=== PATIENT | female | born 1940 | race Caucasian/White ===

== ENCOUNTER → 2017-07-02 17:58 | Outpatient (CLI) | payer MEDICARE, SELFPAY ==
--- NOTE | 2017-07-02 13:00 | LES_PTH ---
PATIENT: CORY CUELLO LOC: [facility] U#:[id number] AGE/SX: 84/F ROOM: RE07/02/[address]: Dr. Patrick Hawkins MD : 1940 BED: DIS: SPEC #: [id number] RECD: 07/02/17 17:24 STATUS: DAVIDE WAGNER #: [id number] ROSIO: 07/02/17 13:[address]: Patrick Hawkins DEPT: SURGICAL PATHOLOGY RECD BY: Larisa Sanchez ENTERED: 07/03/17 10:50 SP TYPE: Lesion OTHR DR: Dr. Sunil Adamson MD Tissues: Skin of head, NOS Procedures: Surgery Specimen Level IV HEADER OPERATION: Excision skin lesion, right latter day PRE-OP DIAGNOSIS: Right latter day lesion TISSUE SUBMITTED: Right latter day lesion, suture woods inferior aspect MICROSCOPIC DIAGNOSIS Right latter day lesion, excisional biopsy: Basal cell carcinoma, completely excised in the planes of sections examined. SJ:macie 07/04/17 MICROSCOPIC DESCRIPTION Slides are reviewed. GROSS DESCRIPTION Received in fixative is one container labeled with the patient's name and designated right latter day. Requisition mentions a suture woods inferior aspect. The specimen consists of a piece of posey-white skin ellipse measuring 3 x 1.2 cm and up to 0.3 cm in thickness. The inferior tip with suture is assigned as the 6 o?clock positon. The superior tip 12 o?clock position is inked yellow and inferior tip 6 o?clock position - green, 3 o?clock margin ? black and 9 o?clock margin ? blue. The specimen is serially sectioned and submitted entirely in three cassettes: Cassette 1 contains the inferior and superior tip, 2 & 3 ? rest of the specimen. / JOSEPH:macie 07/03/17 TC:0 CPT: 50504
== END ==
PROVIDERS: Family Provider Family Medicine; PCP Family Medicine; Visit Provider Surgery
DX: L98.8 Other specified disorders of the skin and subcutaneous tissue (principal)
CPT/HCPCS: 88305

== ENCOUNTER → 2017-07-03 09:36 | Outpatient (CLI) | payer MEDICARE, SELFPAY ==
[2017-07-03 12:32] LABS: Hemoglobin A1c 7.8 % (4.2-6.3)
[2017-07-03 12:36] LABS: ALB/GLOB Ratio 1.1 RATIO (0.9-2.4); AST(SGOT) 15 U/L (15-37); Alanine Aminotransfer ALT/SGPT 24 U/L (13-56); Albumin, Serum 3.3 g/dL (3.2-5.0); Alkaline Phosphatase 151 U/L (45-117); Anion Gap 7 (5-15); BUN 16 mg/dL (7-18); BUN/Creat Ratio 19.6 RATIO (10-20); Calcium,Total 8.9 mg/dL (8.5-10.1); Chloride 107 mmol/L (98-107); Cholesterol 101 mg/dL (200); Creatinine, Serum 0.82 mg/dL (0.55-1.02); EST Glomerular Filtration Rate 73 mL/min (>60); Est Glom Filt Rate - Afr Amer 88 mL/min (>60); Globulin 3.1 g/dL (2.2-4.2); Glucose 174 mg/dL (74-106); High Density Lipoprotein 54 mg/dL; Potassium 4.1 mmol/L (3.5-5.1); Protein, Total 6.4 g/dL (6.4-8.2); Sodium Level 141 mmol/L (136-145); Thyroid Stim Hormone (TSH) 2.18 uIU/mL (0.358-3.74); Triglycerides 114 mg/dL; Very Low Density Lipoprotein 23 mg/dL (5-40)
[2017-07-04 09:43] LABS: Vitamin D,25 Hydroxy 57.4 ng/mL (29.95-100.01)
== END ==
PROVIDERS: Family Provider Family Medicine; PCP Family Medicine; Visit Provider Family Medicine
DX: E11.9 Type 2 diabetes mellitus without complications (principal); E55.9 Vitamin D deficiency, unspecified
CPT/HCPCS: 36415; 80053; 80061; 82306; 83036; 84443

== ENCOUNTER → 2017-07-07 13:21 | Outpatient (CLI) | payer MEDICARE, SELFPAY ==
[2017-07-07 16:01] LABS: Microalbumin,Random Urine 17.8 mg/L (NO RANGE EST.); Microalbumin:Creatinine Ratio 15.8 mg/g CRE (<30 mg/g CRE)
== END ==
PROVIDERS: Family Provider Family Medicine; PCP Family Medicine; Visit Provider Family Medicine
DX: E11.9 Type 2 diabetes mellitus without complications (principal)
CPT/HCPCS: 82043; 82570

== ENCOUNTER → 2017-07-14 16:13 | Outpatient (CLI) | payer MEDICARE, SELFPAY ==
--- NOTE | 2017-07-14 16:28 | MRI_ITS ---
STUDY: MRI LUMBAR SPINE WITHOUT CONTRAST REASON FOR EXAM: Female, 76 years old. Increasing falls and weakness over the last 9 months. Patient has radicular symptoms down both legs. TECHNIQUE: Standardized fat and water weighted pulse sequences were obtained in the sagittal and axial planes. COMPARISON: MRI of the lumbar spine dated August 20, 2016. FINDINGS: T12-L1: There is narrowing of this disc. There is a disc bulge and osteophyte complex. Neural foramina are narrowed without evidence for nerve impingement. There is no significant central acquired canal stenosis. There is straightening of the normal lumbar lordosis. There is mild curvature of the thoracic and lumbar spine with convexity towards left. Estimated angulation is approximately 18.8 degrees. Normal conus medullaris that terminates at the T12-L1 level. L1-2: There is narrowing of the disc with annular disc bulge and osteophyte complex. There is moderately severe degenerative arthropathy of facet joints. There is mild central acquired canal stenosis. Neural foramina are narrowed without evidence for nerve impingement. L2-3: There is narrowing of the disc. There is a large annular disc bulge and osteophyte complex. There is moderately severe degenerative arthropathy of facet joints, right greater than left. There is mild central acquired canal stenosis. Neural foramina are narrowed, severely on the right with probable impingement of the right L2 nerve root at the neural foramen. L3-4: There is anterolisthesis at this level. There is uncovering the disc. Appears be a large broad central disc protrusion. There are severe degenerative arthropathy of facet joints, right greater left. There is severe acquired canal stenosis with probable impingement of the cauda equina. Neural foramina are bilaterally narrowed with the probable impingement of the L3 nerve roots at the neural foramina. L4-5: There is narrowing of this disc. There is a moderate annular disc bulge and osteophyte complex. There may be also a broad central disc protrusion. There is mild degenerative arthropathy of facet joints. There is moderate acquired canal stenosis. Neural foramina are bilaterally narrowed, severely on the left with probable impingement of the L4 nerve root at the neural foramen. There is abnormal signal at the endplates suggesting sequela of acute Modic changes. L5-S1: There is a large annular disc bulge and osteophyte complex. There is moderately severe degenerative arthropathy of facet joints, left greater than right. There is mild central acquired canal stenosis. Neural foramina are narrowed, left greater than right, with possible impingement of the left L5 nerve root at the neural foramen. Normal visualized sacral ala. There is mild paraspinal muscular atrophy. There are bilateral renal cysts. The IVC is slitlike suggesting hypovolemia and/or dehydration. 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 Electronically Signed: Yanely Palmer MD at 8:11 EDT , Service support ,
--- NOTE | 2017-07-14 16:28 | MRI_ITS ---
STUDY: MRI CERVICAL SPINE WITHOUT CONTRAST REASON FOR EXAM: Female, 76 years old. Increased falls and weakness for last 9 months. TECHNIQUE: Standardized fat and water weighted pulse sequences were obtained in the sagittal and axial planes. COMPARISON: None FINDINGS: Normal foramen magnum and brainstem-cervical cord junction. Normal craniovertebral junction. There are degenerative changes of the anterior atlantoaxial articulation. Normal odontoid process. There is straightening of the normal cervical lordosis. There is decreased height of the C5, C6 and C7 vertebral bodies probably related to mild old compression fractures. The remaining vertebral bodies have normal height. C2-3: Normal endplates. Normal disc height, signal and morphology. Normal central canal and intervertebral neural foramina. C3-4: There is a focal central disc protrusion. There is mild neural foraminal narrowing. There is uncovertebral and facet joint arthropathy. There is mild central acquired canal stenosis. There is no evidence for nerve impingement. C4-5: There is narrowing of the disc. There is a broad central disc protrusion. There is mild central acquired canal stenosis. Neural foramina are narrowed, moderately severe on the left with potential nerve impingement. The right neural foramen is patent. C5-6: There is severe narrowing of the disc. There is a large broad central disc protrusion with moderate acquired canal stenosis. There is displacement of the spinal cord posteriorly with potential impingement of the right side of the cervical spinal cord at this level. There is severe neural foraminal narrowing with potential nerve impingement. C6-7: There is severe narrowing of the disc. There is a broad central disc protrusion and osteophyte complex. There is moderate acquired canal stenosis with definite flattening of the spinal cord and probable cord impingement. There is also apparent focal central disc protrusion at this level. There is severe left-sided neural foraminal narrowing with probable nerve impingement. There is moderate right-sided neural foraminal narrowing. C7-T1: Normal endplates. Normal disc height, signal and morphology. Normal central canal and intervertebral neural foramina. Normal cervical cord. There is no demonstrated cervical cord syrinx cavity. Normal visualized soft tissue structures. MRI/Spine Cervical (Routine) IMPRESSION: Moderately severe multilevel degenerative disc disease and degenerative arthropathy of the cervical spine with acquired canal stenosis, neural foraminal narrowing and potential nerve impingement, as described. Electronically Signed: Yanely Palmer MD at 9:28 EDT , Service support ,
== END ==
PROVIDERS: Family Provider Family Medicine; PCP Family Medicine; Visit Provider Family Medicine
DX: M48.03 Spinal stenosis, cervicothoracic region (principal); M48.061 Spinal stenosis, lumbar region without neurogenic claudication
CPT/HCPCS: 72141; 72148

== ENCOUNTER 2017-11-12 13:45 | Outpatient (RCR) | payer MEDICARE, SELFPAY ==
--- NOTE | 2017-11-12 14:43 | HP.PTCOM ---
PT Communication Note 11/12/[address] Sunil Adamson , I saw Ida Eaton this date. She arrived stating she no longer was having any L hip pain after the injection you gave to her last week. She was under the impression she was here for her neck surgery a few months prior. I talked to her about her hip tendonitis and ended up just giving her a few exercises to work on at home. She has a large copay as well. We held onto her script and told her if her pain starts to come back to call back and we can do an evaluation at that time. Thank you for your referral. I hope this will be okay. Sincerely, Dante Boston Contact Information
== END 2017-11-12 19:00 | disposition home or self-care (01) ==
LOC: PT 13:45
PROVIDERS: Family Provider Family Medicine; PCP Family Medicine; Visit Provider Family Medicine
DX: M25.552 Pain in left hip (principal); M76.12 Psoas tendinitis, left hip; Z98.1 Arthrodesis status

== ENCOUNTER → 2018-03-16 16:26 | Outpatient (CLI) | payer MEDICARE, SELFPAY ==
[2018-03-16 17:42] LABS: Absolute Lymphocyte Count 1.71 X10^3/ul (0.83-4.51); Absolute Neutrophil Count 3.8 X10^3/uL (2.0-7.7); Basophil# 0.03 X10^3/uL; Basophil% 0.5 % (0-1); Eosinophil# 0.22 X10^3/uL; Eosinophils% 3.5 % (0-5); Hematocrit 41.5 % (37-47); Hemoglobin 13.7 g/dl (12.0-15.0); Lymphocyte # 1.71 X10^3/ul (4.0); Lymphocyte % 27.5 % (19-41); Mean Corpuscular Hgb 28.9 pg (27.0-32.0); Mean Corpuscular Volume 87.6 fL (81-99); Mean Platelet Vol. 9.8 fl (6.2-12.0); Monocyte# 0.43 X10^3/uL; Monocyte% 6.9 % (0-10); Neutrophil # 3.82 X10^3/uL (2.7-7.7); Neutrophil % 61.6 % (47-70); Platelet Count 161 K/mm3 (150-450); RBC Distribution Width CV 12.9 % (11.6-14.6); RBC Distribution Width SD 41.4 fl (35.1-43.9); Red Blood Count 4.74 M/mm3 (4.2-5.4); White Blood Count 6.2 K/mm3 (4.4-11.0)
[2018-03-16 17:43] LABS: POSITIVE COUNT NO; POSITIVE DIFFERENTIAL NO; POSITIVE MORPHOLOGY NO
[2018-03-16 17:47] LABS: ALB/GLOB Ratio 1.1 RATIO (0.9-2.4); AST(SGOT) 17 U/L (15-37); Alanine Aminotransfer ALT/SGPT 29 U/L (13-56); Albumin, Serum 3.5 g/dL (3.2-5.0); Alkaline Phosphatase 142 U/L (45-117); Anion Gap 13 (5-15); BUN 15 mg/dL (7-18); BUN/Creat Ratio 17.7 RATIO (10-20); Calcium,Total 9.2 mg/dL (8.5-10.1); Chloride 109 mmol/L (98-107); Creatinine, Serum 0.85 mg/dL (0.55-1.02); EST Glomerular Filtration Rate 69 mL/min (>60); Est Glom Filt Rate - Afr Amer 84 mL/min (>60); Globulin 3.2 g/dL (2.2-4.2); Glucose 149 mg/dL (74-106); Potassium 3.8 mmol/L (3.5-5.1); Protein, Total 6.7 g/dL (6.4-8.2); Sodium Level 143 mmol/L (136-145); Thyroid Stim Hormone (TSH) 1.83 uIU/mL (0.358-3.74)
== END ==
PROVIDERS: Family Provider Family Medicine; PCP Family Medicine; Visit Provider Family Medicine
DX: E11.9 Type 2 diabetes mellitus without complications (principal); M76.31 Iliotibial band syndrome, right leg
CPT/HCPCS: 36415; 80053; 84443; 85025

== ENCOUNTER → 2018-03-20 13:15 | Outpatient (CLI) | payer MEDICARE, SELFPAY ==
--- NOTE | 2018-03-20 13:21 | RAD_ITS ---
HISTORY: RECENT FUSION SURGERY, LEFT SIDED PAIN COMPARISON: Cervical spine MRI report (but not images) 07/14/2017 FINDINGS: XR Spine Cervical 4 views. Generalized bony demineralization consistent with the patient's age. Straightening of the cervical spine. Cervical vertebra are normal in height. No fracture or acute disease. Anterior discectomy with C5-6 and C6-7 interbody fusions with prosthetic disc spacers and anterior fixation with a metallic plate and 6 threaded surgical screws. The disc spacers and surgical hardware appear in appropriate position. Multilevel advanced facet joint arthritis most notably involving the C3-4, C4-5, and C7-T1 levels. Degenerative mild anterolisthesis of C7 on T1. C1-C2 osteoarthritis. RAD/Cerv Spine 2 or 3 Views IMPRESSION: 1. C5-6-7 anterior surgical fusion. No complication seen. 2. Multilevel degenerative changes, details above. at [id number] Reported and signed by: Roland Noel MD Electronically Signed: Roland Noel, at 8:05 EST Tel , Service support ,
[2018-03-20 16:58] LABS: Microalbumin,Random Urine < 5.0 mg/L (NO RANGE EST.)
--- OUTSIDE RECORDS SUMMARY | 2018-05-15 12:28 | XMS RPT_ITS ---
:1940 Author Organization [place] Support Name Relationship Address Phone LILIBETH EATON Unavailable [address] + [address] [place] [address] JADENISABELAJOSEFA HAIRDY Unavailable [address] + [place] [address] R Unavailable Unavailable Unavailable LILIBETH EATON Unavailable [address] + [address] [place] [address] LAZJOSEFA HAIRDY Unavailable [address] + [place] [address] R Unavailable Unavailable Unavailable Barbara Jessica Unavailable Unavailable + Barbara Jessica Unavailable Unavailable + LILIBETH EATON Unavailable [address] + [address] [place] [address] LAZJOSEFA HAIRDY Unavailable [address] + [place] [address] R Unavailable Unavailable Unavailable LAZLAXMI JESSICA Unavailable Unavailable + JOSEFA JIMENEZDY Unavailable Unavailable + LILIBETH EATON Unavailable [address] [phone] [place] [address] JADENISABELALAXMI JESSICA Unavailable [address] + [place] [address] R Unavailable Unavailable Unavailable LILIBETH EATON Unavailable [address] [phone] [place] [address] LAZLAXMI JESSICA Unavailable [address] + [place] [address] R Unavailable Unavailable Unavailable LILIBETH EATON Unavailable [address] [phone] [place] [address] JESSICA JIMENEZ Unavailable [address] + [place] [address] R Unavailable Unavailable Unavailable LILIBETH EATON Unavailable [address] [phone] [place] [address] JESSICA JIMENEZ Unavailable [address] + [place] [address] R Unavailable Unavailable Unavailable LILIBETH EATON Unavailable [address] [phone] [place] [address] JOSEFA JIMENEZDY Unavailable [address] + [place] [address] R Unavailable Unavailable Unavailable LILIBETH EATON Unavailable [address] [phone] [place] [address] JOSEFA JIMENEZDY Unavailable [address] + [place] [address] R Unavailable Unavailable Unavailable LILIBETH EATON Unavailable [address] [phone] [place] [address] JOSEFA JIMENEZDY Unavailable [address] + [place] [address] R Unavailable Unavailable Unavailable LILIBETH EATON Unavailable [address] [phone] [place] [address] JOSEFA JIMENEZDY Unavailable [address] + [place] [address] R Unavailable Unavailable Unavailable Jessica Jimenez Unavailable Unavailable + Care Team Providers Name Role Phone Adamson, Marcos Referring Unavailable Adamson, Marcos Primary Care Unavailable Rick Maldonado Attending Unavailable MARIELA COLVIN Attending Unavailable Adamson, Marcos Referring Unavailable Adamson, Marcos Primary Care Unavailable Lavon Rosales Attending Unavailable Adamson, Marcos Referring Unavailable Adamson, Marcos Primary Care Unavailable ELIOT ROSALES Admitting Unavailable ELIOT ROSALES Attending Unavailable ADAMSON, MARCOS Primary Care Unavailable ARABELLA CARMICHAEL Consulting Unavailable PETE PRICE Consulting Unavailable ELIOT ROSALES Procedure Practitioner Unavailable ELIOT ROSALES Admitting Unavailable ELIOT ROSALES Attending Unavailable ADAMSON, MARCOS Primary Care Unavailable Cebul, Patrick Attending Unavailable Adamson, Marcos Referring Unavailable Adamson, Marcos Primary Care Unavailable Cebul, Patrick Attending Unavailable Adamson, Marcos Referring Unavailable Adamson, Marcos Primary Care Unavailable Cebul, Patrick Attending Unavailable Adamson, Marcos Primary Care Unavailable Cebul, Patrick Referring Unavailable Adamson, Marcos Attending Unavailable Adamson, Marcos Primary Care Unavailable Tiki Bell PA-C Attending Unavailable Adamson, Marcos Referring Unavailable Adamson, Marcos Primary Care Unavailable Adamson, Marcos Attending Unavailable Adamson, Marcos Referring Unavailable Adamson, Marcos Primary Care Unavailable Adamson, Marcos Attending Unavailable Adamson, Marcos Referring Unavailable Adamson, Marcos Primary Care Unavailable Adamson, Marcos Attending Unavailable Adamson, Marcos Referring Unavailable Adamson, Marcos Primary Care Unavailable Adamson, Marcos Attending Unavailable Adamson, Marcos Referring Unavailable Adamson, Marcos Primary Care Unavailable Adamson, Marcos Attending Unavailable Adamson, Marcos Primary Care Unavailable Adamson, Marcos Attending Unavailable Adamson, Marcos Referring Unavailable Adamson, Marcos Primary Care Unavailable Lavon Rosales Consulting Unavailable PROBLEMS PROBLEMS DATE TYPE CONDITION / CODE ATTENDING STATUS SOURCE 03/16/2018 Unknown E11.9 - Type 2 Marcos Adamson Active [place] diabetes mellitus Community without Hospital complications / Repository E11.9(ICD-10) 03/16/2018 Unknown M76.31 - Iliotibial Marcos Adamson Active [place] band syndrome, right Community leg / M76.31(ICD-10) Hospital Repository 12/01/2017 Admitting Other spondylosis, Bobby, Active [facility] Diagnosis cervical region / [facility] M47.892(ICD-10) Repository 12/01/2017 Admitting Disease of spinal Bobby, Active [facility] Diagnosis cord, unspecified / [facility] G95.9(ICD-10) Repository 12/01/2017 Admitting Arthrodesis status / Bobby, Active [facility] Diagnosis Z98.1(ICD-10) [facility] Repository 11/25/2017 Admitting Comb rheumatic MARII, 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, 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 / I08.3(ICD-10) 01/21/2018 Unknown M25.552 - Pain in Marcos Adamson Active [place] left hip / Community M25.552(ICD-10) Hospital Repository 10/07/2017 Active DISEASE OF SPINAL BOBBY, Active [facility] CORD UNSPECIFIED / [facility] G95.9(ICD-10) Repository 10/07/2017 Principle OTH SPONDYLOSIS BOBBY, Active [facility] Diagnosis W/MYELOPATHY CERV / [facility] M47.12(ICD-10) Repository 10/07/2017 Secondary CERV DISC D/O C5-C6 BOBBY, Active [facility] Diagnosis LVL MYELOPATHY / [facility] M50.022(ICD-10) Repository 10/07/2017 Secondary OTH SPONDYLS BOBBY, Active [facility] Diagnosis RADICULOPATHY CERV [facility] RGN / M47.22(ICD-10) Repository 10/07/2017 Secondary ESSENTIAL PRIMARY BOBBY, Active [facility] Diagnosis HYPERTENSION / [facility] I10(ICD-10) Repository 10/07/2017 Secondary HYPERLIPIDEMIA BOBBY, Active [facility] Diagnosis UNSPECIFIED / [facility] E78.5(ICD-10) Repository 10/07/2017 Secondary TYPE 2 DM WITHOUT BOBBY, Active [facility] Diagnosis COMPLICATIONS / [facility] E11.9(ICD-10) Repository 10/07/2017 Secondary NONRHEUMATIC AORTIC BOBBY, Active [facility] Diagnosis VALVE STENOSIS / [facility] I35.0(ICD-10) Repository 10/07/2017 Secondary OBSTRUCTIVE SLEEP BOBBY, Active [facility] Diagnosis APNEA / [facility] G47.33(ICD-10) Repository 10/07/2017 Secondary POSTPROCEDURAL BOBBY, Active [facility] Diagnosis HYPOTHYROIDISM / [facility] E89.0(ICD-10) Repository 10/07/2017 Secondary 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, Active [facility] Diagnosis USE OF ASPIRIN / [facility] Z79.82(ICD-10) Repository 10/07/2017 Secondary SPINAL STENOSIS BOBBY, Active [facility] Diagnosis CERVICAL REGION / [facility] M48.02(ICD-10) Repository 10/07/2017 Secondary GERD WITHOUT BOBBY, Active [facility] Diagnosis ESOPHAGITIS / [facility] K21.9(ICD-10) Repository 10/07/2017 Secondary IRRITABLE BOWEL SYND BOBBY, Active [facility] Diagnosis W/DIARRHEA / [facility] K58.0(ICD-10) Repository 10/07/2017 Secondary ANTHONY DEPRESS D/O BOBBY, Active [facility] Diagnosis SINGLE EPIS UNS / [facility] F32.9(ICD-10) Repository 10/07/2017 Secondary ANXIETY DISORDER BOBBY, Active [facility] Diagnosis UNSPECIFIED / [facility] F41.9(ICD-10) Repository 2017 Active ENCOUNTER OTHER BOBBY, Active [facility] PREPROCEDURAL EXAM / [facility] Z01.818(ICD-10) Repository 2017 Principle ENCOUNTER OTHER BOBBY, Active [facility] Diagnosis PREPROCEDURAL EXAM / [facility] Z01.818(ICD-10) Repository 2017 Secondary DISEASE OF SPINAL BOBBY, Active [facility] Diagnosis CORD UNSPECIFIED / [facility] G95.9(ICD-10) Repository 2017 Secondary UNSPECIFIED BOBBY, Active [facility] Diagnosis ATHEROSCLEROSIS / [facility] I70.90(ICD-10) Repository 2017 Secondary TORTUOUS AORTIC ARCH BOBBY, Active [facility] Diagnosis / Q25.46(ICD-10) [facility] Repository 07/02/2017 Unknown L98.9 - Disorder of Patrick Hawkins Active [place] [facility] subcutaneous tissue, Hospital unspecified / Repository L98.9(ICD-10) 05/27/2017 Admitting Nonrheumatic aortic [place], Active [facility] Diagnosis (valve) stenosis / [facility] I35.0(ICD-10) Repository 05/27/2017 Admitting Cardiomegaly / [place], Active [facility] Diagnosis I51.7(ICD-10) [facility] Repository PROCEDURES PROCEDURES DATE CODE DESCRIPTION STATUS SOURCE 09/30/2017 4QW70S6(ICD-1 FUSION OF 2 OR MORE Completed [facility] 0) CERVICAL VERTEBRAL Hospital Repository JOINTS WITH INTERBODY FUSION DEVICE, ANTERIOR APPROACH, ANTERIOR COLUMN, OPEN APPROACH 09/30/2017 [id number](ICD-1 RESECTION OF CERVICAL Completed [facility] 0) VERTEBRAL DISC, OPEN Hospital Repository APPROACH 09/30/2017 27IO5XU(ICD-1 RELEASE CERVICAL Completed [facility] 0) SPINAL CORD, OPEN Hospital Repository APPROACH 09/30/2017 11E28FV(ICD-1 RELEASE CERVICAL Completed [facility] 0) NERVE, OPEN APPROACH Hospital Repository 09/30/2017 40VC1MT(ICD-1 EXTRACTION OF ILIAC Completed [facility] 0) BONE MARROW, Hospital Repository PERCUTANEOUS APPROACH RESULTS RESULTS MICROALB:CREAT Collected: 03/20/2018 Status: F Source: [place] AHN,RANDOM UR 1:42 PM [facility] REPOSITORY TYPE CODE TESTS RESULT OUT OF RANGE REFERENCE UNITS LAB L501.1200 NO RANGE EST. mg/dL 18.60 Normal UR CREAT LAB L502.0500 NO RANGE EST. mg/L < 5.0 Normal MICROALBUMI N,UR LAB L502.0600 <30 mg/g CRE mg/g CRE Test Normal not performed MALB:CREAT Performed By: #### L502.0250 #### [facility] [address] [place], [address] CERV SPINE 2 OR 3 Observed: 03/20/2018 Status: F Source: [place] VIEWS 1:22 PM [facility] [place] [facility] Imaging Services [address] [place] [address] Cerv Spine 2 or 3 Views MR#: [id number] Acct: [id number] Name: IDA EATON Rep #: [id number] : 1940 F 77 From: Roland Noel MD PCP: Marcos Adamson MD Status: REG CLI Study: Cerv Spine 2 or 3 Views Date of Exam: 03/20/18 Exam# [id number] Ordering Dr: Marcos Adamson MD HISTORY: RECENT FUSION SURGERY, LEFT SIDED PAIN COMPARISON: Cervical spine MRI report (but not images) 07/14/2017 FINDINGS: XR Spine Cervical 4 views. Generalized bony demineralization consistent with the patient's age. Straightening of the cervical spine. Cervical vertebra are normal in height. No fracture or acute disease. Anterior discectomy with C5-6 and C6-7 interbody fusions with prosthetic disc spacers and anterior fixation with a metallic plate and 6 threaded surgical screws. The disc spacers and surgical hardware appear in appropriate position. Multilevel advanced facet joint arthritis most notably involving the C3-4, C4-5, and C7-T1 levels. Degenerative mild anterolisthesis of C7 on T1. C1-C2 osteoarthritis. RAD/Cerv Spine 2 or 3 Views IMPRESSION: 1. C5-6-7 anterior surgical fusion. No complication seen. 2. Multilevel degenerative changes, details above. 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 CBC W/DIFF, AUTOMATED Collected: 03/16/2018 Status: F Source: [place] 4:27 PM [facility] [place] TYPE CODE TESTS RESULT OUT OF RANGE REFERENCE UNITS LAB L100.1000 4.4-11.0 K/mm3 Normal WBC 6.2 LAB L100.1200 4.2-5.4 M/mm3 Normal RBC 4.74 LAB L100.1300 12.0-15.0 g/dl Normal HGB 13.7 LAB L100.1400 37-47 % Normal HCT 41.5 LAB L100.1500 81-99 fL Normal MCV 87.6 LAB L100.1600 27.0-32.0 pg Normal MCH 28.9 LAB L100.1700 32-36 g/gl Normal MCHC 33.0 LAB L100.1810 11.6-14.6 % Normal RDW CV 12.9 LAB L100.1820 35.1-43.9 fl Normal RDW SD 41.4 LAB L100.1900 150-450 K/mm3 Normal PLT 161 LAB L100.2000 6.2-12.0 fl Normal MPV 9.8 LAB L100.2100 47-70 % Normal NEUT% 61.6 LAB L100.2200 19-41 % Normal LY% 27.5 LAB L100.2300 0-10 % Normal MONO% 6.9 LAB L100.2400 0-5 % Normal EO% 3.5 LAB L100.2500 0-1 % Normal BASO% 0.5 LAB L100.2550 0.0-0.9 % Normal IM GRAN % 0.000 Result Comment: IG% - Immature Granulocytes (promyelocytes, myelocytes and metamyelocytes) > 1% indicates that a LEFT SHIFT is Present. LAB L100.2620 2.0-7.7 X10 3/uL Normal Absolute Neut 3.8 LAB L100.2720 0.83-4.51 X10 3/ul Normal Absolute Lymph 1.71 Performed By: #### L100.0100, L500.4050, L501.9520 #### [facility] [address] [place], [address] COMPREHENSIVE METABOLIC Collected: 03/16/2018 Status: F Source: [place] H[place]LEY 4:27 PM [facility] [place] TYPE CODE TESTS RESULT OUT OF RANGE REFERENCE UNITS LAB L501.0100 74-106 mg/dL High GLU 149 Result Comment: Fasting Glucose result greater than or equal to 126 mg/dL suggests DIABETES MELLITUS per A.D.A. criteria. Please note revised GLUCOSE reference range effective 2017. LAB L501.1000 7-18 mg/dL Normal BUN 15 LAB L501.1100 0.55-1.02 mg/dL Normal CREAT,SERUM 0.85 Result Comment: The validity of the calculated GFR AND GFRAA in patients over 70 years has not been determined. Clinical correlation is essential. LAB L501.1110 >60 mL/min Normal EST GFR 69 Result Comment: Non- GFR Calc LAB L501.1115 >60 mL/min Normal EST GFR - AA 84 Result Comment: GFR Calc LAB L501.1300 10-20 RATIO Normal BUN/CRE 17.7 LAB L501.1500 6.4-8.2 g/dL T Normal PROT 6.7 LAB L501.1800 3.2-5.0 g/dL Normal ALB 3.5 LAB L501.1950 2.2-4.2 g/dL Normal GLOB 3.2 LAB L501.2000 0.9-2.4 RATIO Normal A/G 1.1 LAB L501.2200 8.5-10.1 mg/dL CA Normal 9.2 LAB L501.4100 15-37 U/L Normal AST 17 LAB L501.4305 45-117 U/L High ALK P 142 LAB L501.4405 13-56 U/L Normal ALT 29 LAB L501.4600 0.20-1.00 mg/dL High T BILI 1.90 LAB L501.5300 136-145 mmol/L NA Normal 143 LAB L501.5600 3.5-5.1 mmol/L K Normal 3.8 LAB L501.5900 98-107 mmol/L High CL 109 LAB L501.6100 21.0-32.0 mmol/L Normal CO2 21.0 LAB L501.6200 5-15 Normal GAP 13 Performed By: #### L100.0100, L500.4050, L501.9520 #### [place] [facility] [address] [place], [address] THYROID STIM HORMONE Collected: 03/16/2018 Status: F Source: [place] (TSH) 4:27 PM [facility] [place] TYPE CODE TESTS RESULT OUT OF RANGE REFERENCE UNITS LAB L501.9520 0.358-3.74 uIU/mL Normal TSH 1.83 Performed By: #### L100.0100, L500.4050, L501.9520 #### [facility] [address] [place], [address] CR SPINE CERVICAL 2 Observed: 12/01/2017 Status: F Source: [facility] OR 3 VIEWS 8:57 PM SYSTEM REPOSITORY Patient Name: IDA EATON Diagnostic Radiology Exam Date/Time 12/01/2017 10:18:47 EDT Exam CR Spine Cervical 2 or 3 Views Ordering Physician LAVON ROSALES Accession Number [id number] CPT4 Codes 67187 () Reason For Exam cervical myelopathy Report CERVICAL SPINE SERIES CLINICAL INDICATION: Cervical myelopathy AP and lateral odontoid views of the cervical spine were obtained. COMPARISON: None. FINDINGS: The alignment of the cervical spine is normal. No fractures are seen. There is no prevertebral soft tissue swelling. The dens and lateral masses of the C1 vertebral body appear normal on the odontoid view. There is anterior plate and screw fusion hardware at C5-C7, with intervening spacer devices. There are moderate diffuse degenerative changes of the cervical spine with loss of intervertebral disc space height and degenerative endplate spurring. Facet hypertrophic changes are also noted throughout the cervical spine. IMPRESSION: No evidence of fracture or dislocation of the cervical spine. Moderate diffuse degenerative changes of the cervical spine. Status post C5-C7 anterior fusion. Report Dictated on Final Dictated: 12/01/2017 8:57 pm Dictating Physician: ARTURO RANGEL Signed Date and Time: 12/01/2017 8:59 pm Signed by: ARTURO RANGEL Transcribed Date and Time: 12/01/2017 8:57 ECHO COMPLETE W/WO Observed: 11/25/2017 Status: F Source: [email or web address] 12:59 PM SYSTEM REPOSITORY Patient Name: IDA EATON Ultrasound Exam Date/Time 11/25/2017 13:05:05 EDT Exam Echo Complete w/wo Contrast Ordering Physician OLIVIA COLVIN MICHELLE Accession Number [id number] Reason For Exam , 6 month f/u Report TRANSTHORACIC ECHOCARDIOGRAM PATIENT: Ida Eaton STUDY DATE: 11/25/2017 : 1940 AGE: 77 HT/WT: 154.9 cm (61 89.8 kg in) (197.6 lb) GENDER: F BP: 137 / 80 LOCATION: [facility] and PATIENT Outpatient [facility] STATUS: *ORDERING PHYSICIAN: * Mariela Colvin *READING PHYSICIAN: * Constantino Nowak MD *OUTSOLE TACKER: * Poppy Bonilla RDCS, AE --- INDICATIONS: Aortic Stenosis, severe (I35.0), 6 month follow-up --- CONCLUSIONS SUMMARY: 1. Left ventricle: There is mild concentric hypertrophy. Systolic function is normal by the biplane method of disks. The estimated ejection fraction is 66%. There are no regional wall motion abnormalities. Features are consistent with a pseudonormal left ventricular filling pattern, with concomitant abnormal relaxation and increased filling pressure (grade 2 diastolic dysfunction). Stroke volume/bsa (LVOT, Doppler): 42 ml/m2. 2. Mitral valve: Moderately calcified annulus. Mildly thickened leaflets. 3. Aortic valve: There is moderate to severe stenosis. Mean gradient (S): 37 mm Hg. Dimensionless index: 0.24. 4. Tricuspid valve: There is mild, 1+ regurgitation. --- STUDY DATA: Complete transthoracic echocardiogram. Procedure: Image quality was adequate. M-mode, complete 2D, complete spectral Doppler, and color flow Doppler images were acquired and archived for permanent storage and are available for subsequent review. Study status: Routine. Patient status: Outpatient. --- FINDINGS LEFT VENTRICLE: The cavity size is normal. Wall thickness is mildly increased. There is mild concentric hypertrophy. Systolic function is normal by the biplane method of disks. The estimated ejection fraction is 66%. There are no regional wall motion abnormalities. Features are consistent with a pseudonormal left ventricular filling pattern, with concomitant abnormal relaxation and increased filling pressure (grade 2 diastolic dysfunction). E/e' average: 20 RIGHT VENTRICLE: The cavity size is normal. Wall thickness is normal. Systolic function is normal. Right ventricular systolic pressure is mildly increased. VENTRICULAR SEPTUM: There is no evidence of a ventricular septal defect. LEFT ATRIUM: The atrium is normal in size. RIGHT ATRIUM: The atrium is normal in size. ATRIAL SEPTUM: Color Doppler shows no evidence of shunt. MITRAL VALVE: Moderately calcified annulus. Mildly thickened leaflets. Doppler: There is trivial, less than 1+ regurgitation. Valve area by pressure half-time: 1.9 cm2. Valve area by continuity equation (using LVOT flow): 1.3 cm2. Mean gradient (D): 3 mm Hg. Peak gradient (D): 12 mm Hg. AORTIC VALVE: Trileaflet; moderately thickened, moderately calcified leaflets. Doppler: There is moderate to severe stenosis. There is trivial, less than 1+ regurgitation. Dimensionless index: 0.24. Valve area (VTI): 0.8 cm2. Indexed valve area (VTI): 0.4 cm2/m2. Mean gradient (S): 37 mm Hg. Peak gradient (S): 63 mm Hg. Peak velocity (S): 4 m/sec. TRICUSPID VALVE: Structurally normal valve. Doppler: There is mild, 1+ regurgitation. PULMONIC VALVE: Structurally normal valve. Doppler: There is trivial, less than 1+ regurgitation. Peak gradient (S): 2 mm Hg. AORTA: The aorta is normal. PULMONARY ARTERY: Main pulmonary artery: Normal. PERICARDIUM: There is no pericardial effusion. SYSTEMIC VEINS: Inferior vena cava: The vessel is normal. The IVC collapses by greater than 50% with inspiration. --- Measurements Left ventricle Value 05/27/2017 Reference LV ID, ED 4.8 cm 4.1 3.9 - 5.3 LV ID, ES 2.5 cm 2.5 ------ --- LV PW thickness, ED (H) 1.2 cm 0.6 0.6 - 0.9 LV end-diastolic volume, 1-p A4C 83 ml 78 56 - 104 LV end-systolic volume, 1-p A4C 24 ml 17 19 - 49 LV end-diastolic volume, 2-p 71 ml 84 56 - 104 LV end-systolic volume, 2-p 24 ml 16 19 - 49 LV ejection fraction, 2-p 66 % 60 >=55 LV E/e', lateral 16.7 23.5 ------ --- LV E/e', medial 24.7 29 ------ --- LV E/e', average 19.9 25.9 ------ --- Ventricular septum Value 05/27/2017 Reference IVS thickness, ED (H) 1.2 cm 1.2 0.6 - 0.9 LVOT Value 05/27/2017 Reference LVOT ID, A-P 2.0 cm 1.9 ------ --- LVOT mean velocity, S 0.7 m/sec 0.7 ------ --- LVOT VTI, S 26.8 cm 26.0 ------ --- LVOT peak gradient, S 4 mm Hg 4 ------ --- Stroke volume (SV), LVOT DP 85 ml 72 ------ --- Stroke index (SV/bsa), LVOT DP 42 ml/m2 35 ------- -- Aortic valve Value 05/27/2017 Reference Aortic valve peak velocity, S 4 m/sec 3.5 ------ --- Aortic valve mean velocity, S 2.9 m/sec 2.6 ------ --- Aortic valve VTI, S 109.7 cm 96.1 ------ --- Aortic mean gradient, S 37 mm Hg 30 ------ --- Aortic peak gradient, S 63 mm Hg 48 ------ --- DI 0.24 0.27 ------ --- Aortic valve area, VTI 0.8 cm2 0.7 ------- -- Aortic valve area/bsa, VTI 0.4 cm2/m2 0.4 -------- - Aorta Value 05/27/2017 Reference Ascending aorta ID, A-P, S 3.1 cm 2.7 ------ --- Left atrium Value 05/27/2017 Reference LA volume/bsa, ES, 2-p 31 ml/m2 22 ------- -- Mitral valve Value 05/27/2017 Reference Mitral E-wave peak velocity 1.1 m/sec 1 ------ --- Mitral A-wave peak velocity 1.3 m/sec 1.1 ------ --- Mitral deceleration time 419 ms 325 ------ --- Mitral pressure half-time 114 ms ------ --- Mitral mean gradient, D 3 mm Hg ------ --- Mitral peak gradient, D 12 mm Hg 4 ------ --- Mitral E/A ratio, peak 0.9 0.9 ------ --- Mitral valve area, PHT, DP 1.9 cm2 ------- -- Mitral valve area, LVOT 1.3 cm2 ------- -- continuity Tricuspid valve Value 05/27/2017 Reference Tricuspid regurg peak velocity 3 m/sec 2.4 ------ --- Tricuspid peak RV-RA gradient 37 mm Hg 23 ------ --- Right atrium Value 05/27/2017 Reference RA area, ES, A4C 12 cm2 12 10 - 18 Pulmonic valve Value 05/27/2017 Reference Pulmonic peak gradient, S 2 mm Hg ------ --- Legend: (L) and (H) kelsey values outside specified reference range. Electronically signed by Constantino Nowak MD 11/25/2017 14:43 Final Dictated: 11/25/2017 2:43 pm Dictating Physician: CONSTANTINO NOWAK Signed Date and Time: 11/25/2017 2:43 pm Signed by: CONSTANTINO NOWAK PT COMMUNICATION Observed: 11/12/2017 Status: F Source: [place] 2:48 PM [facility] [place] [facility] Physical Therapy [facility] [address] [place] [address]. [address] [place] [address] Fax REHABILITATION SERVICES PROGRESS NOTE MR#: [id number] Acct: [id number] Name: CUATEIDA Rep #: [id number] : 1940 77 From: Dante Boston DPT Referring Dr.: Marcos Adamson MD Status: REG RCR Insurance: [facility] MED[facility] SELF PAY INSURANCE PT Communication Note 11/12/[address] Marcos Adamson , I saw Ida Eaton this date. She arrived stating she no longer was having any L hip pain after the injection you gave to her last week. She was under the impression she was here for her neck surgery a few months prior. I talked to her about her hip tendonitis and ended up just giving her a few exercises to work on at home. She has a large copay as well. We held onto her script and told her if her pain starts to come back to call back and we can do an evaluation at that time. Thank you for your referral. I hope this will be okay. Sincerely, Dante Boston Contact Information 11/12/17 4093 <Electronically signed by Dante Boston DPT> Date Dante Boston DPT Cosigner Signature (if applicable): Date CC: Marcos Adamson MD Signed For Medicare only, by signing this I certify the plan of care. Physicians Signature Date XR CHEST PA AND Observed: 09/22/2017 Status: F [facility] Order Comment: preop sx testing cervical sx on 09/29/17 HISTORY: Hypertension diabetes Views chest x2 with no comparison studies. FINDINGS: No infiltrates masses or pleural effusions. Atherosclerosis and tortuosity aorta with normal heart size. Possible calcified loose body right shoulder Report Dictated on Authenticated by: Christine Mireles On: 09/22/2017 14:56 Read by: CHRISTINE MIRELES MD Date: 09/22/2017 14:56 SPINE LUMBAR Observed: 07/14/2017 Status: F Source: [place] (ROUTINE) 4:30 PM [facility] [place] [facility] Imaging Services [address] [place] [address] Spine Lumbar (Routine) MR#: [id number] Acct: [id number] Name: IDA EATON Rep #: [id number] : 1940 F 76 From: Yanely Carmichael MD PCP: Marcos Adamson MD Status: REG CLI Study: Spine Lumbar (Routine) Date of Exam: 07/14/17 Exam# [id number] Ordering Dr: Marcos Adamson MD STUDY: MRI LUMBAR SPINE WITHOUT CONTRAST REASON FOR EXAM: Female, 76 years old. Increasing falls and weakness over the last 9 months. Patient has radicular symptoms down both legs. TECHNIQUE: Standardized fat and water weighted pulse sequences were obtained in the sagittal and axial planes. COMPARISON: MRI of the lumbar spine dated August 20, 2016. FINDINGS: T12-L1: There is narrowing of this disc. There is a disc bulge and osteophyte complex. Neural foramina are narrowed without evidence for nerve impingement. There is no significant central acquired canal stenosis. There is straightening of the normal lumbar lordosis. There is mild curvature of the thoracic and lumbar spine with convexity towards left. Estimated angulation is approximately 18.8 degrees. Normal conus medullaris that terminates at the T12-L1 level. L1-2: There is narrowing of the disc with annular disc bulge and osteophyte complex. There is moderately severe degenerative arthropathy of facet joints. There is mild central acquired canal stenosis. Neural foramina are narrowed without evidence for nerve impingement. L2-3: There is narrowing of the disc. There is a large annular disc bulge and osteophyte complex. There is moderately severe degenerative arthropathy of facet joints, right greater than left. There is mild central acquired canal stenosis. Neural foramina are narrowed, severely on the right with probable impingement of the right L2 nerve root at the neural foramen. L3-4: There is anterolisthesis at this level. There is uncovering the disc. Appears be a large broad central disc protrusion. There are severe degenerative arthropathy of facet joints, right greater left. There is severe acquired canal stenosis with probable impingement of the cauda equina. Neural foramina are bilaterally narrowed with the probable impingement of the L3 nerve roots at the neural foramina. L4-5: There is narrowing of this disc. There is a moderate annular disc bulge and osteophyte complex. There may be also a broad central disc protrusion. There is mild degenerative arthropathy of facet joints. There is moderate acquired canal stenosis. Neural foramina are bilaterally narrowed, severely on the left with probable impingement of the L4 nerve root at the neural foramen. There is abnormal signal at the endplates suggesting sequela of acute Modic changes. L5-S1: There is a large annular disc bulge and osteophyte complex. There is moderately severe degenerative arthropathy of facet joints, left greater than right. There is mild central acquired canal stenosis. Neural foramina are narrowed, left greater than right, with possible impingement of the left L5 nerve root at the neural foramen. Normal visualized sacral ala. There is mild paraspinal muscular atrophy. There are bilateral renal cysts. The IVC is slitlike suggesting hypovolemia and/or dehydration. 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 Increased falls and weakness for last 9 months. TECHNIQUE: Standardized fat and water weighted pulse sequences were obtained in the sagittal and axial planes. COMPARISON: None FINDINGS: Normal foramen magnum and brainstem-cervical cord junction. Normal craniovertebral junction. There are degenerative changes of the anterior atlantoaxial articulation. Normal odontoid process. There is straightening of the normal cervical lordosis. There is decreased height of the C5, C6 and C7 vertebral bodies probably related to mild old compression fractures. The remaining vertebral bodies have normal height. C2-3: Normal endplates. Normal disc height, signal and morphology. Normal central canal and intervertebral neural foramina. C3-4: There is a focal central disc protrusion. There is mild neural foraminal narrowing. There is uncovertebral and facet joint arthropathy. There is mild central acquired canal stenosis. There is no evidence for nerve impingement. C4-5: There is narrowing of the disc. There is a broad central disc protrusion. There is mild central acquired canal stenosis. Neural foramina are narrowed, moderately severe on the left with potential nerve impingement. The right neural foramen is patent. C5-6: There is severe narrowing of the disc. There is a large broad central disc protrusion with moderate acquired canal stenosis. There is displacement of the spinal cord posteriorly with potential impingement of the right side of the cervical spinal cord at this level. There is severe neural foraminal narrowing with potential nerve impingement. C6-7: There is severe narrowing of the disc. There is a broad central disc protrusion and osteophyte complex. There is moderate acquired canal stenosis with definite flattening of the spinal cord and probable cord impingement. There is also apparent focal central disc protrusion at this level. There is severe left-sided neural foraminal narrowing with probable nerve impingement. There is moderate right-sided neural foraminal narrowing. C7-T1: Normal endplates. Normal disc height, signal and morphology. Normal central canal and intervertebral neural foramina. Normal cervical cord. There is no demonstrated cervical cord syrinx cavity. Normal visualized soft tissue structures. MRI/Spine Cervical (Routine) IMPRESSION: Moderately severe multilevel degenerative disc disease and degenerative arthropathy of the cervical spine with acquired canal stenosis, neural foraminal narrowing and potential nerve impingement, as described. Electronically Signed: Yanely Carmichael MD at 9:28 EDT , Service support , CC: Marcos Adamson MD Corn Husker Machine Operator: Signed SURGERY VISIT REPORT Observed: 07/08/2017 Status: F Source: [place] 12:37 PM [facility] [place] [facility] [address] [place] [address] OFFICE VISIT Date of Service: 07/07/17 MR#: [id number] Acct: [id number] Name: IDA EATON Rep #: [id number] : 1940 Provider: Tiki Bell PA-C Age/Sex: 76/F Location: [facility] Status: Signed Intake Intake Visit Reasons: F/U EXC. LESION RT TEMPORAL AREA 07/02/2017 Chief Complaint: suture removal right yazidism Private Watchman Required: No Is patient in pain?: No Allergies iodine Allergy (Verified 07/07/17 13:01) Unknown Medications Aspirin E.C. [Ecotrin] 81 mg PO DAILY@0800 03/18/14 [History Confirmed 07/02/17] Benazepril HCl [Lotensin] 20 mg PO BID 03/18/14 [History Confirmed 07/02/17] Carvedilol [Coreg (Beta Sierra)] 25 mg PO BID 03/18/14 [History Confirmed 07/02/17] Levothyroxine [Synthroid] 75 mcg PO DAILY 03/18/14 [History Confirmed 07/02/17] Oxybutynin Chloride [Ditropan Xl] 10 mg PO DAILY 03/18/14 [History Confirmed 07/02/17] Paroxetine HCl [Paxil] 20 mg PO DAILY 03/18/14 [History Confirmed 07/02/17] Atorvastatin Calcium [Lipitor] 40 mg PO QHS 10/03/14 [History Confirmed 07/02/17] Ergocalciferol [Vitamin D] 50,000 unit PO Q7D 10/03/14 [History Confirmed 07/02/17] Latanoprost 0.005% [Xalatan Opthalmic] 1 drp EACH EYE QHS 10/03/14 [History Confirmed 07/02/17] Fexofenadine HCl [Yancy Allergy] 180 mg PO DAILY 09/26/16 [History Confirmed 07/02/17] furosemide 20 mg tablet 20 mg PO ONCE 06/11/17 [History Confirmed 07/02/17] Is last menstrual period known: No Post menopausal: Yes Patient : No [facility] Medical History Skin lesion of face (Acute) Arthritis (Acute) Basal cell carcinoma (Acute) Depression (Acute) Glaucoma (Acute) Darryl's disease (Acute) Hyperlipemia (Acute) Sleep apnea (Acute) Surgical History H/O partial thyroidectomy (Acute) History of bladder suspension procedure (Acute) History of hysterectomy (Acute) Social History Smoking Status: Never smoker alcohol intake: never HPI HPI HPI: IDA EATON, is a 76 F I am following for right yazidism skin lesion. Dr. Hawkins performed an excision of right yazidism skin lesion on 07/02/17. Pathology returned as basal cell carcinoma, completely excised. Patient tolerated the procedure well. She denies drainage. She notes minimal amount of discomfort. Moderate amount of ecchymosis extending into her right eye. Exam HENMT Other: Right yazidism- incision c/d/i. No erythema or infection. Moderate amount of ecchymosis. Sutures were removed. Dermabond was applied. Assessment AND Plan Problems 1. Basal cell carcinoma (BCC) of skin of other part of face C44.319 Plan - Follow-up as needed Coding Level of Care Code Global Post Op Diagnoses Basal cell carcinoma (BCC) of skin of other part of face C44.319 Basal cell carcinoma location: face Basal cell carcinoma face location: other part of face 07/08/17 1237 <Electronically signed by Tiki Bell PA-C> Date Tiki Bell PA-C Cosigner Signature: Date (if applicable) CC: MICROALB:CREAT Collected: 07/07/2017 Status: F Source: [facility] 10:00 AM [facility] [place] TYPE CODE TESTS RESULT OUT OF RANGE REFERENCE UNITS LAB L501.1200 NO RANGE EST. mg/dL Normal UR CREAT 113.00 LAB L502.0500 NO RANGE EST. mg/L Normal 17.8 MICROALBUMIN ,UR LAB L502.0600 <30 mg/g CRE mg/g CRE Normal 15.8 MALB:CREAT Performed By: #### L502.0250 #### [facility] Laboratory [facility] [address] [place], [place], [address] SURGERY VISIT REPORT Observed: 07/04/2017 Status: F Source: [place] 5:24 PM [facility] [place] [facility] [address] [facility] [place] [address] OFFICE VISIT Date of Service: 07/02/17 MR#: [id number] Acct: [id number] Name: IDA EATON Rep #: [id number] : 1940 Provider: Patrick Hawkins MD Age/Sex: 76/F [facility] Status: Signed with Addenda ADDENDUM by Patrick Hawkins MD on 07/04/17 at 1724 Addendum entered and electronically signed by Patrick Hawkins MD 07/04/17 17:24: Charges for [facility] [id number] Intake Chief Complaint: excision skin lesion right yazidism Allergies iodine Allergy (Verified 07/02/17 12:57) Unknown Medications Aspirin E.C. [Ecotrin] 81 mg PO DAILY@0800 03/18/14 [History Confirmed 07/02/17] Benazepril HCl [Lotensin] 20 mg PO BID 03/18/14 [History Confirmed 07/02/17] Carvedilol [Coreg (Beta Sierra)] 25 mg PO BID 03/18/14 [History Confirmed 07/02/17] Levothyroxine [Synthroid] 75 mcg PO DAILY 03/18/14 [History Confirmed 07/02/17] Oxybutynin Chloride [Ditropan Xl] 10 mg PO DAILY 03/18/14 [History Confirmed 07/02/17] Paroxetine HCl [Paxil] 20 mg PO DAILY 03/18/14 [History Confirmed 07/02/17] Atorvastatin Calcium [Lipitor] 40 mg PO QHS 10/03/14 [History Confirmed 07/02/17] Ergocalciferol [Vitamin D] 50,000 unit PO Q7D 10/03/14 [History Confirmed 07/02/17] Latanoprost 0.005% [Xalatan Opthalmic] 1 drp EACH EYE QHS 10/03/14 [History Confirmed 07/02/17] Fexofenadine HCl [Yancy Allergy] 180 mg PO DAILY 09/26/16 [History Confirmed 07/02/17] furosemide 20 mg tablet 20 mg PO ONCE 06/11/17 [History Confirmed 07/02/17] Assessment AND Plan 1. Skin lesion of face L98.9 Plan - Patrick Hawkins MD Pathology is pending and the patient has scheduled follow- up for suture removal. Cc: Dr. Marcos Hawkins M.D., F.A.C.S. Orders Orders: 07/04/17 1724 <Electronically signed by Patrick Hawkins MD> Date Patrick Hawkins MD cc: * Signed Intake Intake Visit Reasons: skin lesion removal right yazidism Chief Complaint: excision skin lesion right yazidism Private Watchman Required: No Is patient in pain?: No Allergies iodine Allergy (Verified 07/02/17 12:57) Unknown Medications Aspirin E.C. [Ecotrin] 81 mg PO DAILY@0800 03/18/14 [History Confirmed 07/02/17] Benazepril HCl [Lotensin] 20 mg PO BID 03/18/14 [History Confirmed 07/02/17] Carvedilol [Coreg (Beta Sierra)] 25 mg PO BID 03/18/14 [History Confirmed 07/02/17] Levothyroxine [Synthroid] 75 mcg PO DAILY 03/18/14 [History Confirmed 07/02/17] Oxybutynin Chloride [Ditropan Xl] 10 mg PO DAILY 03/18/14 [History Confirmed 07/02/17] Paroxetine HCl [Paxil] 20 mg PO DAILY 03/18/14 [History Confirmed 07/02/17] Atorvastatin Calcium [Lipitor] 40 mg PO QHS 10/03/14 [History Confirmed 07/02/17] Ergocalciferol [Vitamin D] 50,000 unit PO Q7D 10/03/14 [History Confirmed 07/02/17] Latanoprost 0.005% [Xalatan Opthalmic] 1 drp EACH EYE QHS 10/03/14 [History Confirmed 07/02/17] Fexofenadine HCl [Yancy Allergy] 180 mg PO DAILY 09/26/16 [History Confirmed 07/02/17] furosemide 20 mg tablet 20 mg PO ONCE 06/11/17 [History Confirmed 07/02/17] Is last menstrual period known: No Post menopausal: Yes Patient : No PFSH Medical History Skin lesion of face (Acute) Arthritis (Acute) Basal cell carcinoma (Acute) Depression (Acute) Glaucoma (Acute) Darryl's disease (Acute) Hyperlipemia (Acute) Sleep apnea (Acute) Surgical History H/O partial thyroidectomy (Acute) History of bladder suspension procedure (Acute) History of hysterectomy (Acute) Social History Smoking Status: Never smoker alcohol intake: never HPI HPI HPI: IDA EATON, is a 76 F who presents to the office today for surgical treatment of suspected skin cancer right yazidism Office Procedures Misc Procedure Procedure Performed By: Procedure performed by: richard Details Excision right yazidism malignant appearing skin lesion Timeout and informed consent was obtained. 76-year-old female was taken to the procedure room placed on the table. The right yazidism area was clipper and Betadine prepped. A 1.8 x 0.8 cm skin lesion with tracking superiorly was identified. 1% lidocaine mixed 50-50 with 0.5% Marcaine was used as a local anesthetic. A 3 x 1.3 cm diameter ellipse was created. This was performed in such a fashion to allow for a shorter edge to be medially and a longer edge laterally to correct the placement of the lesion and to reposition the closure skin lines in line with her normal features. Subcutaneous flaps were raised. Subdermal tissues were approximated with interrupted 4-0 chromic. Skin edges approximated simple mattress sutures of 5-0 nylon. Telfa tape dressing applied. She was given activity wound care instructions. She is scheduled return the office in 5 days time for wound inspection and anticipated suture removal. The specimen is submitted in formalin for analysis. Progress and prognosis felt to be good. I am particularly pleased with the cosmetic appearance of the incision at this time. Patrick Hawkins M.D., F.A.C.S. Procedure Time Out Time Out Informed consent given: Yes Consent signed: Yes Time out checklist: patient, procedure, site marked/identified, positioning of patient, supplies available, allergies confirmed, team agrees on procedure Time out staff in room: Yes Time out verified: Yes Time out date: 07/02/17 Time out time: 13:11 Assessment AND Plan 1. Skin lesion of face L98.9 Plan Pathology is pending and the patient has scheduled follow- up for suture removal. Cc: Dr. Marcos Hawkins M.D., F.A.C.S. Orders Orders: Coding Diagnoses Skin lesion of face L98.9 07/02/17 1719 <Electronically signed by Patrick Hawkins MD> Date Patrick Hawkins MD Cosigner Signature: Date (if applicable) CC: HEMOGLOBIN A1C Collected: 07/03/2017 Status: F Source: [place] 9:38 AM [facility] [place] TYPE CODE TESTS RESULT OUT OF RANGE REFERENCE UNITS LAB L501.9985 4.2-6.3 % High HGB A1C 7.8 Performed By: #### L501.9985 #### [place] [facility] [place], [address] COMPREHENSIVE METABOLIC Collected: 07/03/2017 Status: F Source: [place] [facility] 9:38 AM [facility] [place] TYPE CODE TESTS RESULT OUT OF RANGE REFERENCE UNITS LAB L501.0100 74-106 mg/dL High GLU 174 Result Comment: Fasting Glucose result greater than or equal to 126 mg/dL suggests DIABETES MELLITUS per A.D.A. criteria. Please note revised GLUCOSE reference range effective 2017. LAB L501.1000 7-18 mg/dL Normal BUN 16 LAB L501.1100 0.55-1.02 mg/dL Normal CREAT,SERUM 0.82 Result Comment: The validity of the calculated GFR AND GFRAA in patients over 70 years has not been determined. Clinical correlation is essential. LAB L501.1110 >60 mL/min Normal EST GFR 73 Result Comment: Non- GFR Calc LAB L501.1115 >60 mL/min Normal EST GFR - AA 88 Result Comment: GFR Calc LAB L501.1300 10-20 RATIO Normal BUN/CRE 19.6 LAB L501.1500 6.4-8.2 g/dL T Normal PROT 6.4 LAB L501.1800 3.2-5.0 g/dL Normal ALB 3.3 LAB L501.1950 2.2-4.2 g/dL Normal GLOB 3.1 LAB L501.2000 0.9-2.4 RATIO Normal A/G 1.1 LAB L501.2200 8.5-10.1 mg/dL CA Normal 8.9 LAB L501.4100 15-37 U/L Normal AST 15 LAB L501.4305 45-117 U/L High ALK P 151 LAB L501.4405 13-56 U/L Normal ALT 24 Result Comment: Please note revised ALT reference range effective 2017. LAB L501.4600 0.20-1.00 mg/dL High T BILI 1.50 LAB L501.5300 136-145 mmol/L Normal NA 141 LAB L501.5600 3.5-5.1 mmol/L Normal K 4.1 LAB L501.5900 98-107 mmol/L Normal CL 107 LAB L501.6100 21.0-32.0 mmol/L Normal CO2 27.0 LAB L501.6200 5-15 Normal GAP 7 Performed By: #### L500.4050, L500.4100, L501.9520 #### [facility] [address] [facility] [place], [place], [id number] LIPID PROFILE Collected: 07/03/2017 Status: F Source: [place] 9:38 AM [facility] [place] TYPE CODE TESTS RESULT OUT OF RANGE REFERENCE UNITS LAB L501.4900 200 mg/dL Normal CHOL 101 Result Comment: <200 mg/dL Desirable 200-240 mg/dL Borderline >240 mg/dL High Risk LAB L501.5000 mg/dL Normal TRIG 114 Result Comment: The drugs N-Acetylcysteine and Metamizole may falsely depress this assay. Serum Triglycerides Reference Interval Normal <150 mg/dL Borderline high 150 - 199 mg/dL High 200 - 499 mg/dL Very High > or = 500 mg/dL LAB L501.6400 mg/dL Normal HDL 54 Result Comment: The drugs N-Acetylcysteine and Metamizole may falsely depress this assay. Reference Range HDL <40 mg/dL Low HDL Cholesterol HDL >or= 60 mg/dL High HDL Cholesterol LAB L501.6500 0-130 mg/dL Normal LDL 24 LAB L501.6600 5-40 mg/dL Normal VLDL 23 Performed By: #### L500.4050, L500.4100, L501.9520 #### [facility] [address] [facility] [facility] [place], [place], [id number] THYROID STIM HORMONE Collected: 07/03/2017 Status: F Source: [place] ([facility]) 9:38 AM [facility] [place] TYPE CODE TESTS RESULT OUT OF RANGE REFERENCE UNITS LAB L501.9520 0.358-3.74 uIU/mL Normal TSH 2.18 Performed By: #### L500.4050, L500.4100, L501.9520 #### [facility] [address] [place], [address] VITAMIN D,25 HYDROXY Collected: 07/03/2017 Status: F Source: [place] 9:38 AM [facility] [place] TYPE CODE TESTS RESULT OUT OF RANGE REFERENCE UNITS LAB L506.1000 29.95-100.01 ng/mL Normal Vitamin D 57.4 25-OH Result Comment: Vitamin D 25(OH) Status Range Deficiency <20 ng/mL (50nmol/L) Insuffciency 20 - 30 ng/mL (50 - 75 nmol/L) Sufficiency 30 - 100 ng/mL (75 - 250 nmol/L) Toxicity >100 ng/mL (>250 nmol/L) Performed By: #### L506.1000 #### [facility] [address] [place], [address] LESION (CHOOSE SITE) Observed: 07/02/2017 Status: F Source: [place] 1:00 PM [facility] [place] Patient: IDA EATON : 1940 (76/F) Acct Num: [id number] Phys: Shruthi MAHARAJ,Patrick Unit Num: [id number] Loc: [facility]SPEC Specimen: [id number] Received: 07/02/17 - 1724 Spec Type: Lesion TISSUES TISSUES: Skin of head, NOS - SAMARITAN TISSUE GROSS DESCRIPTION Received in fixative is one container labeled with the patient's name and designated right yazidism. Requisition mentions a suture woods inferior aspect. The specimen consists of a piece of posey-white skin ellipse measuring 3 x 1.2 cm and up to 0.3 cm in thickness. The inferior tip with suture is assigned as the 6 o clock positon. The superior tip 12 o clock position is inked yellow and inferior tip 6 o clock position - green, 3 o clock margin black and 9 o clock margin blue. The specimen is serially sectioned and submitted entirely in three cassettes: Cassette 1 contains the inferior and superior tip, 2 AND 3 rest of the specimen. / JOSEPH:macie 07/03/17 TC:0 CPT: 19715 HEADER OPERATION: Excision skin lesion, right yazidism PRE-OP DIAGNOSIS: Right yazidism lesion TISSUE SUBMITTED: Right yazidism lesion, suture woods inferior aspect MICROSCOPIC DESCRIPTION Slides are reviewed. MICROSCOPIC DIAGNOSIS Right yazidism lesion, excisional biopsy: Basal cell carcinoma, completely excised in the planes of sections examined. SJ:macie 07/04/17 Signed Javi Katz 07/04/17 <signature on file> Performed By: #### PLES #### [facility] [address] [place], [place], [address] SURGERY VISIT REPORT Observed: 06/11/2017 Status: F Source: [place] 4:44 PM [facility] [place] [facility] [address] [facility] [place] [address] OFFICE VISIT Date of Service: 06/11/17 MR#: [id number] Acct: [id number] Name: IDA EATON Rep #: [id number] : 1940 Provider: Patrick Hawkins MD Age/Sex: 76/F Location: [facility] [address] Status: Signed Intake Vital Signs06/11/17 Height 5 ft 2 in 06/11/17 Weight: 206 lb 06/11/17 Body Mass Index (BMI) 37.6 Intake Visit Reasons: R SAMARITAN LESION PROBABLE SCC/BCC Private Watchman Required: No Is patient in pain?: No Allergies iodine Allergy (Verified 06/11/17 15:19) Unknown Medications Aspirin E.C. [Ecotrin] 81 mg PO DAILY@0800 03/18/14 [History Confirmed 06/11/17] Benazepril HCl [Lotensin] 20 mg PO BID 03/18/14 [History Confirmed 06/11/17] Carvedilol [Coreg (Beta Sierra)] 25 mg PO BID 03/18/14 [History Confirmed 06/11/17] Levothyroxine [Synthroid] 75 mcg PO DAILY 03/18/14 [History Confirmed 06/11/17] Oxybutynin Chloride [Ditropan Xl] 10 mg PO DAILY 03/18/14 [History Confirmed 06/11/17] Paroxetine HCl [Paxil] 20 mg PO DAILY 03/18/14 [History Confirmed 06/11/17] Atorvastatin Calcium [Lipitor] 40 mg PO QHS 10/03/14 [History Confirmed 06/11/17] Ergocalciferol [Vitamin D] 50,000 unit PO Q7D 10/03/14 [History Confirmed 06/11/17] Latanoprost 0.005% [Xalatan Opthalmic] 1 drp EACH EYE QHS 10/03/14 [History Confirmed 06/11/17] Fexofenadine HCl [Yancy Allergy] 180 mg PO DAILY 09/26/16 [History Confirmed 06/11/17] furosemide 20 mg tablet 20 mg PO ONCE 06/11/17 [History Confirmed 06/11/17] PFSH Medical History Arthritis (Acute) Basal cell carcinoma (Acute) Depression (Acute) Glaucoma (Acute) Darryl's disease (Acute) Hyperlipemia (Acute) Sleep apnea (Acute) Surgical History H/O partial thyroidectomy (Acute) History of bladder suspension procedure (Acute) History of hysterectomy (Acute) Social History Smoking Status: Never smoker alcohol intake: never HPI HPI HPI: IDA EATON, is a 76 F who presents to the office today for surgical consultation regarding nonhealing skin lesion of the right yazidism area. The patient states that she is previously had skin cancers resected before. 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 She is referred by Dr. Marcos Adamson for surgical consultation. The patient's only anticoagulation is a low-dose aspirin that she takes every other day. ROS General General: Yes fatigue; no weight change, appetite, colon cancer, breast cancer or weakness HEENT HEENT: No difficulty swallowing, eye injury, eye surgery, swollen glands or hoarseness Endo Endocrine: Yes thyroid disease and diabetes mellitus; no thyroid cancer, Hair loss, heat intolerance or cold intolerance Skin Skin: Yes changing moles; no rash Breast Breast: No left breast lump, right breast lump, nipple discharge, breast pain, abnormal mammogram, abnormal US or breast enlargement Musc Musculoskeletal: Yes back problems and arthritis; no rheumatoid arthritis, gout or joint pain Cardio Cardiovascular: Yes murmur, heart disease and high blood pressure; no pacemaker, atrial fibrillation, heart attack, heart stent, palpitations, shortness of breat with exertion or chest pain Psych Psychiatric: Yes anxiety; no depression or hearing voices Resp Respiratory: Yes sleep apnea, No shortness of breath, No cough, No COPD, No asthma, No emphysema, No wheezing Gastro Gastrointestinal: Yes diarrhea, Yes acid reflux, No abdominal pain, No nausea or vomiting, No constipation, No blood in stool, No hemorrhoids, No ulcers, No gallbladder problem, No black,tarry stools Aguilar Hematologic: No blood thinners, No blood disorders, No bleeding, No anemia, No blood clots Neuro Neurologic: No system reviewed and no additional complaints, except as docu, No as per HPI, No abnormal walking, No abnormal hearing, No abnormal movements, No abnormal speech, No behavioral changes, No burning sensations, No confusion, No seizure-like activity, No unsteadiness, No dizziness, No localized weakness, No frequent falls, No headache(s), No lack of coordination, No loss of vision, No memory loss, No numbness, No other visual disturbances, No radiating pain, No restless legs, No sensory deficit, No fainting, No tingling, No tremor(s), No weakness, No other Exam HENMT Other: Right yazidism vertically arranged 1.8 x 0.8 cm slightly rough erythematous lesion Chest Breast Palpation: No nipple discharge Cardio Heart Sounds: murmur Assessment AND Plan 1. Skin lesion of face L98.9 Plan I certainly occur with Dr. Adamson that this lesion of the right yazidism is suspicious for skin cancer. Difficult to assess whether this is an SCC or BCC. I believe that it can be handedly removed in an office situation under local anesthetic. I have discussed the technique, benefits, risks, alternatives. She has had an opportunity to ask and have questions answered. We will schedule and expedite her care. I very much appreciate the kind opportunity of assisting with her surgical treatment. Cc: Dr. Marcos Hawkins M.D., F.A.C.S. Coding Level of Care Code Off vis,new,level 1 Diagnoses Skin lesion of face L98.9 06/11/17 1278 <Electronically signed by Patrick Hawkins MD> Date Patrick Gillespie Signature: Date (if applicable) CC: Marcos Adamson MD ECHO COMPLETE W/WO Observed: 05/27/2017 Status: F Source: [facility] 1:16 PM SYSTEM REPOSITORY Patient Name: IDA EATON Ultrasound Exam Date/Time 05/27/2017 13:56:07 EST Exam Echo Complete w/wo Contrast Ordering Physician MD LISETH, RICK Accession Number [id number] Reason For Exam TAVR Report TRANSTHORACIC ECHOCARDIOGRAM PATIENT: Ida Eaton STUDY DATE: 05/27/2017 : 1940 AGE: 76 HT/WT: 154.9 cm (61 93.4 kg in) (205.6 lb) GENDER: F BP: 142 / 85 LOCATION: [facility] and PATIENT Outpatient Renuka Lula Felda STATUS: *ORDERING PHYSICIAN: * Rick Maldonado MD *READING PHYSICIAN: * Constantino De Souza MD *OUTSOLE TACKER: * Redd Skelton --- INDICATIONS: Aortic valve disorders. --- CONCLUSIONS SUMMARY: 1. Left ventricle: There is mild concentric hypertrophy. Systolic function is normal by visual assessment. The estimated ejection fraction is 60%. There are no regional wall motion abnormalities. 2. Aortic valve: Trileaflet; moderately thickened, moderately calcified leaflets. There is borderline severe stenosis. There is no regurgitation. Mean gradient (S): 30 mm Hg. (the SVI is 35) Peak gradient (S): 48 mm Hg. Dimensionless index: 0.27. Valve area (VTI): 0.7 cm2. (based on LVOT diameter of 1.9 cm) --- STUDY DATA: Complete transthoracic echocardiogram. M-mode, complete 2D, complete spectral Doppler, and color flow Doppler images were acquired and archived for permanent storage and are available for subsequent review. Study status: Routine. Patient status: Outpatient. --- FINDINGS LEFT VENTRICLE: The cavity size is normal. Wall thickness is mildly increased. There is mild concentric hypertrophy. Systolic function is normal by visual assessment. The estimated ejection fraction is 60%. There are no regional wall motion abnormalities. RIGHT VENTRICLE: The cavity size is mildly dilated. Systolic function is normal. Right ventricular systolic pressure is within the normal range. The estimated peak pressure is 30 mm Hg. LEFT ATRIUM: The atrium is normal in size. RIGHT ATRIUM: The atrium is normal in size. MITRAL VALVE: Moderately calcified annulus. Mildly thickened leaflets. Leaflet separation is normal. Doppler: Transvalvular velocity is within the normal range. There is no evidence for stenosis. There is no regurgitation. Peak gradient (D): 4 mm Hg. AORTIC VALVE: Trileaflet; moderately thickened, moderately calcified leaflets. Doppler: There is borderline severe stenosis. There is no regurgitation. Dimensionless index: 0.27. Valve area (VTI): 0.7 cm2. (based on LVOT diameter of 1.9 cm) Indexed valve area (VTI): 0.4 cm2/m2. Mean gradient (S): 30 mm Hg. (the SVI is 35) Peak gradient (S): 48 mm Hg. Peak velocity (S): 3.5 m/sec. TRICUSPID VALVE: Structurally normal valve. Leaflet separation is normal. Doppler: Transvalvular velocity is within the normal range. There is no evidence for stenosis. There is trivial, less than 1+ regurgitation. PULMONIC VALVE: Structurally normal valve. Cusp separation is normal. Doppler: Transvalvular velocity is within the normal range. There is trivial, less than 1+ regurgitation. AORTA: Aortic root: The aortic root is normal in size. Ascending aorta: The ascending aorta is normal in size. PERICARDIUM: A small pericardial effusion is identified. There is no evidence of hemodynamic compromise. SYSTEMIC VEINS: Inferior vena cava: The IVC collapses by greater than 50% with inspiration. --- Measurements Left ventricle Value 11/25/2016 Reference LV ID, ED 4.1 cm 3.0 3.9 - 5.3 LV ID, ES 2.5 cm 1.8 ------- -- LV PW thickness, ED 0.6 cm 1.5 0.6 - 0.9 LV end-diastolic volume, 1-p A4C 78 ml 56 - 104 LV end-systolic volume, 1-p A4C (L) 17 ml 19 - 49 LV end-diastolic volume, 2-p 84 ml 59 56 - 104 LV end-systolic volume, 2-p (L) 16 ml 24 19 - 49 LV ejection fraction, 2-p 60 % 59 >= 55 LV E/e', lateral 23.5 18 ------- -- LV E/e', medial 29 27.8 ------- -- LV E/e', average 25.9 21.9 ------- -- Ventricular septum Value 11/25/2016 Reference IVS thickness, ED (H) 1.2 cm 1.4 0.6 - 0.9 LVOT Value 11/25/2016 Reference LVOT ID, A-P 1.9 cm 1.9 ------- -- LVOT mean velocity, S 0.7 m/sec ------- -- LVOT VTI, S 26.0 cm 30.4 ------- -- LVOT peak gradient, S 4 mm Hg 5 ------- -- Stroke volume (SV), LVOT DP 72 ml 83 ------- -- Stroke index (SV/bsa), LVOT DP 35 ml/m2 40 -------- - Aortic valve Value 11/25/2016 Reference Aortic annulus diameter, ED 1.9 cm ------- -- Aortic valve peak velocity, S 3.5 m/sec 3.3 ------- -- Aortic valve mean velocity, S 2.6 m/sec 2.5 ------- -- Aortic valve VTI, S 96.1 cm 93.4 ------- -- Aortic mean gradient, S 30 mm Hg 27 ------- -- Aortic peak gradient, S 48 mm Hg 45 ------- -- DI 0.27 0.33 ------- -- Aortic valve area, VTI 0.7 cm2 0.8 -------- - Aortic valve area/bsa, VTI 0.4 cm2/m2 --------- Aorta Value 11/25/2016 Reference Ascending aorta ID, A-P, S 2.7 cm ------- -- Left atrium Value 11/25/2016 Reference LA volume/bsa, ES, 2-p 22 ml/m2 19 -------- - Mitral valve Value 11/25/2016 Reference Mitral E-wave peak velocity 1 m/sec 1 ------- -- Mitral A-wave peak velocity 1.1 m/sec 1.3 ------- -- Mitral deceleration time 325 ms 384 ------- -- Mitral peak gradient, D 4 mm Hg 4 ------- -- Mitral E/A ratio, peak 0.9 0.7 ------- -- Tricuspid valve Value 11/25/2016 Reference Tricuspid regurg peak velocity 2.4 m/sec 2.9 ------- -- Tricuspid peak RV-RA gradient 23 mm Hg 33 ------- -- Right atrium Value 11/25/2016 Reference RA area, ES, A4C 12 cm2 16 10 - 18 Right ventricle Value 11/25/2016 Reference RV ID, minor axis, ED, A4C base 3.6 cm 2.6 2.4 - 4.2 RV ID, minor axis, ED, A4C mid 3.4 cm 2.4 2.0 - 3.5 TAPSE 1.9 cm ------- -- Legend: (L) and (H) kelsey values outside specified reference range. Electronically signed by Constantino De Souza MD 05/27/2017 14:35 Final Dictated: 05/27/2017 2:36 pm Dictating Physician: MD DE SOUZA STEPHEN M Signed Date and Time: 05/27/2017 2:35 pm Signed by: MD DE SOUZA STEPHEN M ALLERGIES ALLERGIES DATE TYPE / CODE NAME / CODE REACTION SEVERITY SOURCE 07/07/2017 Drug iodine/F0060 Unknown Unknown [place] [facility][id number]( [facility] Rep[facility] Miscellaneous Iodine HIVES Unknown [employer] [id number] ENCOUNTERS ENCOUNTERS ADMIT/DISCHARGE ACCOUNT NUMBER ADMITTING ENCOUNTER LOCATION SOURCE CLASS 03/20/2018 [id number] Ambulatory [facility] ding:LABSPEC Repository 03/16/2018 [id number] Ambulatory [facility] ding:MFPLAB Repository 12/01/2017 [id number] Ambulatory [facility] Repository 11/25/2017 [id number] Ambulatory [facility] Repository 11/12/2017/11/13/19 [id number] Ambulatory [address] ding:PT Repository 09/30/2017/10/01/19 [id number] BOBBY, Inpatient BuildinWR [address] Encounter oom: 329Bed: [facility] Repository 09/22/2017/09/23/19 [id number] BOBBY, Ambulatory Building:OPS [address] Repository 07/14/2017 [id number] Ambulatory [facility] ding:MRI Repository 07/14/2017 [id number] Ambulatory [facility] ding:MRI Repository 07/07/2017 [id number] Ambulatory [facility] ding:LABSPEC Repository 07/07/2017/07/08/19 [id number] Ambulatory BMSBuilding: [place] [address] [facility] Repository 07/03/2017 [id number] Ambulatory [facility] ding:MFPLAB Repository 07/02/2017 [id number] Ambulatory [facility] ding:LABSPEC Repository 07/02/2017/07/03/19 [id number] Ambulatory BMSBuilding: [place] 18 BMS.[facility] Repository 06/11/2017/06/11/19 [id number] Ambulatory BMSBuilding: [place] 18 BMS[facility] Repository 05/27/2017 [id number] Ambulatory [facility] Repository PAYERS PAYERS ENCOUNTER GUARANTOR PAYER SUBSCRIBER SOURCE 03/20/2018 IDA Finley Primary IDA [id number] Insurance:[facility] REAGANMANDOB: [place] MEDICARE[place] [id number] Number: Repository [address]Vgc: (697) [id number] [phone] () Date:8723-25-41WL [address] [place] [address] 10814TY: 03/20/2018 Secondary NOT GIVENUNK [place] Insurance:SELF PAY [facility] Number: Effective Repository Date:2018-03-20 03/16/2018 IDA Finley Primary IDA Mchugh [id number] Insurance:[employer] C[employer] BACHMANDOB: Community [place] MEDICARE[place] [id number] Number: Repository [address]Tsf: 330 [id number] [phone] (HP) Date:5432-07-32YT [address] [place] [address] 79479DS: 03/16/2018 Secondary NOT GIVENUNK [place] Insurance:SELF PAY [facility] Number: Effective Repository Date:2018-03-16 12/01/2017 Ida Finley [facility] Bachman[facility]: Insurance:SummaCarePo BachmanDOB: System licy Number: [id number] Repository [address] Lot Effective Date: [place], [place] [address]Ewx: (HP) 11/25/2017 Ida Finley Primary [facility] BachmanD[facility]: Insurance:Sum[facility]CarePo BachmanDOB: System licy Number: [id number] Repository [address] Lot Effective Date: [place], [place] [address]Uax: (HP) 11/12/2017 IDA Finley Primary IDA Mchugh [id number] Insurance:SUMMA CARE BACHMANDOB: Community [place] MEDICARE[place] [id number] Number: Repository [address]Yqe: 330 [id number] [phone] (HP) Date:5449-27-11AB [address] [place] [address] 20380JB: 11/12/2017 Secondary NOT GIVENUNK [place] Insurance:SELF PAY [facility] Number: Effective Repository Date:2017-11-04 09/30/2017 IDA Primary Insurance:DC IDA [facility] BACHMANDOB: MEDICARE BACHMANDOB: Hospital [facility] [id number] Repository [place] Number: 4 [facility] [id number] [address] Date:0599-20-76HC [address] [address]Lxp: 330) [address], [place] [address]Eti: (HP) [phone]: (HP) [phone] 09/22/2017 [facility]DA [facility] BACHMANDOB: MEDICARE BACHMANDOB: Hospital [facility] [id number] Repository [place] Number: 4 [facility] [id number] [address] Date:7908-07-25OF [address] [address]Mzq: (330) [address], [place] [address]Wdx: (HP) [phone]: (HP) [phone] 07/14/2017 IDA Valencia Primary IDA Mchugh [id number] Insurance:SUM[employer] CARE BACHMANDOB: Community [place] MED[place] [id number] Number: Repository [address]Jct: 330 [id number] [phone] (HP) Date:5595-93-44CM[address] [address]QV: 07/14/2017 Secondary NOT GIVENUNK [place] Insurance:SELF PAY [facility] Number: Effective Repository Date:2017-07-07 07/14/2017 IDA Valencia Primary IDA Mchugh [id number] Insurance:[employer] CARE BACHMANDOB: Community [place] MEDICARE[place] [id number] Number: Repository [address]Dno: 330) [id number] [phone] (HP) Date:8175-78-03ME [address] [place] [address]BT: 07/14/2017 Secondary NOT GIVENUNK [place] Insurance:SELF PAY [facility] Number: Effective Repository Date:2017-07-07 07/07/2017 IDA Finley Primary IDA Mchugh [id number] Insurance:SUMMA CARE [facility] Community [place] [id number] Number: Repository [id number]: (330 [id number] [phone] (HP) Date:9094-94-71QY BOX [facility] [place] [address]GF: 07/07/2017 Secondary NOT GIVENUNK [place] Insurance:SELF PAY [facility] Number: Effective Repository Date:2017-07-07 07/07/2017 IDA Valencia Primary IDA Valencia [place] [id number] Insurance:SUM[employer] CARE BACHMANDOB: Community [place] MEDICARE[place] [id number] Number: Repository [address]Egk: 330 [id number] [phone] (HP) Date:0852-67-01BD BOX [facility] [place] [address]YP: 07/07/2017 Secondary NOT GIVENUNK [place] Insurance:SELF PAY [facility] Number: Effective Repository Date:2017-07-02 07/03/2017 IDA Valencia Primary IDA Mchugh [id number] Insurance:SUMMA CARE [facility] Community [place] MEDICARE[place] [id number] Number: Repository [address]Dft: 330 [id number] [phone] (HP) Date:1229-42-78PL BOX [facility] Hospital[place] [address]WG: 07/03/2017 Secondary NOT GIVENUNK [place] Insurance:SELF PAY [facility] Number: Effective Repository Date:2017-07-03 07/02/2017 IDA S Primary IDA Mtzoster [id number] Insurance:SUM[employer] CARE BACHMANDOB: Community [place] MEDICARE[place] [id number] Number: Repository [id number]: 330 [id number] [phone] (HP) Date:0699-71-97HO BOX [facility] [place] [address]QV: 07/02/2017 Secondary NOT GIVENUNK [place] Insurance:SELF PAY [facility] Number: Effective Repository Date:2017-07-02 07/02/2017 IDA Valencia Primary IDA Mchugh [id number] Insurance:SUM[employer] CARE BACHMANDOB: Community [place] MEDICARE[place] [id number] Number: Repository [address]Ups: 330 [id number] [phone] (HP) Date:6311-92-58LF [address] [place] [address]AB: 07/02/2017 Secondary NOT GIVENUNK [place] Insurance:SELF PAY [facility] Number: Effective Repository Date:2017-06-11 06/11/2017 IDA [place] Primary IDA Mchugh [id number] Insurance:SUM[employer] CARE BACHMANDOB: Community [place] MEDICARE[place] [id number] Number: Repository [address]Gha: 330 [id number] [phone] (HP) Date:0687-52-95RT [address] [place] [address]XN: 06/11/2017 Secondary NOT GIVENUNK [place] Insurance:SELF PAY [facility] Number: Effective Repository Date:2017-06-06 05/27/2017 Ida Finley Primary [facility]da Finley [facility] BachmanDOB: Insurance:SummaCarePo BachmanDOB: System [id number] licy Number: [id number] Repository [facility] Effective Date: [place], [place] [address]Vnv: (HP)
== END ==
PROVIDERS: Family Provider Family Medicine; PCP Family Medicine; Referring Provider Family Medicine; Visit Provider Family Medicine
DX: E11.9 Type 2 diabetes mellitus without complications (principal); G95.9 Disease of spinal cord, unspecified
CPT/HCPCS: 72040; 82043; 82570

== ENCOUNTER → 2018-06-05 10:10 | Outpatient (CLI) | payer MEDICARE, SELFPAY ==
[2018-06-05 12:04] LABS: AST(SGOT) 25 U/L (15-37); Alanine Aminotransfer ALT/SGPT 35 U/L (13-56); Albumin, Serum 3.5 g/dL (3.2-5.0); Alkaline Phosphatase 142 U/L (45-117); Bilirubin, Direct 0.34 mg/dL (0.00-0.30); Globulin 3.2 g/dL (2.2-4.2); Protein, Total 6.7 g/dL (6.4-8.2)
[2018-06-05 12:08] LABS: PTHIN 206.1 pg/mL (18.4-80.1)
[2018-06-08 11:12] LABS: Haptoglobin 140 mg/dL (34-200)
== END ==
PROVIDERS: Family Provider Family Medicine; PCP Family Medicine; Referring Provider Family Medicine; Visit Provider Family Medicine
DX: R74.8 Abnormal levels of other serum enzymes (principal)
CPT/HCPCS: 36415; 80076; 82652; 83010; 83970

== ENCOUNTER → 2018-06-20 08:08 | Outpatient (CLI) | payer MEDICARE, SELFPAY ==
--- NOTE | 2018-06-20 08:13 | US_ITS ---
STUDY: ABDOMINAL ULTRASOUND REASON FOR EXAM: Female, 77 years old. Elevated bilirubin with chronic diarrhea TECHNIQUE: Transabdominal ultrasound was performed with real-time and static palacio scale imaging. TECHNICAL QUALITY: Adequate. COMPARISON: None. FINDINGS: Liver: The liver measures 13 cm. There is normal echogenicity of the liver. The bile ducts are within normal limits. There is hepatic color flow. The direction of portal flow is hepatopetal. There is no demonstrated mass lesion. Portal vein measurement: Gallbladder: Normal distended gallbladder. The gallbladder wall measures 2.0 mm. There is a negative sonographic Montes's sign. There is no pericholecystic fluid. There is biliary sludge dependent within the gallbladder. Common Bile Duct (C.B.D.): The common bile duct measures 4.8 mm. Pancreas: There is normal echogenicity of the visualized pancreas. There is no demonstrated pancreatic mass or cyst. Spleen: Normal size of the spleen. The spleen measures 11.3 cm. Right Kidney: Normal size of the right kidney. The right kidney measures 10.6 cm. Normal renal cortex. The right cortex measures 1.2 cm. There is no demonstrated renal mass or cyst. There is no right hydronephrosis. Echogenic foci (nonshadowing) throughout the kidney may represent tiny nephrolithiasis or vascular calcifications. Left Kidney: Normal size of the left kidney. The left kidney measures 9.8 cm. Normal renal cortex. The left cortex measures 1.1 cm. Simple cysts measure up to 1.9 cm. There is no left hydronephrosis. Echogenic foci (nonshadowing) throughout the kidney may represent tiny nephrolithiasis or vascular calcifications. Aorta: None aneurysmal I.V.C.: The IVC is patent. There is no ascites. US/Abdomen Complete IMPRESSION: 1. Gallbladder sludge without evidence of acute cholecystitis or biliary obstruction. 2. Simple left renal cyst. 3. Nonshadowing echogenic foci of the bilateral kidneys could represent vascular calcifications versus nonobstructing hydronephrosis. Electronically Signed: Chris Melendez MD at 14:58 EST , Service support ,
--- NOTE | 2018-06-20 08:14 | US_ITS ---
STUDY: THYROID ULTRASOUND REASON FOR EXAM: Female, 77 years old. Darryl's disease TECHNIQUE: Ultrasound evaluation of the thyroid was performed with real-time and static palacio-scale imaging. COMPARISON: None. FINDINGS: RIGHT LOBE: Surgically absent LEFT LOBE: The left lobe of the thyroid gland measures 4.1 x 1.6 x 1.6 cm. There is a heterogeneous echotexture. Solid and cystic rounded nodule of the mid left thyroid lobe measures 9 x 7 x 7 mm with mild intrinsic vascular flow but no microcalcifications demonstrated. Slightly hyperechoic nodule in the inferior thyroid lobe measures 3-4 mm. ISTHMUS: The isthmus measures 4 mm. The regional lymph nodes are normal. US/Thyroid IMPRESSION: 1. Left thyroid lobe nodules measuring up to 9 mm. No comparison studies are available. 2. Heterogeneous left thyroid parenchyma compatible with history of chronic thyroiditis. 3. Right thyroidectomy. Electronically Signed: Chris Melendez MD at 15:41 EST , Service support ,
== END ==
PROVIDERS: Family Provider Family Medicine; PCP Family Medicine; Referring Provider Family Medicine; Visit Provider Family Medicine
DX: R17 Unspecified jaundice (principal); E06.3 Autoimmune thyroiditis
CPT/HCPCS: 76536; 76700

== ENCOUNTER → 2018-09-04 09:58 | Outpatient (CLI) | payer MEDICARE, SELFPAY ==
--- NOTE | 2018-09-04 10:06 | RAD_ITS ---
STUDY: X-RAY - CERVICAL SPINE REASON FOR EXAM: Female, 77 years old. 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 COMPARISON: 03/20/2018 FINDINGS: There is widening of the anterior atlantoaxial articulation suggesting ligamentous laxity. Normal odontoid process. There is straightening of the normal cervical lordosis. There is diffuse demineralization of the cervical spine. Anterior fusion plate with disc spacers and bony ankylosis at C5-C7, similar since prior study. Moderate facet arthropathy at C3-C4 and C4-C5 also similar with disc space narrowing at C4-C5. There is anterolisthesis of C7 relation to T1 measuring 4.2 mm that is more conspicuous since the prior study. The soft tissue structures are unremarkable. RAD/Cerv Spine 2 or 3 Views IMPRESSION: 1. 4 mm of anterolisthesis of C7-T1, increased since prior study. 2. C5-C7 anterior cervical fusion. 3. Degenerative disc disease and facet arthropathy. Electronically Signed: Chris Melendez MD at 14:49 EDT , Service support ,
[2018-09-04 12:35] LABS: Anion Gap 5 (5-15); BUN 15 mg/dL (7-18); BUN/Creat Ratio 19.9 RATIO (10-20); Calcium,Total 9.4 mg/dL (8.5-10.1); Chloride 110 mmol/L (98-107); Creatinine, Serum 0.75 mg/dL (0.55-1.02); EST Glomerular Filtration Rate 79 mL/min (>60); Est Glom Filt Rate - Afr Amer 96 mL/min (>60); Glucose 152 mg/dL (74-106); Potassium 4.3 mmol/L (3.5-5.1); Sodium Level 141 mmol/L (136-145)
== END ==
PROVIDERS: Family Provider Family Medicine; PCP Family Medicine
DX: I35.0 Nonrheumatic aortic (valve) stenosis (principal); G95.9 Disease of spinal cord, unspecified
CPT/HCPCS: 36415; 72040; 80048

== ENCOUNTER → 2018-10-05 15:14 | Outpatient (CLI) | payer MEDICARE, SELFPAY ==
[2018-10-05 17:56] LABS: Creatinine, Serum 0.84 mg/dL (0.55-1.02); EST Glomerular Filtration Rate 70 mL/min (>60); Est Glom Filt Rate - Afr Amer 85 mL/min (>60)
== END ==
PROVIDERS: Family Provider Family Medicine; PCP Family Medicine; Referring Provider Otolaryngology; Visit Provider Otolaryngology
DX: H90.A21 Sensorineural hearing loss, unilateral, right ear, with restricted hearing on the contralateral side (principal)
CPT/HCPCS: 36415; 82565

== ENCOUNTER → 2018-10-15 10:11 | Outpatient (CLI) | payer MEDICARE, SELFPAY ==
--- NOTE | 2018-10-15 10:17 | MRI_ITS ---
HISTORY: hearing loss right ear EXAM/TECHNIQUE: MR brain and IACs/temporal Bones WO/W Contrast: 18 cc Dotarem administered intravenously. Multiplanar, multisequence, 1.5 Rita. COMPARISON: None. FINDINGS: # of images incl. paperwork: 428 MRI brain: No acute infarct, hemorrhage, or mass. The brain has normal volume for age. 2 subcentimeter foci of chronic appearing FLAIR/T2 hyperintensity in the bifrontal white matter. 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 No adjacent edema or mass-effect. No other abnormal enhancement. No hydrocephalus. Mild hyperostosis frontalis. Small mucous retention cyst anterior aspect right maxillary sinus. Otherwise the paranasal sinuses are patent. MRI IACs: The bilateral 7th and 8th cranial nerve complexes have normal contour and signal with no apparent mass and no abnormal enhancement. The bilateral cochlea and vestibular apparatus and semicircular canals have normal pre-and postcontrast MRI appearance. No abnormal signal in the middle ears or mastoid air cells. The visualized external auditory canals, external ears, and parotid glands are unremarkable. IMPRESSION: No acute findings. No etiology for hearing loss identified. 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 at 1220 Reported and signed by: Bunny Mancini MD Electronically Signed: Bunny Mancini, at 12:19 EDT Tel , Service support , HISTORY: hearing loss right ear EXAM/TECHNIQUE: MR brain and IACs/temporal Bones WO/W Contrast: 18 cc Dotarem administered intravenously. Multiplanar, multisequence, 1.5 Rita. COMPARISON: None. FINDINGS: # of images incl. paperwork: 428 MRI brain: No acute infarct, hemorrhage, or mass. The brain has normal volume for age. 2 subcentimeter foci of chronic appearing FLAIR/T2 hyperintensity in the bifrontal white matter. 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 No adjacent edema or mass-effect. No other abnormal enhancement. No hydrocephalus. Mild hyperostosis frontalis. Small mucous retention cyst anterior aspect right maxillary sinus. Otherwise the paranasal sinuses are patent. MRI IACs: The bilateral 7th and 8th cranial nerve complexes have normal contour and signal with no apparent mass and no abnormal enhancement. The bilateral cochlea and vestibular apparatus and semicircular canals have normal pre-and postcontrast MRI appearance. No abnormal signal in the middle ears or mastoid air cells. The visualized external auditory canals, external ears, and parotid glands are unremarkable. MRI/Brain W/WO Contrast
== END ==
PROVIDERS: Family Provider Family Medicine; PCP Family Medicine; Referring Provider Otolaryngology; Visit Provider Otolaryngology
DX: H90.A21 Sensorineural hearing loss, unilateral, right ear, with restricted hearing on the contralateral side (principal)
CPT/HCPCS: 70553; A9575

== ENCOUNTER 2018-10-18 11:34 | Emergency (ER) | payer MEDICARE, SELFPAY ==
[2018-10-18 11:35] VITALS: BP 163/93; PULSE 57; RESP 16; TEMP 36.6; O2SAT 97; BMI 36.2
--- NOTE | 2018-10-18 11:55 | RAD_ITS ---
STUDY: X-RAY CHEST REASON FOR EXAM: Female, 78 years old. light headed today TECHNIQUE: Frontal and lateral views of the chest. COMPARISON: 09/18/2016 FINDINGS: The lungs are clear and expanded. There is no demonstrated pleural abnormality. Normal size heart. There is an aortic valve stent graft. Normal mediastinum and justine. Normal visualized pulmonary arteries. Normal visualized aortic arch and descending thoracic aorta. There are diffuse degenerative changes of the visualized thoracic spine. There has been previous cervical spine surgery. Normal visualized ribs, clavicles, and shoulders. There is no demonstrated abnormality of the visualized soft tissue structures of the upper abdomen. RAD/Chest PA and Lateral IMPRESSION: No acute chest disease. Electronically Signed: Jostin Palma MD at 12:33 EDT , Service support ,
--- NOTE | 2018-10-18 11:55 | EKG12_ITS ---
Test Reason : DIZZINESS Blood Pressure : / mmHG Vent. Rate : 053 BPM Atrial Rate : 053 BPM P-R Int : 158 ms QRS Dur : 078 ms QT Int : 500 ms P-R-T Axes : 017 -25 054 degrees QTc Int : 469 ms Sinus bradycardia Otherwise normal ECG Confirmed by EBENEZER MAHARAJ, ADEN ([id number]), graphic editor MICHAEL CHOWDHURY ([id number]) on 10/19/2018 1:07:27 PM Referred By: Sunil Thomas Confirmed By:ADEN SOL MD
[2018-10-18 12:03] LABS: Absolute Lymphocyte Count 1.71 X10^3/ul (0.83-4.51); Absolute Neutrophil Count 5.5 X10^3/uL (2.0-7.7); Basophil# 0.02 X10^3/uL; Basophil% 0.2 % (0-1); Eosinophil# 0.27 X10^3/uL; Eosinophils% 3.3 % (0-5); Hematocrit 40.1 % (37-47); Hemoglobin 13.7 g/dl (12.0-15.0); Lymphocyte # 1.71 X10^3/ul (4.0); Lymphocyte % 21.1 % (19-41); Mean Corp Hgb Conc 34.2 g/gl (32-36); Mean Corpuscular Hgb 29.1 pg (27.0-32.0); Mean Corpuscular Volume 85.3 fL (81-99); Mean Platelet Vol. 9.3 fl (6.2-12.0); Monocyte# 0.65 X10^3/uL; Neutrophil # 5.46 X10^3/uL (2.7-7.7); Neutrophil % 67.3 % (47-70); Platelet Count 152 K/mm3 (150-450); RBC Distribution Width CV 13.3 % (11.6-14.6); RBC Distribution Width SD 41.3 fl (35.1-43.9); White Blood Count 8.1 K/mm3 (4.4-11.0)
[2018-10-18 12:04] LABS: POSITIVE COUNT NO; POSITIVE DIFFERENTIAL NO; POSITIVE MORPHOLOGY NO
[2018-10-18] MEDS: Carvedilol 3.125 MG TABLET PO (12:11)
[2018-10-18 12:16] LABS: ALB/GLOB Ratio 1.2 RATIO (0.9-2.4); AST(SGOT) 18 U/L (15-37); Alanine Aminotransfer ALT/SGPT 20 U/L (13-56); Albumin, Serum 3.6 g/dL (3.2-5.0); Alkaline Phosphatase 145 U/L (45-117); Anion Gap 8 (5-15); BUN 12 mg/dL (7-18); BUN/Creat Ratio 14.2 RATIO (10-20); Calcium,Total 9.5 mg/dL (8.5-10.1); Chloride 110 mmol/L (98-107); Creatinine, Serum 0.85 mg/dL (0.55-1.02); EST Glomerular Filtration Rate 69 mL/min (>60); Est Glom Filt Rate - Afr Amer 84 mL/min (>60); Estimated Creatinine Clearance 43.84 ml/min; Globulin 3.1 g/dL (2.2-4.2); Glucose 145 mg/dL (74-106); Protein, Total 6.7 g/dL (6.4-8.2); Sodium Level 141 mmol/L (136-145)
--- NOTE | 2018-10-18 12:16 | ED.VISSUMM ---
- ER Visit Summary Date of Service: 10/18/18 Chief Complaint: Lightheadedness History of Present Illness: The patient is a 78 F presents to the emergency department with lightheadedness. The patient was recently at [facility]. She had a transaortic valve repair done. She has been feeling markedly improved since her valve surgery. She states last night, she forgot to take her antihypertensives. She states that is not abnormal for her. This morning when she woke, she did not take them again. She states she was sitting in orthodoxy. She had a sudden sensation of lightheadedness. She denies any change in vision. She denies any change in speech. She had no chest pain or dyspnea. They did take her blood pressure and it was 210/100. She states this is obviously very high for her. Since then, her symptoms have improved. She denies headache at this time. The patient did have an outpatient MRI done 2 days ago which was unremarkable. Physical Examination: Vital signs reviewed General: Well-nourished, well-developed Head: Normocephalic, atraumatic Eyes: Pupils equal and reactive, extraocular muscles intact Neck, supple, no lymphadenopathy Heart: Regular rate and rhythm Respiratory: No distress, clear bilaterally Abdomen: Soft, nontender, nondistended, no peritoneal signs Back: Nontender Extremities: Nontender, no edema, no cords Skin: Normal color no rash Neuro: Alert and oriented, no focal or lateralizing deficits Test Results: [] Emergency Department Course and Treatment: The patient symptoms do seem consistent with the fact she did not take her antihypertensives. She has a normal neurologic examination. She has had no symptoms of stroke. She is very well-appearing on examination. EKG was obtained which is unremarkable. Screening labs are also unremarkable. The patient was observed. She was given her home dose of antihypertensives. She is feeling improved. At this point, if that she is safe for outpatient therapy. The patient is comfortable with this plan of care. Treatment Plan: [] Disposition: Discharge Impression: 1. Lightheadedness secondary to hypertension This note was generated with [employer] software. It may contain incorrect words, spelling, and punctuation that were not noted in review of the chart prior to signing ED Disposition - Plan for ED Patient: Disposition: Home or Assisted Living Instructions: HYPERTENSION, Established Referrals: Sunil Adamson MD [Primary Care Provider] -
[2018-10-18 13:00] VITALS: BP 179/88; PULSE 51; RESP 16; O2SAT 98
[2018-10-18 13:10] VITALS: PULSE 54; RESP 18; O2SAT 97
== END 2018-10-18 13:10 | disposition home or self-care (01) ==
LOC: ED 12:04
PROVIDERS: Emergency Provider Emergency Medicine; Family Provider Family Medicine; PCP Family Medicine
DX: I10 Essential (primary) hypertension (principal); I25.10 Atherosclerotic heart disease of native coronary artery without angina pectoris; E78.00 Pure hypercholesterolemia, unspecified
CPT/HCPCS: 71046; 80053; 85025; 93005; 99285; A4216

== ENCOUNTER → 2018-10-23 11:53 | Outpatient (CLI) | payer MEDICARE, SELFPAY ==
[2018-10-18 11:35] VITALS: BMI 36.2
[2018-10-23 14:26] LABS: Absolute Lymphocyte Count 1.11 X10^3/ul (0.83-4.51); Absolute Neutrophil Count 4.3 X10^3/uL (2.0-7.7); Basophil# 0.02 X10^3/uL; Basophil% 0.3 % (0-1); Eosinophil# 0.29 X10^3/uL; Eosinophils% 4.7 % (0-5); Hematocrit 39.9 % (37-47); Hemoglobin 13.4 g/dl (12.0-15.0); Lymphocyte # 1.11 X10^3/ul (4.0); Lymphocyte % 17.9 % (19-41); Mean Corp Hgb Conc 33.6 g/gl (32-36); Mean Corpuscular Hgb 28.8 pg (27.0-32.0); Mean Corpuscular Volume 85.8 fL (81-99); Mean Platelet Vol. 9.7 fl (6.2-12.0); Monocyte# 0.45 X10^3/uL; Monocyte% 7.3 % (0-10); Neutrophil # 4.32 X10^3/uL (2.7-7.7); Neutrophil % 69.6 % (47-70); Platelet Count 143 K/mm3 (150-450); RBC Distribution Width CV 13.1 % (11.6-14.6); RBC Distribution Width SD 40.9 fl (35.1-43.9); Red Blood Count 4.65 M/mm3 (4.2-5.4); White Blood Count 6.2 K/mm3 (4.4-11.0)
[2018-10-23 14:29] LABS: POSITIVE COUNT NO; POSITIVE DIFFERENTIAL NO; POSITIVE MORPHOLOGY NO
[2018-10-23 14:31] LABS: ALB/GLOB Ratio 1.1 RATIO (0.9-2.4); AST(SGOT) 12 U/L (15-37); Alanine Aminotransfer ALT/SGPT 20 U/L (13-56); Albumin, Serum 3.4 g/dL (3.2-5.0); Alkaline Phosphatase 147 U/L (45-117); Anion Gap 8 (5-15); BUN 11 mg/dL (7-18); BUN/Creat Ratio 12.4 RATIO (10-20); CRP < 2.90 mg/L (0.0-3.0); Calcium,Total 9.2 mg/dL (8.5-10.1); Chloride 105 mmol/L (98-107); Creatinine, Serum 0.88 mg/dL (0.55-1.02); EST Glomerular Filtration Rate 66 mL/min (>60); Est Glom Filt Rate - Afr Amer 80 mL/min (>60); Globulin 3.2 g/dL (2.2-4.2); Glucose 215 mg/dL (74-106); Potassium 4.2 mmol/L (3.5-5.1); Protein, Total 6.6 g/dL (6.4-8.2); Sodium Level 140 mmol/L (136-145); Thyroid Stim Hormone (TSH) 1.18 uIU/mL (0.358-3.74)
[2018-10-23 14:32] LABS: Erythrocyte Sedimentation Rate 9 mm/hr (0-30)
== END ==
PROVIDERS: Family Provider Family Medicine; PCP Family Medicine; Referring Provider Family Medicine; Visit Provider Family Medicine
DX: R42 Dizziness and giddiness (principal); R90.89 Other abnormal findings on diagnostic imaging of central nervous system
CPT/HCPCS: 36415; 80053; 84443; 85025; 85652; 86140; 86256

== ENCOUNTER → 2018-11-02 13:47 | Outpatient (CLI) | payer MEDICARE, SELFPAY ==
[2018-10-18 11:35] VITALS: BMI 36.2
--- NOTE | 2018-11-02 14:09 | CDU_ITS ---
Reason For Study: Dizzness Rt. Velocities/BP Lt. Velocities/BP Prox CCA 71.7/12.4 cm/sec. Prox CCA 74.9/9.7 cm/sec. Mid CCA 65.1/12.4 cm/sec. Mid CCA 89.3/16.8 cm/sec. Dist CCA 68.4/13.5 cm/sec. Dist CCA 55.3/14.6 cm/sec. Prox ICA 54.1/11.6 cm/sec. Prox ICA 54.1/11.6 cm/sec. Mid ICA 60.7/16.3 cm/sec. Mid ICA 62.6/23 cm/sec. Dist ICA 75.9/23.9 cm/sec. Dist ICA 70.2/21.1 cm/sec. Rt. ICA/CCA = 1.1. Lt. ICA/CCA = 0.9. Prox ECA 66.2/6.9 cm/sec. Prox ECA 61.7/6 cm/sec. Rt. Vert. 40.9/11.6 cm/sec. Lt. Vert. 48.5/12.6 cm/sec. Right Extracranial There is intimal thickening but no significant atherosclerotic plaque noted in the right common carotid artery. There is heterogeneous, irregular atherosclerotic plaque noted in the right internal carotid artery. There is intimal thickening but no significant atherosclerotic plaque noted in the right external carotid artery. Antegrade flow is noted in the right vertebral artery. Left Extracranial There is homogeneous, smooth atherosclerotic plaque noted in the left common carotid artery. There is heterogeneous, irregular atherosclerotic plaque noted in the left internal carotid artery. There is intimal thickening but no significant atherosclerotic plaque noted in the left external carotid artery. Antegrade flow is noted in the left vertebral artery. Procedure Carotid Duplex [id number]. Exam performed in department. Interpretation Summary Mild (<50%) stenosis right extracranial internal carotid. Mild (<50%) stenosis left extracranial internal carotid. Flow within the vertebral arteries is antegrade bilaterally. Ordering Physician: Sunil Adamson Referring Physician: Sunil Adamson Performed By: Soledad Langston RVT
== END ==
LOC: CT 13:50 → CVS 14:08
PROVIDERS: Family Provider Family Medicine; PCP Family Medicine; Referring Provider Family Medicine; Visit Provider Family Medicine
DX: R42 Dizziness and giddiness (principal); R90.89 Other abnormal findings on diagnostic imaging of central nervous system
CPT/HCPCS: 93880

== ENCOUNTER → 2018-11-06 12:55 | Outpatient (CLI) | payer MEDICARE, SELFPAY ==
[2018-10-18 11:35] VITALS: BMI 36.2
--- NOTE | 2018-11-06 13:01 | CT_ITS ---
STUDY: CT CHEST WITH CONTRAST REASON FOR EXAM: Female, 78 years old. Skin cancer. Hiatal hernia. Hypertension. RADIATION DOSAGE (If Supplied By Facility): CTDIvol = ( 17.48 ) mGy, DLP = ( 1547.17 ) mGycm TECHNIQUE: Transaxial imaging was performed following intravenous administration of 100 ml of Isovue 300 contrast material. Coronal and sagittal reformatted images were created. Individualized dose optimization techniques were used for this CT. COMPARISON: None FINDINGS: There is dependent atelectasis noted in the lungs. There are no pulmonary infiltrates or pleural effusions. There are no pulmonary nodules or masses. There is no pneumothorax. The heart and pericardium are within normal limits. The patient is status post aortic valve repair. There is no thoracic lymphadenopathy. There is no evidence of thoracic aortic aneurysm. There is a 1.4 cm rounded hypodense structure in the subcutaneous tissues of the right upper back (image 10 series 2). This likely represents a sebaceous cyst. Given the patient's history of skin cancer, correlation with physical exam is recommended. There is asymmetric increased soft tissue tissue density in the right breast compared to the left breast (image 50 series 2). Correlation with mammography is recommended. There are no destructive osseous lesions. CT/Chest WITH Contrast IMPRESSION: Clear lungs. No thoracic lymphadenopathy. 1.4 cm rounded hypodense structure in the subcutaneous tissues of the right upper back. This likely represents a sebaceous cyst. Given the patient's history of skin cancer, correlation with physical exam is recommended. Asymmetric increased soft tissue tissue density in the right breast compared to the left breast. Correlation with mammography is recommended. Electronically Signed: Paul Hernandez, at 17:10 EDT Tel , Service support ,
--- NOTE | 2018-11-06 13:02 | CT_ITS ---
STUDY: CT ABDOMEN AND PELVIS WITH CONTRAST REASON FOR EXAM: Female, 78 years old. Hiatal hernia. Hypertension. Skin cancer. RADIATION DOSAGE (If Supplied By Facility): CTDIvol = ( 17.48 ) mGy, DLP = ( 1547.17 ) mGycm TECHNIQUE: Transaxial images were obtained from the dome of the diaphragm to the symphysis pubis with oral contrast. 100 ml of Isovue 300 contrast was administered. Sagittal and coronal images were reconstructed. Individualized dose optimization techniques were used for this CT. COMPARISON: 09/28/2014 FINDINGS: There are no calcified gallstones present. There is a 1 cm cyst in the dome of the liver. The liver is otherwise within normal limits. There are no suspicious hepatic lesions. The spleen is normal in size. The pancreas is within normal limits. The adrenal glands are within normal limits. There are no renal or ureteral stones. There is no hydronephrosis. There is a simple cyst in the left kidney. There are no right renal lesions. Normal visualized stomach. There is no bowel obstruction or inflammation. The appendix is visualized and appears normal. The aorta is normal in caliber. The patient is status post hysterectomy. There is no abdominal or pelvic free air, free fluid, fluid collection or lymphadenopathy. There are no destructive osseous lesions. CT/Abdomen/Pelvis WITH Contrast IMPRESSION: Simple cysts in the liver and left kidney. Otherwise, unremarkable contrast enhanced CT of the abdomen and pelvis Electronically Signed: Paul Hernandez, at 16:53 EDT Tel , Service support ,
== END ==
PROVIDERS: Family Provider Family Medicine; PCP Family Medicine; Referring Provider Family Medicine; Visit Provider Family Medicine
DX: R90.89 Other abnormal findings on diagnostic imaging of central nervous system (principal); G93.9 Disorder of brain, unspecified
CPT/HCPCS: 71260; 74177; Q9967

== ENCOUNTER → 2018-11-11 11:53 | Outpatient (CLI) | payer MEDICARE, SELFPAY ==
[2018-10-18 11:35] VITALS: BMI 36.2
--- NOTE | 2018-11-11 11:45 | RAD_ITS ---
STUDY: FLUOROSCOPICALLY GUIDED LUMBAR PUNCTURE REASON FOR EXAM: Female, 78 years old. Headache, cerebellar lesion, history of melanoma RADIATION DOSAGE (If Supplied By Facility): CTDIvol = ( ) mGy, DLP = ( ) mGycm. Individualized dose optimization techniques were used for this CT.? FLUOROSCOPY TIME (if supplied): (0:37) minutes/seconds TECHNIQUE: Fluoroscopically guided COMPARISON: None. FINDINGS: After informed consent was obtained, patient was placed in the prone position on the fluoroscopic table, an appropriate site for lumbar puncture was determined using fluoroscopic guidance. An area posterior to L3 was prepped and draped in a sterile manner, and 2% Xylocaine was used as local anesthetic. Under fluoroscopic guidance, a 22-gauge spinal needle was advanced into the central canal and approximately 4.5 mL of clear CSF was withdrawn, collected, and sent to the lab per the attending physicians orders. Patient tolerated the procedure well with no complications and was discharged to home after one hour of observation which was uneventful. RAD/Fluoro Guided Lumbar Puncture IMPRESSION: Successful fluoroscopically guided lumbar puncture Electronically Signed: Gustavo Flower MD at 14:17 EDT , Service support ,
--- NOTE | 2018-11-11 13:02 | CYSPIN_PTH ---
PATIENT: CORY CUELLO LOC: [facility] U#:[id number] AGE/SX: 84/F ROOM: RE11/11/[address]: JO Lentz : 1940 BED: DIS: SPEC #: [id number] RECD: 11/11/18 13:50 STATUS: DAVIDE REHema #: [id number] ROSIO: 11/11/18 13:[address]: Dolores Carmichael NP DEPT: CYTOLOGY RECD BY: Mando Castillo ENTERED: 11/11/18 13:50 SP TYPE: CYSPIN FL OTHR DR: Dr. Sunil Adamson MD Tissues: Cerebrospinal Fluid Procedures: Pap Stain (control) Special Stain Group II Cytospin Fluid HEADER OPERATION: Lumbar puncture PRE-OP DIAGNOSIS: Abnormal tumor TISSUE SUBMITTED: Cerebrospinal fluid for cytology DIAGNOSIS CYTOLOGY Cerebrospinal fluid for cytology (cytospin): Virtually acellular specimen. AM:macie 7/25/19 CYTOLOGY STUDY Slides are reviewed. CYTOLOGY GROSS Received is 0.5 ml of clear colorless fluid labeled with the patient's name and and designated per the requisition as CSF. Submitted for cytology preparation. 11/11/18 TC:5 CPT: 94847
[2018-11-11 13:10] VITALS: BP 150/74; PULSE 53; RESP 14; TEMP 37.2; O2SAT 94; BMI 37.4
[2018-11-11 13:26] LABS: Cytology, Body Fluid / CSF SEE PATHOLOGY REPORT
[2018-11-11 13:50] VITALS: BP 174/77; PULSE 53; RESP 16; O2SAT 95
[2018-11-11 14:00] LABS: Body Fluid Mononuclear WBC # 0.002 10^3/uL; Body Fluid Mononuclear WBC % 66.6 %; Body Fluid Polynuclear WBC # 0.001 10^3/uL; Body Fluid Polynuclear WBC % 33.4 %
[2018-11-11 14:05] LABS: Auto B Fluid Analyzer BKGD Ct COUNTS W/IN LIMITS (W/IN LIMITS); Tested Tube # 4
[2018-11-11 14:06] LABS: Appearance CSF (character) CLEAR (Clear); CSF Color COLORLESS (Colorless)
[2018-11-11 14:27] LABS: RBC Count, Spinal Fluid 163 /mm-3 (None seen); White Count, CSF 4 /mm-3 (0 - 5)
[2018-11-11 14:31] LABS: Body Fluid QC Type(s) BF1Q,BF2Q; Glucose Spinal Fluid 87 mg/dL (40-75)
[2018-11-12 13:38] LABS: Pathologist Review Reviewed
[2018-11-12 16:07] LABS: PROEL- A/G Ratio 1.3 (0.7-1.7); PROEL- Albumin 3.3 g/dL (2.9-4.4); PROEL- Alpha-1 Globulin 0.2 g/dL (0.0-0.4); PROEL- Alpha-2 Globulin 0.8 g/dL (0.4-1.0); PROEL- Beta Globulin 0.9 g/dL (0.7-1.3); PROEL- Gamma Globulin 0.7 g/dL (0.4-1.8); PROEL- Globulin, Total 2.6 g/dL (2.2-3.9); PROEL- TOTAL PROTEIN 5.9 g/dL (6.0-8.5)
[2018-11-18 16:07] LABS: Cryptococcus Antigen CSF Negative (Negative)
[2018-11-19 15:24] LABS: Myelin Basic Protein, MBP 2.3 ng/mL (0.0-1.2)
[2018-11-20 17:54] LABS: Oligoclonal Banding Comment REF LAB
== END ==
PROVIDERS: Family Provider Family Medicine; PCP Family Medicine; Referring Provider Nurse Practitioner Family; Visit Provider Nurse Practitioner Family
DX: G93.9 Disorder of brain, unspecified (principal)
CPT/HCPCS: 36415; 62270; 77003; 82040; 82042; 82784; 82945; 83873; 83916; 84157; 84165; 87899; 88108; 88313; 89050; 89051

== ENCOUNTER → 2018-11-16 09:25 | Outpatient (CLI) | payer MEDICARE, SELFPAY ==
[2018-10-18 11:35] VITALS: BMI 36.2
[2018-11-11 13:10] VITALS: BMI 37.4
--- NOTE | 2018-11-16 09:27 | BI_ITS ---
MAMMOGRAPHY - BILATERAL DIAGNOSTIC REASON FOR EXAM: Female, 78 years old. Possible sebaceous cyst in the right breast. PERTINENT HISTORY: Non-contributory. TECHNIQUE: Digital bilateral breast yaa (3D mammographic acquisition) in the CC and MLO projections. 2-D mediolateral oblique (MLO) and craniocaudad (CC) views of both breasts were obtained. CAD: Full Field Digital Mammography with Computer Added Detection was performed. COMPARISON: Comparison is made with prior study dated August 05, 2013 and August 04, 2012. FINDINGS: Breast Composition: There are scattered areas of fibroglandular density. There are no dominant masses or suspicious calcifications. No other significant abnormalities are identified. There has been no significant change since the prior study. BI/DIAG MAMM W/CAD, BILAT IMPRESSION: Stable bilateral diagnostic mammogram. One year follow-up recommended. (A) ASSESSMENT CATEGORY: BIRADS Category 1: Negative. A letter regarding these results will be sent to the patient by the facility within 30 days. Approximately 10% of breast cancers are not detected by mammography. A normal mammogram should not delay biopsy of a clinically suspicious abnormality. Electronically Signed: Alexey Villa, at 12:56 EDT , Service support ,
--- NOTE | 2018-11-16 10:12 | US_ITS ---
STUDY: ULTRASOUND BREAST - RIGHT REASON FOR EXAM: Female, 78 years old. Abnormal screening mammogram. TECHNIQUE: Axial and longitudinal images of the RIGHT breast were performed with a high resolution ultrasound transducer. COMPARISON: Comparison is made with prior mammogram done earlier today. FINDINGS: RIGHT Breast: The entire breast was examined by ultrasound. No sonographic abnormality is seen. US/Breast Limited Unilateral IMPRESSION: No sonographic abnormality is seen. ASSESSMENT CATEGORY: BIRADS Category 1: Negative. A letter regarding these results will be sent to the patient by the facility within 30 days. Electronically Signed: Alexey Villa, at 12:25 EDT , Service support ,
== END ==
PROVIDERS: Family Provider Family Medicine; PCP Family Medicine; Referring Provider Family Medicine; Visit Provider Family Medicine
DX: R92.8 Other abnormal and inconclusive findings on diagnostic imaging of breast (principal)
CPT/HCPCS: 76642; 77062; 77066; G0279

== ENCOUNTER → 2019-01-19 17:48 | Outpatient (CLI) | payer MEDICARE, SELFPAY ==
[2018-11-11 13:10] VITALS: BMI 37.4
--- NOTE | 2019-01-19 18:15 | MRI_ITS ---
We are attempting to reach an attending provider to discuss findings. An addendum with communication details will be sent when the communication is complete. STUDY: MRI BRAIN WITH AND WITHOUT CONTRAST REASON FOR EXAM: Female, 78 years old. Follow-up MRI for possible right cerebellar lesion TECHNIQUE: Standardized multiplanar fat and water weighted pulse sequences were obtained. IV Dotarem 9 was administered for the contrast portion of the examination. COMPARISON: MR brain October 15, 2018 FINDINGS: There is mild cerebral atrophy with widening of the extra-axial spaces and ventricular dilatation. Normal white matter tracts of the supratentorial brain. Stable Isolated 5 mm left frontal white matter lesion. Minute focal restricted diffusion right cerebellar hemisphere. Normal bilateral basal ganglia. Normal thalami. There is no extra-axial fluid accumulation. Normal flow voids within the major intracranial circulation suggesting patency by spin echo criteria. Normal venous enhancement. There is no enhancing intra-axial or extra-axial abnormality. Normal sella turcica, pituitary gland, infundibular stalk, optic chiasm and hypothalamus. Normal tectal plate and pineal gland. Normal midbrain, jennifer and medulla. Normal cerebellum. Normal basal cisterns. Normal bilateral temporal bones. Normal bilateral internal auditory canals. No demonstrated orbital abnormality, within the constraints of a routine brain study. Normal visualized paranasal sinuses. Normal calvarium and skull base. Normal visualized soft tissue structures. Normal visualized upper cervical spine. MRI/Brain W/WO Contrast IMPRESSION: Acute minute infarct right cerebellar hemisphere. Electronically Signed: Stevenson Mayes MD at 20:44 EDT , Service support ,
--- NOTE | 2019-01-19 21:27 | ED.RN ---
CHART OPENED PER URGENT REQUEST OF AND RN FOR CONTACT INFORMATION
== END ==
PROVIDERS: Family Provider Family Medicine; PCP Family Medicine; Referring Provider Neurological Surgery; Visit Provider Neurological Surgery
DX: G93.89 Other specified disorders of brain (principal)
CPT/HCPCS: 70553; A9575

== ENCOUNTER 2019-01-19 22:01 | Inpatient (IN) | payer MEDICARE, SELFPAY ==
[2018-11-11 13:10] VITALS: BMI 37.4
[2019-01-19 22:02] VITALS: BP 164/100; PULSE 61; RESP 18; TEMP 36.2; O2SAT 95; BMI 37.2
[2019-01-19 22:15] VITALS: BP 164/100; PULSE 61; RESP 18; TEMP 36.2; O2SAT 95
--- NOTE | 2019-01-19 22:40 | EKG12_ITS ---
Test Reason : ABNORMALMRI Blood Pressure : / mmHG Vent. Rate : 058 BPM Atrial Rate : 058 BPM P-R Int : 140 ms QRS Dur : 076 ms QT Int : 474 ms P-R-T Axes : 041 -24 059 degrees QTc Int : 465 ms Sinus bradycardia with occasional Premature ventricular complexes Otherwise normal ECG Confirmed by TALAT DE LA TORRE ([id number]), loft patternmaker MICHAEL CHOWDHURY ([id number]) on 01/25/2019 12:12:19 PM Referred By: DAMARI Confirmed By:TALAT DE LA TORRE
--- NOTE | 2019-01-19 22:42 | ED.DCSUM_ITS ---
History of Present Illness Chief Complaint: Abn Labs Narrative: Patient is a 78-year-old female who was sent in due to an abnormal MRI. She had an outpatient MRI today which showed a minute acute right cerebellar stroke. Several months ago she had her hearing tested for hearing aids and was noted to have decreased hearing in her right ear. 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 She was referred to neurology and also had an outpatient lumbar puncture. She was referred to neurosurgery for the venous anomaly. Neurosurgery wanted another MRI to reevaluate this which she had as an outpatient today which was then read as a minute stroke. Initially patient denied any recent strokelike symptoms such as numbness tingling weakness. She does report that she had been recently diagnosed with ocular migraines and saw ophthalmology as well however this was more of an aura and lights in the right eye. Last week however she had a different episode which was essentially visual field cut in the left eye she describes this as an area that was difficult to see. This has since resolved. Currently she has no neurological symptoms. 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 Past Medical History - Allergies and Home Meds Allergies/Adverse Reactions: Allergies iodine Allergy (Verified 01/19/19 22:04) Unknown STATES BETADINE IS OK Primary Care Physician: Sunil Adamson MD [Primary Care Provider] - Past Medical History: - - Hypertension, hyperlipidemia Smoking Status: Never smoker Review of Systems All systems negative except as indicated General: Denies: Fever Eyes: Reports: Visual changes - left Cardiovascular: Denies: Chest pain Respiratory: Denies: Dyspnea Gastrointestinal: Denies: Vomiting, Diarrhea Skin: Denies: Rash Neurological: Denies: Headache Physical Exam Vital Signs/Narrative: Vital Signs Temp Pulse Pulse Resp BP BP Pulse Ox 01/19/19 22:15 97.1 F L 61 18 164/100 H 95 01/19/19 22:02 97.1 F L 61 18 164/100 H 95 Inital Vital Signs reviewed: Yes General: Well nourished, Well developed Head: Normocephalic, Atraumatic Eyes: Perrl, EOMI ENT: Moist mucous membranes Neck: Supple Cardiovascular: Regular rate, Regular rhythm Respiratory: No distress Abdomen: Soft Neurological: Alert, Oriented x3, Normal Strength, Normal Sensation, - - NIH stroke scale is 0 Psychological: Normal affect Diagnostic/Tx/Re-eval Laboratory Results 01/19/19 01/19/19 01/19/19 22:50 22:50 22:50 WBC 6.0 RBC 4.49 Hgb 13.0 Hct 39.5 MCV 88.0 MCH 29.0 MCHC 32.9 RDW Std Deviation 40.3 RDW Coeff of Corinna 12.7 Plt Count 131 L MPV 9.8 Immature Gran % (Auto) 0.300 Neut % (Auto) 58.5 Lymph % (Auto) 30.1 [place] % (Auto) 7.3 Eos % (Auto) 3.3 Baso % (Auto) 0.5 Absolute Neuts (auto) 3.5 Absolute Lymphs (auto) 1.82 Nucleated RBC % 0 PT 14.8 INR 1.2 APTT 33.1 Sodium 142 Potassium 3.7 Chloride 107 Carbon Dioxide 29.0 Anion Gap 6 BUN 16 Creatinine 0.91 Estim Creat Clear Calc 39.07 Est GFR (MDRD) Af Amer 77 Est GFR (MDRD) Non-Af 64 BUN/Creatinine Ratio 17.6 Glucose 192 H Calcium 9.5 Troponin I 0.024 - Medical Decision Making Labs as above normal. EKG shows sinus bradycardia at a rate of 58 with occasional PVC. I do feel the patient should be admitted for further work-up and neurology consultation. Currently she has no neurological symptoms, NIH is 0, MRI shows a small completed stroke. I do not believe any emergent intervention is necessary at this time. Patient will be discussed with the hospitalist and admitted. ED Disposition - Plan for ED Patient: Disposition: Acute Care Hospital [facility] Diagnosis: Stroke Referrals: Sunil Adamson MD [Primary Care Provider] -
[2019-01-19 23:02] LABS: Absolute Lymphocyte Count 1.82 X10^3/uL (0.83-4.51); Absolute Neutrophil Count 3.5 X10^3/uL (2.0-7.7); Basophil# 0.03 X10^3/uL; Basophil% 0.5 % (0-1); Eosinophils% 3.3 % (0-5); Hematocrit 39.5 % (37-47); Lymphocyte # 1.82 X10^3/ul (4.0); Lymphocyte % 30.1 % (19-41); Mean Corp Hgb Conc 32.9 g/dL (32-36); Mean Platelet Vol. 9.8 fl (6.2-12.0); Monocyte# 0.44 X10^3/uL; Monocyte% 7.3 % (0-10); NRBC Flagged by Analyzer 0 % (0-5); Neutrophil # 3.53 X10^3/uL (2.7-7.7); Neutrophil % 58.5 % (47-70); Platelet Count 131 K/mm3 (150-450); RBC Distribution Width CV 12.7 % (11.6-14.6); RBC Distribution Width SD 40.3 fl (35.1-43.9); Red Blood Count 4.49 M/mm3 (4.2-5.4)
[2019-01-19 23:05] LABS: International Normalized Ratio 1.2; Prothrombin Time (Protime)PT. 14.8 SECONDS (11.7-14.9)
[2019-01-19 23:06] LABS: Partial Thromboplast Time 33.1 Seconds (24.1-36.2)
[2019-01-19 23:15] LABS: Anion Gap 6 (5-15); BUN 16 mg/dL (7-18); BUN/Creat Ratio 17.6 RATIO (10-20); Calcium,Total 9.5 mg/dL (8.5-10.1); Chloride 107 mmol/L (98-107); Creatinine, Serum 0.91 mg/dL (0.55-1.02); EST Glomerular Filtration Rate 64 mL/min (>60); Est Glom Filt Rate - Afr Amer 77 mL/min (>60); Estimated Creatinine Clearance 39.07 ml/min; Glucose 192 mg/dL (74-106); Potassium 3.7 mmol/L (3.5-5.1); Sodium Level 142 mmol/L (136-145)
--- NOTE | 2019-01-19 23:53 | PCM.HP.STD ---
Problem List (1) Stroke Status: Acute History of Present Illness Date of Admission: 01/19/19 Chief Complaint: abnormal MRI The patient is a 78 year old F with a significant history of arthritis; basal cell carcinoma; Darryl disease who presented to emergency department because of abnormal MRI on the same day of presentation. The MRI showed acute minute infarcts at the right cerebellar hemisphere. Because of the abnormal MRI patient's neurosurgeon instructed patient to come to emergency department. Patient reports that around August to September of this year her hearing aids were checked and it was noted that she has hearing loss for which reason she followed up with ENT, Dr. Thomas. 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 . Further work-up included lumbar puncture and patient was eventually referred to see Dr.Mark Fisher neurosurgeon at [facility] who ordered another MRI. It is this MRI that was done on the same day of presentation and it showed acute minute cerebellar infarct. 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 About a week ago she had a transient loss of vision in the left eye. 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 [Ecotrin] 81 mg PO DAILY@0800 03/18/14 Benazepril HCl [Lotensin] 20 mg PO BID 03/18/14 Carvedilol [Coreg (Beta Iserra)] 25 mg PO BID 03/18/14 Levothyroxine [Synthroid] 75 mcg PO DAILY 03/18/14 Oxybutynin Chloride [Ditropan Xl] 10 mg PO DAILY 03/18/14 Atorvastatin Calcium [Lipitor] 40 mg PO QHS 10/03/14 Ergocalciferol [Vitamin D] 50,000 unit PO Q7D 10/03/14 Latanoprost 0.005% [Xalatan 1 drp EACH EYE QHS 10/03/14 Opthalmic] Escitalopram Oxalate [Lexapro] 10 mg PO DAILY 01/19/19 Surgical History: Surgical History (Last Reviewed 01/20/19 @ 03:55 by David Cruz MD) H/O partial thyroidectomy Z98.890, E89.0 History of bladder suspension procedure Z98.890, Z87.448 Lives: Alone Smoking Status: Never smoker Alcohol: None - *Family History Maternal History Items: Heart Disease Paternal History Items: - - Her father was an alcoholic he from complication of restraints at the hospital.. Review of Systems Constitutional: Denies: Chills, Fever, Weight Change HEENT: Denies: Head Aches, Sinus Congestion, Sinus Drainage Cardiovascular: Denies: Chest Pain, Palpitations Respiratory: Denies: Cough, Shortness of breath at rest, Sputum production Gastrointestinal: Denies: Abdominal Pain, Nausea, Vomiting Genitourinary: Denies: Dysuria Musculoskeletal: Denies: Joint Pain, Joint Tenderness Skin: Denies: Rash, Wounds Neurological: Denies: Numbness, Tingling, Focal weakness Psychiatric: Denies: Anxiety, Depression, Homicidal Ideations, Suicidal Ideations Hematologic/ Lymphatic: Denies: Easy Bruising, Easy Bleeding VTE Information - Inpt Only VTE Present on Admission: No VTE Mechan Device Prophylaxis: None VTE Pharm Prophylaxis ordered?: Yes Patient Problems: Active and Suspected Problems (Last Reviewed 01/20/19 @ 03:54 by David Cruz MD) Stroke (Acute) - Physical Exam General: Alert, Oriented x3, Cooperative HEENT: Atraumatic, PERRLA, EOMI, Normocephalic Neck: Supple, No JVD, Negative Carotid Bruits Lungs: Clear to auscultation, Normal air movement Cardiovascular: No murmurs, Bradycardic Abdomen: Bowel Sounds Present, Soft, Non Tender Extremities: No edema, Capillary Refill Less than 3 Seconds Skin: No rashes, No breakdown Musculoskeletal: No Tenderness to Palpation of Joints or Extremities Neurological: Cranial nerves II-XII grossly intact, Neuro grossly intact Psych/Mental Status: Normal Affect, Appropriate Vital Signs Temp Pulse Resp BP Pulse Ox 97.1 F L 61 18 164/100 H 95 01/19/19 22:15 01/19/19 22:15 01/19/19 22:15 01/19/19 22:15 01/19/19 22:15 Oxygen Delivery Method Room Air Weight: 89.358 kg Body Mass Index (BMI) 37.2 Finger Stick Blood Glucose 146 Laboratory Tests Past 24 Hrs 01/19/19 01/19/19 01/19/19 22:50 22:50 22:50 WBC 6.0 RBC 4.49 Hgb 13.0 Hct 39.5 MCV 88.0 MCH 29.0 MCHC 32.9 RDW Std Deviation 40.3 RDW Coeff of Corinna 12.7 Plt Count 131 L MPV 9.8 Immature Gran % (Auto) 0.300 Neut % (Auto) 58.5 Lymph % (Auto) 30.1 [place] % (Auto) 7.3 Eos % (Auto) 3.3 Baso % (Auto) 0.5 Absolute Neuts (auto) 3.5 Absolute Lymphs (auto) 1.82 Nucleated RBC % 0 PT 14.8 INR 1.2 APTT 33.1 Sodium 142 Potassium 3.7 Chloride 107 Carbon Dioxide 29.0 Anion Gap 6 BUN 16 Creatinine 0.91 Estim Creat Clear Calc 39.07 Est GFR (MDRD) Af Amer 77 Est GFR (MDRD) Non-Af 64 BUN/Creatinine Ratio 17.6 Glucose 192 H Calcium 9.5 Troponin I 0.024 Assessment/Plan All Active Problems (Last Reviewed 01/20/19 @ 03:54 by David Cruz MD) Stroke (Acute) The patient is a 78 year old F with a significant history of arthritis; basal cell carcinoma; Darryl disease who presented to emergency department because of acute minute right cerebellar infarct showed on MRI. Acute stroke Per MRI as in HPI. NINDS NIH Scale was 0 Check Hba1c, Lipid level Physical therapy, occupational therapy and to work with patient. Of note patient has no focal neurological deficits. N.p.o. until bedside swallow eval. Of note patient recently was on both aspirin and Plavix. 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 She completed a course of Plavix and is only on aspirin at this time. Aspirin continued. High intensity statin continued. Lipid profile and A1c ordered. Since time of acute infarct is uncertain we will institute permissive hypertension for the next 24 hours. Control blood pressure with Hydralazine for systolic blood pressure of more than 220 or diastolic blood pressure of more than 120. Labetalol was not prescribed because of bradycardia. MRA of head; brain; and neck per stroke protocol. Echocardiogram ordered. Of note patient saw Dr. Mcclain, neurologist sometime this year. Consult neurology Hypertension On presentation her blood pressure was not within goal. Would home home antihypertensive medication. Permissive hypertension with Lopressor Hydralazine as above Sinus bradycardia EKG showed sinus bradycardia with PVCs. Likely secondary to home coreg. Consider decreased dose of Coreg when bp meds are resumed. Hyperlipidemia Lipitor continued as above Hypothyroidism Synthroid continued Overactive bladder Ditropan continued Obstructive Sleep apnea Declined CPAP at the hospital. DVT prophylaxis Subcutaneous Lovenox. Code Visit OBSV E&M: 12487 Initial observation care L3
[2019-01-20] VITALS (15 sets, daily range): BP systolic 131–183; BP diastolic 70–98; PULSE 48–107; RESP 14–20; TEMP 36.6–37.2; O2SAT 94–99; BMI 36.1; BMI 37.2
--- NOTE | 2019-01-20 01:50 | ECHOD_ITS ---
Reason For Study: TIA/CVA Procedure This was a 2D Doppler, Color Flow transthoracic echocardiogram. Exam performed portable in patient room. Left Ventricle Normal size and thickness. The estimated ejection fraction is 65 %. Stage 1 diastolic dysfunction. No regional wall motion abnormalities noted. Right Ventricle Normal size and thickness. Normal systolic function. Atria Normal left atrium. Normal right atrium. Normal atrial septum. Mitral Valve Mild diffuse mitral valve thickening. Severe mitral annular calcification extending into the posterior leaflet. Mild mitral valve stenosis. Peak transmitral valve gradient 10 mmHg. Mean transmitral valve gradient 3 mmHg. Tricuspid Valve Normal tricuspid valve. Mild (1+) tricuspid valve insufficiency. Right ventricular systolic pressure estimated to be 40 mmHg. Mild pulmonary hypertension. Aortic Valve Normal functioning TAVR with normal TAVR gradients. Trivial perivalvular AI behind prothesis of no clinical significance. Pulmonic Valve Normal pulmonic valve. Trivial pulmonic valve insufficiency. Great Vessels Normal aortic root. Normal arch. Normal inferior vena cava. Inferior vena cava collapse with sniff. Pericardium/Pleural No pericardial effusion. Medication Previously negative bubble study on LIZZIE. MMode/2D Measurements & Calculations LVIDd: 4.6 cm IVSd: 1.1 cm LVOT diam: 2.0 cm LVIDs: 2.8 cm LVPWd: 1.3 cm RVDd: 3.1 cm FS: 39.8 % LVOT area: 3.1 cm2 Ao root diam: 3.0 cm LAV(MOD-bp): 64.5 ml LVAd ap4: 31.8 cm2 LAV(MOD-bp) Indexed: 34.4 ml/m2 EDV(MOD-sp4): 104.1 ml LAV(MOD-sp2): 76.5 ml EDV(sp4-el): 109.3 ml LAV(MOD-sp4): 40.0 ml LVAs ap4: 16.9 cm2 ESV(MOD-sp4): 38.0 ml ESV(sp4-el): 38.3 ml EF(MOD-sp4): 63.5 % EF(sp4-el): 64.9 % SV(MOD-sp4): 66.1 ml SV(sp4-el): 71.0 ml LA A4 area: 15.9 cm2 LA dimension(2D): 4.3 cm RA A4 area: 16.6 cm2 Doppler Measurements & Calculations Lat Peak E' Emil: 4.7 cm/sec Med Peak E' Emil: 3.5 cm/sec MV V2 max: 157.4 cm/sec MV max P.9 mmHg MV V2 mean: 85.7 cm/sec MV mean P.4 mmHg MV V2 VTI: 59.9 cm MVA(VTI): 1.7 cm2 Ao V2 max: 198.3 cm/sec AI max emil: 440.3 cm/sec LV V1 max: 124.0 cm/sec Ao max P.7 mmHg AI max P.6 mmHg LV V1 max P.1 mmHg Ao V2 mean: 136.3 cm/sec AI dec slope: 197.2 cm/sec2 LV V1 mean P.4 mmHg Ao mean P.3 mmHg AI P1/2t: 653.9 msec LV V1 mean: 87.7 cm/sec Ao V2 VTI: 47.7 cm LV V1 VTI: 32.9 cm LC(I,D): 2.1 cm2 LC(V,D): 1.9 cm2 SV(LVOT): 101.3 ml PA V2 max: 96.1 cm/sec PI end-d emil: 71.9 cm/sec TR max emil: 289.7 cm/sec MV P1/2t-pr_phl: 153.0 msec TR max P.6 mmHg Interpretation Summary The estimated ejection fraction is 65 %. Stage 1 diastolic dysfunction. Mild mitral valve stenosis. Mild (1+) tricuspid valve insufficiency. Right ventricular systolic pressure estimated to be 40 mmHg. Mild pulmonary hypertension. Normal functioning TAVR with normal TAVR gradients. Trivial perivalvular AI behind prothesis of no clinical significance. Compared to echo report dated 10/16/2016, LV Function has remained the same, LVH has resolved and aortic valve has been effaced by TAVR. Ordering Physician: David Cruz Referring Physician: MARCOS CARROLL Performed By: Verenice Wiggins RDCS, RVT
--- NOTE | 2019-01-20 01:50 | MRI_ITS ---
STUDY: MRA OF THE HEAD WITHOUT CONTRAST REASON FOR EXAM: Female, 78 years old. Stroke TECHNIQUE: 3-D losy-zt-mrqvxv (TOF) imaging was performed with MIPs. The study was performed unenhanced. COMPARISON: MRI 01/19/2019 FINDINGS: Normal bilateral petrous carotid arteries. Normal right cavernous carotid artery with a normal supraclinoid bifurcation. Normal left cavernous carotid artery with a normal supraclinoid bifurcation. Normal right A1 segments of the anterior cerebral artery. Normal left A1 segments of the anterior cerebral artery. Normal intact anterior communicating artery (ACOM). Normal bilateral A2 segments of the anterior cerebral arteries. Normal right M1 and M2 segments of the middle cerebral arteries, with a normal M1 bifurcation. Normal left M1 and M2 segments of the middle cerebral arteries, with a normal M1 bifurcation. There is a persistent origin of the right posterior cerebral artery with absence of the P1 segment of the right posterior cerebral artery. There is a persistent origin of the left posterior cerebral artery with absence of the P1 segment of the left posterior cerebral artery. Normal bilateral vertebral arteries. Normal basilar artery with a normal basilar bifurcation. The visualized bilateral superior cerebellar (SCA) arteries are normal. Normal bilateral P1, P2 and visualized P3 segments of the posterior cerebral arteries. There is no demonstrated aneurysm of the [place]. There is no major vessel occlusion or hemodynamically significant stenosis. There is no demonstrated abnormality of the visualized brain. MRI/MRA Head ONLY without Contrast IMPRESSION: Normal MRA of the head Electronically Signed: Max Osuna MD at 11:58 EDT Tel , Service support ,
--- NOTE | 2019-01-20 01:50 | MRI_ITS ---
STUDY: MRA NECK WITH AND WITHOUT CONTRAST REASON FOR EXAM: Female, 78 years old. Cerebellar stroke TECHNIQUE: 3-D cinu-dz-jfedxr (TOF) imaging was performed in an 1.5 T MRI scanner. IV Dotarem 17 was administered for the contrast enhanced images. COMPARISON: MRI 01/19/2019 FINDINGS: RIGHT CAROTID ARTERIES: Normal right common carotid artery (CCA). Normal right common carotid bulb. Normal origin of the right internal carotid (ICA) artery without a hemodynamically significant stenosis. Normal visualized cervical portion of the right internal carotid artery. Normal origin of the right external carotid artery (ECA). LEFT CAROTID ARTERIES: Normal left common carotid artery (CCA). Normal left common carotid bulb. Normal origin of the left internal carotid (ICA) artery without a hemodynamically significant stenosis. Normal visualized cervical portion of the left internal carotid artery. Normal origin of the left external carotid artery (ECA). VERTEBRAL ARTERIES: Normal antegrade flow within the bilateral vertebral artery without a hemodynamically significant stenosis. MRI/MRA Neck WITH and W/O Contrast IMPRESSION: Normal bilateral cervical carotid and vertebral arteries. Electronically Signed: Max Osuna MD at 12:03 EDT Tel , Service support ,
[2019-01-20 02:21] LABS: Hemoglobin A1c 6.9 % (4.2-6.3)
[2019-01-20] MEDS: Levothyroxine 75 MCG Tablet PO (05:42)
[2019-01-20 06:14] LABS: Cholesterol 98 mg/dL (200); High Density Lipoprotein 49 mg/dL; Triglycerides 118 mg/dL; Very Low Density Lipoprotein 24 mg/dL (5-40)
[2019-01-20] MEDS: Escitalopram Oxalate 10 MG Tablet PO (09:24)
[2019-01-20] MEDS: Aspirin E.C. 81 MG Tablet PO (09:24)
[2019-01-20] MEDS: Tolterodine Tartrate 2 MG CAP.SA PO (09:24)
[2019-01-20] MEDS: Enoxaparin 40 MG/0.4 ML Syringe SC (09:25)
--- NOTE | 2019-01-20 10:25 | CON.PCM_ITS ---
Reason for Consult Date of Consultation: 01/20/19 Reason for Consultation: acute right cerebellar infarct History of Present Illness: The patient is a 78 year old F with history as below. feels normal, mri done yesterday as part of workup for hearing loss. reports episode of visual ob scuration about 6 days ago. tavr september. per admit note:The patient is a 78 year old F with a significant history of arthritis; basal cell carcinoma; Darryl disease who presented to emergency department because of abnormal MRI on the same day of presentation. The MRI showed acute minute infarcts at the right cerebellar hemisphere. Because of the abnormal MRI patient's neurosurgeon instructed patient to come to emergency department. Patient reports that around August to September of this year her hearing aids were checked and it was noted that she has hearing loss for which reason she followed up with ENT, Dr. Thomas. 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 . Further work-up included lumbar puncture and patient was eventually referred to see Dr.Mark Fisher neurosurgeon at [facility] who ordered another MRI. It is this MRI that was done on the same day of presentation and it showed acute minute cerebellar infarct. 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 About a week ago she had a transient loss of vision in the left eye. 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 [Ecotrin] 81 mg PO DAILY@0800 03/18/14 Benazepril HCl [Lotensin] 20 mg PO BID 03/18/14 Carvedilol [Coreg (Beta [place])] 25 mg PO BID 03/18/14 Levothyroxine [Synthroid] 75 mcg PO DAILY 03/18/14 Oxybutynin Chloride [Ditropan Xl] 10 mg PO DAILY 03/18/14 Atorvastatin Calcium [Lipitor] 40 mg PO QHS 10/03/14 Ergocalciferol [Vitamin D] 50,000 unit PO Q7D 10/03/14 Latanoprost 0.005% [Xalatan 1 drp EACH EYE QHS 10/03/14 Opthalmic] Escitalopram Oxalate [Lexapro] 10 mg PO DAILY 01/19/19 Surgical History: Surgical History (Last Reviewed 01/20/19 @ 10:26 by Jeffrey Bunn MD) H/O partial thyroidectomy Z98.890, E89.0 History of bladder suspension procedure Z98.890, Z87.448 Lives: Alone Smoking Status: Never smoker Alcohol: None - *Family History Maternal History Items: Heart Disease Paternal History Items: - - Her father was an alcoholic he from complication of restraints at the hospital.. Review of Systems Constitutional: Denies: Chills, Fever, Weight Change HEENT: Denies: Head Aches, Sinus Congestion, Sinus Drainage Cardiovascular: Denies: Chest Pain, Palpitations Respiratory: Denies: Cough, Shortness of breath at rest, Sputum production Gastrointestinal: Denies: Abdominal Pain, Nausea, Vomiting Genitourinary: Denies: Dysuria Musculoskeletal: Denies: Joint Pain, Joint Tenderness Skin: Denies: Rash, Wounds Neurological: Denies: Numbness, Tingling, Focal weakness Psychiatric: Denies: Anxiety, Depression, Homicidal Ideations, Suicidal Ideations Hematologic/ Lymphatic: Denies: Easy Bruising, Easy Bleeding Patient Problems: Active and Suspected Problems (Last Reviewed 01/20/19 @ 10:26 by Jeffrey Bunn MD) Stroke (Acute) - Physical Exam General: Alert, Oriented x3, Cooperative HEENT: Atraumatic, PERRLA, EOMI, Normocephalic Neck: Supple, No JVD, Negative Carotid Bruits Lungs: Clear to auscultation, Normal air movement Cardiovascular: Regular rate, No murmurs Abdomen: Bowel Sounds Present, Soft, Non Tender Extremities: No edema, Capillary Refill Less than 3 Seconds Skin: No rashes, No breakdown Musculoskeletal: No Tenderness to Palpation of Joints or Extremities Neurological: Cranial nerves II-XII grossly intact Psych/Mental Status: Normal Affect, Appropriate Vital Signs Temp Pulse Resp BP Pulse Ox 36.8 C 55 L 18 153/94 H 95 01/20/19 09:15 01/20/19 09:15 01/20/19 09:15 01/20/19 09:15 01/20/19 09:15 Oxygen Delivery Method Room Air Weight: 88.3 kg Body Mass Index (BMI) 36.1 Finger Stick Blood Glucose 146 Intake and Output for Last 24 Hours 01/18/19 01/19/19 01/20/19 23:59 23:59 23:59 Intake Total 60 / 60 Balance 60 / 60 Laboratory Tests Past 24 Hrs 01/19/19 01/19/19 01/19/19 22:50 22:50 22:50 WBC 6.0 RBC 4.49 Hgb 13.0 Hct 39.5 MCV 88.0 MCH 29.0 MCHC 32.9 RDW Std Deviation 40.3 RDW Coeff of Corinna 12.7 Plt Count 131 L MPV 9.8 Immature Gran % (Auto) 0.300 Neut % (Auto) 58.5 Lymph % (Auto) 30.1 [place] % (Auto) 7.3 Eos % (Auto) 3.3 Baso % (Auto) 0.5 Absolute Neuts (auto) 3.5 Absolute Lymphs (auto) 1.82 Nucleated RBC % 0 PT 14.8 INR 1.2 APTT 33.1 Sodium 142 Potassium 3.7 Chloride 107 Carbon Dioxide 29.0 Anion Gap 6 BUN 16 Creatinine 0.91 Estim Creat Clear Calc 39.07 Est GFR (MDRD) Af Amer 77 Est GFR (MDRD) Non-Af 64 BUN/Creatinine Ratio 17.6 Glucose 192 H Hemoglobin A1c Calcium 9.5 Troponin I 0.024 Triglycerides Cholesterol LDL Cholesterol VLDL Cholesterol HDL Cholesterol 01/19/19 01/20/19 22:50 05:44 WBC RBC Hgb Hct MCV MCH MCHC RDW Std Deviation RDW Coeff of Corinna Plt Count MPV Immature Gran % (Auto) Neut % (Auto) Lymph % (Auto) [place] % (Auto) Eos % (Auto) Baso % (Auto) Absolute Neuts (auto) Absolute Lymphs (auto) Nucleated RBC % PT INR APTT Sodium Potassium Chloride Carbon Dioxide Anion Gap BUN Creatinine Estim Creat Clear Calc Est GFR (MDRD) Af Amer Est GFR (MDRD) Non-Af BUN/Creatinine Ratio Glucose Hemoglobin A1c 6.9 H Calcium Troponin I Triglycerides 118 Cholesterol 98 LDL Cholesterol 25 VLDL Cholesterol 24 HDL Cholesterol 49 mri reviewed, very small right acute cerebellar infarct, small old subcortical infarct left frontal carotid u/s no signif stenosis 11/06 echo results pending Current Home Med List Medication Instructions Recorded Confirmed Type Aspirin E.C. [Ecotrin] 81 mg PO DAILY@0800 03/18/14 01/19/19 History Benazepril HCl [Lotensin] 20 mg PO BID 03/18/14 01/19/19 History Carvedilol [Coreg (Beta [place])] 25 mg PO BID 03/18/14 01/19/19 History Levothyroxine [Synthroid] 75 mcg PO DAILY 03/18/14 01/19/19 History Oxybutynin Chloride [Ditropan Xl] 10 mg PO DAILY 03/18/14 01/19/19 History Atorvastatin Calcium [Lipitor] 40 mg PO QHS 10/03/14 01/19/19 History Ergocalciferol [Vitamin D] 50,000 unit PO Q7D 10/03/14 01/19/19 History Latanoprost 0.005% [Xalatan 1 drp EACH EYE QHS 10/03/14 01/19/19 History Opthalmic] Escitalopram Oxalate [Lexapro] 10 mg PO DAILY 01/19/19 01/19/19 History Current Medications Generic Name Dose Route Start Last Admin Trade Name Freq PRN Reason Stop Dose Admin Acetaminophen 650 mg 01/20/19 01:50 Tylenol PO Q6H PRN PRN Mild pain 1-3/Temp > 100.7 F Aspirin 81 mg 01/20/19 08:00 01/20/19 09:24 Ecotrin PO 81 mg DAILY@0800 AZAR Administration Atorvastatin Calcium 40 mg 01/20/19 22:00 Lipitor PO QHS AZAR Dextrose 0 gm 01/20/19 01:50 D50w Syringe IV X1 PRN Hypoglycemia Protocol Enoxaparin Sodium 40 mg 01/20/19 10:00 01/20/19 09:25 Lovenox SC 40 mg DAILY@1000 AZAR Administration Escitalopram Oxalate 10 mg 01/20/19 10:00 01/20/19 09:24 Lexapro PO 10 mg DAILY AZAR Administration Glucagon 1 mg 01/20/19 01:50 IM .X1 PRN Hypoglycemia Hydralazine HCl 5 mg 01/20/19 03:15 Apresoline Iv IV Q4H PRN PRN SBP > 220 or DBP > 120 Sodium Chloride 250 mls @ 15 mls/hr 01/20/19 01:35 IV .[id number] PRN SALINE FLUSH Latanoprost 1 drop 01/20/19 22:00 Xalatan Opthalmic EACH EYE QHS AZAR Levothyroxine Sodium 75 mcg 01/20/19 06:00 01/20/19 05:42 Synthroid PO 75 mcg DAILY@0600 AZAR Administration Ondansetron HCl 4 mg 01/20/19 01:50 Zofran IV Q8H PRN PRN NAUSEA/VOMITING Sodium Chloride 5 - 15 ml 01/20/19 01:35 IV UD PRN SALINE FLUSH Tolterodine Tartrate 2 mg 01/20/19 10:00 01/20/19 09:24 Detrol La PO 2 mg DAILY AZAR Administration Assessment/Plan All Active Problems (Last Reviewed 01/20/19 @ 10:26 by Jeffrey Bunn MD) Stroke (Acute) punctate right cerebellar infarct, on asa qod previously. hx of adelso on cpap with good compliance asa daily recommend lipitor 80mg/d bp control tele echo home if above neg with outpt followup if no afib on tele rec 30 day event monitor
--- NOTE | 2019-01-20 13:03 | NURSING ---
Read and reviewed SN documentation
--- NOTE | 2019-01-20 13:37 | CASEMGMT ---
SW completed PHQ-9 with patient as she had a Stroke. Patient scored an 8 which indicates mild depression. SW spoke with patient about counseling. She said she isn't sure what they would do. SW told her they could help her with learning coping skills. Also, it would be beneficial for her to be able to talk with someone to help her process some of these feelings. She did accept a list of local mental health providers. Kendra NIELSON MSW
--- NOTE | 2019-01-20 15:18 | PCM.PROGNOTE ---
<Hanna Rivera - Last Filed: 01/20/19 15:34> Patient Problems: Active and Suspected Problems (Last Reviewed 01/20/19 @ 10:26 by Jeffrey Bunn MD) Stroke (Acute) Subjective: Patient seen and examined. Denies new symptoms or complaints. No vision changes, slurred speech, numbness, tingling or weakness. - Physical Exam General: Alert, Oriented x3, Cooperative HEENT: Atraumatic, PERRLA, EOMI, Normocephalic Neck: Supple, No JVD, Negative Carotid Bruits Lungs: Clear to auscultation, Normal air movement Cardiovascular: Regular rate, Regular Rhythm, Normal S1, Normal S2 Abdomen: Bowel Sounds Present, Soft, Non Tender, Non-Distended Extremities: No clubbing, No cyanosis, No edema, Capillary Refill Less than 3 Seconds Skin: No rashes, No breakdown Musculoskeletal: No Tenderness to Palpation of Joints or Extremities Neurological: Cranial nerves II-XII grossly intact, Neuro grossly intact Psych/Mental Status: Normal Affect, Appropriate Vital Signs Temp Pulse Resp BP Pulse Ox 98.1 F 66 20 H 139/90 H 95 01/20/19 13:15 01/20/19 13:15 01/20/19 13:15 01/20/19 13:15 01/20/19 09:15 Oxygen Delivery Method Room Air Weight: 194 lb 10.691 oz Body Mass Index (BMI) 36.1 Finger Stick Blood Glucose 146 Intake and Output for Last 24 Hours 01/18/19 01/19/19 01/20/19 23:59 23:59 23:59 Intake Total 420 / 420 Balance 420 / 420 Laboratory Tests Past 24 Hrs 01/19/19 01/19/19 01/19/19 22:50 22:50 22:50 WBC 6.0 RBC 4.49 Hgb 13.0 Hct 39.5 MCV 88.0 MCH 29.0 MCHC 32.9 RDW Std Deviation 40.3 RDW Coeff of Corinna 12.7 Plt Count 131 L MPV 9.8 Immature Gran % (Auto) 0.300 Neut % (Auto) 58.5 Lymph % (Auto) 30.1 [place] % (Auto) 7.3 Eos % (Auto) 3.3 Baso % (Auto) 0.5 Absolute Neuts (auto) 3.5 Absolute Lymphs (auto) 1.82 Nucleated RBC % 0 PT 14.8 INR 1.2 APTT 33.1 Sodium 142 Potassium 3.7 Chloride 107 Carbon Dioxide 29.0 Anion Gap 6 BUN 16 Creatinine 0.91 Estim Creat Clear Calc 39.07 Est GFR (MDRD) Af Amer 77 Est GFR (MDRD) Non-Af 64 BUN/Creatinine Ratio 17.6 Glucose 192 H Hemoglobin A1c Calcium 9.5 Troponin I 0.024 Triglycerides Cholesterol LDL Cholesterol VLDL Cholesterol HDL Cholesterol 01/19/19 01/20/19 22:50 05:44 WBC RBC Hgb Hct MCV MCH MCHC RDW Std Deviation RDW Coeff of Corinna Plt Count MPV Immature Gran % (Auto) Neut % (Auto) Lymph % (Auto) [place] % (Auto) Eos % (Auto) Baso % (Auto) Absolute Neuts (auto) Absolute Lymphs (auto) Nucleated RBC % PT INR APTT Sodium Potassium Chloride Carbon Dioxide Anion Gap BUN Creatinine Estim Creat Clear Calc Est GFR (MDRD) Af Amer Est GFR (MDRD) Non-Af BUN/Creatinine Ratio Glucose Hemoglobin A1c 6.9 H Calcium Troponin I Triglycerides 118 Cholesterol 98 LDL Cholesterol 25 VLDL Cholesterol 24 HDL Cholesterol 49 Medical Necessity - Tobacco Use Smoking Status: Never smoker Assessment/Plan All Active Problems (Last Reviewed 01/20/19 @ 10:26 by Jeffrey Bunn MD) Stroke (Acute) 1. Acute infarct right cerebellar hemisphere-MRI demonstrated acute minute infarct right cerebellar hemisphere. Neurology on consult. Aspirin, statin. Echocardiogram demonstrates stage I diastolic dysfunction, mild mitral valve stenosis, mild tricuspid valve insufficiency, RVSP estimated to be 40 mmHg, normal functioning TAVR. PT/OT/ST. MRA of head and neck pending. Follow up with Dr. Mcclain at [place]. Neurology recommending 30-day event recorder at discharge. 2. 5 mm left frontal white matter lesion-Per patient, she was seeing neurosurgery, Dr. Rodriguez for this. Continue outpatient follow-up. 3. Hypertension-continue carvedilol regimen. 4. Hyperlipidemia-continue statin. 5. Depression-continue Lexapro regimen. 6. Overactive bladder-continue home Ditropan regimen. 7. Hypothyroidism-continue Synthroid regimen. 8. Vitamin D deficiency-continue supplementation. DVT prophylaxis-Lovenox sc This patient was seen by JO Lopez under the supervision of Dr. Patel. <Tim Patelolas F - Last Filed: 01/20/19 16:24> - Physical Exam Vital Signs Temp Pulse Resp BP Pulse Ox 98.1 F 56 L 20 H 139/90 H 95 01/20/19 13:15 01/20/19 15:15 01/20/19 13:15 01/20/19 13:15 01/20/19 09:15 Oxygen Delivery Method Room Air Weight: 194 lb 10.691 oz Body Mass Index (BMI) 36.1 Finger Stick Blood Glucose 146 Intake and Output for Last 24 Hours 01/18/19 01/19/19 01/20/19 23:59 23:59 23:59 Intake Total 420 / 420 Balance 420 / 420 Laboratory Tests Past 24 Hrs 01/19/19 01/19/19 01/19/19 22:50 22:50 22:50 WBC 6.0 RBC 4.49 Hgb 13.0 Hct 39.5 MCV 88.0 MCH 29.0 MCHC 32.9 RDW Std Deviation 40.3 RDW Coeff of Corinna 12.7 Plt Count 131 L MPV 9.8 Immature Gran % (Auto) 0.300 Neut % (Auto) 58.5 Lymph % (Auto) 30.1 [place] % (Auto) 7.3 Eos % (Auto) 3.3 Baso % (Auto) 0.5 Absolute Neuts (auto) 3.5 Absolute Lymphs (auto) 1.82 Nucleated RBC % 0 PT 14.8 INR 1.2 APTT 33.1 Sodium 142 Potassium 3.7 Chloride 107 Carbon Dioxide 29.0 Anion Gap 6 BUN 16 Creatinine 0.91 Estim Creat Clear Calc 39.07 Est GFR (MDRD) Af Amer 77 Est GFR (MDRD) Non-Af 64 BUN/Creatinine Ratio 17.6 Glucose 192 H Hemoglobin A1c Calcium 9.5 Troponin I 0.024 Triglycerides Cholesterol LDL Cholesterol VLDL Cholesterol HDL Cholesterol 01/19/19 01/20/19 22:50 05:44 WBC RBC Hgb Hct MCV MCH MCHC RDW Std Deviation RDW Coeff of Corinna Plt Count MPV Immature Gran % (Auto) Neut % (Auto) Lymph % (Auto) [place] % (Auto) Eos % (Auto) Baso % (Auto) Absolute Neuts (auto) Absolute Lymphs (auto) Nucleated RBC % PT INR APTT Sodium Potassium Chloride Carbon Dioxide Anion Gap BUN Creatinine Estim Creat Clear Calc Est GFR (MDRD) Af Amer Est GFR (MDRD) Non-Af BUN/Creatinine Ratio Glucose Hemoglobin A1c 6.9 H Calcium Troponin I Triglycerides 118 Cholesterol 98 LDL Cholesterol 25 VLDL Cholesterol 24 HDL Cholesterol 49 Code Visit Addendum: Dr. Patel I personally examined the patient and reviewed the chart. I agree with the above. 78-year-old female presenting with an abnormal MRI. 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 She had an MRI in September that made for follow-up with a neurosurgeon, as well as neurologist for her hearing loss. She saw her neurologist who wanted some more imaging incision and MRI done which showed potentially a right cerebellar CVA that was considered acute, even though she is asymptomatic. Neurology evaluated her and recommends daily aspirin as well as statin and blood pressure control. MRA of the head and neck is pending. We will plan to discharge tomorrow and she has neurosurgical follow-up on Friday as well as ENT follow-up on Friday. OBSV E&M: [id number] Subsequent observation care L2
[2019-01-20] MEDS: Latanoprost 0.005% 1 Bottle 1 DRP EACH EYE (20:53)
[2019-01-20] MEDS: Atorvastatin Calcium 80 MG Tablet PO (20:54)
[2019-01-21 00:03] VITALS: BMI 36.1
[2019-01-21 00:50] VITALS: BP 157/87; PULSE 67; RESP 14; TEMP 36.8; O2SAT 98
[2019-01-21 03:03] VITALS: PULSE 54
[2019-01-21 04:50] VITALS: BP 144/82; PULSE 56; RESP 14; TEMP 36.6; O2SAT 96
[2019-01-21] MEDS: Levothyroxine 75 MCG Tablet PO (05:33)
[2019-01-21 07:15] VITALS: PULSE 51
[2019-01-21] MEDS: Aspirin E.C. 81 MG Tablet PO (08:46)
[2019-01-21] MEDS: Escitalopram Oxalate 10 MG Tablet PO (08:46)
[2019-01-21] MEDS: Tolterodine Tartrate 2 MG CAP.SA PO (08:46)
[2019-01-21] MEDS: Enoxaparin 40 MG/0.4 ML Syringe SC (08:46)
[2019-01-21 08:50] VITALS: BP 156/76; PULSE 60; RESP 16; TEMP 36.4; O2SAT 97
[2019-01-21 11:43] VITALS: BMI 36.1
--- NOTE | 2019-01-21 11:56 | DCINST_ITS ---
- Discharge Diagnoses Current Active Problems: Current Active and Chronic Problems (Last Reviewed 01/20/19 @ 10:26 by Jeffrey Bunn MD) Stroke (Acute) You will use the following diet at home:: Cardiac Your food should be the consistency of: Regular Your liquids should be the consistency of: Regular/Thin Discharge Activity: Return to Normal Activity Allergies/Adverse Reactions: Allergies iodine Allergy (Verified 01/19/19 22:04) Unknown STATES BETADINE IS OK Medications to take at Discharge Aspirin E.C. [Ecotrin] 81 mg PO DAILY@0800 03/18/14 Levothyroxine [Synthroid] 75 mcg PO DAILY 03/18/14 Oxybutynin Chloride [Ditropan Xl] 10 mg PO DAILY 03/18/14 Ergocalciferol [Vitamin D] 50,000 unit PO Q7D 10/03/14 Latanoprost 0.005% [Xalatan Opthalmic] 1 drp EACH EYE QHS 10/03/14 Escitalopram Oxalate [Lexapro] 10 mg PO DAILY 01/19/19 Atorvastatin Calcium [Lipitor] 80 mg PO QHS #30 tab 01/21/19 Benazepril HCl [Lotensin] 20 mg PO BID #0 01/21/19 Carvedilol [Coreg (Beta Sierra)] 25 mg PO BID #0 01/21/19 The following prescriptions were given: Atorvastatin Calcium [Lipitor] 80 mg PO QHS #30 tab Transmission Status: Pending to [id number] Primary Care Physician: Sunil Adamson MD [Primary Care Provider] - Please follow up with your Primary Care Physician in: 2 weeks Test Results: Test results from this visit will be discussed in further detail at your follow- up appointment, if applicable. Please Follow Up With: Ghassan Mcclain MD When: 3-4 weeks Please Follow Up With: Neurosurgery - Your own When: as previously directed Please Follow Up With: Sunil Thomas MD When: keep prior appointment Proposed Discharge Date: 01/21/19
[2019-01-21 12:50] VITALS: BP 158/91; PULSE 52; RESP 16; TEMP 36.4; O2SAT 96
--- NOTE | 2019-01-21 13:29 | CASEMGMT ---
SW completed Healthcare POA and Healthcare LW with patient. Copies were made and given to patient along with originals. SW also placed a copy of each in patient's chart. Kendra ANDREW
--- NOTE | 2019-01-21 13:33 | CASEMGMT ---
RN CM Assessment Introduced role of RN CM to patient.? Patient is alert, oriented and able?to participate in RN CM Assessment. ?Care providers, pharmacy, and demographics verified. Presentation: Presents d/t abn MRI, Outpt MRI- Minute Acute Rt Cerebellar stroke Admit Dx: Acute Stroke Re-Admit: No Barriers/Issues: None PCP: Sunil Adamson Specialists: Cardio- Dr Lockwood, Neuro- Dr Mcclain, Neurosurg- Dr Rodriguez, ENT- Dr Thomas Preferred Pharmacy: [facility] Insurance: [facility] [employer] [facility] Rx Benefit:?Yes ?LNOK: Dtr Jessica Jimenez LW/HPOA: No, would like to complete- HELEN Gardner made aware Living Arrangements:? Lives w/son in a mobile home, 4 small steps to enter home with handrails. ADL?s: Ambulates with a quad cane, independent with ADLs Transportation: Patient drives, drove self to the hospital and states upon DC her son can come and pick her up but if ok with physician to drive then plans on driving self home. DME: CPAP-[employer], sliding device over toilet for handrails. HHC: None SNF: None Goal: Home with outpatient PT- this insurance underwriter sales provided patient with Outpatient PT order. Patient states that she has had difficulty with copay with Outpatient PT in the past and this insurance underwriter sales made HELEN Gardner aware to see if there is any financial assistance. Denies any other issues/concerns/or questions at this time. Aware CM remains available for any emerging needs. DC PLAN: Home with outpatient PT. Patient to go get 30day Holter Monitor at [place]. ELVIN Nichols
--- NOTE | 2019-01-21 14:58 | PCM.DC.SUM ---
<Dameon Gonzalez - Last Filed: 01/21/19 14:58> Discharge Date and Diagnosis Date of Admission: 01/19/19 Date of Discharge: 01/21/19 - Primary Discharge Diagnosis Acute minute infarct right cerebellar hemisphere 5 mm left frontal white matter lesion unclear etiology Hypertension Hyperlipidemia Depression Overactive bladder Hypothyroidism Vitamin D deficiency Aortic valve status post TAVR Hospital Course and Treatment Imaging Results: IMAGING: MRI/Brain W/WO Contrast IMPRESSION: Acute minute infarct right cerebellar hemisphere. MRI/MRA Head ONLY without Contrast IMPRESSION: Normal MRA of the head MRI/MRA Neck WITH and W/O Contrast IMPRESSION: Normal bilateral cervical carotid and vertebral arteries. ECHO: Stage I diastolic dysfunction, mild MVS, mild TVI, RVSP 40 mmHg consistent with mild pulmonary hypertension, normal functioning TAVR, EF 65% Consultations: Sepideh-neurology Operations: None Procedures: 2-D Echocardiogram Summary of Care Provided: Hospital Course: The patient is a 78 year old F with past medical history as above notably ongoing hearing issues being followed by ENT Dr. Thomas who was sent for an outpatient MRI. This MRI demonstrated an acute infarct so she was sent to the emergency room and admitted to the PCU on telemetry. The patient did not have any recent focal weakness, slurred speech, or ataxia. She did state that she thought she had an ocular migraine about a week prior where she had a transient loss of vision in the left eye however this had resolved completely. The patient had generalized weakness and lethargic. She had an MRA of the head and neck which were unremarkable, echo which was unremarkable. She was seen by neurology, PT, OT, ST. We have advised outpatient physical therapy as she has underlying generalized weakness. She already follows with neurosurgery as outpatient and she will need to follow-up with them. She will follow-up with neurology, in 3-4 weeks. Loss she will also need to follow-up with her ENT as previously directed, she has an appointment tomorrow. She will need to follow-up with her PCP in 1 to 2 weeks. Her statin therapy was maximized, she will continue baby aspirin. She was advised to hold her blood pressure medications for 3 days. She had admitted to having some palpitations over the past week although she did not have any events on monitor. We have ordered a 30-day event monitor and advised follow-up with Dr. Boss in 4 weeks. She was discharged home in stable condition. This patient was seen by Dameon Gonzalez PA-C under the supervision of Dr. Patel. [] - Physical Exam General: Alert, Oriented x3, Cooperative HEENT: Atraumatic, PERRLA, EOMI, Normocephalic Neck: Supple, No JVD, Negative Carotid Bruits Lungs: Clear to auscultation, Normal air movement Cardiovascular: Regular rate, No murmurs Abdomen: Bowel Sounds Present, Soft, Non Tender Extremities: No edema, Capillary Refill Less than 3 Seconds Skin: No rashes, No breakdown Musculoskeletal: No Tenderness to Palpation of Joints or Extremities Neurological: Cranial nerves II-XII grossly intact Psych/Mental Status: Normal Affect, Appropriate Vital Signs Temp Pulse Resp BP Pulse Ox 97.5 F L 52 L 16 158/91 H 96 01/21/19 12:50 01/21/19 12:50 01/21/19 12:50 01/21/19 12:50 01/21/19 12:50 Oxygen Delivery Method Room Air Weight: 194 lb 10.691 oz Body Mass Index (BMI) 36.1 Finger Stick Blood Glucose 146 Intake and Output for Last 24 Hours 01/19/19 01/20/19 01/21/19 23:59 23:59 23:59 Intake Total 1260 / 1260 60 / 60 Balance 1260 / 1260 60 / 60 Discharge Diet: Low fat/ Low Cholesterol, 2000 mg Sodium Diet Discharge Activity: Return to Normal Activity Home Medications: Medications to take at Discharge Aspirin E.C. [Ecotrin] 81 mg PO DAILY@0800 03/18/14 Levothyroxine [Synthroid] 75 mcg PO DAILY 03/18/14 Oxybutynin Chloride [Ditropan Xl] 10 mg PO DAILY 03/18/14 Ergocalciferol [Vitamin D] 50,000 unit PO Q7D 10/03/14 Latanoprost 0.005% [Xalatan Opthalmic] 1 drp EACH EYE QHS 10/03/14 Escitalopram Oxalate [Lexapro] 10 mg PO DAILY 01/19/19 Atorvastatin Calcium [Lipitor] 80 mg PO QHS #30 tab 01/21/19 Benazepril HCl [Lotensin] 20 mg PO BID #0 01/21/19 Carvedilol [Coreg (Beta Sierra)] 25 mg PO BID #0 01/21/19 Following Prescrptions Were Given to Patient: Atorvastatin Calcium [Lipitor] 80 mg PO QHS #30 tab Transmission Status: Received by [id number] Other Amb Orders: 30-Day Event Recorder [[facility]] Time Frame: 01/21/19, Location: None Selected Primary Care Physician: Sunil Adamson MD [Primary Care Provider] - Please follow up with your Primary Care Physician in: 2 weeks Please Follow Up With: Ghassan Mcclain MD When: 3-4 weeks Please Follow Up With: Neurosurgery - Your own When: as previously directed Please Follow Up With: Sunil Thomas MD When: keep prior appointment Please Follow Up With: Bebeto Boss MD When: 4 weeks Disposition: Home Minutes spent on discharge:: 35 Patient Condition:: Stable Medical Necessity - Tobacco Use Smoking Status: Never smoker Meaningful Use Info Meaningful Use Diagnoses (Choose all that apply): Ischemic CVA - CVA Therapy Assessed for PT,OT and/or ST?: Yes - Ischemic Stroke Antithrombotic order at d/c?: Yes Dx of Atrial fib/flutter?: No Statins at discharge?: Yes Primary Dx Acute Ischemic CVA?: Yes IV tPA ordered during stay?: No Reason IV t-PA not ordered: Procedure not Indicated <Jos Patel F - Last Filed: 01/21/19 17:08> Hospital Course and Treatment Summary of Care Provided: The patient is a 78 year old F [] - Physical Exam Vital Signs Temp Pulse Resp BP Pulse Ox 97.5 F L 52 L 16 158/91 H 96 01/21/19 12:50 01/21/19 12:50 01/21/19 12:50 01/21/19 12:50 01/21/19 12:50 Oxygen Delivery Method Room Air Weight: 194 lb 10.691 oz Body Mass Index (BMI) 36.1 Finger Stick Blood Glucose 146 Intake and Output for Last 24 Hours 01/19/19 01/20/19 01/21/19 23:59 23:59 23:59 Intake Total 1260 / 1260 60 / 60 Balance 1260 / 1260 60 / 60 Code Visit Addendum: Dr. Patel I personally examined the patient and reviewed the chart. I agree with the above. 78-year-old female presenting with an abnormal MRI. 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 She had an MRI in September that made for follow-up with a neurosurgeon, as well as neurologist for her hearing loss. She saw her neurologist who wanted some more imaging incision and MRI done which showed potentially a right cerebellar CVA that was considered acute, even though she is asymptomatic. Neurology evaluated her and recommends daily aspirin as well as statin and blood pressure control. MRA of the head and neck is negative. Will be discharged today with neurosurgical follow-up on Friday as well as ENT follow-up on Friday. If she does become symptomatic or has any change in symptoms as discussed that she is to return to the hospital. Inpatient E&M: [id number] Disch Hosp
== END 2019-01-21 13:25 | disposition home or self-care (01) | DRG 66 ==
LOC: ED 23:46 → PCU 01-20 02:00
PROVIDERS: Admitting Provider Hospitalist; Emergency Provider Emergency Medicine; Family Provider Family Medicine; PCP Family Medicine; Visit Provider Family Medicine
DX: I63.9 Cerebral infarction, unspecified (principal); I10 Essential (primary) hypertension; E78.5 Hyperlipidemia, unspecified; R00.1 Bradycardia, unspecified; N32.81 Overactive bladder; E55.9 Vitamin D deficiency, unspecified; F32.9 Major depressive disorder, single episode, unspecified; Z79.82 Long term (current) use of aspirin; E89.0 Postprocedural hypothyroidism
CPT/HCPCS: 36415; 70544; 70549; 70553; 80048; 80061; 83036; 84484; 85025; 85610; 85730; 93005; 93306; 94762; 97162; 97166; 97802; 99285; A9575; A4216

== ENCOUNTER → 2019-05-12 13:38 | Outpatient (CLI) | payer MEDICARE, SELFPAY ==
[2019-03-11 09:34] VITALS: BMI 35.1
[2019-05-12 16:12] LABS: Free T3 2.1 pg/mL (2.18-3.98); Thyroid Stim Hormone (TSH) 0.65 uIU/mL (0.358-3.74)
== END ==
PROVIDERS: PCP Family Medicine; Referring Provider Family Medicine; Visit Provider Family Medicine
DX: E06.3 Autoimmune thyroiditis (principal)
CPT/HCPCS: 36415; 84436; 84443; 84481

== ENCOUNTER → 2019-06-08 08:06 | Outpatient (CLI) | payer MEDICARE, SELFPAY ==
[2019-03-11 09:34] VITALS: BMI 35.1
--- NOTE | 2019-06-08 08:13 | CT_ITS ---
STUDY: CT ABDOMEN AND PELVIS WITHOUT CONTRAST REASON FOR EXAM: Female, 78 years old. Right flank pain RADIATION DOSAGE (If Supplied By Facility): CTDIvol = ( 14.96 ) mGy, DLP = ( 758.61 ) mGycm TECHNIQUE: Transaxial images were obtained from the dome of the diaphragm to the symphysis pubis without oral contrast, and without intravenous contrast. Sagittal and coronal images were reconstructed. Individualized dose optimization techniques were used for this CT. COMPARISON: November 06, 2018. FINDINGS: The visualized lung bases are unremarkable. The visualized portions of the heart demonstrate cardiac hardware. There is a small liver dome cyst. Otherwise unremarkable liver. There are multiple gallstones. Normal spleen. Normal pancreas. Normal bilateral adrenal glands. Normal right kidney. Poorly characterized hypodensity left upper pole kidney most likely represents a cyst. There is a small hiatal hernia. Normal small intestine. Normal colon. The appendix is visualized and appears normal. There is diffuse atherosclerotic calcification of the abdominal aorta, without a demonstrated aneurysm. Normal inferior vena cava. Normal retroperitoneum. Normal urinary bladder. There is absence of the uterus consistent with a prior hysterectomy. There is a right-sided inguinal hernia containing adipose tissue. There are diffuse degenerative changes of the visualized lumbar spine. CT/Abdomen/Pelvis without Cont IMPRESSION: No evidence for renal stones or destructive uropathy at this time. Electronically Signed: Fer Costa, at 21:15 EST Tel , Service support ,
[2019-06-08 09:05] LABS: Absolute Lymphocyte Count 1.25 X10^3/uL (0.83-4.51); Absolute Neutrophil Count 3.4 X10^3/uL (2.0-7.7); Basophil# 0.03 X10^3/uL; Basophil% 0.6 % (0-1); Eosinophil# 0.34 X10^3/uL; Eosinophils% 6.3 % (0-5); Hematocrit 41.2 % (37-47); Hemoglobin 13.5 g/dL (12.0-15.0); Lymphocyte # 1.25 X10^3/ul (4.0); Lymphocyte % 23.2 % (19-41); Mean Corp Hgb Conc 32.8 g/dL (32-36); Mean Corpuscular Hgb 28.7 pg (27.0-32.0); Mean Corpuscular Volume 87.5 fL (81-99); Mean Platelet Vol. 9.7 fl (6.2-12.0); Monocyte# 0.37 X10^3/uL; Monocyte% 6.9 % (0-10); NRBC Flagged by Analyzer 0 % (0-5); Neutrophil # 3.38 X10^3/uL (2.7-7.7); Neutrophil % 62.8 % (47-70); Platelet Count 145 K/mm3 (150-450); RBC Distribution Width CV 13.4 % (11.6-14.6); RBC Distribution Width SD 43.3 fl (35.1-43.9); Red Blood Count 4.71 M/mm3 (4.2-5.4); White Blood Count 5.4 K/mm3 (4.4-11.0)
[2019-06-08 09:22] LABS: Erythrocyte Sedimentation Rate 7 mm/hr (0-30)
[2019-06-08 09:34] LABS: ALB/GLOB Ratio 1.1 RATIO (0.9-2.4); AST(SGOT) 22 U/L (15-37); Alanine Aminotransfer ALT/SGPT 41 U/L (13-56); Albumin, Serum 3.5 g/dL (3.2-5.0); Alkaline Phosphatase 146 U/L (45-117); Anion Gap 7 (5-15); BUN 14 mg/dL (7-18); BUN/Creat Ratio 14.3 RATIO (10-20); Calcium,Total 9.4 mg/dL (8.5-10.1); Chloride 108 mmol/L (98-107); Creatinine, Serum 0.98 mg/dL (0.55-1.02); EST Glomerular Filtration Rate 59 mL/min (>60); Est Glom Filt Rate - Afr Amer 71 mL/min (>60); Globulin 3.2 g/dL (2.2-4.2); Glucose 179 mg/dL (74-106); Potassium 4.1 mmol/L (3.5-5.1); Protein, Total 6.7 g/dL (6.4-8.2); Sodium Level 142 mmol/L (136-145); T4 Free Direct 1.04 ng/dL (0.76-1.46); Thyroid Stim Hormone (TSH) 2.53 uIU/mL (0.358-3.74)
[2019-06-08 09:39] LABS: Vitamin B12 391 pg/mL (211-911)
[2019-06-09 14:25] LABS: Thyroid Peroxidase AB 160 IU/mL (0-34)
== END ==
PROVIDERS: PCP Family Medicine; Referring Provider Nurse Practitioner Family; Visit Provider Nurse Practitioner Family
DX: M54.9 Dorsalgia, unspecified (principal); E06.3 Autoimmune thyroiditis; H53.9 Unspecified visual disturbance
CPT/HCPCS: 74176; 80053; 82607; 82746; 84439; 84443; 84481; 85025; 85652; 86376

== ENCOUNTER → 2019-11-24 08:02 | Outpatient (CLI) | payer MEDICARE, SELFPAY ==
[2019-03-11 09:34] VITALS: BMI 35.1
--- NOTE | 2019-11-24 08:04 | MRI_ITS ---
We are attempting to reach an attending provider to discuss findings. An addendum with communication details will be sent when the communication is complete. STUDY: MRI BRAIN WITHOUT CONTRAST REASON FOR EXAM: Female, 79 years old. vertigo,cva, COMPARE TO PREV- RT CEREBELLAR INFARCT TECHNIQUE: Standardized multiplanar fat and water weighted pulse sequences were obtained. COMPARISON: 01/19/2019 FINDINGS: There is mild cerebral atrophy with widening of the extra-axial spaces and ventricular dilatation. There are a limited number of small white matter hyperintensities, distributed throughout the deep white matter tracts of the cerebral hemispheres, consistent with mild chronic white matter ischemic changes. There is a punctate (the 2 to 3 mm) hyperintensity which demonstrates restricted diffusion within the inferior aspect of the right hemisphere of the cerebellum consistent with an acute/subacute infarct similar to the infarct seen on the prior study. Normal T2* images of the brain without demonstrated susceptibility artifact. There is no demonstrated hemosiderin stain. Normal bilateral basal ganglia. Normal thalami. There is no extra-axial fluid accumulation. Normal flow voids within the major intracranial circulation suggesting patency by spin echo criteria. Normal sella turcica, pituitary gland, infundibular stalk, optic chiasm and hypothalamus. Normal tectal plate and pineal gland. Normal midbrain, jennifer and medulla. Normal cerebellum. Normal basal cisterns. Normal bilateral temporal bones. Normal bilateral internal auditory canals. No demonstrated orbital abnormality, within the constraints of a routine brain study. Normal visualized paranasal sinuses. Normal calvarium and skull base. Normal visualized soft tissue structures. Normal visualized upper cervical spine. MRI/Brain without Contrast IMPRESSION: Acute/subacute punctate infarct of the inferior right hemisphere of the cerebellum similar to the infarct seen on the prior study. Electronically Signed: Max Osuna MD at 9:14 EDT Tel , Service support ,
== END ==
PROVIDERS: PCP Family Medicine; Referring Provider Nurse Practitioner Family; Visit Provider Nurse Practitioner Family
DX: R42 Dizziness and giddiness (principal); Z86.73 Personal history of transient ischemic attack (TIA), and cerebral infarction without residual deficits
CPT/HCPCS: 70551

== ENCOUNTER → 2019-12-13 09:15 | Outpatient (CLI) | payer MEDICARE, SELFPAY ==
[2019-03-11 09:34] VITALS: BMI 35.1
[2019-12-13 12:19] LABS: Absolute Lymphocyte Count 1.58 X10^3/uL (0.83-4.51); Absolute Neutrophil Count 4.4 X10^3/uL (2.0-7.7); Basophil# 0.03 X10^3/uL; Basophil% 0.5 % (0-1); Eosinophil# 0.22 X10^3/uL; Eosinophils% 3.3 % (0-5); Hematocrit 40.9 % (37-47); Hemoglobin 13.8 g/dL (12.0-15.0); Lymphocyte # 1.58 X10^3/ul (4.0); Lymphocyte % 23.7 % (19-41); Mean Corp Hgb Conc 33.7 g/dL (32-36); Mean Corpuscular Hgb 30.4 pg (27.0-32.0); Mean Corpuscular Volume 90.1 fL (81-99); Mean Platelet Vol. 10.1 fl (6.2-12.0); NRBC Flagged by Analyzer 0 % (0-5); Neutrophil # 4.41 X10^3/uL (2.7-7.7); Neutrophil % 66.2 % (47-70); Platelet Count 151 K/mm3 (150-450); RBC Distribution Width CV 12.9 % (11.6-14.6); RBC Distribution Width SD 42.2 fl (35.1-43.9); Red Blood Count 4.54 M/mm3 (4.2-5.4); White Blood Count 6.7 K/mm3 (4.4-11.0)
[2019-12-13 12:35] LABS: Hemoglobin A1c 6.9 % (3.8-5.6)
[2019-12-13 12:50] LABS: AST(SGOT) 25 U/L (15-37); Alanine Aminotransfer ALT/SGPT 47 U/L (13-56); Albumin, Serum 3.4 g/dL (3.2-5.0); Alkaline Phosphatase 126 U/L (45-117); Anion Gap 7 (5-15); BUN 14 mg/dL (7-18); BUN/Creat Ratio 15.9 RATIO (10-20); Calcium,Total 9.1 mg/dL (8.5-10.1); Chloride 108 mmol/L (98-107); Creatinine, Serum 0.88 mg/dL (0.55-1.02); EST Glomerular Filtration Rate 66 mL/min (>60); Est Glom Filt Rate - Afr Amer 80 mL/min (>60); Globulin 3.3 g/dL (2.2-4.2); Glucose 255 mg/dL (74-106); Potassium 3.8 mmol/L (3.5-5.1); Protein, Total 6.7 g/dL (6.4-8.2); Sodium Level 139 mmol/L (136-145); Thyroid Stim Hormone (TSH) 3.06 uIU/mL (0.358-3.74)
== END ==
PROVIDERS: PCP Family Medicine; Referring Provider Family Medicine; Visit Provider Family Medicine
DX: E11.9 Type 2 diabetes mellitus without complications (principal); I63.9 Cerebral infarction, unspecified
CPT/HCPCS: 36415; 80053; 83036; 84443; 85025

== ENCOUNTER → 2020-02-02 20:00 | Outpatient (CLI) | payer MEDICARE, SELFPAY ==
[2019-03-11 09:34] VITALS: BMI 35.1
== END ==
PROVIDERS: PCP Family Medicine; Referring Provider Psychiatry & Neurology Neurology; Visit Provider Psychiatry & Neurology Neurology
DX: G47.33 Obstructive sleep apnea (adult) (pediatric) (principal)
CPT/HCPCS: 95811

== ENCOUNTER → 2020-04-04 10:01 | Outpatient (CLI) | payer MEDICARE, SELFPAY ==
[2020-02-24 09:45] VITALS: BMI 37.6
--- NOTE | 2020-04-04 10:05 | RAD_ITS ---
STUDY: X-RAY - LUMBAR SPINE REASON FOR EXAM: Female, 79 years old. severe low back pain, bilateral leg pain, suspected spinal stenosis TECHNIQUE: 5 view(s) of the lumbar spine were obtained. COMPARISON: None FINDINGS: Normal lumbar lordosis. There is a levoscoliosis of the lumbar spine. There is a normal alignment of the vertebrae. There is multilevel endplate spondylosis of the lumbar vertebrae. There is multi-level degenerative disc disease with multi-level disc space narrowing. The soft tissue structures are unremarkable. RAD/L/S Spine Min 4 Views IMPRESSION: Levoscoliosis with diffuse degenerative disc disease. Electronically Signed: Max Osuna MD at 16:53 EST Tel , Service support ,
[2020-04-04 10:08] LABS: Mucous, Urine 0 SEEN /hpf (<or=2+); Red Blood Cells-Urine 0 SEEN /hpf (0-5)
[2020-04-04 12:13] LABS: Color, Urine Yellow (Yellow); Glucose, Dipstick Normal (Normal); Ketone-Dipstick Negative (Negative); Leukocyte Esterase-Dipstick 500 /ul (Negative); Nitrite-Dipstick Negative (Negative); Occult Blood-Urine 50 /ul (Negative); Protein-Dipstick 15 mg/dl (Negative); Specific Gravity, Urine 1.025 (1.002-1.030); Urine Bilirubin Dipstick Negative (Negative); Urine Clarity Sl. Cloudy (Clear); Urine Urobilinogen Normal (Normal)
[2020-04-04 12:19] LABS: White Blood Cells 25-50 SEEN /hpf (0-5)
[2020-04-04 12:20] LABS: Bacteria RARE /hpf (None Seen); Squamous Epithelial Cells - UA 5-10 SEEN /hpf (5-10)
[2020-04-04 12:48] LABS: ALB/GLOB Ratio 1.2 RATIO (0.9-2.4); AST(SGOT) 20 U/L (15-37); Alanine Aminotransfer ALT/SGPT 35 U/L (13-56); Albumin, Serum 3.8 g/dL (3.2-5.0); Alkaline Phosphatase 126 U/L (45-117); Anion Gap 8 (5-15); BUN 12 mg/dL (7-18); BUN/Creat Ratio 14.6 RATIO (10-20); Calcium,Total 10.2 mg/dL (8.5-10.1); Chloride 107 mmol/L (98-107); Creatinine, Serum 0.82 mg/dL (0.55-1.02); EST Glomerular Filtration Rate 71 mL/min (>60); Est Glom Filt Rate - Afr Amer 86 mL/min (>60); Globulin 3.2 g/dL (2.2-4.2); Glucose 160 mg/dL (74-106); Potassium 3.9 mmol/L (3.5-5.1); Sodium Level 140 mmol/L (136-145)
[2020-04-04 12:52] LABS: Microalbumin,Random Urine 39.1 mg/L (NO RANGE EST.); Microalbumin:Creatinine Ratio 25.6 mg/g CRE (<30 mg/g CRE)
== END ==
PROVIDERS: PCP Family Medicine; Referring Provider Family Medicine; Visit Provider Family Medicine
DX: M48.061 Spinal stenosis, lumbar region without neurogenic claudication (principal); I10 Essential (primary) hypertension; R39.15 Urgency of urination; E11.9 Type 2 diabetes mellitus without complications
CPT/HCPCS: 72110; 80053; 81001; 82043; 82570; 83036; 87086; 87088; 87186

== ENCOUNTER → 2020-04-26 16:46 | Outpatient (CLI) | payer MEDICARE, SELFPAY ==
[2020-02-24 09:45] VITALS: BMI 37.6
--- NOTE | 2020-04-26 16:53 | CT_ITS ---
HISTORY: WORSENING LUMBAR BACK PAIN TECHNIQUE: Helically acquired images were obtained of the lumbar spine without intravenous contrast. 2D reformats were reviewed. A radiation dose optimization technique was used for this scan. COMPARISON: Most recent comparison study are x-rays of the lumbar spine from April 04, 2020. Before that there is a fluoroscopic image of the lumbar spine from a lumbar puncture from November 11, 2018. Before that the patient had an MRI of the lumbar spine from July 14, 2017. FINDINGS: # of images incl. paperwork: 357 Levoscoliosis of the upper lumbar spine, apex L2. Dextroscoliosis of the lower lumbar spine apex at the L4-L5 interspace. Loss of disc height at every level. Endplate sclerosis, and enthesophytes. Enthesophytes are larger at the concavity of the scoliosis, on the right at the L1-L2 level, and on the left at the L4-L5 level. Vacuum disc phenomenon is present at the L3-L4, L4-L5, and L5-S1 levels. Who was present at the L4-L5 level on the x-ray dated April 04, 2020. Calcific plaque within the abdominal aorta. No hydronephrosis within the minimally visualized kidneys. The IVC appears normal. No periaortic adenopathy. At the L1-L2 level there is loss of disc height, endplate sclerosis, posterior enthesophytes, facet arthropathy, and ligamental thickening contributing to moderate spinal canal stenosis. At the L2-L3 level facet arthropathy, ligamentum thickening, malalignment, and enthesophytes contribute to moderate spinal canal stenosis. At the L3-L4 level facet arthropathy, ligamentum thickening, malalignment, and disc bulge contribute to severe spinal canal stenosis, however, the patient has had a partial laminectomy and possibly a partial discectomy at that level. At the L4-L5 level there is facet arthropathy, ligamentum thickening, and perhaps a disc protrusion contributing to severe spinal canal stenosis. At the L5-S1 level facet arthropathy, ligamentum thickening, and enthesophytes contribute to moderate spinal canal stenosis. Comparison to the MRI of the lumbar spine from July 14, 2017 suggests that the severe spinal canal stenosis at the L3-L4 level is chronic. The surgical changes, however, are new. The spinal canal stenosis at the L4-L5 level, accounting for differences in technique appears to possibly be more severe on the current CT scan, comparing series 3 the axial series image 59, on today's CT to the MRI, series [address]/Spine Lumbar without Contrast IMPRESSION: Severe spinal canal stenosis at L3-L4 L4-L5 with additional disease at other levels. Although the degree of disc disease and facet arthropathy ligamental thickening at the L3-L4 level appears to be similar to that of the MRI from July 14, 2017, since that time the patient has had some bone removed from the left-sided facet causing the spinal canal potentially be more patent on the current study than the MRI just without enough contrast resolution to accurately assess. I believe the severe spinal canal stenosis at the L4-L5 level may have slightly progressed. Individualized dose optimization techniques were used for this CT. at 0651 Reported and signed by: Jc Domingo MD Electronically Signed: Jc Domingo MD at 6:50 EST Tel , Service support ,
== END ==
PROVIDERS: PCP Family Medicine; Referring Provider Family Medicine; Visit Provider Family Medicine
DX: M51.36 Other intervertebral disc degeneration, lumbar region (principal)
CPT/HCPCS: 72131

== ENCOUNTER 2020-06-28 10:00 | Outpatient (RCR) | payer MEDICARE, SELFPAY ==
[2020-05-15 09:54] VITALS: BMI 37.8
--- NOTE | 2020-06-16 11:25 | HP.PTEVAL_ITS ---
Patient's Visit Information CORY CUELLO is a 79 year old F referred to Physical Therapy by Dr. 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 Date of Evaluation: 06/16/20 Physical Therapist: Roxanne Padilla, PT, Cert MDT - Visit Plan Frequency: 2x /Week Duration: 4-6 Weeks Plan: PATIENT REFUSED AQUATIC THERAPY. US, HP, CP NEEDED. POSTURE CORRECTION/STRENGTHENING, INSTRUCTION IN APPROPRIATE BODY MECHANICS AND ACTIVITY MODIFICATIONS. DLS STARTING WITH A NEUTRAL SPINE PROGRESSING ROM TOLERATED. MARLENE LE ROM, STRETCHING AND STRENGTHENING. HEP INSTRUCTION. - Subjective Work/Leisure: RETIRED. Present symptoms: LOW BACK PAIN. MARLENE LE PAIN, NUMBNESS AND TINGLING. SX'S GO INTO THE FOOT MARLENE. RIGHT KNEE CAP PAIN. Present since: APPROX DEC 2019. Pain Scale: WORST 8/10, LEAST 0/10. Currently: 8/10. Commenced as a result of: NO APPARENT REASON. Symptoms at onset: TIGHTNESS IN LEGS. Worse: WALKING, SOMETIMES STANDING DOING DISHES OR COOKING, TAKING A SHOWER, SOMETIMES SITTING ON THE TOLIET, RISING FROM SITTING. Better: SITTING IN RECLINER, LYING DOWN IN BED. Disturbed sleep: YES. Previous history/Previous treatment: NO LOW BACK SURGERY. NO KENN'S. NO CHIRO. NO PT FOR LOW BACK THAT PATIENT CAN RE-CALL. PATIENT REPORTS SHE HAS HAD THERAPY FOR BALANCE THOUGH. DID HAVE A BAD FALL DOWN THE STEPS IN 1967. Treatment this episode: HAS SEEN DR. CARROLL AND DR. ALANIZ FOR HER BACK PAIN. NO MEDICATION PRESCRIBED. Coughing/sneezing/straining: NEGATIVE. Gait: PATIENT REPORTS THAT SHE IS WALKING MORE SLOWLY, MORE BENT OVER AND USING THE CANE MORE SINCE HER LOW BACK AND LEG SX'S STARTED LAST FALL. GAIT IS NOW MORE TIME AND DISTANCE LIMITED TOO. CHRONIC LIMP L LE. Difficulty initiating urinatin: NO. Accidents: MULTIPLE FALLS BEFORE NECK SURGERY IN 2018. Unexplained weight loss: NO. Imaging: LUMBAR X-RAY: FINDINGS: Normal lumbar lordosis. There is a levoscoliosis of the lumbar spine. There is a normal alignment of the vertebrae. There is multilevel endplate spondylosis of the lumbar vertebrae. There is. multi-level degenerative disc disease with multi-level disc space. narrowing. The soft tissue structures are unremarkable. . RAD/L/S Spine Min 4 Views. IMPRESSION: Levoscoliosis with diffuse degenerative disc disease. . Electronically Signed: Max Osuna MD. at 16:53 EST. CAT SCAN: CT/Spine Lumbar without Contrast. IMPRESSION: Severe spinal canal stenosis at L3-L4 L4-L5 with additional disease at. other levels. Although the degree of disc disease and facet arthropathy ligamental. thickening at the L3-L4 level appears to be similar to that of the MRI from. July 14, 2017, since that time the patient has had some bone removed from. the left-sided facet causing the spinal canal potentially be more patent on. the current study than the MRI just without enough contrast resolution to. accurately assess. I believe the severe spinal canal stenosis at the L4-L5 level may have. slightly progressed. Individualized dose optimization techniques were used for this CT. . at 0651 . Reported and signed by: Jc Domingo MD. . Electronically Signed: Jc Domingo MD. at 6:50 EST. PMH/Recent major surgery: HTN, HIGH CHOLESTEROL, ANXIETY, HYPOTHYROIDISM, HEART VALVE SURGERY 2019, TIA AFTER HEART SX 2019. NECK SURGERY 2018. OTHER: PATIENT DOES NOT RE-CALL HAVING ANY LOW BACK SURGERY IN THE PAST AFTER QUESTIONING SEVERAL TIMES. - Objective Sitting/Standing Posture: POOR. SCOLIOSIS. INCREASED TRUNK FLEXION IN STANDING AND WALKING. Active Correction of posture: WORSE. Other Observations: THIS PATIENT AMBULATES INDEP'LY INTO PT WITH INCREASED TRUNK FLEXION, DECREASED CADANCE AND INCREASED TRUNK FLEXION WITH QUAD CANE. PATIENT HAS A ROLLATOR BUT STATES SHE DOESN'T USE IT. INDEP TRANSFERS SIT TO STAND BUT UE DEPENDENT TO DO SO. Motor deficit: MARLENE LE'S GROSSLY 4-/5. Sensory deficit: MARLENE LE LIGHT TOUCH SENSATION APPEARS INTACT AND SYMMETRICAL. ROM deficit: TIGHT MARLENE LE HIP FLEXOR S, HS'S (R >L) AND GASTROC SOLEUS COMPLEX'S. Reflexes: LLE 1/3, RLE - ABSENT. Dural Signs: POSITIVE MARLENE LE'S L > R. Lumbar mvmt loss: flex - NIL. ext - ANTHONY. R SG - ANTHONY. L SG - ANTHONY. Core strength: POOR. Palpation: TENDERNESS WITH LIGHT PALPATION THROUGHOUT LUMBAR, SACRAL, BUTTOCK AND MARLENE HIP AND IT BAND REGIONS. TREATMENT: NEUROMUSCULAR REEDUCATION - RETRAINING OF MVMT AND POSTURE FOR SITTING, LYING AND STANDING ACTIVITIES. PATIENT REALLY LIKED USE OF LUMBAR SUPPORT IN SITTING IN CLINIC TODAY. - Goals Goal 1:: DECREASE C/O LOW BACK AND MARLENE LE SX'S. Goal Time Frame: 4-6 Weeks Goal 2:: IMPROVE PERSONAL CARE, LIFTING, WALKING, SITTING, STANDING, SLEEP, SOCIAL LIFE, TRAVEL AND HOMEMAKING FUNCTION. Goal Time Frame: 4-6 Weeks Goal 3:: INSTRUCT IN PROPHYLAXIS Goal Time Frame: 4-6 Weeks - Anticipated Interventions Patient/Client Instruction: Educate patient on: Condition, Plan of Care, Risk Factors, Benefits of Fitness Program For the Purpose of:: To improve self management Therapeutic Exercise to Include: Strength training, Balance training, Body mechanics, Postural training, Flexibilty training, Gait and locomotor training, Neuromotor development, Dynamic Lumbar Stabilization For the Purpose of:: To decrease pain, To increase ROM, To improve muscle performance and motor function, To increase tolerance to activity/condition/position, To improve ability of physical actions for home/community/work/leisure, To improve gait and locomotor functions Cryotherapy (ice pack, ice massage): Yes Thermo therapy (hot pack): Yes Ultrasound (thermal/non thermal): Yes For the Purpose of:: To decrease pain, To improve nutrient delivery to tissue Thank you for the opportunity to evaluate your patient. For Medicare and Medicare HMO plans, please review the plan of care and approve it. It will need to be FAXED BACK to us at [phone] for Medicare purposes. For Medicare only, by signing this I certify the plan of care. Please let me know if there are questions or concerns regarding this plan of care. Physician Signature: Date:
--- NOTE | 2020-11-09 09:44 | HP.PT.NRP ---
CORY CUELLO was seen in my office for initial evaluation on 06/16/20. The following Plan of Care was established for this patient: Initial Frequency: 2x /Week Initial Duration: 4-6 Weeks Patient/Client Instruction: Educate patient on: Condition, Plan of Care, Risk Factors, Benefits of Fitness Program For the Purpose of:: To improve self management Therapeutic Exercise to Include: Strength training, Balance training, Body mechanics, Postural training, Flexibilty training, Gait and locomotor training, Neuromotor development, Dynamic Lumbar Stabilization For the Purpose of:: To decrease pain, To increase ROM, To improve muscle performance and motor function, To increase tolerance to activity/condition/position, To improve ability of physical actions for home/community/work/leisure, To improve gait and locomotor functions Cryotherapy (ice pack, ice massage): Yes Thermo therapy (hot pack): Yes Ultrasound (thermal/non thermal): Yes For the Purpose of:: To decrease pain, To improve nutrient delivery to tissue This patient was last seen in our office . Pertinent comments regarding their Physical therapy will appear below: This patient has not returned to Physical Therapy and is appropriate to return to MD for further follow-up as needed. At this point I will be discontinuing this patient from physical therapy. I would be happy to see this patient again in the future if found appropriate by the physician. Thank you! Roxanne Padilla PT, Cert MDT
== END 2020-06-28 19:00 | disposition home or self-care (01) ==
LOC: PT 10:00
PROVIDERS: PCP Family Medicine; Referring Provider Orthopaedic Surgery; Visit Provider Orthopaedic Surgery
DX: M48.062 Spinal stenosis, lumbar region with neurogenic claudication (principal); M54.16 Radiculopathy, lumbar region
CPT/HCPCS: 97035; 97112; 97162; 97530

== ENCOUNTER → 2020-07-27 12:43 | Outpatient (CLI) | payer MEDICARE, SELFPAY ==
[2020-07-21 11:09] VITALS: BMI 39.9
--- NOTE | 2020-07-27 12:49 | ECHOCS_ITS ---
Reason For Study: AVR Procedure This was a 2D Doppler, Color Flow transthoracic echocardiogram. The study was technically difficult. Contrast injection was performed. Exam performed in department. Left Ventricle Normal LV size. Left ventricular systolic function is normal. The estimated ejection fraction is 65 %. Stage 1 diastolic dysfunction. No regional wall motion abnormalities noted. Right Ventricle Normal RV size. Normal systolic function. Atria Normal left atrium. Normal right atrium. Mitral Valve There is moderate mitral annular calcification. Tricuspid Valve Normal tricuspid valve. Mild (1+) tricuspid valve insufficiency. Pulmonary artery systolic pressure is 32 mmHg. Aortic Valve Peak aortic valve gradient 20 mmHg. Mean aortic valve gradient 10 mmHg. Bioprosthetic aortic valve. Pulmonic Valve The pulmonic valve is not well visualized. Great Vessels Normal aortic root. The pulmonary artery is normal size. Normal inferior vena cava. Pericardium/Pleural No pericardial effusion. Medication 22 gauge I.V. with prn adaptor inserted into left arm. Diluted definity 3.0ml given slow IV push to enhance endocardial definition. MMode/2D Measurements & Calculations LVIDd: 3.7 cm IVSd: 1.0 cm LAV(MOD-bp): 68.7 ml LVIDs: 2.4 cm LVPWd: 1.0 cm RVDd: 3.6 cm FS: 36.7 % LAV(MOD-bp) Indexed: 35.5 ml/m2 LAV(MOD-sp2): 98.1 ml LAV(MOD-sp4): 36.8 ml SV(MOD-sp4): 52.6 ml SV(sp4-el): 53.3 ml LVAd ap4: 27.3 cm2 EDV(MOD-sp4): 81.5 ml EDV(sp4-el): 82.7 ml LVAs ap4: 14.0 cm2 ESV(MOD-sp4): 28.9 ml ESV(sp4-el): 29.5 ml EF(MOD-sp4): 64.6 % EF(sp4-el): 64.4 % LA dimension(2D): 4.4 cm LA A4 area: 14.9 cm2 RA A4 area: 13.1 cm2 Time Measurements MV dec time: 0.41 sec Doppler Measurements & Calculations MV E max emil: 92.3 cm/sec Lat Peak E' Emil: 8.1 cm/sec Med Peak E' Emil: 3.9 cm/sec MV A max emil: 167.3 cm/sec E/E' lat: 11.4 E/E' med: 23.8 MV E/A: 0.55 MV V2 max: 160.8 cm/sec Ao V2 max: 224.0 cm/sec LV V1 max: 125.9 cm/sec MV max P.3 mmHg Ao max P.1 mmHg LV V1 max P.3 mmHg MV V2 mean: 69.6 cm/sec Ao V2 mean: 154.4 cm/sec LV V1 mean P.4 mmHg MV mean P.4 mmHg Ao mean P.7 mmHg LV V1 mean: 86.6 cm/sec MV V2 VTI: 40.9 cm Ao V2 VTI: 38.8 cm LV V1 VTI: 28.0 cm PA V2 max: 107.7 cm/sec TR max emil: 264.7 cm/sec MV P1/2t-pr_phl: 147.2 msec TR max P.2 mmHg ECHO/Echo Complete W/ Contrast Interpretation Summary Normal LV size. Left ventricular systolic function is normal. The estimated ejection fraction is 65 %. Stage 1 diastolic dysfunction. Bioprosthetic aortic valve. Mean aortic valve gradient 10 mmHg. Contrast injection was performed. Ordering Physician: Bebeto Boss Referring Physician: MARCOS CARROLL Performed By: Verenice Wiggins, NICOLASACS, RVT
[2020-07-27 14:50] LABS: Absolute Lymphocyte Count 1.79 X10^3/uL (0.83-4.51); Absolute Neutrophil Count 4.8 X10^3/uL (2.0-7.7); Basophil# 0.03 X10^3/uL; Basophil% 0.4 % (0-1); Eosinophil# 0.25 X10^3/uL; Eosinophils% 3.4 % (0-5); Hematocrit 42.1 % (37-47); Lymphocyte # 1.79 X10^3/ul (4.0); Lymphocyte % 24.3 % (19-41); Mean Corp Hgb Conc 33.3 g/dL (32-36); Mean Corpuscular Hgb 29.5 pg (27.0-32.0); Mean Corpuscular Volume 88.8 fL (81-99); Monocyte# 0.49 X10^3/uL; Monocyte% 6.6 % (0-10); NRBC Flagged by Analyzer 0 % (0-5); Neutrophil # 4.81 X10^3/uL (2.7-7.7); Neutrophil % 65.2 % (47-70); Platelet Count 158 K/mm3 (150-450); RBC Distribution Width CV 13.5 % (11.6-14.6); RBC Distribution Width SD 43.5 fl (35.1-43.9); Red Blood Count 4.74 M/mm3 (4.2-5.4); White Blood Count 7.4 K/mm3 (4.4-11.0)
[2020-07-27 15:29] LABS: ALB/GLOB Ratio 1.1 RATIO (0.9-2.4); AST(SGOT) 32 U/L (15-37); Alanine Aminotransfer ALT/SGPT 41 U/L (13-56); Albumin, Serum 3.7 g/dL (3.2-5.0); Alkaline Phosphatase 123 U/L (45-117); Anion Gap 5 (5-15); BUN 24 mg/dL (7-18); BUN/Creat Ratio 25.3 RATIO (10-20); Calcium,Total 10.3 mg/dL (8.5-10.1); Chloride 102 mmol/L (98-107); Creatinine, Serum 0.95 mg/dL (0.55-1.02); EST Glomerular Filtration Rate 60 mL/min (>60); Est Glom Filt Rate - Afr Amer 73 mL/min (>60); Globulin 3.3 g/dL (2.2-4.2); Glucose 268 mg/dL (74-106); Potassium 3.8 mmol/L (3.5-5.1); Sodium Level 134 mmol/L (136-145); Thyroid Stim Hormone (TSH) 2.59 uIU/mL (0.358-3.74)
== END ==
PROVIDERS: PCP Family Medicine; Referring Provider Internal Medicine Cardiovascular Disease; Visit Provider Internal Medicine Cardiovascular Disease
DX: R00.2 Palpitations (principal); Z95.3 Presence of xenogenic heart valve; M48.03 Spinal stenosis, cervicothoracic region; E11.9 Type 2 diabetes mellitus without complications
CPT/HCPCS: 36415; 80053; 83735; 84443; 85025; 93306; Q9957; A4216; C8929

== ENCOUNTER → 2020-08-23 12:27 | Outpatient (CLI) | payer MEDICARE, SELFPAY ==
[2020-07-21 11:09] VITALS: BMI 39.9
--- NOTE | 2020-08-23 12:28 | MRI_ITS ---
STUDY: MRI LUMBAR SPINE WITHOUT CONTRAST REASON FOR EXAM: Female, 79 years old. pain TECHNIQUE: Standardized fat and water weighted pulse sequences were obtained in the sagittal and axial planes. COMPARISON: 07/14/2017 FINDINGS: T12-L1: No change in the moderate bilobed disc protrusion which produces moderate spinal stenosis and mild bilateral neural foraminal stenosis. Normal lumbar lordosis. Mild levoscoliosis centered at L2. Normal conus medullaris that terminates at the L1/L2. L1-2: No change in the moderate bilobed disc protrusion with a large inferiorly extending right paracentral and preforaminal extrusion which produces moderate spinal stenosis, severe right lateral recess stenosis, moderate right neural foraminal stenosis and mild left neural foraminal stenosis. L2-3: No change in the small right paracentral, preforaminal, and foraminal disc protrusion which produces mild spinal stenosis and moderate right neural foraminal stenosis. L3-4: Severe bilateral facet hypertrophy and moderate ligament flavum hypertrophy. No change in the 5 mm of anterolisthesis of L3 on L4 with a large broad disc protrusion which produces severe spinal stenosis with severe bilateral lateral recess stenosis with effacement of the L4 nerve roots bilaterally and moderate bilateral neural foraminal stenosis with abutment of the L3 nerve roots bilaterally. L4-5: Moderate bilateral facet hypertrophy and ligament flavum hypertrophy. No change in the moderate bilobed disc protrusion which produces moderate spinal stenosis with moderate bilateral lateral recess stenosis with abutment of the L5 nerve roots bilaterally, mild right neural foraminal stenosis and moderate left neural foraminal stenosis. L5-S1: Mild bilateral facet hypertrophy and ligament flavum hypertrophy. No change in the small central disc protrusion which produces mild spinal stenosis. Moderate bilateral neural foraminal stenosis. Normal visualized sacral ala. Normal visualized paraspinous soft tissue structures. MRI/Spine Lumbar (Routine) IMPRESSION: No change from 07/14/2017. Electronically Signed: Max Osuna MD at 18:27 EDT Tel , Service support ,
== END ==
PROVIDERS: PCP Family Medicine; Referring Provider Orthopaedic Surgery; Visit Provider Orthopaedic Surgery
DX: R52 Pain, unspecified (principal); M48.061 Spinal stenosis, lumbar region without neurogenic claudication; M48.07 Spinal stenosis, lumbosacral region
CPT/HCPCS: 72148

== ENCOUNTER → 2020-10-12 11:43 | Outpatient (CLI) | payer MEDICARE, SELFPAY ==
[2020-08-28 09:08] VITALS: BMI 39.9
--- NOTE | 2020-10-12 11:45 | RAD_ITS ---
STUDY: X-RAY - CERVICAL SPINE REASON FOR EXAM: Female, 80 years old. NECK PAIN TECHNIQUE: 3 view(s) of the cervical spine were obtained. COMPARISON: 09/04/2018 FINDINGS: Normal anterior atlantoaxial articulation. Normal odontoid process. Status post anterior cervical discectomy and fusion from C5 through C7 with anatomic alignment which is unchanged. Normal vertebral bodies and endplates. Normal disc space heights. Normal visualized intervertebral neuroforamina. The soft tissue structures are unremarkable. RAD/Cerv Spine 2 or 3 Views IMPRESSION: No change from 09/04/2018. Electronically Signed: Max Osuna MD at 9:08 EDT Tel , Service support ,
== END ==
PROVIDERS: PCP Family Medicine; Referring Provider Anesthesiology Pain Medicine; Visit Provider Anesthesiology Pain Medicine
DX: M54.2 Cervicalgia (principal)
CPT/HCPCS: 72040

== ENCOUNTER 2020-11-15 14:00 | Outpatient (RCR) | payer MEDICARE, SELFPAY ==
[2020-08-28 09:08] VITALS: BMI 39.9
== END 2020-11-18 23:59 ==
LOC: DC 14:00
PROVIDERS: PCP Family Medicine; Visit Provider Family Medicine
DX: E11.65 Type 2 diabetes mellitus with hyperglycemia (principal)
CPT/HCPCS: 97802; G0108

== ENCOUNTER 2020-12-13 15:25 | Outpatient (RCR) | payer MEDICARE, SELFPAY ==
[2020-08-28 09:08] VITALS: BMI 39.9
== END 2020-12-19 23:59 ==
LOC: DC 15:25
PROVIDERS: PCP Family Medicine; Visit Provider Family Medicine
DX: E11.65 Type 2 diabetes mellitus with hyperglycemia (principal)
CPT/HCPCS: 97803

== ENCOUNTER 2020-12-28 14:41 | Outpatient (RCR) | payer MEDICARE, SELFPAY ==
[2020-12-20 00:39] VITALS: BMI 39.9
== END 2021-01-18 23:59 ==
LOC: DC 14:41
PROVIDERS: PCP Family Medicine; Visit Provider Family Medicine
DX: E11.65 Type 2 diabetes mellitus with hyperglycemia (principal)
CPT/HCPCS: G0108

== ENCOUNTER 2021-01-15 11:54 | Emergency (ER) | payer MEDICARE, SELFPAY ==
[2021-01-15 11:55] VITALS: BP 117/68; PULSE 69; RESP 16; TEMP 36.3; O2SAT 97; BMI 40.0
[2021-01-15 12:07] VITALS: BP 138/82; PULSE 63; RESP 11; O2SAT 93
[2021-01-15 13:04] VITALS: BP 149/84; PULSE 58; RESP 15; O2SAT 95
--- NOTE | 2021-01-15 13:06 | CT_ITS ---
STUDY: CT ABDOMEN AND PELVIS WITHOUT CONTRAST REASON FOR EXAM: Female, 80 years old. Pain- right flank. RADIATION DOSAGE (If Supplied By Facility): CTDIvol = ( 21.4 ) mGy, DLP = ( 1033.03 ) mGycm TECHNIQUE: Transaxial images were obtained from the dome of the diaphragm to the symphysis pubis without oral contrast, and without intravenous contrast. Sagittal and coronal images were reconstructed. Individualized dose optimization techniques were used for this CT. COMPARISON: Comparison is made with prior study dated 06/08/2019. FINDINGS: Stable mild increased markings at the lung bases suggestive of underlying atelectasis and/or scarring. Coronary artery calcification. Prior aortic valve replacement. Calcification of the mitral valve annulus. There is a 1.2 cm cyst in the medial dome of the right lobe liver. This is unchanged. There are multiple small gallstones along the dependent portion of the gallbladder lumen.. Normal spleen. Normal pancreas. Normal bilateral adrenal glands. There is a 2 mm calculus in the midportion of the right ureter. Normal left kidney. There is a small hiatal hernia. Normal small intestine. There are scattered colonic diverticula consistent with diverticulosis. There is non-visualization of the appendix. There is diffuse atherosclerotic calcification of the abdominal aorta and its major visceral branches., without a demonstrated aneurysm. Normal inferior vena cava. Normal retroperitoneum. Normal urinary bladder. There is absence of the uterus consistent with a prior hysterectomy. Normal abdominal wall. There are diffuse degenerative changes of the visualized lumbar spine. Straightening of the normal lumbar lordosis. Minimal anterior listhesis of L3 on L4. CT/Abdomen/Pelvis without Cont IMPRESSION: Multiple small gallstones along the dependent portion of the gallbladder lumen. Stable 1 cm cyst in the dome of the right lobe of the liver. 2 mm calculus in the midportion of the right ureter. Electronically Signed: Alexey Villa MD at 14:13 EDT , Service support ,
--- NOTE | 2021-01-15 13:15 | ED.VIS.GI ---
HPI HPI - GI History of Present Illness Chief Complaint: Abd Pain Informant: patient Narrative Narrative: Patient is a 80-year-old female with history of kidney stones, spinal stenosis and degenerative joint disease presenting with worsening pain in her right flank. Patient states it started 3 days ago and has been worsening. She does receive steroid injections and is followed by pain management, Dr. Vera, but has not had any injections in a couple weeks. She notes she did have an IM pain shot last week. Patient states the pain is sharp in nature. Does not radiate is been constant. Is worse with movement. She denies associated urinary symptoms. Denies any fever. She denies any change in her bowel habits but does note she has a history of IBS. [facility] Medical History (Updated 01/15/21 @ 15:[address] Roxie Vargas, ) Arthritis Basal cell carcinoma CVA (cerebral vascular accident) (01/2019) Depression Essential (primary) hypertension Glaucoma Darryl's disease Hyperlipemia Nonrheumatic aortic (valve) stenosis Obesity Skin lesion of face Sleep apnea Home Medications aspirin 81 mg PO DAILY@0800 03/18/14 [History Last Taken 09/27/16] oxybutynin chloride 10 mg PO DAILY 03/18/14 [History Last Taken Unknown] ergocalciferol (vitamin D2) 50,000 unit PO Q7D 10/03/14 [History Last Taken Unknown] latanoprost 1 drp EACH EYE QHS 10/03/14 [History Last Taken Unknown] escitalopram oxalate 10 mg PO DAILY 01/19/19 [History Last Taken Unknown] atorvastatin 80 mg PO QHS #30 tab 01/21/19 [Rx Last Taken Unknown] benazepril 20 mg PO BID #0 01/21/19 [Rx Last Taken 09/27/16] levothyroxine 75 mcg tablet 75 mcg PO DAILY 03/11/19 [History Last Taken Unknown] multivitamin 1 tab PO DAILY 02/24/20 [History Last Taken Unknown] oxygen-air delivery systems #1 07/05/20 [History Last Taken Unknown] selenium 50 mcg tablet 50 mcg PO DAILY 07/05/20 [History Last Taken Unknown] amlodipine 10 mg tablet 10 mg PO DAILY #90 tablet 07/21/20 [Rx Last Taken Unknown] hydrochlorothiazide 12.5 mg tablet 12.5 mg PO DAILY #90 tablet 07/21/20 [Rx Last Taken Unknown] metformin 500 mg tablet tablet PO 08/28/20 [History Last Taken Unknown] tizanidine 4 mg tablet ea PO 08/28/20 [History Last Taken Unknown] hydrocodone-acetaminophen 1 tab PO Q6H PRN 3 Days #12 tab 01/15/21 [Rx Last Taken Unknown] ondansetron HCl [Zofran] 4 mg PO Q6H PRN #14 tab 01/15/21 [Rx Last Taken Unknown] tamsulosin [Flomax] 0.4 mg PO DAILY #7 cap 01/15/21 [Rx Last Taken Unknown] Allergy/AdvReac Type Severity Reaction Status Date / Time iodine Allergy SEE Verified 07/05/20 10:41 COMMENTS Family History Mother CAD (coronary artery disease) Hypertension Surgical History H/O partial thyroidectomy History of bladder suspension procedure History of cervical spinal surgery History of hysterectomy History of right and left heart catheterization (09/27/16) 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 Bebeto Boss MD) Smoking Status: Never smoker alcohol intake: never ROS ROS ED Constitutional Constitutional ED: Denies chills or fever(s) ENT ENT ED: Denies ear pain or rhinorrhea Cardiovascular Cardiovascular: Denies chest pain Respiratory/Chest Respiratory/Chest: Denies cough or dyspnea Gastrointestinal Gastrointestinal: Reports abdominal pain; Denies diarrhea, nausea or vomiting Genitourinary Genitourinary ED: Denies dysuria or hematuria Musculoskeletal Musculoskeletal: Reports back pain; Denies myalgias Integumentary Denies rash Neurologic Neurologic: Denies headache(s) or weakness EXAM Physical Exam Const Vital Signs: 01/15/21 11:55 01/15/21 12:07 01/15/21 13:04 Temperature 97.4 F L Temperature Source Temporal Pulse Rate 69 63 58 L Respiratory Rate 16 11 L 15 Blood Pressure 117/68 138/82 H 149/84 H Blood Pressure Mean 84 100 105 Pulse Ox 97 93 95 Oxygen Delivery Method Room Air Room Air Room Air Positive well nourished and well developed General Appearance ED: well developed HEENT Reports moist mucous membranes normocephalic and atraumatic Eyes PERRL and EOMs intact bilaterally Neck supple Resp normal respiratory effort and clear to auscultation bilaterally Cardio regular rate, regular rhythm and no murmurs GI no masses Auscultation: normoactive bowel sounds Palpation: soft and tender other (right flank and right mid abdomen ) Back/Spine no CVA tenderness Thoracic Spine / Upper Back: Negative for thoracic spinal tenderness Lumbar Spine / Lower Back: Negative for lumbar spinal tenderness Extremity full ROM General Extremety ED: Negative for edema or tenderness General Extremity: Negative for edema Neuro Sensorium / Orientation: alert, oriented to person, oriented to place and oriented to time Motor Exam: Negative for general weakness Psych mental status grossly normal Skin Lesions: no lesions Rashes: no rashes MDM MDM MDM Narrative Medical decision making narrative: Patient evaluated for right flank pain. She does have a history of spinal stenosis and back pain as well as kidney stones so she admits she is not sure what could be causing her pain. Patient is well-appearing on my exam. Her pain is pretty consistently in her right flank but not reproducible on exam. CBC normal. Kidney function is normal. Patient has a mildly elevated total bili but this can be normal per age. AST and ALT are normal as well as her alkaline phosphatase. CT the abdomen and pelvis shows a 2 mm calculus in the midportion of the right ureter. I suspect this is the cause of her pain. Patient is given morphine and Zofran in the ER. On reevaluation she states at 1 point her pain was worse but is now better. She was given follow-up for Dr. Lester who she has previously seen. She is given Flomax, [place] and Zofran for symptomatic relief in the ER. Patient is counseled on signs and symptoms requiring return to the emergency room. Patient verbalizes agreement and understand this plan. Patient discharged home in stable and improved condition. Lab Data Attestation: I reviewed the patient's lab results. Labs: Laboratory Results - last 24 hr 01/15/21 01/15/21 12:20 12:20 WBC 6.9 RBC 4.59 Hgb 14.0 Hct 41.4 MCV 90.2 MCH 30.5 MCHC 33.8 RDW Std Deviation 42.1 RDW Coeff of Corinna 12.7 Plt Count 153 MPV 9.9 Immature Gran % (Auto) 0.100 Neut % (Auto) 68.5 Lymph % (Auto) 19.8 [place] % (Auto) 6.4 Eos % (Auto) 4.5 Baso % (Auto) 0.7 Absolute Neuts (auto) 4.7 Absolute Lymphs (auto) 1.37 Nucleated RBC % 0 Sodium 140 Potassium 3.9 Chloride 107 Carbon Dioxide 24.0 Anion Gap 9 BUN 16 Creatinine 0.78 Estim Creat Clear Calc 34.42 Est GFR (MDRD) Af Amer 91 Est GFR (MDRD) Non-Af 75 BUN/Creatinine Ratio 20.4 H Glucose 148 H Calcium 10.1 Total Bilirubin 1.40 H AST 28 ALT 36 Alkaline Phosphatase 87 Total Protein 7.1 Albumin 3.5 Globulin 3.6 Albumin/Globulin Ratio 1.0 Radiography Diagnostic Testing: Radiology Impression Abdomen/Pelvis CT 01/15/21 13:06 IMPRESSION: Multiple small gallstones along the dependent portion of the gallbladder lumen. Stable 1 cm cyst in the dome of the right lobe of the liver. 2 mm calculus in the midportion of the right ureter. Electronically Signed: Alexey Villa MD at 14:13 EDT , Service support , Discharge Plan Triage Chief Complaint: Abd Pain ED Provider: Roxie Vargas Dx/Rx/DC Orders Clinical Impression: Renal colic on right side, Calculus of distal right ureter Instructions: ED Kidney Stone w/ Colic Prescriptions: New ondansetron HCl [Zofran] 4 mg tablet 4 mg PO Q6H PRN (Reason: nausea and vomiting) Qty: 14 RF: 0 hydrocodone-acetaminophen 5-325 mg tablet 1 tab PO Q6H PRN (Reason: pain) 3 Days Qty: 12 RF: 0 tamsulosin [Flomax] 0.4 mg capsule 0.4 mg PO DAILY Qty: 7 RF: 0 No Action levothyroxine 75 mcg tablet 75 mcg PO DAILY RF: 0 multivitamin [Daily Multi-Vitamin] Tablet 1 tab PO DAILY RF: 0 selenium 50 mcg tablet 50 mcg PO DAILY RF: 0 (DME) oxygen-air delivery systems device See Rx Instructions .ROUTE .MEDSUPPLY Qty: 1 RF: 0 amlodipine 10 mg tablet 10 mg PO DAILY Qty: 90 RF: 3 hydrochlorothiazide 12.5 mg tablet 12.5 mg PO DAILY Qty: 90 RF: 3 metformin 500 mg tablet PO RF: 0 tizanidine 4 mg tablet PO RF: 0 oxybutynin chloride 10 MG tablet extended release 24 hr 10 mg PO DAILY RF: 0 aspirin 81 MG tablet 81 mg PO DAILY@0800 RF: 0 latanoprost 1 DROP bottle 1 drp EACH EYE QHS RF: 0 ergocalciferol (vitamin D2) 50,000 UNIT capsule 50,000 unit PO Q7D RF: 0 escitalopram oxalate 10 MG tablet 10 mg PO DAILY RF: 0 atorvastatin 80 MG tablet 80 mg PO QHS Qty: 30 RF: 0 benazepril 20 MG tablet 20 mg PO BID Qty: 0 RF: 0 Primary Care Provider: Sunil Adamson Referrals: Sunil Adamson MD [Primary Care Provider] - Maxi Lester MD [STAFF PHYSICIAN] - Disposition Disposition: Home, Self Care
[2021-01-15] MEDS: Morphine 4 MG/ML Syringe IV (13:22)
[2021-01-15] MEDS: Ondansetron 4 MG/2 ML Vial IV (13:22)
[2021-01-15 13:23] LABS: Absolute Lymphocyte Count 1.37 X10^3/uL (0.83-4.51); Absolute Neutrophil Count 4.7 X10^3/uL (2.0-7.7); Basophil# 0.05 X10^3/uL; Basophil% 0.7 % (0-1); Eosinophil# 0.31 X10^3/uL; Eosinophils% 4.5 % (0-5); Hematocrit 41.4 % (37-47); Lymphocyte # 1.37 X10^3/ul (0.83-4.51); Lymphocyte % 19.8 % (19-41); Mean Corp Hgb Conc 33.8 g/dL (32-36); Mean Corpuscular Hgb 30.5 pg (27.0-32.0); Mean Corpuscular Volume 90.2 fL (81-99); Mean Platelet Vol. 9.9 fl (6.2-12.0); Monocyte# 0.44 X10^3/uL; Monocyte% 6.4 % (0-10); NRBC Flagged by Analyzer 0 % (0-5); Neutrophil # 4.74 X10^3/uL (2.7-7.7); Neutrophil % 68.5 % (47-70); Platelet Count 153 K/mm3 (150-450); RBC Distribution Width CV 12.7 % (11.6-14.6); RBC Distribution Width SD 42.1 fl (35.1-43.9); Red Blood Count 4.59 M/mm3 (4.2-5.4); White Blood Count 6.9 K/mm3 (4.4-11.0)
[2021-01-15 13:39] LABS: AST(SGOT) 28 U/L (15-37); Alanine Aminotransfer ALT/SGPT 36 U/L (13-56); Albumin, Serum 3.5 g/dL (3.2-5.0); Alkaline Phosphatase 87 U/L (45-117); Anion Gap 9 (5-15); BUN 16 mg/dL (7-18); BUN/Creat Ratio 20.4 RATIO (10-20); Calcium,Total 10.1 mg/dL (8.5-10.1); Chloride 107 mmol/L (98-107); Creatinine, Serum 0.78 mg/dL (0.55-1.02); EST Glomerular Filtration Rate 75 mL/min (>60); Est Glom Filt Rate - Afr Amer 91 mL/min (>60); Estimated Creatinine Clearance 34.42 ml/min; Globulin 3.6 g/dL (2.2-4.2); Glucose 148 mg/dL (74-106); Potassium 3.9 mmol/L (3.5-5.1); Protein, Total 7.1 g/dL (6.4-8.2); Sodium Level 140 mmol/L (136-145)
[2021-01-15 15:14] VITALS: BP 146/86; PULSE 51; RESP 13; O2SAT 96
== END 2021-01-15 15:29 | disposition home or self-care (01) ==
PROVIDERS: Emergency Provider Emergency Medicine; PCP Family Medicine
DX: N20.1 Calculus of ureter (principal); K76.89 Other specified diseases of liver; K80.20 Calculus of gallbladder without cholecystitis without obstruction; E06.3 Autoimmune thyroiditis; E66.9 Obesity, unspecified; E78.5 Hyperlipidemia, unspecified; F32.9 Major depressive disorder, single episode, unspecified; G47.30 Sleep apnea, unspecified; H40.9 Unspecified glaucoma; I10 Essential (primary) hypertension; I35.0 Nonrheumatic aortic (valve) stenosis; K58.9 Irritable bowel syndrome, unspecified; Z79.82 Long term (current) use of aspirin; Z79.84 Long term (current) use of oral hypoglycemic drugs; Z79.899 Other long term (current) drug therapy; Z87.442 Personal history of urinary calculi
CPT/HCPCS: 74176; 80053; 85025; 96374; 96375; 99283; A4216; J2405

== ENCOUNTER 2021-01-18 12:59 | Inpatient (IN) | payer MEDICARE, SELFPAY ==
[2021-01-18] VITALS (7 sets, daily range): BP systolic 94–133; BP diastolic 66–89; PULSE 62–125; RESP 15–19; TEMP 36.4–36.8; O2SAT 95–100; BMI 39.6; BMI 40.1
--- NOTE | 2021-01-18 13:35 | EKG12_ITS ---
Test Reason : REPEAT Blood Pressure : / mmHG Vent. Rate : 123 BPM Atrial Rate : 153 BPM P-R Int : 000 ms QRS Dur : 110 ms QT Int : 346 ms P-R-T Axes : 000 000 099 degrees QTc Int : 495 ms Accelerated Junctional rhythm Low voltage QRS Abnormal ECG Confirmed by EBENEZER MAHARAJ, ADEN ([id number]), editorial director NAKIA BARROS ([id number]) on 01/22/2021 7:57:07 AM Referred By: VICKY/TL/BB Confirmed By:ADEN SOL MD
--- NOTE | 2021-01-18 13:35 | US_ITS ---
STUDY: ABDOMINAL ULTRASOUND - RIGHT UPPER QUADRANT REASON FOR VISIT: Female, 80 years old right lower quadrant pain. TECHNIQUE: Ultrasound evaluation of the right upper quadrant was performed with real-time and static palacio-scale imaging. TECHNICAL QUALITY: Limited. Examination limited due to a combination of factors including obesity and bowel gas. COMPARISON: Comparison is made with prior study dated 06/20/2018. FINDINGS: Liver: The liver measures 15.7 cm. There is increased echogenicity consistent with fatty infiltration. The bile ducts are within normal limits. There is hepatic color flow. The direction of portal flow is hepatopetal. There is a 1.4 cm x 1.4 cm x 1.5 cm cyst in the dome of the right lobe of the liver. Gallbladder: Normal distended gallbladder. The gallbladder wall measures 1.8 mm. There is a negative sonographic Montes''s sign. There is no pericholecystic fluid. There are multiple small echogenic structures within the gallbladder, consistent with multiple small gallstones. Common Bile Duct (C.B.D.): The common bile duct measures 2.9 mm. Pancreas: Normal size of the head, body and tail of the pancreas. There is no demonstrated pancreatic mass or cyst. Right Kidney: Normal size of the right kidney. The right kidney measures 10.6 cm x 5.6 cm x 4.8 cm. Normal renal cortex. The right cortex measures 1.9 cm. There is no demonstrated renal mass or cyst. There is no right hydronephrosis. US/Gallbladder IMPRESSION: Fatty infiltration of the liver. Multiple small gallstones. Electronically Signed: Alexey Villa MD at 15:03 EDT , Service support ,
--- NOTE | 2021-01-18 13:35 | EDS_ITS ---
HPI HPI - GI History of Present Illness Chief Complaint: Abd Pain Detail of Chief Complaint: Abdominal pain that started 6 days ago Informant: patient Narrative Narrative: Patient to the emergency department with complaint of severe abdominal pain initially started 6 days ago. Patient was seen 4 days ago in the emergency department and had a CT scan that showed a 2 mm stone in the right mid ureter I was thought to be the cause of her pain. Patient states that she followed up with urology who told her that he did not believe that she had a kidney stone because the calcification that was seen on the current CT was also there 5 years ago on a prior CT and has not moved. Patient has has had some nausea today but no vomiting. Patient states has had decreased appetite. She is not sure if food makes the pain worse. Patient's last bowel movement was yesterday. She denies urinary symptoms. Patient's had prior hysterectomy. [facility] Medical History (Updated 01/18/21 @ 15:[address] Milly Vance, DO) Arthritis Basal cell carcinoma CVA (cerebral vascular accident) (01/2019) Depression Essential (primary) hypertension Glaucoma Adrryl's disease Hyperlipemia Nonrheumatic aortic (valve) stenosis Obesity Skin lesion of face Sleep apnea Home Medications aspirin 81 mg PO DAILY@0800 03/18/14 [History Last Taken 09/27/16] oxybutynin chloride 10 mg PO DAILY 03/18/14 [History Last Taken Unknown] ergocalciferol (vitamin D2) 50,000 unit PO Q7D 10/03/14 [History Last Taken Unk nown] latanoprost 1 drp EACH EYE QHS 10/03/14 [History Last Taken Unknown] escitalopram oxalate 10 mg PO DAILY 01/19/19 [History Last Taken Unknown] atorvastatin 80 mg PO QHS #30 tab 01/21/19 [Rx Last Taken Unknown] benazepril 20 mg PO BID #0 01/21/19 [Rx Last Taken 09/27/16] levothyroxine 75 mcg tablet 75 mcg PO DAILY 03/11/19 [History Last Taken Unknown] multivitamin 1 tab PO DAILY 02/24/20 [History Last Taken Unknown] oxygen-air delivery systems #1 07/05/20 [History Last Taken Unknown] selenium 50 mcg tablet 50 mcg PO DAILY 07/05/20 [History Last Taken Unknown] amlodipine 10 mg tablet 10 mg PO DAILY #90 tablet 04/02/21 [Rx Last Taken Unknown] hydrochlorothiazide 12.5 mg tablet 12.5 mg PO DAILY #90 tablet 07/21/20 [Rx Last Taken Unknown] metformin 500 mg tablet 500 tablet PO DAILY 08/28/20 [History Last Taken Unknown] tizanidine 4 mg tablet ea PO 08/28/20 [History Last Taken Unknown] hydrocodone-acetaminophen 1 tab PO Q6H PRN 3 Days #12 tab 01/15/21 [Rx Last Taken Unknown] ondansetron HCl [Zofran] 4 mg PO Q6H PRN #14 tab 01/15/21 [Rx Last Taken Unknown] tamsulosin [Flomax] 0.4 mg PO DAILY #7 cap 01/15/21 [Rx Last Taken Unknown] Allergy/AdvReac Type Severity Reaction Status Date / Time iodine Allergy SEE Verified 01/18/21 13:02 COMMENTS Family History Mother CAD (coronary artery disease) Hypertension Surgical History H/O partial thyroidectomy History of bladder suspension procedure History of cervical spinal surgery History of hysterectomy History of right and left heart catheterization (09/27/16) 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 Bebeto Boss MD) Smoking Status: Never smoker alcohol intake: never ROS ROS ED Constitutional Constitutional ED: Reports systems reviewed and no addt'l complaints, except as documented; Denies body ache(s), change in weight or chills Eyes Eyes: Denies acute decrease in peripheral vision, change in vision, double vision or loss of vision ENT ENT ED: Reports none; Denies ear pain, lip swelling, loss taste/smell, neck pain, otalgia or sore throat Cardiovascular Cardiovascular: Reports none; Denies abdominal pain, chest pain with activity, leg edema, lightheadedness, palpitations, rapid heart rate or syncope Respiratory/Chest Respiratory/Chest: Reports none; Denies change in mental status, dry cough, dyspnea, hemoptysis, shortness of breath at rest or shortness of breath with exertion Gastrointestinal Gastrointestinal: Reports none, abdominal pain and nausea; Denies change in stool character, diarrhea, hematemesis, hematochezia, melena, rectal bleeding or vomiting Genitourinary Genitourinary ED: Reports none; Denies abdominal discomfort, anuria, dysuria, genital pain or polyuria Musculoskeletal Musculoskeletal: Reports none; Denies arthralgias, back pain, difficulty walking, extremity pain, muscle weakness or myalgias Integumentary Reports none; Denies abscess or rash Neurologic Neurologic: Reports none; Denies abnormal gait, confusion, focal weakness, frequent falls, headache(s), loss of vision, numbness, paresthesias, radicular pain, vertigo or weakness Psychiatric Psychiatric: Reports systems reviewed and no addt'l complaints, except as documented and none; Denies behavioral changes, confusion, difficulty concentrating, hallucinations, suicidal ideation, tactile hallucinations or visual hallucinations Endocrine Endocrinology: Denies none, cold intolerance, excessive sweating, fatigue or heat intolerance Hematologic/Lymphatic Hematologic/Lymphatic: Reports none; Denies anemia, easy bleeding or easy bruising Allergic/Immunologic Allergic/Immunologic ED: Denies as per HPI, none, lip swelling, mouth swelling, throat swelling, tongue swelling or hives EXAM Physical Exam Const Vital Signs: 01/18/21 13:00 01/18/21 15:00 Temperature 98.0 F Temperature Source Temporal Pulse Rate 67 125 H Respiratory Rate 16 15 Blood Pressure 131/67 H 94/72 Blood Pressure Mean 88 79 Pulse Ox 96 98 Oxygen Delivery Method Room Air Nasal Cannula Oxygen Flow Rate (L/min) 2 Positive well nourished and well developed General Appearance ED: well developed and NAD HEENT Reports TM's clear and moist mucous membranes normocephalic and atraumatic; Negative for trauma or tenderness Tympanic Membrane ED: Yes TM's clear Eyes PERRL and EOMs intact bilaterally General Eye ED: Negative for pale conjunctiva or scleral icterus Neck no lymphadenopathy, supple and no JVD General: Negative for tenderness Chest Wall inspection of chest normal and palpation of chest normal Chest: Negative for tenderness Resp normal respiratory effort and clear to auscultation bilaterally Effort and Inspection: Negative for respiratory distress or pain with movement Auscultation: Negative for rhonchi, wheezes or diminished lung sounds Cardio regular rate, regular rhythm, S1 normal heart sound, S2 normal heart sound and no murmurs Peripheral Pulses: pulses 2+ throughout GI normal to inspection, nondistended, normoactive bowel sounds, soft to palpation, non-tender, non-distended and no masses GI Narrative: Patient has tenderness palpation of the right upper quadrant with some guarding. There is no rebound, rigidity, or peritoneal signs. Patient has a positive Montes sign. Palpation: soft and tender Back/Spine no CVA tenderness and no thoracic nor lumbar tenderness Extremity normal to inspection General Extremety ED: Negative for edema General Extremity: Negative for edema Neuro oriented x3, CN's II-XII intact bilaterally, no sensory deficits noted and gait normal Sensorium / Orientation: awake, alert, oriented to person, oriented to place and oriented to time Motor Exam: strength 5/5 throughout and strength abnormal Psych mental status grossly normal Skin no rashes or lesions noted and no wounds MDM MDM MDM Narrative Medical decision making narrative: IV line established on arrival. Patient was medicated Dilaudid and Zofran. Gallbladder ultrasound obtained showed small gallstones but no other signs of cholecystitis. Patient developed palpitations while in department and a repeat EKG obtained showed a accelerated junctional rhythm with a rate of 122 bpm. Patient's troponin did come back slightly elevated however she is not having any chest pain. Case was discussed with hospitalist will evaluate patient for admission. I was asked to consult general surgery regarding patient's abdominal pain and I discussed case with Dr. Viktor Miller Lab Data Attestation: I reviewed the patient's lab results. Labs: Laboratory Results - last 24 hr 01/18/21 01/18/21 01/18/21 11:31 13:15 13:17 WBC 9.0 RBC 4.60 Hgb 13.9 Hct 41.2 MCV 89.6 MCH 30.2 MCHC 33.7 RDW Std Deviation 40.6 RDW Coeff of [place] 12.3 Plt Count 151 MPV 9.7 Immature Gran % (Auto) 0.200 Neut % (Auto) 87.1 H Lymph % (Auto) 8.2 L [place] % (Auto) 3.5 Eos % (Auto) 0.7 Baso % (Auto) 0.3 Absolute Neuts (auto) 7.9 H Absolute Lymphs (auto) 0.74 L Nucleated RBC % 0 Sodium 135 L Potassium 3.8 Chloride 100 Carbon Dioxide 26.0 Anion Gap 9 BUN 17 Creatinine 0.99 Estim Creat Clear Calc 34.77 Est GFR (MDRD) Af Amer 70 Est GFR (MDRD) Non-Af 58 L BUN/Creatinine Ratio 17.2 Glucose 206 H Lactic Acid 1.5 Calcium 10.1 Total Bilirubin 1.00 AST 23 ALT 33 Alkaline Phosphatase 88 Troponin I High Sens 63 H Total Protein 7.6 Albumin 3.6 Globulin 4.0 Albumin/Globulin Ratio 0.9 Lipase 87 Radiography Diagnostic Testing: Radiology Impression Gallbladder Ultrasound 01/18/21 13:35 IMPRESSION: Fatty infiltration of the liver. Multiple small gallstones. Electronically Signed: Alexey Villa MD at 15:03 EDT , Service support , EKG Initial EKG: Attestation: I personally reviewed and interpreted this EKG as follows: Comments: Sinus rhythm with a ventricular rate of 60 bpm with no acute ST segment changes. Follow-up EKG: Comments: Repeat EKG shows accelerated junctional rhythm with a rate of 123 bpm with some subtle ST depression laterally Discharge Plan Triage Chief Complaint: Abd Pain ED Provider: Milly Vance Dx/Rx/DC Orders Clinical Impression: Abdominal pain, Tachycardia, Elevated troponin I level Prescriptions: No Action levothyroxine 75 mcg tablet 75 mcg PO DAILY RF: 0 multivitamin [Daily Multi-Vitamin] Tablet 1 tab PO DAILY RF: 0 selenium 50 mcg tablet 50 mcg PO DAILY RF: 0 (DME) oxygen-air delivery systems device See Rx Instructions .ROUTE .MEDSUPPLY Qty: 1 RF: 0 amlodipine 10 mg tablet 10 mg PO DAILY Qty: 90 RF: 3 hydrochlorothiazide 12.5 mg tablet 12.5 mg PO DAILY Qty: 90 RF: 3 metformin 500 mg tablet 500 tablet PO DAILY RF: 0 tizanidine 4 mg tablet PO RF: 0 oxybutynin chloride 10 MG tablet extended release 24 hr 10 mg PO DAILY RF: 0 aspirin 81 MG tablet 81 mg PO DAILY@0800 RF: 0 latanoprost 1 DROP bottle 1 drp EACH EYE QHS RF: 0 ergocalciferol (vitamin D2) 50,000 UNIT capsule 50,000 unit PO Q7D RF: 0 escitalopram oxalate 10 MG tablet 10 mg PO DAILY RF: 0 atorvastatin 80 MG tablet 80 mg PO QHS Qty: 30 RF: 0 benazepril 20 MG tablet 20 mg PO BID Qty: 0 RF: 0 ondansetron HCl [Zofran] 4 mg tablet 4 mg PO Q6H PRN (Reason: nausea and vomiting) Qty: 14 RF: 0 hydrocodone-acetaminophen 5-325 mg tablet 1 tab PO Q6H PRN (Reason: pain) 3 Days Qty: 12 RF: 0 tamsulosin [Flomax] 0.4 mg capsule 0.4 mg PO DAILY Qty: 7 RF: 0 Primary Care Provider: Sunil Adamson Referrals: Sunil Adamson MD [Primary Care Provider] - Disposition Disposition: Acute Care Hospital [facility] [place] [facility]
[2021-01-18] MEDS: HYDROmorphone 1 MG/ML Syringe IV (13:46)
[2021-01-18] MEDS: 0.9% Normal Saline 1,000 ML 125 ML IV (13:46)
[2021-01-18] MEDS: Ondansetron 4 MG/2 ML Vial IV (13:46)
[2021-01-18 13:47] LABS: Absolute Lymphocyte Count 0.74 X10^3/uL (0.83-4.51); Absolute Neutrophil Count 7.9 X10^3/uL (2.0-7.7); Basophil# 0.03 X10^3/uL; Basophil% 0.3 % (0-1); Eosinophil# 0.06 X10^3/uL; Eosinophils% 0.7 % (0-5); Hematocrit 41.2 % (37-47); Hemoglobin 13.9 g/dL (12.0-15.0); Lymphocyte # 0.74 X10^3/ul (0.83-4.51); Lymphocyte % 8.2 % (19-41); Mean Corp Hgb Conc 33.7 g/dL (32-36); Mean Corpuscular Hgb 30.2 pg (27.0-32.0); Mean Corpuscular Volume 89.6 fL (81-99); Mean Platelet Vol. 9.7 fl (6.2-12.0); Monocyte# 0.32 X10^3/uL; Monocyte% 3.5 % (0-10); NRBC Flagged by Analyzer 0 % (0-5); Neutrophil # 7.87 X10^3/uL (2.7-7.7); Neutrophil % 87.1 % (47-70); Platelet Count 151 K/mm3 (150-450); RBC Distribution Width CV 12.3 % (11.6-14.6); RBC Distribution Width SD 40.6 fl (35.1-43.9)
[2021-01-18 14:18] LABS: Lactic Acid 1.5 mmol/L (0.4-1.9)
[2021-01-18 14:39] LABS: BUN 17 mg/dL (7-18); Glucose 206 mg/dL (74-106)
[2021-01-18 14:40] LABS: ALB/GLOB Ratio 0.9 RATIO (0.9-2.4); AST(SGOT) 23 U/L (15-37); Alanine Aminotransfer ALT/SGPT 33 U/L (13-56); Albumin, Serum 3.6 g/dL (3.2-5.0); Alkaline Phosphatase 88 U/L (45-117); Anion Gap 9 (5-15); BUN/Creat Ratio 17.2 RATIO (10-20); Calcium,Total 10.1 mg/dL (8.5-10.1); Chloride 100 mmol/L (98-107); Creatinine, Serum 0.99 mg/dL (0.55-1.02); EST Glomerular Filtration Rate 58 mL/min (>60); Est Glom Filt Rate - Afr Amer 70 mL/min (>60); Estimated Creatinine Clearance 34.77 ml/min; Lipase 87 U/L (73-393); Potassium 3.8 mmol/L (3.5-5.1); Protein, Total 7.6 g/dL (6.4-8.2); Sodium Level 135 mmol/L (136-145); Troponin-I HS 63 pg/mL (3.0-54.0)
--- NOTE | 2021-01-18 14:52 | ED.RN ---
Addendum entered by Verónica Bridges 01/18/21 15:08: DR TAFOYA MADE AWARE Original Note: PT C/O CHEST PALPITATIONS. RESPIRATORY CALLED FOR EKG
--- NOTE | 2021-01-18 15:32 | HP.PCM.HOS_ITS ---
HPI - General General Date of Admission: 01/18/21 Date of Service: 01/18/21 Chief Complaint: Right lower quadrant pain - 6 days HPI Narrative CORY CUELLO, is a 80 F who presents with the above of ongoing for 6 days. Patient describes pain as 10 out of 10, localized in the right lower quadrant, no radiation. She was seen in the emergency room on 01/15/21. At that time, CT of the abdomen and pelvis showed a 2 mm calculus in the midportion of the right ureter. Patient had gone to follow-up with Dr Chen, who said that the stone wa s present on the CT scan [address] scan done today showed multiple gallstones, 2 mm calculus in the midportion of the right ureter. Her white cell count is 9 slight neutrophilia his CMP is normal, Patient denied any fever or chills. No upper respiratory symptoms. She has received both of her COVID-19 vaccine some months ago. She denied any dysuria or frequency or hematuria. She denied any change in her bowel movement. Patient's vitals in the ED on initially showed heart rate in the 60s. She suddenly became tachycardic with heart rate persistently in the 130s. EKG suggestive of junctional rhythm. She has history of TAVR in 2019, history of CVA with resultant hearing loss, hypertension, hyperlipidemia, KASEY on CPAP. [facility] Medical History Arthritis Basal cell carcinoma CVA (cerebral vascular accident) (01/2019) Depression Essential (primary) hypertension Glaucoma Darryl's disease Hyperlipemia Nonrheumatic aortic (valve) stenosis Obesity Skin lesion of face Sleep apnea Home Medications aspirin 81 mg PO DAILY@0800 03/18/14 [History Last Taken 09/27/16] oxybutynin chloride 10 mg PO DAILY 03/18/14 [History Last Taken Unknown] ergocalciferol (vitamin D2) 50,000 unit PO Q7D 10/03/14 [History Last Taken Unknown] latanoprost 1 drp EACH EYE QHS 10/03/14 [History Last Taken Unknown] escitalopram oxalate 10 mg PO DAILY 01/19/19 [History Last Taken Unknown] levothyroxine 75 mcg tablet 75 mcg PO DAILY 03/11/19 [History Last Taken Unknown] multivitamin 1 tab PO DAILY 02/24/20 [History Last Taken Unknown] selenium 50 mcg tablet 50 mcg PO DAILY 07/05/20 [History Last Taken Unknown] metformin 500 mg tablet 500 tablet PO DAILY 08/28/20 [History Last Taken Unknown] hydrocodone-acetaminophen 1 tab PO Q6H PRN 3 Days #12 tab 01/15/21 [Rx Last Taken Unknown] ondansetron HCl [Zofran] 4 mg PO Q6H PRN #14 tab 01/15/21 [Rx Last Taken Unknown] acetaminophen 500 mg PO DAILY PRN 01/18/21 [History Last Taken 01/18/21] amlodipine 10 mg PO DAILY 01/18/21 [History Last Taken 01/17/21] atorvastatin 80 mg PO QHS 01/18/21 [History Last Taken 01/17/21] benazepril 20 mg PO BID 01/18/21 [History Last Taken 01/17/21] calcium carbonate [Tums 500] 500 - 1,000 mg PO Q6H PRN PRN 01/18/21 [History Last Taken 01/17/21] glipizide 5 mg PO DAILY 01/18/21 [History Last Taken 01/17/21] hydrochlorothiazide 12.5 mg PO DAILY 01/18/21 [History Last Taken 01/18/21] sitagliptin [Januvia] 50 mg PO DAILY 01/18/21 [History Last Taken 01/17/21] tamsulosin [Flomax] 0.4 mg PO DAILY 01/18/21 [History Last Taken 01/17/21] Allergy/AdvReac Type Severity Reaction Status Date / Time iodine Allergy SEE Verified 01/18/21 13:02 COMMENTS Family History (Updated 01/18/21 @ 16:[address] Gris Donaldson MD) Mother CAD (coronary artery disease) Hypertension Cancer Leukemia Father Diabetes Alcoholism Surgical History H/O partial thyroidectomy History of bladder suspension procedure History of cervical spinal surgery History of hysterectomy History of right and left heart catheterization (09/27/16) 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) Social History Smoking Status: Never smoker alcohol intake: never ROS ROS Narrative Constitutional: Reports: Denies: Anorexia, Chills, Fever, Night Sweats, Weight Change Eyes: Denies: Blurred vision, Cataracts, Conjunctivae Inflammation, Pain, Redness, Vision Change HEENT: Denies: Difficulty Hearing, Difficulty Swallowing, Head Aches, Hearing Changes, Sinus Congestion, Sinus Drainage Cardiovascular: Admits to occasional palpitations denies: Chest Pain, Orthopnea Respiratory: Denies: Cough, Shortness of breath at rest, Sputum production Gastrointestinal: Admits to abdominal Pain, Denies: Nausea, Vomiting Genitourinary: Denies: Dysuria Musculoskeletal: Denies: Joint Pain, Joint stiffness, Joint swelling, Joint Tenderness Skin: Denies: Rash, Wounds Neurological: Denies: Numbness, Tingling, Focal weakness Vital Signs Vital Signs Vital Signs: 01/18/21 13:00 01/18/21 15:00 Temperature 98.0 F Temperature Source Temporal Pulse Rate 67 125 H Respiratory Rate 16 15 Blood Pressure 131/67 H 94/72 Blood Pressure Mean 88 79 Pulse Ox 96 98 Oxygen Delivery Method Room Air Nasal Cannula Oxygen Flow Rate (L/min) 2 Weight Weight: 95.254 kg Body Mass Index (BMI) 39.6 Physical Exam Narrative Physical exam: General: Alert, Oriented x3, Cooperative, in mild distress, hard of hearing, mild dehydration HEENT: Atraumatic Oral: Dry oral mucosa Neck: Supple Lungs: Diminished to auscultation Cardiovascular: HS I+II, regular, no murmurs Abdomen: Bowel Sounds Present, Soft, Non Tender Extremities: No edema Results Lab / Micro Data Result Diagrams: 01/18/21 11:31 01/18/21 13:17 Labs: Laboratory Results - last 24 hr 01/18/21 11:31: WBC 9.0, RBC 4.60, Hgb 13.9, Hct 41.2, MCV 89.6, MCH 30.2, MCHC 33.7, RDW Std Deviation 40.6, RDW Coeff of [place] 12.3, Plt Count 151, MPV 9.7, Immature Gran % (Auto) 0.200, Neut % (Auto) 87.1 H, Lymph % (Auto) 8.2 L, [place] % (Auto) 3.5, Eos % (Auto) 0.7, Baso % (Auto) 0.3, Absolute Neuts (auto) 7.9 H, Absolute Lymphs (auto) 0.74 L, Nucleated RBC % 0 01/18/21 13:15: Lactic Acid 1.5 01/18/21 13:17: Sodium 135 L, Potassium 3.8, Chloride 100, Carbon Dioxide 26.0, Anion Gap 9, BUN 17, Creatinine 0.99, Estim Creat Clear Calc 34.77, Est GFR ( MDRD) Af Amer 70, Est GFR (MDRD) Non-Af 58 L, BUN/Creatinine Ratio 17.2, Glucose 206 H, Calcium 10.1, Total Bilirubin 1.00, AST 23, ALT 33, Alkaline Phosphatase 88, Troponin I High Sens 63 H, Total Protein 7.6, Albumin 3.6, Globulin 4.0, Albumin/Globulin Ratio 0.9, Lipase 87 Radiology Impression Gallbladder Ultrasound 01/18/21 13:35 IMPRESSION: Fatty infiltration of the liver. Multiple small gallstones. Electronically Signed: Alexey Villa MD at 15:03 EDT , Service support , Assessment & Plan Assessment/Plan (1) Abdominal pain: QUALIFIERS: Abdominal location: right lower quadrant Qualified Code(s): R10.31 - Right lower quadrant pain (2) Tachycardia: (3) Elevated troponin I level: PLAN: 1. Tachycardia, sudden onset; patient presented initially with normal sinus rhythm with heart rate in the 60s, Heart rate elevated and persistently in the 130s Patient with history of intermittent palpitations, follows with [place] [facility] EKG shows junctional rhythm, unclear of history of a flutter 2D echo done in July 2020 showed EF of 65%, stage I diastolic dysfunction, stable bioprosthetic aortic valve, mean aortic valve gradient was 10. D-dimer is pending, repeat EKG later, Check TSH, Magnesium Pain control, IV fluids 2. Acute abdominal pain, unclear etiology for now, Recent CT scans of the abdomen had shown 2 mm calculus that appeared to be chronic Multiple gallstones that appears to be incidental General surgery consulted from the ED CT of the abdomen and pelvis with oral contrast requested; will follow up on the 3. Acute indeterminant troponin, admitting troponin is 69, likely secondary to #1 Will trend troponins 4. Hypertension/history of TAVR/CAD/hyperlipidemia/history of cerebellar CVA with resultant hearing loss Continue on amlodipine, aspirin, atorvastatin, benazepril, hydrochlorothiazide 5. Type II DM, on Januvia and Metformin We will hold both and monitor with insulin sliding scale 6. Hypothyroidism, continue levothyroxine 7. Chronic back pain, receives injections with per Dr. Ernst Charges/Coding Visit Charges Inpatient E&M: 96518 Init Hosp L3
--- NOTE | 2021-01-18 16:05 | CON.PCM.SX_ITS ---
Assessment & Plan Assessment/Plan (1) Abdominal pain: QUALIFIERS: Abdominal location: right lower quadrant Qualified Code(s): R10.31 - Right lower quadrant pain PLAN: Patient is reporting right lower quadrant pain. She had ultrasound which showed gallstones but there is no thickening of the wall of the gallbladder and she does not have an elevated white count. Her gallstones are all very small. I reviewed her CT scan from 3 days ago and the appendix appeared normal at that time as did the gallbladder. At this time I believe the gallstones are an incidental finding as all of her pain is in the right lower quadrant. At this time I would recommend repeating a CT scan with oral contrast. Viktor Miller MD Pager: [facility] [address] [place] [address], [address] [place] [address] Office: HPI Consult Data Date of Consult: 01/18/21 HPI Narrative HPI Narrative: CORY CUELLO, is a 80 F who presents with right lower quadrant pain. Patient reports this pain started about a week ago when she had a CT scan 3 days ago in the emergency room which showed a possible right sided kidney stone. The patient was sent to urology and he believe this is not a kidney stone and she was sent back to the emergency room. Ultrasound did show gallstones. Patient reports all of her pain is in the right lower quadrant and she does report that she did have some vomiting. Pain is getting worse. No fev ers or chills. [facility] Medical History (Updated 01/18/21 @ 16:[address] Viktor Miller MD) Arthritis Basal cell carcinoma CVA (cerebral vascular accident) (01/2019) Depression Essential (primary) hypertension Glaucoma Darryl's disease Hyperlipemia Nonrheumatic aortic (valve) stenosis Obesity Skin lesion of face Sleep apnea Home Medications aspirin 81 mg PO DAILY@0800 03/18/14 [History Last Taken 09/27/16] oxybutynin chloride 10 mg PO DAILY 03/18/14 [History Last Taken Unknown] ergocalciferol (vitamin D2) 50,000 unit PO Q7D 10/03/14 [History Last Taken Unknown] latanoprost 1 drp EACH EYE QHS 10/03/14 [History Last Taken Unknown] escitalopram oxalate 10 mg PO DAILY 01/19/19 [History Last Taken Unknown] atorvastatin 80 mg PO QHS #30 tab 01/21/19 [Rx Last Taken Unknown] benazepril 20 mg PO BID #0 01/21/19 [Rx Last Taken 09/27/16] levothyroxine 75 mcg tablet 75 mcg PO DAILY 03/11/19 [History Last Taken Unknown] multivitamin 1 tab PO DAILY 02/24/20 [History Last Taken Unknown] oxygen-air delivery systems #1 07/05/20 [History Last Taken Unknown] selenium 50 mcg tablet 50 mcg PO DAILY 07/05/20 [History Last Taken Unknown] amlodipine 10 mg tablet 10 mg PO DAILY #90 tablet 07/21/20 [Rx Last Taken Unknown] hydrochlorothiazide 12.5 mg tablet 12.5 mg PO DAILY #90 tablet 07/21/20 [Rx Last Taken Unknown] metformin 500 mg tablet 500 tablet PO DAILY 08/28/20 [History Last Taken Unkn own] tizanidine 4 mg tablet ea PO 08/28/20 [History Last Taken Unknown] hydrocodone-acetaminophen 1 tab PO Q6H PRN 3 Days #12 tab 01/15/21 [Rx Last Taken Unknown] ondansetron HCl [Zofran] 4 mg PO Q6H PRN #14 tab 01/15/21 [Rx Last Taken Unknown] tamsulosin [Flomax] 0.4 mg PO DAILY #7 cap 01/15/21 [Rx Last Taken Unknown] Allergy/AdvReac Type Severity Reaction Status Date / Time iodine Allergy SEE Verified 01/18/21 13:02 COMMENTS Family History Mother CAD (coronary artery disease) Hypertension Surgical History H/O partial thyroidectomy History of bladder suspension procedure History of cervical spinal surgery History of hysterectomy History of right and left heart catheterization (09/27/16) 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 Bebeto Boss MD) Smoking Status: Never smoker alcohol intake: never ROS Constitutional Constitutional: Denies anorexia, fatigue or fever(s) ENT HEENT: Denies abnormal hearing Cardiovascular Cardiovascular: Reports palpitations; Denies chest pain Respiratory/Chest Respiratory/Chest: Denies cough Gastrointestinal Gastrointestinal: Reports abdominal pain, constipation and nausea; Denies diarrh ea or vomiting Physical Exam Const alert and oriented x3 HEENT normocephalic Resp normal respiratory effort Cardio Rate: regular rate Rhythm: regular rhythm GI soft to palpation Palpation: tender RLQ Lab / Micro Data Result Diagrams: 01/18/21 11:31 01/18/21 13:17 Labs: Laboratory Results - last 24 hr 01/18/21 11:31: WBC 9.0, RBC 4.60, Hgb 13.9, Hct 41.2, MCV 89.6, MCH 30.2, MCHC 33.7, RDW Std Deviation 40.6, RDW Coeff of [place]in[place] 12.3, Plt Count 151, MPV 9.7, Immature Gran % (Auto) 0.200, Neut % (Auto) 87.1 H, Lymph % (Auto) 8.2 L, [place] % (Auto) 3.5, Eos % (Auto) 0.7, Baso % (Auto) 0.3, Absolute Neuts (auto) 7.9 H, Absolute Lymphs (auto) 0.74 L, Nucleated RBC % 0 01/18/21 13:15: Lactic Acid 1.5 01/18/21 13:17: Sodium 135 L, Potassium 3.8, Chloride 100, Carbon Dioxide 26.0, Anion Gap 9, BUN 17, Creatinine 0.99, Estim Creat Clear Calc 34.77, Est GFR ( MDRD) Af Amer 70, Est GFR (MDRD) Non-Af 58 L, BUN/Creatinine Ratio 17.2, Glucose 206 H, Calcium 10.1, Total Bilirubin 1.00, AST 23, ALT 33, Alkaline Phosphatase 88, Troponin I High Sens 63 H, Total Protein 7.6, Albumin 3.6, Globulin 4.0, Albumin/Globulin Ratio 0.9, Lipase 87 Radiology Impression Gallbladder Ultrasound 01/18/21 13:35 IMPRESSION: Fatty infiltration of the liver. Multiple small gallstones. Electronically Signed: Alexey Villa MD at 15:03 EDT , Service support ,
[2021-01-18 16:15] LABS: Thyroid Stim Hormone (TSH) 2.96 uIU/mL (0.358-3.74)
[2021-01-18 16:50] LABS: Bedside Glucose 153 mg/dL (70-110)
--- NOTE | 2021-01-18 16:56 | PCS.PANDOC ---
PANDEMIC DOCUMENTATION INITIATED: Date: 12/04/2020 Time: 190
--- NOTE | 2021-01-18 17:12 | EKG12_ITS ---
Test Reason : CP Blood Pressure : / mmHG Vent. Rate : 061 BPM Atrial Rate : 061 BPM P-R Int : 164 ms QRS Dur : 096 ms QT Int : 478 ms P-R-T Axes : 051 -07 055 degrees QTc Int : 481 ms Normal sinus rhythm Normal ECG Confirmed by EBENEZER MAHARAJ, ADEN ([id number]), clinical editor NAKIA BARROS ([id number]) on 01/22/2021 7:57:28 AM Referred By: RU/BB Confirmed By:ADEN SOL MD
[2021-01-18] MEDS: 0.45% Normal Saline 1,000 ML 150 ML IV (17:13)
[2021-01-18] MEDS: Enoxaparin 40 MG/0.4 ML Syringe SC (17:30)
[2021-01-18 17:33] LABS: Troponin-I HS 68 pg/mL (3.0-54.0)
--- NOTE | 2021-01-18 18:05 | CT_ITS ---
EXAM: CT ABDOMEN AND PELVIS WITHOUT INTRAVENOUS CONTRAST CLINICAL INDICATION: abdominal pain TECHNIQUE: Helically acquired images were obtained of the abdomen and pelvis without intravenous contrast. This CT exam was performed using one or more of the following dose reduction techniques: automated exposure control, adjustment of the mA and/or kV according to patient size, and/or use of iterative reconstruction technique. This report was created using [employer] report generation technology. CONTRAST: Oral Gastrografin COMPARISON: 01/15/2021 FINDINGS: LOWER THORAX: Lower lobe pneumonia. There are coronary arterial calcifications. Prosthetic aortic valve. There is a hiatal hernia. No cardiomegaly. No significant pericardial effusion. ABDOMEN: LIVER: Stable hepatic cyst. GALLBLADDER AND BILE DUCTS: Multiple gallstones. No gallbladder distention or wall edema. No intra- or extrahepatic biliary ductal dilation. PANCREAS: Unremarkable. No focal cystic mass. SPLEEN: Unremarkable. Normal size without focal cystic or solid mass. ADRENALS: Unremarkable. No nodules. KIDNEYS AND URETERS: Ureteral calculi are no longer visualized. Mild hydronephrosis caused by mid left 2.4 mm ureteral stone. Normal renal size and position. STOMACH AND BOWEL: There is an umbilical hernia containing fat. There is no bowel involvement. There is no incarceration. There is no findings suggesting that this is causing a bowel obstruction. No focal inflammatory change. PELVIS: APPENDIX: No evidence of acute appendicitis. BLADDER: The urinary bladder is distended. This can suggest urinary retention. REPRODUCTIVE: Hysterectomy. ABDOMEN and PELVIS: INTRAPERITONEAL SPACE: Unremarkable. No ascites or other fluid collection. No free air. BONES/JOINTS: Degenerative findings in the lumbar spine. There is bilateral neural foraminal stenosis at L4-5 and L5-S1. No suspicious lytic or blastic abnormality. SOFT TISSUES: See above. VASCULATURE: There are calcifications of the abdominal aorta. This is consistent for atherosclerotic disease. There is no abdominal aortic aneurysm. LYMPH NODES: Unremarkable. No enlarged lymph nodes. CT/Abdomen/Pel W ORAL Cont Only IMPRESSION: 1. Lower lobe pneumonia. 2. Multiple gallstones. 3. Ureteral calculi are no longer visualized. 4. The urinary bladder is distended. This can suggest urinary retention. 5. Mild hydronephrosis caused by mid left 2.4 mm ureteral stone. Electronically Signed: Prashant Rushing MD at 19:06 EDT , Service support ,
[2021-01-18 20:39] LABS: D-Dimer Quantitative (DVT/PE) 0.49 FEU/ug/m (0.27-0.49)
[2021-01-18 20:47] LABS: Troponin-I HS 92 pg/mL (3.0-54.0)
[2021-01-18 22:05] LABS: Bedside Glucose 155 mg/dL (70-110)
[2021-01-18] MEDS: Atorvastatin Calcium 80 MG Tablet PO (22:29)
[2021-01-19] VITALS (12 sets, daily range): BP systolic 122–136; BP diastolic 64–92; PULSE 55–83; RESP 16–24; TEMP 36.6–36.9; O2SAT 94–98
[2021-01-19] MEDS: 0.45% Normal Saline 1,000 ML 150 ML IV ×4 (00:31→18:58)
[2021-01-19 03:33] LABS: Absolute Lymphocyte Count 1.73 X10^3/uL (0.83-4.51); Absolute Neutrophil Count 5.5 X10^3/uL (2.0-7.7); Basophil# 0.04 X10^3/uL; Basophil% 0.5 % (0-1); Eosinophil# 0.34 X10^3/uL; Eosinophils% 4.1 % (0-5); Hematocrit 40.6 % (37-47); Hemoglobin 13.5 g/dL (12.0-15.0); Lymphocyte # 1.73 X10^3/ul (0.83-4.51); Mean Corp Hgb Conc 33.3 g/dL (32-36); Mean Corpuscular Hgb 30.3 pg (27.0-32.0); Mean Platelet Vol. 9.4 fl (6.2-12.0); Monocyte# 0.65 X10^3/uL; Monocyte% 7.9 % (0-10); NRBC Flagged by Analyzer 0 % (0-5); Neutrophil # 5.45 X10^3/uL (2.7-7.7); Neutrophil % 66.3 % (47-70); Platelet Count 141 K/mm3 (150-450); RBC Distribution Width CV 12.3 % (11.6-14.6); RBC Distribution Width SD 40.8 fl (35.1-43.9); Red Blood Count 4.46 M/mm3 (4.2-5.4); White Blood Count 8.2 K/mm3 (4.4-11.0)
[2021-01-19 03:56] LABS: Troponin-I HS 138 pg/mL (3.0-54.0)
[2021-01-19 03:59] LABS: ALB/GLOB Ratio 0.9 RATIO (0.9-2.4); AST(SGOT) 15 U/L (15-37); Alanine Aminotransfer ALT/SGPT 29 U/L (13-56); Albumin, Serum 3.2 g/dL (3.2-5.0); Alkaline Phosphatase 83 U/L (45-117); Anion Gap 7 (5-15); BUN 12 mg/dL (7-18); BUN/Creat Ratio 15.9 RATIO (10-20); Calcium,Total 9.6 mg/dL (8.5-10.1); Chloride 105 mmol/L (98-107); Creatinine, Serum 0.75 mg/dL (0.55-1.02); EST Glomerular Filtration Rate 79 mL/min (>60); Est Glom Filt Rate - Afr Amer 95 mL/min (>60); Estimated Creatinine Clearance 34.42 ml/min; Globulin 3.6 g/dL (2.2-4.2); Glucose 129 mg/dL (74-106); Potassium 3.4 mmol/L (3.5-5.1); Protein, Total 6.8 g/dL (6.4-8.2); Sodium Level 139 mmol/L (136-145)
--- NOTE | 2021-01-19 05:07 | PN.SURG_ITS ---
Subjective Subjective Patient reports much improvement in her right lower quadrant pain. She says it feels odd this morning but does not specifically have sharp pain. Objective Data Objective Data Vital Signs: Vital Signs Temp Pulse Resp BP Pulse Ox 97.9 F 62 16 134/72 H 97 01/19/21 04:30 01/19/21 04:30 01/19/21 04:30 01/19/21 04:30 01/19/21 04:30 Oxygen Flow Rate (L/min) 2 Oxygen Delivery Method Nasal Cannula Weight: 214 lb 11.684 oz Body Mass Index (BMI) 40.1 Intake & Output: Intake and Output for Last 24 Hours 01/17/21 01/18/21 01/19/21 23:59 23:59 23:59 Intake Total 560.0 / 800.0 1140 / 1140 Output Total 1900 / 1900 Balance 560.0 / -1100.0 -760 / -760 Lab / Micro Data Result Diagrams: 01/19/21 03:10 01/19/21 03:10 Labs: Laboratory Results - last 24 hr 01/18/21 11:31: WBC 9.0, RBC 4.60, Hgb 13.9, Hct 41.2, MCV 89.6, MCH 30.2, MCHC 33.7, RDW Std Deviation 40.6, RDW Coeff of [place]in[place] 12.3, Plt Count 151, MPV 9.7, Immature Gran % (Auto) 0.200, Neut % (Auto) 87.1 H, Lymph % (Auto) 8.2 L, [place] % (Auto) 3.5, Eos % (Auto) 0.7, Baso % (Auto) 0.3, Absolute Neuts (auto) 7.9 H, Absolute Lymphs (auto) 0.74 L, Nucleated RBC % 0 01/18/21 13:15: Lactic Acid 1.5 01/18/21 13:17: Sodium 135 L, Potassium 3.8, Chloride 100, Carbon Dioxide 26.0, Anion Gap 9, BUN 17, Creatinine 0.99, Estim Creat Clear Calc 34.77, Est GFR (MDRD) Af Amer 70, Est GFR (MDRD) Non-Af 58 L, BUN/Creatinine Ratio 17.2, Glucose 206 H, Calcium 10.1, Total Bilirubin 1.00, AST 23, ALT 33, Alkaline Phosphatase 88, Troponin I High Sens 63 H, Total Protein 7.6, Albumin 3.6, Globulin 4.0, Albumin/Globulin Ratio 0.9, Lipase 87 01/18/21 13:17: TSH 2.96 01/18/21 16:37: POC Glucose 153 H 01/18/21 17:05: Troponin I High Sens 68 H 01/18/21 20:20: D-Dimer Quant (PE/DVT) 0.49 01/18/21 20:20: Magnesium 2.0, Troponin I High Sens 92 H 01/18/21 21:43: POC Glucose 155 H 01/19/21 03:10: WBC 8.2, RBC 4.46, Hgb 13.5, Hct 40.6, MCV 91.0, MCH 30.3, MCHC 33.3, RDW Std Deviation 40.8, RDW Coeff of [place]in[place] 12.3, Plt Count 141 L, MPV 9.4, Immature Gran % (Auto) 0.200, Neut % (Auto) 66.3, Lymph % (Auto) 21.0, [place] % (Auto) 7.9, Eos % (Auto) 4.1, Baso % (Auto) 0.5, Absolute Neuts (auto) 5.5, Absolute Lymphs (auto) 1.73, Nucleated RBC % 0 01/19/21 03:10: Sodium 139, Potassium 3.4 L, Chloride 105, Carbon Dioxide 27.0, Anion Gap 7, BUN 12, Creatinine 0.75, Estim Creat Clear Calc 34.42, Est GFR (MDRD) Af Amer 95, Est GFR (MDRD) Non-Af 79, BUN/Creatinine Ratio 15.9, Glucose 129 H, Calcium 9.6, Total Bilirubin 1.10 H, AST 15, ALT 29, Alkaline Phosphatase 83, Total Protein 6.8, Albumin 3.2, Globulin 3.6, Albumin/Globulin Ratio 0.9 01/19/21 03:10: Troponin I High Sens 138 H* Radiography Diagnostic Testing: Radiology Impression Gallbladder Ultrasound 01/18/21 13:35 IMPRESSION: Fatty infiltration of the liver. Multiple small gallstones. Electronically Signed: Alexey Villa MD at 15:03 EDT , Service support , Abdomen CT 01/18/21 18:05 IMPRESSION: 1. Lower lobe pneumonia. 2. Multiple gallstones. 3. Ureteral calculi are no longer visualized. 4. The urinary bladder is distended. This can suggest urinary retention. 5. Mild hydronephrosis caused by mid left 2.4 mm ureteral stone. Electronically Signed: Prashant Rushing MD at 19:06 EDT , Service support , Physical Exam Const no apparent distress Resp normal respiratory effort Cardio regular rate and regular rhythm GI soft to palpation and non-tender Assessment & Plan Assessment/Plan (1) Abdominal pain: QUALIFIERS: Abdominal location: right lower quadrant Qualified Code(s): R10.31 - Right lower quadrant pain PLAN: Patient was having a lot of right lower quadrant pain yesterday. This seems to have resolved. Patient had a repeat CT scan with oral contrast that did not show any pathology and there was no stranding around the gallbladder. The patient did have a severely distended bladder and after coming to the floor she did urinate 2 L from her bladder. It is possible that the bladder distention was causing her pain as she is only having some mild discomfort at this point. I do not believe there is any surgical intervention needed at this time and her gallstones were incidental. Viktor Miller MD Pager: [facility] [address] [place] [address], [address] [place] [address] Office:
[2021-01-19] MEDS: Levothyroxine 75 MCG Tablet PO (06:21)
[2021-01-19 06:30] LABS: Bedside Glucose 131 mg/dL (70-110)
[2021-01-19] MEDS: Potassium Chloride Oral Tablet 20 MEQ 40 MEQ PO (09:08)
[2021-01-19] MEDS: hydroCHLOROthiazide 12.5mg 12.5 MG PO (09:08)
--- NOTE | 2021-01-19 09:34 | ECHOD_ITS ---
Reason For Study: CAD, tachycardia Procedure This was a 2D Doppler, Color Flow transthoracic echocardiogram. Exam performed portable in patient room. Left Ventricle Normal left ventricle. The estimated ejection fraction is EF 55-60 %. Right Ventricle Normal right ventricle. Normal systolic function. Atria The left atrium is mildly enlarged. Mitral Valve There is moderate mitral annular calcification. Tricuspid Valve Normal tricuspid valve. Mild tricuspid valve insufficiency. Aortic Valve Normal Function of AV Bioprothesis LC 1.7 cm2 Mean grdient is 11.4 mmhg Max gradient is 24 mmhg. Pulmonic Valve The pulmonic valve is not well visualized. Great Vessels Normal aortic root. Pericardium/Pleural No pericardial effusion. Medication Negative bubble study on previous echo. MMode/2D Measurements & Calculations LVIDd: 4.0 cm IVSd: 1.2 cm LVOT diam: 1.8 cm LVIDs: 1.8 cm LVPWd: 1.2 cm RVDd: 3.3 cm FS: 55.3 % LVOT area: 2.6 cm2 Ao root diam: 3.1 cm LAV(MOD-bp): 64.0 ml LVAd ap4: 26.7 cm2 LAV(MOD-bp) Indexed: 32.9 ml/m2 LVLd ap4: 7.5 cm LAV(MOD-sp2): 64.7 ml EDV(MOD-sp4): 78.9 ml LAV(MOD-sp4): 52.7 ml EDV(sp4-el): 81.0 ml LVAs ap4: 12.3 cm2 LVLs ap4: 6.5 cm ESV(MOD-sp4): 20.0 ml ESV(sp4-el): 19.6 ml EF(MOD-sp4): 74.6 % EF(sp4-el): 75.8 % LVAd ap2: 26.4 cm2 SV(MOD-sp4): 58.9 ml SV(MOD-sp2): 61.3 ml LVLd ap2: 7.5 cm EDV(MOD-sp2): 80.3 ml EDV(sp2-el): 78.6 ml LVAs ap2: 11.6 cm2 LVLs ap2: 6.4 cm ESV(MOD-sp2): 19.0 ml ESV(sp2-el): 17.8 ml EF(MOD-sp2): 76.3 % SV(sp4-el): 61.4 ml LA dimension(2D): 4.4 cm LA A4 area: 18.7 cm2 RA A4 area: 14.3 cm2 Doppler Measurements & Calculations MV E max emil: 151.1 cm/sec Lat Peak E' Emil: 5.7 cm/sec Med Peak E' Emil: 4.1 cm/sec MV A max emil: 172.1 cm/sec E/E' lat: 26.6 E/E' med: 37.1 MV E/A: 0.88 MV V2 max: 188.0 cm/sec MV P1/2t max emil: 140.4 cm/sec Ao V2 max: 244.9 cm/sec MV max P.1 mmHg MV P1/2t: 126.3 msec Ao max P.0 mmHg MV V2 mean: 98.2 cm/sec Ao V2 mean: 158.3 cm/sec MV mean P.5 mmHg MV dec slope: 325.5 cm/sec2 Ao mean P.4 mmHg MV V2 VTI: 57.8 cm MVA(P1/2t): 1.7 cm2 Ao V2 VTI: 57.4 cm MVA(VTI): 1.6 cm2 LC(I,D): 1.7 cm2 LC(V,D): 1.5 cm2 LV V1 max: 144.4 cm/sec SV(LVOT): 95.4 ml TV V2 max: 271.1 cm/sec LV V1 max P.4 mmHg TV max P.4 mmHg LV V1 mean P.2 mmHg LV V1 mean: 96.7 cm/sec LV V1 VTI: 36.3 cm PA V2 max: 97.3 cm/sec TR max emil: 291.9 cm/sec TR max P.2 mmHg ECHO/Echo Complete Interpretation Summary The estimated ejection fraction is EF 55-60 %. Normal Function of AV Bioprothesis LC 1.7 cm2 Mean grdient is 11.4 mmhg Max gradient is 24 mmhg Mild TR Ordering Physician: Mariela Keita Referring Physician: Sunil Adamson MD Performed By: Rhona Pickett RDCS
--- NOTE | 2021-01-19 10:01 | PCM.CONS.C ---
Documented by User: Mariela COTTO PA 01/19/21 10:42 Assessment & Plan Assessment/Plan (1) Elevated troponin I level: (2) Nonrheumatic aortic (valve) stenosis: (3) History of transcatheter aortic valve replacement (TAVR): (4) Essential (primary) hypertension: (5) Hyperlipemia: (6) Tachycardia: PLAN: differential on tachycardia is AVNRT vs Junctional tachycardia with a HR of 130, suspect pt has been having an increase in these episodes. Will start low dose beta brigette and monitor HR as she does trend on the lower end. Pt does have elevated troponin, she has been having increase need for TUMS. This could be an anginal component. Elevated troponin are related to to tachycardia. Will start her on Heparin and stop Lovenox. Will obtain a stress test and echo. If stress test is positive will then proceed with heart cath. If stress test is negative will then send home on event monitor to further evaluate rhythm. She may need EP consult in future. will continue to monitor BP reading and adjust if need be. will continue with her statin for her hyperlipidemia HPI Consult Data Date of Consult: 01/19/21 HPI Narrative HPI Narrative: CORY CUELLO, is a 80 F who presented to the ER on 01/18/21 for RLQ pain. 4 days earlier she in in the ER for abdominal pain, pain was thought to be related to a kidney stone. She presented back to the ER for further evaluation for the pain. monitoring engineer did demonstrate intermittent AVNRT vs accelerated junctional rhythm with HRs of 130 at times. Troponins were cycled and noted to be elevated with upwards trending. She does have a hx of HTN, hyperlipidemia, aortic stenosis with TAVR in 2018, CVA and KASEY. Pt notes that over the last few months she has noted an increase in palpitations. She notes that these feel different than before. She notes that she has been needing to use more TUMS for heart burn that helps sometimes. She is also focused on her overall pain. She notes that she does have balance issues and does sometimes fall. Her heart cath done prior to her TAVR did not demonstrate any significant CAD. Her EF at that time was 65% [facility] Medical History (Updated 01/19/21 @ 10:28 by Mariela COTTO, PA) Arthritis Basal cell carcinoma CVA (cerebral vascular accident) (01/2019) Depression Essential (primary) hypertension Glaucoma Darryl's disease Hyperlipemia Nonrheumatic aortic (valve) stenosis Obesity Skin lesion of face Sleep apnea Tachycardia Home Medications aspirin 81 mg PO DAILY@0800 03/18/14 [History Last Taken 01/17/21] oxybutynin chloride 10 mg PO DAILY 03/18/14 [History Last Taken 01/17/21] ergocalciferol (vitamin D2) 50,000 unit PO MO 10/03/14 [History Last Taken 01/16/21] latanoprost 1 drp EACH EYE QHS 10/03/14 [History Last Taken 01/17/21] escitalopram oxalate 10 mg PO DAILY 01/19/19 [History Last Taken 01/17/21] levothyroxine 75 mcg tablet 75 mcg PO DAILY 03/11/19 [History Last Taken 01/18/21] multivitamin 1 tab PO DAILY 02/24/20 [History Last Taken 01/17/21] selenium 50 mcg tablet 50 mcg PO DAILY 07/05/20 [History Last Taken 01/18/21] metformin 500 mg tablet 500 tablet PO DAILY 08/28/20 [History Last Taken 01/17/21] hydrocodone-acetaminophen 1 tab PO Q6H PRN 3 Days #12 tab 01/15/21 [Rx Last Taken 01/18/21] ondansetron HCl [Zofran] 4 mg PO Q6H PRN #14 tab 01/15/21 [Rx Last Taken 01/17/21] acetaminophen 500 mg PO DAILY PRN 01/18/21 [History Last Taken 01/18/21] amlodipine 10 mg PO DAILY 01/18/21 [History Last Taken 01/17/21] atorvastatin 80 mg PO QHS 01/18/21 [History Last Taken 01/17/21] benazepril 20 mg PO BID 01/18/21 [History Last Taken 01/17/21] calcium carbonate [Tums 500] 500 - 1,000 mg PO Q6H PRN PRN 01/18/21 [History Last Taken 01/17/21] glipizide 5 mg PO DAILY 01/18/21 [History Last Taken 01/17/21] hydrochlorothiazide 12.5 mg PO DAILY 01/18/21 [History Last Taken 01/18/21] sitagliptin [Januvia] 50 mg PO DAILY 01/18/21 [History Last Taken 01/17/21] tamsulosin [Flomax] 0.4 mg PO DAILY 01/18/21 [History Last Taken 01/17/21] Allergy/AdvReac Type Severity Reaction Status Date / Time iodine Allergy SEE Verified 01/18/21 13:02 COMMENTS Family History Mother CAD (coronary artery disease) Hypertension Cancer Leukemia Father Diabetes Alcoholism Surgical History H/O partial thyroidectomy History of bladder suspension procedure History of cervical spinal surgery History of hysterectomy History of right and left heart catheterization (09/27/16) 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) Social History Smoking Status: Never smoker alcohol intake: never ROS Constitutional Constitutional: Reports body ache(s), frequent falls, poor appetite and weakness Eyes Eyes: Reports systems reviewed and no addt'l complaints, except as documented ENT HEENT: Reports hearing loss Cardiovascular Cardiovascular: Reports chest pain and palpitations Respiratory/Chest Respiratory/Chest: Reports systems reviewed and no addt'l complaints, except as documented Gastrointestinal Gastrointestinal: Reports abdominal pain Genitourinary Genitourinary: Reports systems reviewed and no addt'l complaints, except as documented Musculoskeletal Musculoskeletal: Reports arthralgias, back pain, difficulty walking and myalgias Neurologic Neurologic: Reports systems reviewed and no addt'l complaints, except as documented Physical Exam Const alert, oriented x3, no apparent distress and average body habitus HEENT normocephalic, head/scalp atraumatic, nasal mucous membranes and turbinates normal and moist oral mucous membranes General Ear: hearing grossly impaired Eyes PERRL, EOMs intact bilaterally, conjunctivae normal and no scleral icterus Neck full ROM, nuchal rigidity, no lymphadenopathy and no JVD Resp normal respiratory effort, normal air movement, no use of accessory muscles and clear to auscultation bilaterally Cardio regular rate, regular rhythm, S1 normal heart sound, S2 normal heart sound, no murmurs, no rub, no gallops, no clicks, no JVD and peripheral pulses 2+ throughout GI normal to inspection, nondistended, normoactive bowel sounds, soft to palpation, non-tender and non-distended Extremity normal to inspection, full ROM, normal capillary refill, no joint enlargement and no clubbing, cyanosis or edema Neuro oriented x3, CN's II-XII intact bilaterally, moves all extremities, no focal motor deficits and no sensory deficits noted Charges/Coding Visit Charges Office Visits / Consults: [id number] IP Consult L4 Objective Data Vital Signs: Vital Signs Temp Pulse Resp BP Pulse Ox 98.1 F 63 16 136/64 H 94 01/19/21 09:06 01/19/21 09:06 01/19/21 09:06 01/19/21 09:06 01/19/21 09:06 Oxygen Flow Rate (L/min) 2 Oxygen Delivery Method Nasal Cannula Weight: 214 lb 11.684 oz Body Mass Index (BMI) 40.1 Intake & Output: Intake and Output for Last 24 Hours 01/17/21 01/18/21 01/19/21 23:59 23:59 23:59 Intake Total 560.0 / 800.0 2135 / 2135 Output Total 2700 / 2700 Balance 560.0 / -1100.0 -565 / -565 Lab / Micro Data Result Diagrams: 01/19/21 03:10 01/19/21 03:10 Labs: Laboratory Results - last 24 hr 01/18/21 11:31: WBC 9.0, RBC 4.60, Hgb 13.9, Hct 41.2, MCV 89.6, MCH 30.2, MCHC 33.7, RDW Std Deviation 40.6, RDW Coeff of [place] 12.3, Plt Count 151, MPV 9.7, Immature Gran % (Auto) 0.200, Neut % (Auto) 87.1 H, Lymph % (Auto) 8.2 L, [place] % (Auto) 3.5, Eos % (Auto) 0.7, Baso % (Auto) 0.3, Absolute Neuts (auto) 7.9 H, Absolute Lymphs (auto) 0.74 L, Nucleated RBC % 0 01/18/21 13:15: Lactic Acid 1.5 01/18/21 13:17: Sodium 135 L, Potassium 3.8, Chloride 100, Carbon Dioxide 26.0, Anion Gap 9, BUN 17, Creatinine 0.99, Estim Creat Clear Calc 34.77, Est GFR (MDRD) Af Amer 70, Est GFR (MDRD) Non-Af 58 L, BUN/Creatinine Ratio 17.2, Glucose 206 H, Calcium 10.1, Total Bilirubin 1.00, AST 23, ALT 33, Alkaline Phosphatase 88, Troponin I High Sens 63 H, Total Protein 7.6, Albumin 3.6, Globulin 4.0, Albumin/Globulin Ratio 0.9, Lipase 87 01/18/21 13:17: TSH 2.96 01/18/21 16:37: POC Glucose 153 H 01/18/21 17:05: Troponin I High Sens 68 H 01/18/21 20:20: D-Dimer Quant (PE/DVT) 0.49 01/18/21 20:20: Magnesium 2.0, Troponin I High Sens 92 H 01/18/21 21:43: POC Glucose 155 H 01/19/21 03:10: WBC 8.2, RBC 4.46, Hgb 13.5, Hct 40.6, MCV 91.0, MCH 30.3, MCHC 33.3, RDW Std Deviation 40.8, RDW Coeff of [place] 12.3, Plt Count 141 L, MPV 9.4, Immature Gran % (Auto) 0.200, Neut % (Auto) 66.3, Lymph % (Auto) 21.0, [place] % (Auto) 7.9, Eos % (Auto) 4.1, Baso % (Auto) 0.5, Absolute Neuts (auto) 5.5, Absolute Lymphs (auto) 1.73, Nucleated RBC % 0 01/19/21 03:10: Sodium 139, Potassium 3.4 L, Chloride 105, Carbon Dioxide 27.0, Anion Gap 7, BUN 12, Creatinine 0.75, Estim Creat Clear Calc 34.42, Est GFR (MDRD) Af Amer 95, Est GFR (MDRD) Non-Af 79, BUN/Creatinine Ratio 15.9, Glucose 129 H, Calcium 9.6, Total Bilirubin 1.10 H, AST 15, ALT 29, Alkaline Phosphatase 83, Total Protein 6.8, Albumin 3.2, Globulin 3.6, Albumin/Globulin Ratio 0.9 01/19/21 03:10: Troponin I High Sens 138 H* 01/19/21 06:20: POC Glucose 131 H Cardiology Labs/Tests 01/18/21 11:31: WBC 9.0, RBC 4.60, Hgb 13.9, Hct 41.2, MCV 89.6, MCH 30.2, MCHC 33.7, Plt Count 151, MPV 9.7, Immature Gran % (Auto) 0.200, Neut % (Auto) 87.1 H, Lymph % (Auto) 8.2 L, [place] % (Auto) 3.5, Eos % (Auto) 0.7, Baso % (Auto) 0.3, Absolute Neuts (auto) 7.9 H, Nucleated RBC % 0 01/18/21 13:15: Lactic Acid 1.5 01/18/21 13:17: Sodium 135 L, Potassium 3.8, Chloride 100, Carbon Dioxide 26.0, Anion Gap 9, BUN 17, Creatinine 0.99, Est GFR (MDRD) Af Amer 70, Est GFR (MDRD) Non-Af 58 L, BUN/Creatinine Ratio 17.2, Glucose 206 H, Calcium 10.1, Total Bilirubin 1.00 01/18/21 20:20: D-Dimer Quant (PE/DVT) 0.49 01/18/21 20:20: Magnesium 2.0 01/19/21 03:10: WBC 8.2, RBC 4.46, Hgb 13.5, Hct 40.6, MCV 91.0, MCH 30.3, MCHC 33.3, Plt Count 141 L, MPV 9.4, Immature Gran % (Auto) 0.200, Neut % (Auto) 66.3, Lymph % (Auto) 21.0, [place] % (Auto) 7.9, Eos % (Auto) 4.1, Baso % (Auto) 0.5, Absolute Neuts (auto) 5.5, Nucleated RBC % 0 01/19/21 03:10: Sodium 139, Potassium 3.4 L, Chloride 105, Carbon Dioxide 27.0, Anion Gap 7, BUN 12, Creatinine 0.75, Est GFR (MDRD) Af Amer 95, Est GFR (MDRD) Non-Af 79, BUN/Creatinine Ratio 15.9, Glucose 129 H, Calcium 9.6, Total Bilirubin 1.10 H Rhythm: SR, Sinus naga and periods of AVRT vs junctional tachycardia EKG: SR Radiography Diagnostic Testing: Radiology Impression Gallbladder Ultrasound 01/18/21 13:35 IMPRESSION: Fatty infiltration of the liver. Multiple small gallstones. Electronically Signed: Alexey Villa MD at 15:03 EDT , Service support , Abdomen CT 01/18/21 18:05 IMPRESSION: 1. Lower lobe pneumonia. 2. Multiple gallstones. 3. Ureteral calculi are no longer visualized. 4. The urinary bladder is distended. This can suggest urinary retention. 5. Mild hydronephrosis caused by mid left 2.4 mm ureteral stone. Electronically Signed: Prashant Rushing MD at 19:06 EDT , Service support , Documented by User: Dr. Min Narvaez MD 01/19/21 17:08 Assessment & Plan Assessment/Plan (1) Elevated troponin I level: (2) Nonrheumatic aortic (valve) stenosis: (3) History of transcatheter aortic valve replacement (TAVR): (4) Essential (primary) hypertension: (5) Intermittent palpitations: (6) CVA (cerebral vascular accident): PLAN: I saw this patient at bedside along with the midlevel examined the patient review all the current data And agree with the current plan of management as documented. Patient with TAVR palpitation and epigastric chest pain with a history of hiatus hernia and a mild elevation of cardiac biomarkers/high sensitive troponin We will proceed with evaluation with Persantine sestamibi and discuss further plan and cardiac recommendation. HPI Consult Data Date of Consult: 01/19/21 [facility] Medical History (Updated 01/19/21 @ 10:28 by Mariela COTTO, PA) Arthritis Basal cell carcinoma CVA (cerebral vascular accident) (01/2019) Depression Essential (primary) hypertension Glaucoma Darryl's disease Hyperlipemia Nonrheumatic aortic (valve) stenosis Obesity Skin lesion of face Sleep apnea Tachycardia Home Medications aspirin 81 mg PO DAILY@0800 03/18/14 [History Last Taken 01/17/21] oxybutynin chloride 10 mg PO DAILY 03/18/14 [History Last Taken 01/17/21] ergocalciferol (vitamin D2) 50,000 unit PO MO 10/03/14 [History Last Taken 01/16/21] latanoprost 1 drp EACH EYE QHS 10/03/14 [History Last Taken 01/17/21] escitalopram oxalate 10 mg PO DAILY 01/19/19 [History Last Taken 01/17/21] levothyroxine 75 mcg tablet 75 mcg PO DAILY 03/11/19 [History Last Taken 01/18/21] multivitamin 1 tab PO DAILY 02/24/20 [History Last Taken 01/17/21] selenium 50 mcg tablet 50 mcg PO DAILY 07/05/20 [History Last Taken 01/18/21] metformin 500 mg tablet 500 tablet PO DAILY 08/28/20 [History Last Taken 01/17/21] hydrocodone-acetaminophen 1 tab PO Q6H PRN 3 Days #12 tab 01/15/21 [Rx Last Taken 01/18/21] ondansetron HCl [Zofran] 4 mg PO Q6H PRN #14 tab 01/15/21 [Rx Last Taken 01/17/21] acetaminophen 500 mg PO DAILY PRN 01/18/21 [History Last Taken 01/18/21] amlodipine 10 mg PO DAILY 01/18/21 [History Last Taken 01/17/21] atorvastatin 80 mg PO QHS 01/18/21 [History Last Taken 01/17/21] benazepril 20 mg PO BID 01/18/21 [History Last Taken 01/17/21] calcium carbonate [Tums 500] 500 - 1,000 mg PO Q6H PRN PRN 01/18/21 [History Last Taken 01/17/21] glipizide 5 mg PO DAILY 01/18/21 [History Last Taken 01/17/21] hydrochlorothiazide 12.5 mg PO DAILY 01/18/21 [History Last Taken 01/18/21] sitagliptin [Januvia] 50 mg PO DAILY 01/18/21 [History Last Taken 01/17/21] tamsulosin [Flomax] 0.4 mg PO DAILY 01/18/21 [History Last Taken 01/17/21] Allergy/AdvReac Type Severity Reaction Status Date / Time iodine Allergy SEE Verified 01/18/21 13:02 COMMENTS Family History Mother CAD (coronary artery disease) Hypertension Cancer Leukemia Father Diabetes Alcoholism Surgical History H/O partial thyroidectomy History of bladder suspension procedure History of cervical spinal surgery History of hysterectomy History of right and left heart catheterization (09/27/16) 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) Social History Smoking Status: Never smoker alcohol intake: never Lab / Micro Data Result Diagrams: 01/19/21 03:10 01/19/21 03:10
[2021-01-19] MEDS: Metoprolol Tartrate 25 MG Tablet 12.5 MG PO ×2 (11:04→21:22)
[2021-01-19 11:16] LABS: Bedside Glucose 140 mg/dL (70-110)
--- NOTE | 2021-01-19 12:02 | CASEMGMT ---
JAMI FOLEY assessment: Face to Face with patient for initial transition planning/care coordination assessment. JAMI FOLEY introduced self and role at [facility], pt voices understanding and consents to assessment. Pt is sitting up in bed in no distress on 2L nc. Pt is A/Ox4 and answers all questions appropriately. Care providers, pharmacy, and demographics verified. Presentation: Pt c/o abd pain and recent flank pain but told no kidney stone Admitting dx: Tachy, abd pain PCP: Juan Diego Specialists: Gera, cardio; Klever, PM; Tayler uro; Martha, ENT; Sepideh, neuro; Cristhian, pod; Rena Lopez-dental Preferred Pharmacy: [facility] Insurance: [employer] Prescription Benefit: [employer] Living Will/HPOA: Pt has LW/HPOA and is aware that they are on file at [facility]. Pt states his daughter, Jessica Jimenez, is HPOA. LNOK: Jessica Jimenez, daughter/HPOA Living Arrangements: Pt states son lives with her in mobile home with modified steps in and states no concerns at home. Pt states is independent with ADL's. Transportation: Pt states drives self and states no transportation concerns. DME/HHC: Pt states has the following DME: canex2, quad cane, walker, rollator, BP cuff, and cpap. Pt states no need for any further DME. Pt states plan is to work on remodeling to have [place] shower also. Pt states has had HHC in the past but has not been to SNF. Pt states no concerns with going home at time of discharge. Pt is retired. Pt states does not smoke but son does smoke outside home and states does not drink ETOH. Pt states no further concerns/needs. CM to follow for PT/OT evals and any further discharge planning/needs. Advised pt to ask for CM if any further questions/concerns/needs arise, voices understanding. Pt Goal: Home Plan[place] JAMI FOLEY
--- NOTE | 2021-01-19 12:16 | PN.HOSP_ITS ---
Documented by User: Isaias COTTO 01/19/21 12:36 Subjective Subjective Patient is a 80-year-old female comfortably resting in bed, alert and orient x3. Patient denies any ongoing abdominal pain or chest discomfort. Denies development of any new symptoms overnight. Objective Data Objective Data Vital Signs: Vital Signs Temp Pulse Resp BP Pulse Ox 98.1 F 66 16 133/66 H 95 01/19/21 11:01 01/19/21 11:04 01/19/21 11:01 01/19/21 11:04 01/19/21 11:01 Oxygen Flow Rate (L/min) 2 Oxygen Delivery Method Nasal Cannula Weight: 214 lb 11.684 oz Body Mass Index (BMI) 40.1 Intake & Output: Intake and Output for Last 24 Hours 01/17/21 01/18/21 01/19/21 23:59 23:59 23:59 Intake Total 560.0 / 800.0 2135 / 2135 Output Total 2700 / 2700 Balance 560.0 / -1100.0 -565 / -565 Lab / Micro Data Result Diagrams: 01/19/21 03:10 01/19/21 03:10 Labs: Laboratory Results - last 24 hr 01/18/21 11:31: WBC 9.0, RBC 4.60, Hgb 13.9, Hct 41.2, MCV 89.6, MCH 30.2, MCHC 33.7, RDW Std Deviation 40.6, RDW Coeff of [place] 12.3, Plt Count 151, MPV 9.7, Immature Gran % (Auto) 0.200, Neut % (Auto) 87.1 H, Lymph % (Auto) 8.2 L, [place] % (Auto) 3.5, Eos % (Auto) 0.7, Baso % (Auto) 0.3, Absolute Neuts (auto) 7.9 H, Absolute Lymphs (auto) 0.74 L, Nucleated RBC % 0 01/18/21 13:15: Lactic Acid 1.5 01/18/21 13:17: Sodium 135 L, Potassium 3.8, Chloride 100, Carbon Dioxide 26.0, Anion Gap 9, BUN 17, Creatinine 0.99, Estim Creat Clear Calc 34.77, Est GFR (MDRD) Af Amer 70, Est GFR (MDRD) Non-Af 58 L, BUN/Creatinine Ratio 17.2, Glucose 206 H, Calcium 10.1, Total Bilirubin 1.00, AST 23, ALT 33, Alkaline Phosphatase 88, Troponin I High Sens 63 H, Total Protein 7.6, Albumin 3.6, Globulin 4.0, Albumin/Globulin Ratio 0.9, Lipase 87 01/18/21 13:17: TSH 2.96 01/18/21 16:37: POC Glucose 153 H 01/18/21 17:05: Troponin I High Sens 68 H 01/18/21 20:20: D-Dimer Quant (PE/DVT) 0.49 01/18/21 20:20: Magnesium 2.0, Troponin I High Sens 92 H 01/18/21 21:43: POC Glucose 155 H 01/19/21 03:10: WBC 8.2, RBC 4.46, Hgb 13.5, Hct 40.6, MCV 91.0, MCH 30.3, MCHC 33.3, RDW Std Deviation 40.8, RDW Coeff of [place] 12.3, Plt Count 141 L, MPV 9.4, Immature Gran % (Auto) 0.200, Neut % (Auto) 66.3, Lymph % (Auto) 21.0, [place] % (Auto) 7.9, Eos % (Auto) 4.1, Baso % (Auto) 0.5, Absolute Neuts (auto) 5.5, Absolute Lymphs (auto) 1.73, Nucleated RBC % 0 01/19/21 03:10: Sodium 139, Potassium 3.4 L, Chloride 105, Carbon Dioxide 27.0, Anion Gap 7, BUN 12, Creatinine 0.75, Estim Creat Clear Calc 34.42, Est GFR (MDRD) Af Amer 95, Est GFR (MDRD) Non-Af 79, BUN/Creatinine Ratio 15.9, Glucose 129 H, Calcium 9.6, Total Bilirubin 1.10 H, AST 15, ALT 29, Alkaline Phosphatase 83, Total Protein 6.8, Albumin 3.2, Globulin 3.6, Albumin/Globulin Ratio 0.9 01/19/21 03:10: Troponin I High Sens 138 H* 01/19/21 06:20: POC Glucose 131 H 01/19/21 11:00: POC Glucose 140 H Radiography Diagnostic Testing: Radiology Impression Gallbladder Ultrasound 01/18/21 13:35 IMPRESSION: Fatty infiltration of the liver. Multiple small gallstones. Electronically Signed: Alexey Villa MD at 15:03 EDT , Service support , Abdomen CT 01/18/21 18:05 IMPRESSION: 1. Lower lobe pneumonia. 2. Multiple gallstones. 3. Ureteral calculi are no longer visualized. 4. The urinary bladder is distended. This can suggest urinary retention. 5. Mild hydronephrosis caused by mid left 2.4 mm ureteral stone. Electronically Signed: Prashant Rushing MD at 19:06 EDT , Service support , Physical Exam Const alert, oriented x3 and no apparent distress HEENT head/scalp atraumatic, moist oral mucous membranes and oropharynx normal Head and Scalp: normocephalic Eyes PERRL, EOMs intact bilaterally and conjunctivae normal Neck no lymphadenopathy, supple and no JVD Resp normal respiratory effort, no retractions, no use of accessory muscles and clear to auscultation bilaterally Cardio regular rate, regular rhythm, no murmurs and no JVD Peripheral Pulses: pulses 2+ throughout GI normal to inspection, nondistended, normoactive bowel sounds, soft to palpation and non-tender Extremity normal to inspection, full ROM and no clubbing, cyanosis or edema Peripheral Pulses: Yes pulses 2+ throughout Skin no rashes or lesions noted and no jaundice Neuro CN's II-XII intact bilaterally Psych affect normal Assessment & Plan Assessment/Plan (1) Tachycardia: (2) Abdominal pain: QUALIFIERS: Abdominal location: right lower quadrant Qualified Code(s): R10.31 - Right lower quadrant pain (3) Elevated troponin I level: PLAN: Day 1 Discharge planning: Current plan is for patient to be discharged home when medically ready, case management following. 1) Elevated troponins Patient is without any complaints of chest pain or shortness of breath. High- sensitivity troponins elevated at 63, 68, 92 and 138. EKG demonstrated a junctional rhythm. Cardiology consulted, recommends stress test in a.m. and to obtain new echocardiogram. Echocardiogram from July 2020 demonstrated an EF of 65% and stage I diastolic dysfunction. TSH magnesium within normal limits. Plan; obtain echo and stress test as above, beta-brigette initiated per cardiology, continue statin, initiate on heparin drip per cardiology. 2) tachycardia Cardiology consulted currently considering between AVNRT versus a junctional tachycardia. Plan; as above. 3) acute abdominal pain CT of the abdomen demonstrated chronic left 2 mm calculus, multiple gallstones and distended urinary bladder. Pain is currently resolved. General surgery consulted, no surgical intervention indicated at this time. Plan; continue to m onitor. 4) DM2 Hold home Januvia and Metformin, continue Accu-Cheks with sliding scale insulin. 5) hypothyroidism Continue Synthroid. 6) HTN Stable, continue hydrochlorothiazide, hold amlodipine and Benzapril. 7) CAD with history of TAVR Continue aspirin and atorvastatin. DVT prophylaxis -not indicated, currently on heparin drip. Patient seen by Isaias Silva PA-C, under the supervision of Dr. Romo. Documented by User: Dr. Sunil Romo, 01/19/21 15:53 Subjective Subjective Abdominal pain improved, but dull Objective Data Lab / Micro Data Result Diagrams: 01/19/21 03:10 01/19/21 03:10 Physical Exam Const alert Resp normal respiratory effort, no retractions, no use of accessory muscles and clear to auscultation bilaterally Cardio regular rate, regular rhythm, S1 normal heart sound and S2 normal heart sound GI normal to inspection, nondistended, normoactive bowel sounds, soft to palpation, non-tender and non-distended Extremity normal to inspection Assessment & Plan Assessment/Plan (1) Tachycardia: (2) Elevated troponin I level: PLAN: Patient seen and examined independently. Data and vitals reviewed. I agree with the above note by the physician assistant professor of theater. 1. Non-STEMI Troponins drifted up slightly May be due to tachycardia Cardiology on consult Stress test ordered On heparin drip 2. Tachycardia Seen by cardiology: Suspecting AVNRT versus junctional Currently resolved at present. 3. Abdominal pain Ongoing but improved Seen by general surgery who suspect is partly with bladder distention Check bladder scan Charges/Coding Visit Charges Inpatient E&M: 16306 Subs Hosp L2
[2021-01-19 12:27] LABS: International Normalized Ratio 1.1; Partial Thromboplast Time 31.5 Seconds (24.1-36.2); Prothrombin Time (Protime)PT. 13.3 SECONDS (11.7-14.9)
[2021-01-19] MEDS: HEPARIN/D5w 25,000 UNITS 25,000 UNITS/250 ML IV.SOLN. 14 UNITS IV (13:18)
--- NOTE | 2021-01-19 15:08 | NURSING ---
Read and reviewed SN documentation. Reviewed plan of care with SN.
[2021-01-19 16:01] LABS: Bedside Glucose 155 mg/dL (70-110)
[2021-01-19] MEDS: Acetaminophen 325 MG Tablet 650 MG PO ×2 (17:05→23:26)
[2021-01-19] MEDS: Tamsulosin HCl 0.4 MG Capsule PO (17:06)
[2021-01-19 21:08] LABS: Partial Thromboplast Time 119.6 Seconds (24.1-36.2)
[2021-01-19] MEDS: Atorvastatin Calcium 80 MG Tablet PO (21:24)
[2021-01-19 22:05] LABS: Bedside Glucose 120 mg/dL (70-110)
[2021-01-20] VITALS (8 sets, daily range): BP systolic 111–132; BP diastolic 61–77; PULSE 50–64; RESP 16–18; TEMP 36.4–37.1; O2SAT 95–96
[2021-01-20] MEDS: 0.45% Normal Saline 1,000 ML 150 ML IV ×2 (01:38→11:00)
[2021-01-20] MEDS: 0.9% Saline Lock 10 ML Syringe IV (02:29)
[2021-01-20] MEDS: Morphine 2 MG/ML Syringe IV (02:29)
--- NOTE | 2021-01-20 05:27 | EKG12_ITS ---
Test Reason : AM Blood Pressure : / mmHG Vent. Rate : 055 BPM Atrial Rate : 055 BPM P-R Int : 154 ms QRS Dur : 082 ms QT Int : 480 ms P-R-T Axes : 020 -14 039 degrees QTc Int : 459 ms Sinus bradycardia Low voltage QRS Borderline ECG When compared with ECG of 18-JAN-2021 17:05, MANUAL COMPARISON REQUIRED, DATA IS UNCONFIRMED Confirmed by EBENEZER MAHARAJ, ADEN ([id number]), senior technical editor NAKIA BARROS ([id number]) on 01/22/2021 12:58:12 PM Referred By: DAE Confirmed By:ADEN SOL MD
--- NOTE | 2021-01-20 05:30 | EKG12_ITS ---
Test Reason : ELV TROP Blood Pressure : / mmHG Vent. Rate : 071 BPM Atrial Rate : 071 BPM P-R Int : 178 ms QRS Dur : 086 ms QT Int : 438 ms P-R-T Axes : 049 -08 044 degrees QTc Int : 475 ms Sinus rhythm with Premature atrial complexes Otherwise normal ECG When compared with ECG of 19-JAN-2019 22:46, Premature ventricular complexes are no longer Present Premature atrial complexes are now Present Confirmed by EBENEZER MAHARAJ, ADEN ([id number]), order editor NAKIA BARROS ([id number]) on 01/22/2021 8:10:59 AM Referred By: Confirmed By:ADEN SOL MD
[2021-01-20 06:07] LABS: Anion Gap 5 (5-15); BUN 12 mg/dL (7-18); BUN/Creat Ratio 13.9 RATIO (10-20); Calcium,Total 8.9 mg/dL (8.5-10.1); Chloride 107 mmol/L (98-107); Creatinine, Serum 0.86 mg/dL (0.55-1.02); EST Glomerular Filtration Rate 67 mL/min (>60); Est Glom Filt Rate - Afr Amer 82 mL/min (>60); Estimated Creatinine Clearance 40.03 ml/min; Glucose 143 mg/dL (74-106); Potassium 4.2 mmol/L (3.5-5.1); Sodium Level 140 mmol/L (136-145)
[2021-01-20 06:11] LABS: Partial Thromboplast Time 126.2 Seconds (24.1-36.2)
[2021-01-20] MEDS: Levothyroxine 75 MCG Tablet PO (06:22)
[2021-01-20 06:41] LABS: Bedside Glucose 123 mg/dL (70-110)
--- NOTE | 2021-01-20 10:20 | PN.SURG_ITS ---
Subjective Subjective patient with multiple complaints - right sided and lower abdominal pain, sensation of bladder being full, back pain She is passing flatus Objective Data Objective Data Vital Signs: Vital Signs Temp Pulse Resp BP Pulse Ox 97.6 F L 52 L 16 132/74 H 96 01/20/21 06:20 01/20/21 06:59 01/20/21 06:20 01/20/21 06:20 01/20/21 06:20 Oxygen Flow Rate (L/min) 2 Oxygen Delivery Method Nasal Cannula Weight: 98.5 kg Body Mass Index (BMI) 40.1 Intake & Output: Intake and Output for Last 24 Hours 01/18/21 01/19/21 01/20/21 23:59 23:59 23:59 Intake Total 560.0 / 800.0 5299.97 / 5299.97 1958.58 / 1958.58 Output Total 3700 / 3700 750 / 750 Balance 560.0 / -1100.0 1599.97 / 1599.97 1208.58 / 1208.58 Lab / Micro Data Result Diagrams: 01/19/21 03:10 01/20/21 05:20 Labs: Laboratory Results - last 24 hr 01/19/21 11:00: POC Glucose 140 H 01/19/21 12:03: PT 13.3, INR 1.1, APTT 31.5 01/19/21 15:47: POC Glucose 155 H 01/19/21 19:30: APTT 119.6 H* 01/19/21 21:29: POC Glucose 120 H 01/20/21 05:20: Sodium 140, Potassium 4.2, Chloride 107, Carbon Dioxide 28.0, Anion Gap 5, BUN 12, Creatinine 0.86, Estim Creat Clear Calc 40.03, Est GFR (MDRD) Af Amer 82, Est GFR (MDRD) Non-Af 67, BUN/Creatinine Ratio 13.9, Glucose 143 H, Calcium 8.9 01/20/21 05:20: APTT 126.2 H* 01/20/21 06:23: POC Glucose 123 H Radiography Diagnostic Testing: Radiology Impression Echocardiogram 01/19/21 09:34 Interpretation Summary The estimated ejection fraction is EF 55-60 %. Normal Function of AV Bioprothesis LC 1.7 cm2 Mean grdient is 11.4 mmhg Max gradient is 24 mmhg Mild TR Ordering Physician: Mariela Keita Referring Physician: Sunil Adamson MD Performed By: Rhona Pickett RDCS Physical Exam Const alert and oriented x3 Resp normal respiratory effort GI GI Narrative: Abdomen is soft and benign - patient points to RLQ as to location of her pain, after lifting her panniculus, patient points to right groin and right hip area palpation of the right hip and right groin area reproduces patient's pain Assessment & Plan Assessment/Plan (1) Abdominal pain: QUALIFIERS: Abdominal location: right lower quadrant Qualified Code(s): R10.31 - Right lower quadrant pain PLAN: Patient complaints of continued right lower quadrant abdominal pain - upon my examination - pain is mostly right pelvic hip and groin area - suspect musculoskeletal rather than intraabdominal pain Also patient complaint of urinary retention causing abdominal pain At this point in time, no surgical intervention required - I agree with Dr. Miller that patient is not experience classic biliary coli Discharge as per Internal Medicine, patient to follow up with Dr. Miller as an outpatient
[2021-01-20 11:50] LABS: Bedside Glucose 163 mg/dL (70-110)
--- NOTE | 2021-01-20 12:34 | STRESSREP_ITS ---
Stress Test Report Pharmacologic/Lexiscan myocardial perfusion stress test. Indication; 80-year-old patient presented to the ER complaining of right lower quadrant pain Patient with known history of transcatheter aortic valve replacement/TAVR History of hypertension Hyperlipidemia She has mild elevation of cardiac biomarker with elevated high sensitive troponin on this admission Blood in the clinical presentation she is scheduled for Lexiscan sestamibi marker perfusion study. Stress protocol: Resting EKG demonstrates. Normal sinus rhythm. 0.4 mg of regadenoson was infused per usual protocol followed by rapid intravenous saline flush injection continuous EKG monitoring was performed. The maximum heart rate attained was 81 bpm which was 57% of maximum predicted heart . Stress EKG showed[, no significant change from the resting EKG, with maximum heart rate of 81 bpm. Arrhythmia: No arrhythmia demonstrated Symptoms: Patient had no symptoms of chest pain Blood pressure at rest: 124/76 mmHg, blood pressure at the end of stress: 118/74 mmHg Myocardial perfusion protocol. [14.2 mCi ]of Technetium 99m Sestamibi was injected at rest. [ 0.4 mg ]of Regadenoson was infused per usual protocol peak infusion[44.0 mCi ]of Technetium 99m sestamibi was injected. Stress images were obtained stress and rest images were reconstructed and compared in the short axis vertical and horizontal long axis. Gated images were also obtained Perfusion SPECT analysis: Review of the images demonstrate normal uptake of sestamibi at rest, post stress images demonstrate similar uptake of sestamibi to the resting images, homogeneous tracer uptake With no evidence of reversible myocardial ischemia. Gated SPECT analysis: The gated ejection fraction is [78 %]. Wall motion showed hyperdynamic left ventricle. Conclusion: Negative Lexiscan sestamibi myocardial perfusion study for reversible myocardial ischemia Hyperdynamic left ventricle. Min Narvaez MD,FACC,[facility]
--- NOTE | 2021-01-20 14:03 | CASEMGMT ---
JAMI FOLEY NOTE: Pt being discharged home. PT/OT notes reviewed. Additional therapy recommended. JAMI FOLEY to room to talk w/pt and discuss discharge planning. Pt was made aware of recommendations by therapy. Pt states she has done OP therapy in the past and is not interested in OP again. She states she may be interested in HHC, but she is not sure and wants to wait until she gets home to decide if she wants it. Pt was made aware, if she decides she would like HHC, to discuss this w/her PCP. Pt was also provided w/list of local HHC agencies to review and to have on hand if she does decide later she wants HHC. She voices appreciation of information. Aleida REGALADO RN, CM
--- NOTE | 2021-01-20 14:08 | PCM.DC ---
Discharge Instructions Diet Discharge Diet: No restrictions Activity Discharge Activity: Return to Normal Activity Weight Bearing Status: Weight bearing as tolerated Dressing / Incision Call your doctor if you observe: Fever of 101 or Higher, Numbness or Tingling, Shortness of breath, Dizziness, Chest pain, Increased palpitations (irregular heartbeat) and Calf discomfort Follow Up Care Please Follow Up With: Primary care provider When: Within the next two weeks. Test Results: Test results from this visit will be discussed in further detail at your follow-up appointment, if applicable. Discharge Plan Admission Admit Date/Time: 01/18/21 15:27 Primary Reason for Your Visit: Abdominal pain Attending Provider: Sunil Romo Primary Care Provider: Sunil Adamson Consulting Providers: Min Narvaez ; Viktor Miller Discharge Orders/Prescriptions Prescriptions: Continued levothyroxine 75 mcg tablet 75 mcg PO DAILY RF: 0 multivitamin [Daily Multi-Vitamin] Tablet 1 tab PO DAILY RF: 0 selenium 50 mcg tablet 50 mcg PO DAILY RF: 0 metformin 500 mg tablet 500 tablet PO DAILY RF: 0 oxybutynin chloride 10 MG tablet extended release 24 hr 10 mg PO DAILY RF: 0 aspirin 81 MG tablet 81 mg PO DAILY@0800 RF: 0 latanoprost 1 DROP bottle 1 drp EACH EYE QHS RF: 0 ergocalciferol (vitamin D2) 50,000 UNIT capsule 50,000 unit PO MO RF: 0 escitalopram oxalate 10 MG tablet 10 mg PO DAILY RF: 0 ondansetron HCl [Zofran] 4 mg tablet 4 mg PO Q6H PRN (Reason: nausea and vomiting) Qty: 14 RF: 0 hydrocodone-acetaminophen 5-325 mg tablet 1 tab PO Q6H PRN (Reason: pain) 3 Days Qty: 12 RF: 0 glipizide 5 mg tablet extended release 24hr 5 mg PO DAILY RF: 0 acetaminophen 500 mg Tablet 500 mg PO DAILY PRN (Reason: Pain) RF: 0 calcium carbonate 500 mg calcium (1,250 mg) Tablet,Chewable 500 - 1,000 mg PO Q6H PRN PRN (Reason: Stomach Upset) RF: 0 Januvia 50 mg tablet 50 mg PO DAILY RF: 0 atorvastatin 80 MG tablet 80 mg PO QHS RF: 0 tamsulosin [Flomax] 0.4 mg capsule 0.4 mg PO DAILY RF: 0 amlodipine 10 mg tablet 10 mg PO DAILY RF: 0 benazepril 20 MG tablet 20 mg PO BID RF: 0 hydrochlorothiazide 12.5 mg tablet 12.5 mg PO DAILY RF: 0 Referrals / Follow Up: Viktor Miller MD [STAFF PHYSICIAN] - Within 2 Weeks Bebeto Boss MD [STAFF PHYSICIAN] - Within 2 Weeks Sunil Adamson MD [Primary Care Provider] - Within 2 Weeks Disposition Disposition (needs filled in before D/C Order can be placed): Home, Self Care
--- NOTE | 2021-01-20 14:14 | DS.PCM_ITS ---
Documented by User: Isaias COTTO 01/20/21 14:19 Providers Date of Admission: 01/18/21 Primary Care Physician: Dr. Sunil Adamson MD Consultations 01/19/21 07:53 Consult: General Surgery Routine Consulting Provider: Viktor Miller Reason for Consult: abdominal apin EMERGENT Consult: No Notified: Yes Date Notified: 01/19/21 Time Notified: 07:54 Method of Notification: Verbal 01/19/21 08:26 Consult: Cardiology Routine Consulting Provider: Min Narvaez Reason for Consult: tachycardia. elevated troponin EMERGENT Consult: No Notified: Yes Date Notified: 01/19/21 Time Notified: 08:26 Method of Notification: Text Reason For Visit: TACHYCARDIA, ABDOMINAL PAIN Diagnosis Discharge Diagnosis (1) Abdominal pain: Status: Acute Code(s): R10.9 - Unspecified abdominal pain Qualifiers: Abdominal location: right lower quadrant Qualified Code(s): R10.31 - Right lower quadrant pain Medications at Discharge Home Medications aspirin 81 mg PO DAILY@0800 03/18/14 oxybutynin chloride 10 mg PO DAILY 03/18/14 ergocalciferol (vitamin D2) 50,000 unit PO MO 10/03/14 latanoprost 1 drp EACH EYE QHS 10/03/14 escitalopram oxalate 10 mg PO DAILY 01/19/19 levothyroxine 75 mcg tablet 75 mcg PO DAILY 03/11/19 multivitamin 1 tab PO DAILY 02/24/20 selenium 50 mcg tablet 50 mcg PO DAILY 07/05/20 metformin 500 mg tablet 500 tablet PO DAILY 08/28/20 hydrocodone-acetaminophen 1 tab PO Q6H PRN 3 Days #12 tab 01/15/21 ondansetron HCl [Zofran] 4 mg PO Q6H PRN #14 tab 01/15/21 Januvia 50 mg PO DAILY 01/18/21 acetaminophen 500 mg PO DAILY PRN 01/18/21 amlodipine 10 mg PO DAILY 01/18/21 atorvastatin 80 mg PO QHS 01/18/21 benazepril 20 mg PO BID 01/18/21 calcium carbonate 500 - 1,000 mg PO Q6H PRN PRN 01/18/21 glipizide 5 mg PO DAILY 01/18/21 hydrochlorothiazide 12.5 mg PO DAILY 01/18/21 tamsulosin [Flomax] 0.4 mg PO DAILY 01/18/21 metoprolol tartrate 12.5 mg PO BID #30 tab 01/20/21 Hospital Course Procedures Nuclear stress test and Transthoracic echo Summary of Care Provided Minutes Spent on Discharge: 35 Hospital Course: Discharge planning: Current plan is for patient to be discharged home when medically ready, case management following. 1) Elevated troponins Patient is without any complaints of chest pain or shortness of breath. High- sensitivity troponins elevated at 63, 68, 92 and 138. EKG demonstrated a junctional rhythm. Cardiology consulted and stress test was ordered, which was normal. Updated echocardiogram demonstrated estimated EF of 60% and normal function of AV bioprosthesis. Echocardiogram essentially unchanged from prior study. TSH magnesium within normal limits. Plan; continue metoprolol and statin, follow-up with cardiology and primary care provider within the next 2 weeks. 2) tachycardia Resolved, plan as above. 3) acute abdominal pain CT of the abdomen demonstrated chronic left 2 mm calculus, multiple gallstones and distended urinary bladder. Pain is currently resolved. General surgery consulted, no surgical intervention indicated at this time. Patient is to follow-up with Dr. Kumar as an outpatient. 4) DM2 Continue home diabetic regimen. 5) hypothyroidism Continue Synthroid. 6) HTN Stable, continue hydrochlorothiazide, hold amlodipine and Benzapril. 7) CAD with history of TAVR Continue aspirin and atorvastatin. Patient seen by Isaias Silva PA-C, under the supervision of Dr. Romo. Physical Exam Narrative Patient is a 80-year-old female comfortably resting in bed, alert and orient x3. Patient reports that her abdominal pain is currently under control, denies development of any new symptoms overnight. Denies chest pain, shortness of breath, palpitations, hemoptysis, sputum production, fever, chills, N/V/D. Const alert, oriented x3 and no apparent distress HEENT normocephalic, head/scalp atraumatic and hearing grossly normal bilaterally Eyes PERRL, EOMs intact bilaterally and conjunctivae normal Neck no lymphadenopathy, supple and no JVD Resp normal respiratory effort, no retractions, no use of accessory muscles and clear to auscultation bilaterally Cardio regular rate, regular rhythm, no murmurs and no JVD GI normal to inspection, nondistended, normoactive bowel sounds, soft to palpation and non-tender Extremity normal to inspection, full ROM and no clubbing, cyanosis or edema Skin no rashes or lesions noted, no wounds and skin turgor normal Neuro CN's II-XII intact bilaterally Psych affect normal Weight / BMI Weight Weight: 217 lb 2.485 oz Body Mass Index (BMI) 40.1 ABG / Lab / Microbiology Data Result Diagrams: 01/19/21 03:10 01/20/21 05:20 Laboratory: Laboratory Results - last 24 hr 01/19/21 15:47: POC Glucose 155 H 01/19/21 19:30: APTT 119.6 H* 01/19/21 21:29: POC Glucose 120 H 01/20/21 05:20: Sodium 140, Potassium 4.2, Chloride 107, Carbon Dioxide 28.0, Anion Gap 5, BUN 12, Creatinine 0.86, Estim Creat Clear Calc 40.03, Est GFR (MDRD) Af Amer 82, Est GFR (MDRD) Non-Af 67, BUN/Creatinine Ratio 13.9, Glucose 143 H, Calcium 8.9 01/20/21 05:20: APTT 126.2 H* 01/20/21 06:23: POC Glucose 123 H 01/20/21 11:29: POC Glucose 163 H D/C Instructions Discharge Diet: No restrictions Weight Bearing Status: Weight bearing as tolerated Call your doctor if you observe: Fever of 101 or Higher, Numbness or Tingling, Shortness of breath, Dizziness, Chest pain, Increased palpitations (irregular heartbeat) and Calf discomfort Please Follow Up With: Primary care provider When: Within the next two weeks. Meaningful Use Info Meaningful Use Diagnoses (Choose all that apply): None applicable Discharge Plan Admission Admit Date/Time: 01/18/21 15:27 Primary Reason for Your Visit: Abdominal pain Attending Provider: Sunil Romo Primary Care Provider: Sunil Adamson Consulting Providers: Min Narvaez ; Viktor Miller Discharge Orders/Prescriptions Prescriptions: New metoprolol tartrate 25 mg tablet 12.5 mg PO BID Qty: 30 RF: 0 Continued levothyroxine 75 mcg tablet 75 mcg PO DAILY RF: 0 multivitamin [Daily Multi-Vitamin] Tablet 1 tab PO DAILY RF: 0 selenium 50 mcg tablet 50 mcg PO DAILY RF: 0 metformin 500 mg tablet 500 tablet PO DAILY RF: 0 oxybutynin chloride 10 MG tablet extended release 24 hr 10 mg PO DAILY RF: 0 aspirin 81 MG tablet 81 mg PO DAILY@0800 RF: 0 latanoprost 1 DROP bottle 1 drp EACH EYE QHS RF: 0 ergocalciferol (vitamin D2) 50,000 UNIT capsule 50,000 unit PO MO RF: 0 escitalopram oxalate 10 MG tablet 10 mg PO DAILY RF: 0 ondansetron HCl [Zofran] 4 mg tablet 4 mg PO Q6H PRN (Reason: nausea and vomiting) Qty: 14 RF: 0 hydrocodone-acetaminophen 5-325 mg tablet 1 tab PO Q6H PRN (Reason: pain) 3 Days Qty: 12 RF: 0 glipizide 5 mg tablet extended release 24hr 5 mg PO DAILY RF: 0 acetaminophen 500 mg Tablet 500 mg PO DAILY PRN (Reason: Pain) RF: 0 calcium carbonate 500 mg calcium (1,250 mg) Tablet,Chewable 500 - 1,000 mg PO Q6H PRN PRN (Reason: Stomach Upset) RF: 0 Januvia 50 mg tablet 50 mg PO DAILY RF: 0 atorvastatin 80 MG tablet 80 mg PO QHS RF: 0 tamsulosin [Flomax] 0.4 mg capsule 0.4 mg PO DAILY RF: 0 amlodipine 10 mg tablet 10 mg PO DAILY RF: 0 benazepril 20 MG tablet 20 mg PO BID RF: 0 hydrochlorothiazide 12.5 mg tablet 12.5 mg PO DAILY RF: 0 Referrals / Follow Up: Viktor Miller MD [STAFF PHYSICIAN] - Within 2 Weeks Bebeto Boss MD [STAFF PHYSICIAN] - Within 2 Weeks Sunil Adamson MD [Primary Care Provider] - Within 2 Weeks Disposition Disposition (needs filled in before D/C Order can be placed): Home, Self Care Documented by User: Dr. Sunil Romo DO 01/20/21 14:44 Providers Date of Admission: 01/18/21 Reason For Visit: TACHYCARDIA, ABDOMINAL PAIN Medications at Discharge Home Medications aspirin 81 mg PO DAILY@0800 03/18/14 oxybutynin chloride 10 mg PO DAILY 03/18/14 ergocalciferol (vitamin D2) 50,000 unit PO MO 10/03/14 latanoprost 1 drp EACH EYE QHS 10/03/14 escitalopram oxalate 10 mg PO DAILY 01/19/19 levothyroxine 75 mcg tablet 75 mcg PO DAILY 03/11/19 multivitamin 1 tab PO DAILY 02/24/20 selenium 50 mcg tablet 50 mcg PO DAILY 07/05/20 metformin 500 mg tablet 500 tablet PO DAILY 08/28/20 hydrocodone-acetaminophen 1 tab PO Q6H PRN 3 Days #12 tab 01/15/21 ondansetron HCl [Zofran] 4 mg PO Q6H PRN #14 tab 01/15/21 Januvia 50 mg PO DAILY 01/18/21 acetaminophen 500 mg PO DAILY PRN 01/18/21 amlodipine 10 mg PO DAILY 01/18/21 atorvastatin 80 mg PO QHS 01/18/21 benazepril 20 mg PO BID 01/18/21 calcium carbonate 500 - 1,000 mg PO Q6H PRN PRN 01/18/21 glipizide 5 mg PO DAILY 01/18/21 hydrochlorothiazide 12.5 mg PO DAILY 01/18/21 tamsulosin [Flomax] 0.4 mg PO DAILY 01/18/21 metoprolol tartrate 12.5 mg PO BID #30 tab 01/20/21 Hospital Course Operations None Procedures Nuclear stress test Summary of Care Provided Minutes Spent on Discharge: 32 Hospital Course: This is a 80-year-old female presents with right lower quadrant abdominal pain for the preceding 6 days. Patient was seen by general surgery a nd had a work-up that was unremarkable. Concern was that maybe was related with bladder distention but patient still is having pain but seems more musculoskeletal over her iliac crest. No additional work-up is necessary at this time. Patient was noted to have a 2.4 mm left ureteral stone but certainly on the contralateral side where should her symptoms were. Patient also presented with tachycardia that appeared to be junctional. Patient had some mild elevation of her troponin and cardiology was consulted. Patient underwent stress test that was unremarkable. Patient will follow up with c ardiology as outpatient. Physical Exam Const alert and oriented x3 Resp normal respiratory effort, no retractions, no use of accessory muscles and clear to auscultation bilaterally Cardio regular rate, regular rhythm, S1 normal heart sound and S2 normal heart sound GI GI Narrative: Reproducible right anterior iliac crest tenderness. No rashes noted. ABG / Lab / Microbiology Data Result Diagrams: 01/19/21 03:10 01/20/21 05:20 Discharge Plan Admission Admit Date/Time: 01/18/21 15:27 Primary Reason for Your Visit: Abdominal pain Attending Provider: Sunil Romo Primary Care Provider: Sunil Adamson Consulting Providers: Min Narvaez ; Viktor Miller Discharge Orders/Prescriptions Prescriptions: New metoprolol tartrate 25 mg tablet 12.5 mg PO BID Qty: 30 RF: 0 Continued levothyroxine 75 mcg tablet 75 mcg PO DAILY RF: 0 multivitamin [Daily Multi-Vitamin] Tablet 1 tab PO DAILY RF: 0 selenium 50 mcg tablet 50 mcg PO DAILY RF: 0 metformin 500 mg tablet 500 tablet PO DAILY RF: 0 oxybutynin chloride 10 MG tablet extended release 24 hr 10 mg PO DAILY RF: 0 aspirin 81 MG tablet 81 mg PO DAILY@0800 RF: 0 latanoprost 1 DROP bottle 1 drp EACH EYE QHS RF: 0 ergocalciferol (vitamin D2) 50,000 UNIT capsule 50,000 unit PO MO RF: 0 escitalopram oxalate 10 MG tablet 10 mg PO DAILY RF: 0 ondansetron HCl [Zofran] 4 mg tablet 4 mg PO Q6H PRN (Reason: nausea and vomiting) Qty: 14 RF: 0 hydrocodone-acetaminophen 5-325 mg tablet 1 tab PO Q6H PRN (Reason: pain) 3 Days Qty: 12 RF: 0 glipizide 5 mg tablet extended release 24hr 5 mg PO DAILY RF: 0 acetaminophen 500 mg Tablet 500 mg PO DAILY PRN (Reason: Pain) RF: 0 calcium carbonate 500 mg calcium (1,250 mg) Tablet,Chewable 500 - 1,000 mg PO Q6H PRN PRN (Reason: Stomach Upset) RF: 0 Januvia 50 mg tablet 50 mg PO DAILY RF: 0 atorvastatin 80 MG tablet 80 mg PO QHS RF: 0 tamsulosin [Flomax] 0.4 mg capsule 0.4 mg PO DAILY RF: 0 amlodipine 10 mg tablet 10 mg PO DAILY RF: 0 benazepril 20 MG tablet 20 mg PO BID RF: 0 hydrochlorothiazide 12.5 mg tablet 12.5 mg PO DAILY RF: 0 Referrals / Follow Up: Viktor Miller MD [STAFF PHYSICIAN] - Within 2 Weeks Bebeto Boss MD [STAFF PHYSICIAN] - Within 2 Weeks Sunil Adamson MD [Primary Care Provider] - Within 2 Weeks Disposition Disposition (needs filled in before D/C Order can be placed): Home, Self Care Charges/Coding Visit Charges Inpatient E&M: 10882 Disch Hosp
--- NOTE | 2021-01-20 14:32 | PN.CARD_ITS ---
Subjective Subjective Seen along with the nursing staff today Sitting out in a chair no symptoms of chest pain reported Objective Data Vital Signs: Vital Signs Temp Pulse Resp BP Pulse Ox 97.9 F 53 L 18 111/61 96 01/20/21 10:33 01/20/21 11:01 01/20/21 10:33 01/20/21 10:33 01/20/21 10:33 Oxygen Flow Rate (L/min) 2 Oxygen Delivery Method Nasal Cannula Weight: 217 lb 2.485 oz Body Mass Index (BMI) 40.1 Intake & Output: Intake and Output for Last 24 Hours 01/18/21 01/19/21 01/20/21 23:59 23:59 23:59 Intake Total 560.0 / 800.0 5299.97 / 5299.97 2076.08 / 2076.08 Output Total 3700 / 3700 750 / 750 Balance 560.0 / -1100.0 1599.97 / 1599.97 1326.08 / 1326.08 Lab / Micro Data Result Diagrams: 01/19/21 03:10 01/20/21 05:20 Labs: Laboratory Results - last 24 hr 01/19/21 15:47: POC Glucose 155 H 01/19/21 19:30: APTT 119.6 H* 01/19/21 21:29: POC Glucose 120 H 01/20/21 05:20: Sodium 140, Potassium 4.2, Chloride 107, Carbon Dioxide 28.0, Anion Gap 5, BUN 12, Creatinine 0.86, Estim Creat Clear Calc 40.03, Est GFR (MDRD) Af Amer 82, Est GFR (MDRD) Non-Af 67, BUN/Creatinine Ratio 13.9, Glucose 143 H, Calcium 8.9 01/20/21 05:20: APTT 126.2 H* 01/20/21 06:23: POC Glucose 123 H 01/20/21 11:29: POC Glucose 163 H Cardiology Labs/Tests 01/19/21 19:30: APTT 119.6 H* 01/20/21 05:20: Sodium 140, Potassium 4.2, Chloride 107, Carbon Dioxide 28.0, Anion Gap 5, BUN 12, Creatinine 0.86, Est GFR (MDRD) Af Amer 82, Est GFR (MDRD) Non-Af 67, BUN/Creatinine Ratio 13.9, Glucose 143 H, Calcium 8.9 01/20/21 05:20: APTT 126.2 H* Rhythm: Normal sinus rhythm Stress Test: Myocardial perfusion study no evidence of reversible myocardial ischemia Calculated ejection fraction is 69% With normal LV systolic function Physical Exam Narrative Patient comfortable sitting out in a chair not in acute distress Cardiac exam secured entrance monitor showed underlying normal sinus rhythm Normal functioning bioprosthetic aortic valve Chest exam clear to auscultation Examination lower extremity no clubbing no cyanosis no lower extremity edema Examination Central nervous system no focal neurological deficit. Assessment & Plan Assessment/Plan (1) History of transcatheter aortic valve replacement (TAVR): (2) Essential (primary) hypertension: (3) CVA (cerebral vascular accident): (4) Dyspnea on minimal exertion: (5) Intermittent palpitations: (6) Elevated troponin I level: PLAN: 80-year-old patient with history of TAVR Presented with right lower quadrant pain with renal colic Had a calculus of the distal right ureter Cardiac evaluation showed very mild elevation of cardiac biomarker high sensitive troponin Subsequently patient evaluated with the Lexiscan sestamibi myocardial perfusion study which showed normal perfusion with preserved LV systolic function Ejection fraction calculated 69% Cardiac recommendation plan; 1. I reviewed the current medication continue current treatment. 2. Patient is scheduled to follow-up with her primary strategy specialist Dr. Boss in February 3. Based on clinical presentation if she had any further episode of chest pain, probably evaluate further with cardiac catheterization,
== END 2021-01-20 15:28 | disposition home or self-care (01) | DRG 392 ==
LOC: ED 15:38 → PCU 15:47
PROVIDERS: Internal Medicine Interventional Cardiology; Nurse Practitioner Family; Physician Assistant; Physician Assistant Medical; Admitting Provider Internal Medicine; Emergency Provider Emergency Medicine; PCP Family Medicine
DX: R10.31 Right lower quadrant pain (principal); N20.2 Calculus of kidney with calculus of ureter; I10 Essential (primary) hypertension; E78.5 Hyperlipidemia, unspecified; R77.8 Other specified abnormalities of plasma proteins; R00.0 Tachycardia, unspecified; K80.20 Calculus of gallbladder without cholecystitis without obstruction; E11.9 Type 2 diabetes mellitus without complications; I25.10 Atherosclerotic heart disease of native coronary artery without angina pectoris; E03.9 Hypothyroidism, unspecified; I35.0 Nonrheumatic aortic (valve) stenosis; G47.33 Obstructive sleep apnea (adult) (pediatric); G89.29 Other chronic pain; M54.9 Dorsalgia, unspecified; Z79.82 Long term (current) use of aspirin; Z86.73 Personal history of transient ischemic attack (TIA), and cerebral infarction without residual deficits; Z79.84 Long term (current) use of oral hypoglycemic drugs; Z95.2 Presence of prosthetic heart valve; Z91.041 Radiographic dye allergy status; Z90.710 Acquired absence of both cervix and uterus; Z85.6 Personal history of leukemia; Z83.3 Family history of diabetes mellitus; Z82.49 Family history of ischemic heart disease and other diseases of the circulatory system; H91.90 Unspecified hearing loss, unspecified ear
CPT/HCPCS: 36415; 74176; 76705; 78452; 80048; 80053; 82962; 83605; 83690; 83735; 84443; 84484; 85025; 85379; 85610; 85730; 93005; 93017; 93306; 96374; 96375; 97161; 97166; 97802; 99283; 99284; A9500; A9575; J7030; A4216; J2405; J2785

== ENCOUNTER → 2021-02-02 15:09 | Outpatient (CLI) | payer MEDICARE, SELFPAY ==
--- NOTE | 2021-02-02 15:11 | RAD_ITS ---
INDICATION: FOLLOWUP ER- ATELECTASIS EXAMINATION/TECHNIQUE: X-RAY - XR Chest 2 Views COMPARISON: 10/18/2018 FINDINGS: The lungs are clear. The cardiomediastinal silhouette is unremarkable. No pleural effusion or pneumothorax. Degenerative changes of the thoracic spine and shoulders. Anterior fusion of the lower cervical spine. RAD/Chest PA and Lateral IMPRESSION: No acute radiographic abnormalities. Electronically Signed: Leo Bethea MD at 20:10 EDT Tel , Service support ,
== END ==
PROVIDERS: PCP Family Medicine; Referring Provider Family Medicine; Visit Provider Family Medicine
DX: J98.11 Atelectasis (principal)
CPT/HCPCS: 71046

== ENCOUNTER 2021-03-05 20:27 | Observation (INO) | payer MEDICARE, SELFPAY ==
[2021-03-05 20:28] VITALS: PULSE 57; RESP 13; TEMP 36.1; O2SAT 96; BMI 41.1
[2021-03-05 20:31] VITALS: BMI 41.1
[2021-03-05 20:42] VITALS: BP 99/67; PULSE 54; RESP 14; O2SAT 96
--- NOTE | 2021-03-05 21:18 | CT_ITS ---
STUDY: CT BRAIN WITHOUT CONTRAST REASON FOR EXAM: Female, 80 years old. slurred speech TECHNIQUE: Transaxial CT imaging of the brain was performed without administration of intravenous contrast material. Individualized dose optimization techniques were used for this CT. COMPARISON: 11/24/2019 MRI FINDINGS: Normal calvarium. Normal soft tissues. Normal size ventricles and extra-axial spaces for the patient''s age. Normal white matter tracts of the cerebral hemispheres. Normal basal ganglia and thalami. Normal brainstem. Normal cerebellum. There is no intracranial hemorrhage. There are no findings of an acute ischemic infarction. Normal visualized paranasal sinuses. ASPECTS 10 CT/Brain/Head without Contrast IMPRESSION: There are no acute intracranial findings. Electronically Signed: Prashant Rushing MD at 21:47 EST , Service support ,
--- NOTE | 2021-03-05 21:18 | RAD_ITS ---
STUDY: XR Chest 1 View 03/05/2021 9:27 PM REASON FOR EXAM: Female, 80 years old. CHEST PAIN weakness COMPARISON: 02.02.21 TECHNIQUE: XR Chest 1 View FINDINGS: There is a left pleural effusion. Left lower lobe infiltrate or atelectasis. Cervical spine fusion hardware noted. Enlarged heart size. Normal mediastinum. Normal justine. Prominent appearing increased interstitial lung markings. Normal visualized pulmonary arteries. There is atherosclerotic calcification of the aortic arch with tortuosity. There are diffuse degenerative changes of the visualized thoracic spine. There is degenerative osteoarthritis of the bilateral shoulders. There is no demonstrated abnormality of the visualized soft tissue structures of the upper abdomen. RAD/Chest 1 View (Portable) IMPRESSION: There is a left pleural effusion. Left lower lobe infiltrate or atelectasis. Electronically Signed: Prashant Rushing MD at 21:48 EST , Service support ,
--- NOTE | 2021-03-05 21:18 | EKG12_ITS ---
Test Reason : NEURO SX Blood Pressure : / mmHG Vent. Rate : 051 BPM Atrial Rate : 051 BPM P-R Int : 160 ms QRS Dur : 096 ms QT Int : 560 ms P-R-T Axes : 020 -05 206 degrees QTc Int : 516 ms Sinus bradycardia with sinus arrhythmia Nonspecific T wave abnormality Prolonged QT Abnormal ECG Confirmed by WILBERTO MAHARAJ, WILVER ([id number]), social media editor NAKIA BARROS ([id number]) on 03/07/2021 9:59:24 AM Referred By: MELISA Confirmed By:WILVER LADD MD
--- NOTE | 2021-03-05 21:20 | EX.ED.DYSGE1 ---
HPI History of Present Illness Chief Complaint: Neuro S/Sx Narrative Narrative: 80-year-old female presenting with generalized weakness. She states that she fell on the floor today and sat there for a couple of hours. She was unable to get up under her own strength and this would be typical of her. She has a history of spinal stenosis. She states that she has had more pain since Friday. She called Dr. Ernst and she states she was told to double her tramadol three times a day Friday it was noted that she had a little bit of slurred speech and was generally weaker than usual. Today she was found on the floor. She states she did not hit her head. She admits to taking double the dose of her medications today. Her son-in-law who is with her states that her son states does not sound very slurred now. There was some concern of facial droop earlier today. Patient does have history of stroke which she states was mild. She is not on aspirin or other antiplatelet therapy. [facility] Medical History Arthritis Basal cell carcinoma CVA (cerebral vascular accident) (01/2019) Depression Elevated troponin I level Essential (primary) hypertension Glaucoma Darryl's disease Hyperlipemia Nonrheumatic aortic (valve) stenosis Obesity Skin lesion of face Sleep apnea Tachycardia Home Medications aspirin 81 mg PO DAILY@0800 03/18/14 [History Last Taken 01/17/21] ergocalciferol (vitamin D2) 50,000 unit PO MO 10/03/14 [History Last Taken 01/16/21] latanoprost 1 drp EACH EYE QHS 10/03/14 [History Last Taken 01/17/21] levothyroxine 75 mcg tablet 75 mcg PO DAILY 03/11/19 [History Last Taken 01/18/21] multivitamin 1 tab PO DAILY 02/24/20 [History Last Taken 01/17/21] selenium 50 mcg tablet 50 mcg PO DAILY 07/05/20 [History Last Taken 01/18/21] metformin 500 mg tablet 500 tablet PO DAILY 08/28/20 [History Last Taken 01/17/21] Januvia 50 mg PO DAILY 01/18/21 [History Last Taken 01/17/21] acetaminophen 500 mg PO DAILY PRN 01/18/21 [History Last Taken 01/18/21] amlodipine 10 mg PO DAILY 01/18/21 [History Last Taken 01/17/21] atorvastatin 80 mg PO QHS 01/18/21 [History Last Taken 01/17/21] benazepril 20 mg PO BID 01/18/21 [History Last Taken 01/17/21] glipizide 5 mg PO DAILY 01/18/21 [History Last Taken 01/17/21] hydrochlorothiazide 12.5 mg PO DAILY 01/18/21 [History Last Taken 01/18/21] metoprolol tartrate 12.5 mg PO BID #30 tab 01/20/21 [Rx Last Taken Unknown] escitalopram oxalate 10 mg tablet 20 mg PO DAILY tab 02/23/21 [History Last Taken Unknown] gabapentin 100 mg capsule 100 mg PO .qid cap 02/23/21 [History Last Taken Unknown] oxybutynin chloride 10 mg tablet,extended release 24 hr 5 mg PO BID tab 02/23/21 [History Last Taken Unknown] Allergy/AdvReac Type Severity Reaction Status Date / Time iodine Allergy SEE Verified 03/05/21 20:37 COMMENTS Family History Mother CAD (coronary artery disease) Hypertension Cancer Leukemia Father Diabetes Alcoholism Surgical History H/O partial thyroidectomy History of bladder suspension procedure History of cervical spinal surgery History of hysterectomy History of right and left heart catheterization (09/27/16) 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) Social History Smoking Status: Never smoker alcohol intake: never ROS ROS ED Constitutional Constitutional ED: Denies chills or fever(s) Eyes Eyes: Denies blurry vision or diplopia ENT ENT ED: Denies rhinorrhea or sore throat Cardiovascular Cardiovascular: Denies chest pain or palpitations Respiratory/Chest Respiratory/Chest: Denies cough or dyspnea Gastrointestinal Gastrointestinal: Denies abdominal pain or nausea Musculoskeletal Musculoskeletal: Reports back pain and other Details: Right leg pain and back pain Integumentary Denies Abrasions or rash Neurologic Neurologic: Reports other Details: Facial droop and slurred speech ; Denies headache(s) or paresthesias Psychiatric Psychiatric: Denies anxiety or depression EXAM Physical Exam Const Vital Signs: 03/05/21 20:28 03/05/21 20:42 Temperature 96.9 F L Temperature Source Temporal Pulse Rate 57 L 54 L Respiratory Rate 13 14 Blood Pressure 99/67 Blood Pressure Mean 77 Pulse Ox 96 96 Oxygen Delivery Method Room Air Room Air Positive well nourished General Appearance ED: NAD HEENT Reports moist mucous membranes Negative for trauma Eyes PERRL and EOMs intact bilaterally Neck no lymphadenopathy and supple Chest Wall inspection of chest normal Resp normal respiratory effort and clear to auscultation bilaterally Cardio regular rate and regular rhythm GI normal to inspection, nondistended, normoactive bowel sounds Extremity General Extremety ED: Negative for edema or tenderness General Extremity: Negative for edema Neuro oriented x3, CN's II-XII intact bilaterally and no sensory deficits noted Neuro Narrative: NIH =0 Sensorium / Orientation: alert Motor Exam: strength 5/5 throughout MDM MDM MDM Narrative Medical decision making narrative: Patient presenting with generalized weakness, history of slurred speech as well as history of facial droop on the left. I do not appreciate any of this except for maybe some mild slurred speech however her son-in-law states it does not sound much different from normal at this time. Patient was found on the ground because she fell it was too weak to get up likely due to her spinal stenosis as well as her polypharmacy as she does admit to taking double the dose of tramadol 3 times a day since Friday. This does explain the slurred speech and the weakness as well as even the hypotension on arrival however cannot explain the facial droop that was reported. Does not present on examination. She appears to be alert and awake. Her CBC and CMP are ultimately unremarkable with exception of a total bilirubin of 1.2. She is not dehydrated. Her LFTs are normal. CPK is 87. Troponin is 43. Her EKG is sinus rhythm with a ventricular rate of 51 bpm. MT interval 160 ms, QRS 96 ms, QTC [address] of the brain shows no acute intracranial findings. Chest x-ray on my interpretation with a left lower lobe pleural effusion. The radiologist has read this as infiltrate versus atelectasis as well. The patient is not having any respiratory complaints or shortness of breath. The pleural effusion is new since her previous chest x-ray. Patient was given a liter of IV fluids and her blood pressure is now improved 99/67. I will admit the patient for TIA. Impression: 1. Left pleural effusion 2. TIA 3. Polypharmacy 4. Hypotension Lab Data Attestation: I reviewed the patient's lab results. Labs: Laboratory Results - last 24 hr 03/05/21 03/05/21 03/05/21 20:35 20:35 21:59 WBC 8.9 RBC 4.84 Hgb 14.5 Hct 43.3 MCV 89.5 MCH 30.0 MCHC 33.5 RDW Std Deviation 44.5 H RDW Coeff of [place] 13.5 Plt Count 174 MPV 9.5 Immature Gran % (Auto) 0.200 Neut % (Auto) 63.6 Lymph % (Auto) 21.5 [place] % (Auto) 6.4 Eos % (Auto) 7.9 H Baso % (Auto) 0.4 Absolute Neuts (auto) 5.7 Absolute Lymphs (auto) 1.92 Nucleated RBC % 0 Sodium 136 Potassium 3.3 L Chloride 102 Carbon Dioxide 29.0 Anion Gap 5 BUN 18 Creatinine 1.11 H Estim Creat Clear Calc 31.01 Est GFR (MDRD) Af Amer 61 Est GFR (MDRD) Non-Af 50 L BUN/Creatinine Ratio 16.2 Glucose 77 Calcium 10.1 Total Bilirubin 1.20 H AST 25 ALT 33 Alkaline Phosphatase 89 Total Creatine Kinase 87 Troponin I High Sens 43 Total Protein 7.3 Albumin 3.5 Globulin 3.8 Albumin/Globulin Ratio 0.9 Urine Color Yellow Urine Clarity Clear Urine pH 5.0 Ur Specific [place] 1.020 Urine Protein Negative Urine Glucose (UA) Normal Urine Ketones Negative Urine Occult Blood 25 H Urine Nitrite Negative Urine Bilirubin Negative Urine Urobilinogen Normal Ur Leukocyte Esterase 500 H Urine RBC 0 SEEN Urine WBC 10-25 SEEN Ur Squamous Epith Cells 0 SEEN Urine Bacteria 2+ Urine Mucus 0 SEEN Radiography Diagnostic Testing: Clinical Impression(s) from Imaging Studies Brain CT 03/05/21 21:18 IMPRESSION: There are no acute intracranial findings. Electronically Signed: Prashant Rushing MD at 21:47 EST , Service support , Chest X-Ray 03/05/21 21:18 IMPRESSION: There is a left pleural effusion. Left lower lobe infiltrate or atelectasis. Electronically Signed: Prashant Rushing MD at 21:48 EST , Service support , Discharge Plan Triage Chief Complaint: Neuro S/Sx ED Provider: Leonardo Girggs Dx/Rx/DC Orders Prescriptions: No Action levothyroxine 75 mcg tablet 75 mcg PO DAILY RF: 0 multivitamin [Daily Multi-Vitamin] Tablet 1 tab PO DAILY RF: 0 gabapentin 100 mg capsule 100 mg PO .qid RF: 0 selenium 50 mcg tablet 50 mcg PO DAILY RF: 0 metformin 500 mg tablet 500 tablet PO DAILY RF: 0 aspirin 81 MG tablet 81 mg PO DAILY@0800 RF: 0 oxybutynin chloride 10 mg tablet extended release 24hr 5 mg PO BID RF: 0 latanoprost 1 DROP bottle 1 drp EACH EYE QHS RF: 0 ergocalciferol (vitamin D2) 50,000 UNIT capsule 50,000 unit PO MO RF: 0 escitalopram oxalate [Lexapro] 10 mg tablet 20 mg PO DAILY RF: 0 glipizide 5 mg tablet extended release 24hr 5 mg PO DAILY RF: 0 acetaminophen 500 mg Tablet 500 mg PO DAILY PRN (Reason: Pain) RF: 0 Januvia 50 mg tablet 50 mg PO DAILY RF: 0 atorvastatin 80 MG tablet 80 mg PO QHS RF: 0 amlodipine 10 mg tablet 10 mg PO DAILY RF: 0 benazepril 20 MG tablet 20 mg PO BID RF: 0 hydrochlorothiazide 12.5 mg tablet 12.5 mg PO DAILY RF: 0 metoprolol tartrate 25 mg tablet 12.5 mg PO BID Qty: 30 RF: 0 Primary Care Provider: Sunil Adamson
[2021-03-05] MEDS: 0.9% Normal Saline 1,000 ML 999 ML IV (21:30)
[2021-03-05 21:45] VITALS: BP 101/85; PULSE 52; RESP 16; O2SAT 94
[2021-03-05 21:45] LABS: ALB/GLOB Ratio 0.9 RATIO (0.9-2.4); AST(SGOT) 25 U/L (15-37); Alanine Aminotransfer ALT/SGPT 33 U/L (13-56); Albumin, Serum 3.5 g/dL (3.2-5.0); Alkaline Phosphatase 89 U/L (45-117); Anion Gap 5 (5-15); BUN 18 mg/dL (7-18); BUN/Creat Ratio 16.2 RATIO (10-20); CPK Total, Creatine Kinase 87 U/L (26-192); Calcium,Total 10.1 mg/dL (8.5-10.1); Chloride 102 mmol/L (98-107); Creatinine, Serum 1.11 mg/dL (0.55-1.02); EST Glomerular Filtration Rate 50 mL/min (>60); Est Glom Filt Rate - Afr Amer 61 mL/min (>60); Estimated Creatinine Clearance 31.01 ml/min; Globulin 3.8 g/dL (2.2-4.2); Glucose 77 mg/dL (74-106); Potassium 3.3 mmol/L (3.5-5.1); Protein, Total 7.3 g/dL (6.4-8.2); Sodium Level 136 mmol/L (136-145); Troponin-I HS 43 pg/mL (3.0-54.0)
[2021-03-05 21:51] LABS: Absolute Lymphocyte Count 1.92 X10^3/uL (0.83-4.51); Absolute Neutrophil Count 5.7 X10^3/uL (2.0-7.7); Basophil# 0.04 X10^3/uL; Basophil% 0.4 % (0-1); Eosinophils% 7.9 % (0-5); Hematocrit 43.3 % (37-47); Hemoglobin 14.5 g/dL (12.0-15.0); Lymphocyte # 1.92 X10^3/ul (0.83-4.51); Lymphocyte % 21.5 % (19-41); Mean Corp Hgb Conc 33.5 g/dL (32-36); Mean Corpuscular Volume 89.5 fL (81-99); Mean Platelet Vol. 9.5 fl (6.2-12.0); Monocyte# 0.57 X10^3/uL; Monocyte% 6.4 % (0-10); NRBC Flagged by Analyzer 0 % (0-5); Neutrophil # 5.66 X10^3/uL (2.7-7.7); Neutrophil % 63.6 % (47-70); Platelet Count 174 K/mm3 (150-450); RBC Distribution Width CV 13.5 % (11.6-14.6); RBC Distribution Width SD 44.5 fl (35.1-43.9); Red Blood Count 4.84 M/mm3 (4.2-5.4); White Blood Count 8.9 K/mm3 (4.4-11.0)
[2021-03-05 22:08] LABS: Mucous, Urine 0 SEEN /hpf (<or=2+); Red Blood Cells-Urine 0 SEEN /hpf (0-5); Squamous Epithelial Cells - UA 0 SEEN /hpf (5-10)
[2021-03-05 22:12] LABS: Color, Urine Yellow (Yellow); Glucose, Dipstick Normal (Normal); Ketone-Dipstick Negative (Negative); Leukocyte Esterase-Dipstick 500 /ul (Negative); Nitrite-Dipstick Negative (Negative); Occult Blood-Urine 25 /ul (Negative); Protein-Dipstick Negative (Negative); Urine Bilirubin Dipstick Negative (Negative); Urine Clarity Clear (Clear); Urine Urobilinogen Normal (Normal)
[2021-03-05 22:19] LABS: Bacteria 2+ /hpf (None Seen); White Blood Cells 10-25 SEEN /hpf (0-5)
[2021-03-05 22:58] VITALS: PULSE 55; RESP 17; O2SAT 93
[2021-03-05 23:01] VITALS: BP 98/62; PULSE 52; RESP 12; TEMP 36.9; O2SAT 97
--- NOTE | 2021-03-05 23:11 | HP.PCM_ITS ---
HPI - General General Date of Admission: 03/05/21 HPI Narrative CORY CUELLO, is a 80 F who presents to the emergency room with generalized weakness. She was found by her son on the floor at home where he reported her to have slurring of speech and may be a facial droop on the left. Due to her history of stroke she was transported to the emergency room and found to have a normal CT scan. By the time she arrived there was no facial droop and slurring of speech had resolved. Recently due to severe back pain and spinal stenosis patient had increased her tramadol dose to 3 times a day by her doctors orders. This increased dose of tramadol started today and may have contributed to her presentation. The patient denies any chest pain, shortness of breath, nausea, vomiting, or diarrhea. Patient expressed wishes to be full code. She is scheduled to have a caudal injection tomorrow afternoon by Dr. Ernst as an outpatient. [facility] Medical History (Updated 03/05/21 @ 23:[address] Augie Issa MD) Arthritis Basal cell carcinoma CVA (cerebral vascular accident) (01/2019) Depression Elevated troponin I level Essential (primary) hypertension Glaucoma Darryl's disease Hyperlipemia Nonrheumatic aortic (valve) stenosis Obesity Skin lesion of face Sleep apnea Tachycardia Home Medications aspirin 81 mg PO DAILY@0800 03/18/14 [History Last Taken 01/17/21] ergocalciferol (vitamin D2) 50,000 unit PO MO 10/03/14 [History Last Taken 01/16/21] latanoprost 1 drp EACH EYE QHS 10/03/14 [History Last Taken 01/17/21] levothyroxine 75 mcg tablet 75 mcg PO DAILY 03/11/19 [History Last Taken 01/18/21] multivitamin 1 tab PO DAILY 02/24/20 [History Last Taken 01/17/21] selenium 50 mcg tablet 50 mcg PO DAILY 07/05/20 [History Last Taken 01/18/21] metformin 500 mg tablet 500 tablet PO DAILY 08/28/20 [History Last Taken 01/17/21] Januvia 50 mg PO DAILY 01/18/21 [History Last Taken 01/17/21] acetaminophen 500 mg PO DAILY PRN 01/18/21 [History Last Taken 01/18/21] amlodipine 10 mg PO DAILY 01/18/21 [History Last Taken 01/17/21] atorvastatin 80 mg PO QHS 01/18/21 [History Last Taken 01/17/21] benazepril 20 mg PO BID 01/18/21 [History Last Taken 01/17/21] glipizide 5 mg PO DAILY 01/18/21 [History Last Taken 01/17/21] hydrochlorothiazide 12.5 mg PO DAILY 01/18/21 [History Last Taken 01/18/21] metoprolol tartrate 12.5 mg PO BID #30 tab 01/20/21 [Rx Last Taken Unknown] escitalopram oxalate 10 mg tablet 20 mg PO DAILY tab 02/23/21 [History Last Taken Unknown] gabapentin 100 mg capsule 100 mg PO .qid cap 02/23/21 [History Last Taken Unknown] oxybutynin chloride 10 mg tablet,extended release 24 hr 5 mg PO BID tab 02/23/21 [History Last Taken Unknown] Allergy/AdvReac Type Severity Reaction Status Date / Time iodine Allergy SEE Verified 03/05/21 20:37 COMMENTS Family History Mother CAD (coronary artery disease) Hypertension Cancer Leukemia Father Diabetes Alcoholism Surgical History H/O partial thyroidectomy History of bladder suspension procedure History of cervical spinal surgery History of hysterectomy History of right and left heart catheterization (09/27/16) 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) Social History Smoking Status: Never smoker alcohol intake: never ROS Constitutional Constitutional: Reports weakness; Denies chills or fatigue Eyes Eyes: Denies blurry vision ENT HEENT: Denies abnormal hearing Cardiovascular Cardiovascular: Denies chest pain Respiratory/Chest Respiratory/Chest: Denies cough Gastrointestinal Gastrointestinal: Denies abdominal pain Genitourinary Genitourinary: Denies dysuria Musculoskeletal Musculoskeletal: Reports back pain Neurologic Neurologic: Denies confusion, focal weakness, numbness, sensory deficit or tingling Psychiatric Psychiatric: Reports anxiety Vital Signs Vital Signs Vital Signs: 03/05/21 20:28 03/05/21 20:42 03/05/21 21:45 Temperature 96.9 F L Temperature Source Temporal Pulse Rate 57 L 54 L 52 L Respiratory Rate 13 14 16 Blood Pressure 99/67 101/85 H Blood Pressure Mean 77 90 Pulse Ox 96 96 94 Oxygen Delivery Method Room Air Room Air Room Air 03/05/21 22:58 03/05/21 23:01 Temperature 98.4 F Temperature Source Temporal Pulse Rate 55 L 52 L Respiratory Rate 17 12 Blood Pressure 98/62 Blood Pressure Mean 74 Pulse Ox 93 97 Oxygen Delivery Method Room Air Room Air Weight Weight: 217 lb 13.067 oz Body Mass Index (BMI) 41.1 Physical Exam Const oriented x3 and no apparent distress General Appearance: cooperative HEENT normocephalic and head/scalp atraumatic Eyes PERRL and EOMs intact bilaterally Neck supple Lymph Lymphatic: no lymphadenopathy noted Resp normal respiratory effort, normal air movement and clear to auscultation bilaterally Cardio regular rate, regular rhythm, S1 normal heart sound and S2 normal heart sound GI normal to inspection, nondistended, normoactive bowel sounds Extremity normal capillary refill and no clubbing, cyanosis or edema Skin General Skin Exam: turgor normal Neuro CN's II-XII intact bilaterally Psych thought process normal, cooperative and affect normal Appearance: appropriate Results Lab / Micro Data Result Diagrams: 03/05/21 20:35 03/05/21 20:35 Labs: Laboratory Results - last 24 hr 03/05/21 20:35: WBC 8.9, RBC 4.84, Hgb 14.5, Hct 43.3, MCV 89.5, MCH 30.0, MCHC 33.5, RDW Std Deviation 44.5 H, RDW Coeff of [place] 13.5, Plt Count 174, MPV 9.5, Immature Gran % (Auto) 0.200, Neut % (Auto) 63.6, Lymph % (Auto) 21.5, [place] % (Auto) 6.4, Eos % (Auto) 7.9 H, Baso % (Auto) 0.4, Absolute Neuts (auto) 5.7, Absolute Lymphs (auto) 1.92, Nucleated RBC % 0 03/05/21 20:35: Sodium 136, Potassium 3.3 L, Chloride 102, Carbon Dioxide 29.0, Anion Gap 5, BUN 18, Creatinine 1.11 H, Estim Creat Clear Calc 31.01, Est GFR (MDRD) Af Amer 61, Est GFR (MDRD) Non-Af 50 L, BUN/Creatinine Ratio 16.2, Glucose 77, Calcium 10.1, Total Bilirubin 1.20 H, AST 25, ALT 33, Alkaline Phosphatase 89, Total Creatine Kinase 87, Troponin I High Sens 43, Total Protein 7.3, Albumin 3.5, Globulin 3.8, Albumin/Globulin Ratio 0.9 03/05/21 21:59: Urine Color Yellow, Urine Clarity Clear, Urine pH 5.0, Ur Specific [place] 1.020, Urine Protein Negative, Urine Glucose (UA) Normal, Urine Ketones Negative, Urine Occult Blood 25 H, Urine Nitrite Negative, Urine Bilirubin Negative, Urine Urobilinogen Normal, Ur Leukocyte Esterase 500 H, Urine RBC 0 SEEN, Urine WBC 10-25 SEEN, Ur Squamous Epith Cells 0 SEEN, Urine Bacteria 2+, Urine Mucus 0 SEEN Radiology Impression Brain CT 03/05/21 21:18 IMPRESSION: There are no acute intracranial findings. Electronically Signed: Prashant Rushing MD at 21:47 EST , Service support , Chest X-Ray 03/05/21 21:18 IMPRESSION: There is a left pleural effusion. Left lower lobe infiltrate or atelectasis. Electronically Signed: Prashant Rushing MD at 21:48 EST , Service support , Assessment & Plan Assessment/Plan (1) Spinal stenosis of lumbar region at multiple levels: (2) Generalized weakness: (3) Sleep apnea: (4) Darryl's disease: (5) Depression: (6) Arthritis: PLAN: 1?generalized weakness likely secondary to recent increase in narcotics?admit patient for observation to progressive care unit, neuro checks per routine, physical therapy to evaluate and treat for activities of daily living. I do not feel this is a transient ischemic attack at this time based on the timing of her increased dose of narcotics and subsequent presentation of weakness and hypotension. 2. Atelectasis versus left pleural effusion on chest x-ray.?Patient has no complaints of shortness of breath at this time and is maintaining a normal oxygenation CBC indicates no elevation of white blood cell count. 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 Sleep apnea continue CPAP 5. Arthritis/spinal stenosis severe?patient is to have a injection tomorrow afternoon as an outpatient if discharged. 6. DVT prophylaxis?low molecular weight heparin Charges/Coding Visit Charges OBSV E&M: 93834 Initial observation care L2
--- NOTE | 2021-03-05 23:38 | PCS.PANDOC ---
PANDEMIC DOCUMENTATION INITIATED: Date: 12/04/2020 Time: 190
[2021-03-05 23:46] VITALS: BP 129/69; PULSE 57; RESP 18; TEMP 36.4; O2SAT 96
[2021-03-05 23:48] VITALS: BMI 39.6
--- NOTE | 2021-03-05 23:49 | NURSING ---
Pt received both doses of pfizer vaccine. Unsure of dates, possibly in June.
[2021-03-06] VITALS (11 sets, daily range): BP systolic 92–136; BP diastolic 66–72; PULSE 53–80; RESP 15–16; TEMP 36.4–37.2; O2SAT 93–98
[2021-03-06] MEDS: Gabapentin 100 MG Capsule PO ×5 (00:07→23:14)
[2021-03-06] MEDS: Potassium Chloride Oral Tablet 20 MEQ 40 MEQ PO (00:07)
[2021-03-06] MEDS: Levothyroxine 75 MCG Tablet PO (04:56)
[2021-03-06 05:46] LABS: Absolute Lymphocyte Count 1.36 X10^3/uL (0.83-4.51); Absolute Neutrophil Count 5.4 X10^3/uL (2.0-7.7); Basophil# 0.05 X10^3/uL; Basophil% 0.6 % (0-1); Eosinophil# 0.71 X10^3/uL; Eosinophils% 8.6 % (0-5); Hematocrit 39.2 % (37-47); Hemoglobin 13.3 g/dL (12.0-15.0); Lymphocyte # 1.36 X10^3/ul (0.83-4.51); Lymphocyte % 16.6 % (19-41); Mean Corp Hgb Conc 33.9 g/dL (32-36); Mean Corpuscular Hgb 30.1 pg (27.0-32.0); Mean Corpuscular Volume 88.7 fL (81-99); Mean Platelet Vol. 9.1 fl (6.2-12.0); Monocyte# 0.63 X10^3/uL; Monocyte% 7.7 % (0-10); NRBC Flagged by Analyzer 0 % (0-5); Neutrophil # 5.44 X10^3/uL (2.7-7.7); Neutrophil % 66.3 % (47-70); Platelet Count 141 K/mm3 (150-450); RBC Distribution Width CV 13.5 % (11.6-14.6); RBC Distribution Width SD 43.8 fl (35.1-43.9); Red Blood Count 4.42 M/mm3 (4.2-5.4); White Blood Count 8.2 K/mm3 (4.4-11.0)
[2021-03-06 06:09] LABS: BUN 12 mg/dL (7-18); Creatinine, Serum 0.68 mg/dL (0.55-1.02); Estimated Creatinine Clearance 34.42 ml/min; Glucose 65 mg/dL (74-106)
[2021-03-06 06:10] LABS: Anion Gap 4 (5-15); BUN/Creat Ratio 17.6 RATIO (10-20); Calcium,Total 9.5 mg/dL (8.5-10.1); Chloride 108 mmol/L (98-107); EST Glomerular Filtration Rate 89 mL/min (>60); Est Glom Filt Rate - Afr Amer 107 mL/min (>60); Potassium 3.6 mmol/L (3.5-5.1); Sodium Level 138 mmol/L (136-145)
[2021-03-06] MEDS: metFORMIN HCl 500 MG Tablet PO (07:47)
[2021-03-06] MEDS: Aspirin E.C. 81 MG Tablet PO (07:47)
[2021-03-06] MEDS: glipiZIDE XL 5 MG Tablet PO (07:47)
[2021-03-06] MEDS: Oxybutynin 5 MG Tablet PO ×2 (09:07→21:08)
[2021-03-06] MEDS: Enoxaparin 40 MG/0.4 ML Syringe SC (09:07)
[2021-03-06] MEDS: LINAGLIPTIN 5 MG TABLET PO (09:07)
[2021-03-06] MEDS: Escitalopram Oxalate 20 MG Tablet PO (09:07)
[2021-03-06] MEDS: Acetaminophen 500 MG Tablet PO (09:09)
--- NOTE | 2021-03-06 11:40 | CASEMGMT ---
Pt was scheduled for pain management appt with Dr. Ernst today with possible injection and this is why pt was admitted OBS for increased back pain/fall. Dr. Miles would like pt to still have injection today to make sure she is able to go home at d/c. Call to [facility] office and per staff, if pt is in acute hospital then [facility] would need to be consulted to see pt here then schedule injection in OR. Dr. Miles and Maria M, PCU charge, updated. SStjp RN CM
--- NOTE | 2021-03-06 14:10 | CASEMGMT ---
JAMI CM in to complete ALY form with patient. RN ALAINA explained ALY form to patient, patient voiced understanding. Patient signed ALY form and filed in chart. Patient provided with copy of signed ALY form. Patient had no further questions or concerns at this time.
--- NOTE | 2021-03-06 14:10 | PCM.PN.HOSP ---
Subjective Subjective Patient seen and examined. S she is being managed for debility due to severe spinal stenosis. He was admitted with a complaint of generalized weakness after she was found on the floor with assisted slurring of speech. CT of the brain done on admission was normal. It turned out that patient had increased her tramadol dose to 3 times daily and she had developed the symptoms on the day her tramadol dose was increased. She didn't have any focal weakness and her symptoms were thought to be due to encephalopathy from tramadol. Patient seen and examined. She complains of feeling weak. She wants to cancel her epidural shot for her spinal stenosis due today, because she feels too weak. I did advise patient that we could consult pain management for her to have the short course in hospital. She complains of pain and some numbness in her right lower extremity due to her spinal stenosis. Review of systems otherwise negative. Objective Data Objective Data Vital Signs: Vital Signs Temp Pulse Resp BP Pulse Ox 97.6 F L 79 15 112/68 98 03/06/21 09:15 03/06/21 10:59 03/06/21 09:15 03/06/21 09:15 03/06/21 09:15 Oxygen Delivery Method Room Air Weight: 209 lb 10.554 oz Body Mass Index (BMI) 39.6 Intake & Output: Intake and Output for Last 24 Hours 03/04/21 03/05/21 03/06/21 23:59 23:59 23:59 Intake Total 1000 / 1400 940 / 940 Output Total 900 / 900 Balance 1000 / 1400 40 / 40 Lab / Micro Data Result Diagrams: 03/06/21 05:30 03/06/21 05:30 Labs: Laboratory Results - last 24 hr 03/05/21 20:35: WBC 8.9, RBC 4.84, Hgb 14.5, Hct 43.3, MCV 89.5, MCH 30.0, MCHC 33.5, RDW Std Deviation 44.5 H, RDW Coeff of [place] 13.5, Plt Count 174, MPV 9.5, Immature Gran % (Auto) 0.200, Neut % (Auto) 63.6, Lymph % (Auto) 21.5, [place] % (Auto) 6.4, Eos % (Auto) 7.9 H, Baso % (Auto) 0.4, Absolute Neuts (auto) 5.7, Absolute Lymphs (auto) 1.92, Nucleated RBC % 0 03/05/21 20:35: Sodium 136, Potassium 3.3 L, Chloride 102, Carbon Dioxide 29.0, Anion Gap 5, BUN 18, Creatinine 1.11 H, Estim Creat Clear Calc 31.01, Est GFR (MDRD) Af Amer 61, Est GFR (MDRD) Non-Af 50 L, BUN/Creatinine Ratio 16.2, Glucose 77, Calcium 10.1, Total Bilirubin 1.20 H, AST 25, ALT 33, Alkaline Phosphatase 89, Total Creatine Kinase 87, Troponin I High Sens 43, Total Protein 7.3, Albumin 3.5, Globulin 3.8, Albumin/Globulin Ratio 0.9 03/05/21 21:59: Urine Color Yellow, Urine Clarity Clear, Urine pH 5.0, Ur Specific [place] 1.020, Urine Protein Negative, Urine Glucose (UA) Normal, Urine Ketones Negative, Urine Occult Blood 25 H, Urine Nitrite Negative, Urine Bilirubin Negative, Urine Urobilinogen Normal, Ur Leukocyte Esterase 500 H, Urine RBC 0 SEEN, Urine WBC 10-25 SEEN, Ur Squamous Epith Cells 0 SEEN, Urine Bacteria 2+, Urine Mucus 0 SEEN 03/06/21 05:30: WBC 8.2, RBC 4.42, Hgb 13.3, Hct 39.2, MCV 88.7, MCH 30.1, MCHC 33.9, RDW Std Deviation 43.8, RDW Coeff of [place] 13.5, Plt Count 141 L, MPV 9.1, Immature Gran % (Auto) 0.200, Neut % (Auto) 66.3, Lymph % (Auto) 16.6 L, [place] % (Auto) 7.7, Eos % (Auto) 8.6 H, Baso % (Auto) 0.6, Absolute Neuts (auto) 5.4, Absolute Lymphs (auto) 1.36, Nucleated RBC % 0 03/06/21 05:30: Sodium 138, Potassium 3.6, Chloride 108 H, Carbon Dioxide 26.0, Anion Gap 4 L, BUN 12, Creatinine 0.68, Estim Creat Clear Calc 34.42, Est GFR (MDRD) Af Amer 107, Est GFR (MDRD) Non-Af 89, BUN/Creatinine Ratio 17.6, Glucose 65 L, Calcium 9.5 Micro: Microbiology 03/05/21 21:08 Urine, Clean Catch Urine Culture - Preliminary GNR lactose systems support officer Radiography Diagnostic Testing: Radiology Impression Brain CT 03/05/21 21:18 IMPRESSION: There are no acute intracranial findings. Electronically Signed: Prashant Rushing MD at 21:47 EST , Service support , Chest X-Ray 03/05/21 21:18 IMPRESSION: There is a left pleural effusion. Left lower lobe infiltrate or atelectasis. Electronically Signed: Prashant Rushing MD at 21:48 EST , Service support , Physical Exam Const alert and oriented x3 Orientation / Consciousness: lethargic Exam Limitations: no limitations Nutritional Appearance: obese HEENT head/scalp atraumatic Head and Scalp: normocephalic Eyes PERRL, EOMs intact bilaterally and conjunctivae normal Neck no lymphadenopathy Resp normal respiratory effort, no retractions, no use of accessory muscles and clear to auscultation bilaterally Cardio regular rate, regular rhythm, S1 normal heart sound, S2 normal heart sound and no murmurs GI normal to inspection, nondistended, normoactive bowel sounds, soft to palpation, non-tender and non-distended Extremity normal to inspection, full ROM and no clubbing, cyanosis or edema Peripheral Pulses: Yes pulses 2+ throughout Skin no rashes or lesions noted Neuro oriented x3, CN's II-XII intact bilaterally and moves all extremities Sensorium / Orientation: awake Psych affect normal Assessment & Plan Assessment/Plan (1) Generalized weakness: (2) Spinal stenosis of lumbar region at multiple levels: PLAN: #Debility and weakness due to severe lumbar spinal stenosis Patient due to have an outpatient pain shots today. We will consult pain management so that patient can have the showed while she is in the hospital as patient is too debilitated to be discharged to have this done on outpatient basis. PT OT on board. Fall precautions. on tramadol for pain. Will reduce frequency to bid as she became weaker and confused when on the TID dosage. 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 #Hypertension:on amlodipine and benazepril, HCTZ and metoprolol #Type 2 diabetes mellitus: on glipizide and Januvia as well as metformin. #Depression: On escitalopram DVT prophylaxis: On Lovenox Charges/Coding Visit Charges Inpatient E&M: 54292 Subs Hosp L2
[2021-03-06] MEDS: Atorvastatin Calcium 80 MG Tablet PO (21:08)
[2021-03-06] MEDS: Latanoprost 0.005% 1 Bottle 1 DRP EACH EYE (21:10)
[2021-03-07] VITALS (9 sets, daily range): BP systolic 112–142; BP diastolic 32–80; PULSE 62–84; RESP 16–18; TEMP 35.7–36.6; O2SAT 93–97
[2021-03-07] MEDS: Gabapentin 100 MG Capsule PO ×4 (05:10→23:06)
[2021-03-07] MEDS: Levothyroxine 75 MCG Tablet PO (05:10)
[2021-03-07] MEDS: metFORMIN HCl 500 MG Tablet PO (10:52)
[2021-03-07] MEDS: Escitalopram Oxalate 20 MG Tablet PO (10:53)
[2021-03-07] MEDS: glipiZIDE XL 5 MG Tablet PO (10:53)
[2021-03-07] MEDS: LINAGLIPTIN 5 MG TABLET PO (10:53)
[2021-03-07] MEDS: Oxybutynin 5 MG Tablet PO ×2 (10:56→20:58)
[2021-03-07] MEDS: Enoxaparin 40 MG/0.4 ML Syringe SC (10:56)
[2021-03-07] MEDS: Aspirin E.C. 81 MG Tablet PO (10:56)
--- NOTE | 2021-03-07 14:25 | PN.HOSP_ITS ---
Subjective Subjective Patient seen and examined. She states she felt better overnight and the pain did not recur until this morning. SHe was complaining of the pain in her LEs this morning. Dr Ernst reviewed her overnight, and she says at the time he reviewed her, her pain was much better, so pain shot was cancelled. Now however, she is having pain again, so would want to find out if she can have the pain shot. She has remained hemodynamically stable. Objective Data Objective Data Vital Signs: Vital Signs Temp Pulse Resp BP Pulse Ox 97.3 F L 84 16 142/80 H 96 03/07/21 13:36 03/07/21 13:36 03/07/21 13:36 03/07/21 13:36 03/07/21 13:36 Oxygen Delivery Method Room Air Weight: 209 lb 10.554 oz Body Mass Index (BMI) 39.6 Intake & Output: Intake and Output for Last 24 Hours 03/05/21 03/06/21 03/07/21 23:59 23:59 23:59 Intake Total 1000 / 1400 1520 / 1520 200 / 200 Output Total 900 / 900 Balance 1000 / 1400 620 / 620 200 / 200 Lab / Micro Data Result Diagrams: 03/06/21 05:30 03/06/21 05:30 Micro: Microbiology 03/05/21 21:08 Urine, Clean Catch Urine Culture - Final Escherichia coli Physical Exam Const alert, oriented x3 and no apparent distress Exam Limitations: no limitations HEENT head/scalp atraumatic, moist oral mucous membranes and oropharynx normal Head and Scalp: normocephalic Eyes PERRL, EOMs intact bilaterally and conjunctivae normal Neck no lymphadenopathy Resp normal respiratory effort, no use of accessory muscles and clear to auscultation bilaterally Cardio regular rate, regular rhythm, S1 normal heart sound, S2 normal heart sound and no murmurs GI normal to inspection, nondistended, normoactive bowel sounds, soft to palpation, non-tender and non-distended Extremity normal to inspection, full ROM and no clubbing, cyanosis or edema Peripheral Pulses: Yes pulses 2+ throughout Skin no rashes or lesions noted Neuro oriented x3, CN's II-XII intact bilaterally and moves all extremities Sensorium / Orientation: awake and alert Psych affect normal Assessment & Plan Assessment/Plan (1) Generalized weakness: (2) Spinal stenosis of lumbar region at multiple levels: PLAN: #Debility and weakness due to severe lumbar spinal stenosis * patient says her pain improved overnight, but recurred this morning. * PT/OT on board. Fall precautions. * on tramadol * Dr Ernst reviewed patient yesterday, and plan is for patient to be follow up on outpatient basis. I spoke to Dr Ernst this morning, and plan remains to follow up on outpatient basis with Dr Ernst next week for pain shot to be scheduled. 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 #Hypertension:on amlodipine and benazepril, HCTZ and metoprolol #Type 2 diabetes mellitus: on glipizide and Januvia as well as metformin. #Depression: On escitalopram DVT prophylaxis: On Lovenox Disposition: patient now agreeable to placement. Case management on board. Charges/Coding Visit Charges OBSV E&M: 32798 Subsequent observation care L2
[2021-03-07] MEDS: Latanoprost 0.005% 1 Bottle 1 DRP EACH EYE (20:57)
[2021-03-07] MEDS: Atorvastatin Calcium 80 MG Tablet PO (20:58)
[2021-03-08 03:00] VITALS: BP 131/67; PULSE 80; RESP 18; TEMP 36.6; O2SAT 96
[2021-03-08] MEDS: Gabapentin 100 MG Capsule PO ×2 (05:11→11:06)
[2021-03-08] MEDS: Levothyroxine 75 MCG Tablet PO (05:11)
[2021-03-08 07:04] LABS: Absolute Lymphocyte Count 1.78 X10^3/uL (0.83-4.51); Absolute Neutrophil Count 3.9 X10^3/uL (2.0-7.7); Basophil# 0.04 X10^3/uL; Basophil% 0.6 % (0-1); Eosinophil# 0.72 X10^3/uL; Eosinophils% 10.1 % (0-5); Hematocrit 37.9 % (37-47); Hemoglobin 13.1 g/dL (12.0-15.0); Lymphocyte # 1.78 X10^3/ul (0.83-4.51); Mean Corp Hgb Conc 34.6 g/dL (32-36); Mean Corpuscular Hgb 30.3 pg (27.0-32.0); Mean Corpuscular Volume 87.5 fL (81-99); Mean Platelet Vol. 9.5 fl (6.2-12.0); Monocyte# 0.65 X10^3/uL; Monocyte% 9.1 % (0-10); NRBC Flagged by Analyzer 0 % (0-5); Neutrophil # 3.92 X10^3/uL (2.7-7.7); Neutrophil % 54.9 % (47-70); Platelet Count 143 K/mm3 (150-450); RBC Distribution Width CV 13.7 % (11.6-14.6); RBC Distribution Width SD 43.9 fl (35.1-43.9); Red Blood Count 4.33 M/mm3 (4.2-5.4); White Blood Count 7.1 K/mm3 (4.4-11.0)
[2021-03-08 07:43] LABS: Anion Gap 6 (5-15); BUN 15 mg/dL (7-18); BUN/Creat Ratio 19.6 RATIO (10-20); Calcium,Total 9.8 mg/dL (8.5-10.1); Chloride 110 mmol/L (98-107); Creatinine, Serum 0.77 mg/dL (0.55-1.02); EST Glomerular Filtration Rate 77 mL/min (>60); Est Glom Filt Rate - Afr Amer 93 mL/min (>60); Estimated Creatinine Clearance 34.42 ml/min; Glucose 94 mg/dL (74-106); Potassium 3.9 mmol/L (3.5-5.1); Sodium Level 140 mmol/L (136-145)
[2021-03-08 07:50] VITALS: O2SAT 93
[2021-03-08 09:00] VITALS: BP 136/77; PULSE 81; RESP 16; TEMP 36.9; O2SAT 93
[2021-03-08] MEDS: LINAGLIPTIN 5 MG TABLET PO (09:06)
[2021-03-08] MEDS: Escitalopram Oxalate 20 MG Tablet PO (09:06)
[2021-03-08] MEDS: metFORMIN HCl 500 MG Tablet PO (09:06)
[2021-03-08] MEDS: Oxybutynin 5 MG Tablet PO (09:06)
[2021-03-08] MEDS: Aspirin E.C. 81 MG Tablet PO (09:06)
[2021-03-08] MEDS: glipiZIDE XL 5 MG Tablet PO (09:06)
[2021-03-08] MEDS: Enoxaparin 40 MG/0.4 ML Syringe SC (09:07)
--- NOTE | 2021-03-08 09:08 | CASEMGMT ---
SW received a voice mail this am from Brenda and patient was approved. Plan: [facility] under skilled level of care. Kendra NIELSON
[2021-03-08] MEDS: Acetaminophen 325 MG Tablet 650 MG PO (11:06)
--- NOTE | 2021-03-08 11:21 | DS.PCM_ITS ---
Providers Date of Admission: 03/05/21 Primary Care Physician: Dr. Sunil Adamson MD Consultations 03/06/21 11:51 Consult: Pain Management Routine Consulting Provider: Lorenzo Ernst Reason for Consult: severe spinal stenosis EMERGENT Consult: No MD Notified: Yes Date Notified: 03/06/21 Time Notified: 12:43 Method of Notification: office Reason For Visit: GENERALIZED WEAKNESS, HX OF STROKE Diagnosis Discharge Diagnosis (1) Generalized weakness: Status: Acute Code(s): R53.1 - Weakness (2) Spinal stenosis of lumbar region at multiple levels: Status: Acute Code(s): M48.061 - Spinal stenosis, lumbar region without neurogenic claudication Medications at Discharge Home Medications aspirin 81 mg PO DAILY@0800 03/18/14 ergocalciferol (vitamin D2) 50,000 unit PO MO 10/03/14 latanoprost 1 drp EACH EYE QHS 10/03/14 levothyroxine 75 mcg tablet 75 mcg PO DAILY 03/11/19 multivitamin 1 tab PO DAILY 02/24/20 selenium 50 mcg tablet 50 mcg PO DAILY 07/05/20 metformin 500 mg tablet 500 tablet PO DAILY 08/28/20 Januvia 50 mg PO DAILY 01/18/21 acetaminophen 500 mg PO DAILY PRN 01/18/21 amlodipine 10 mg PO DAILY 01/18/21 atorvastatin 80 mg PO QHS 01/18/21 benazepril 20 mg PO BID 01/18/21 glipizide 5 mg PO DAILY 01/18/21 hydrochlorothiazide 12.5 mg PO DAILY 01/18/21 metoprolol tartrate 12.5 mg PO BID #30 tab 01/20/21 escitalopram oxalate 10 mg tablet 20 mg PO DAILY tab 02/23/21 gabapentin 100 mg capsule 100 mg PO .qid cap 02/23/21 oxybutynin chloride 10 mg tablet,extended release 24 hr 5 mg PO BID tab 02/23/21 oxycodone 5 mg PO Q6H PRN 5 Days #20 tab 03/08/21 Hospital Course Operations None Procedures None Summary of Care Provided Minutes Spent on Discharge: 45 Hospital Course: Patient is 80-year-old female with past medical history as outlined who was admitted through the ED on 03/05/2021 with a complaint of generalized weakness. She was found on the floor at home by her son and she was noted to have some slurring and left facial droop. CT of the brain done was negative and by time she arrived in the hospital, she did not have any slurring of speech or facial droop. However patient admitted to increasing her tramadol dose to 3 times daily on account of severe back pain due to spinal stenosis. The increasing tramadol started on the day of her presentation and was therefore thought to be contributing to her presentation. She was admitted and managed for debility and weakness and acute metabolic encephalopathy which was thought to be medication induced. Patient was scheduled to have a pain shot in the lower back the day after presentation. Pain management was consulted and Dr. Urbano reviewed patient and determined that she should follow-up on outpatient basis as patient felt much better and pain had resolved at the time he reviewed her. Pain subsequently did with care and I spoke to Dr. Harris again. However he preferred to follow patient up on outpatient basis for the pain shots. Patient expressed a desire to go to rehab facility on account of her weakness. She was therefore discharged to a rehab facility on 03/08/2021. Patient seen and examined prior to discharge. She felt well and had no complaints. Review of systems otherwise negative. Labs and vitals reviewed. Home medication reviewed and reconciled. Patient was given a prescription for [employer] 5 mg every 6 hours as needed for total of 20 tablets for 5 days. OARRS score was checked and no red flags were seen. Physical Exam Const alert, oriented x3 and no apparent distress General Appearance: cooperative, comfortable and well kempt Orientation / Consciousness: awake, oriented to person, oriented to place and oriented to time Exam Limitations: no limitations Nutritional Appearance: obese HEENT normocephalic, head/scalp atraumatic, moist oral mucous membranes and oropharynx normal Eyes PERRL, EOMs intact bilaterally and conjunctivae normal Neck no lymphadenopathy and supple Lymph Lymphatic: no lymphadenopathy noted Resp normal respiratory effort, normal air movement, no retractions, no use of accessory muscles and clear to auscultation bilaterally Cardio regular rate, regular rhythm, S1 normal heart sound, S2 normal heart sound and no murmurs GI normal to inspection, nondistended, normoactive bowel sounds, soft to palpation, non-tender and non-distended Extremity normal to inspection, full ROM, normal capillary refill and no clubbing, cyanosis or edema Skin no rashes or lesions noted General Skin Exam: turgor normal Neuro oriented x3, CN's II-XII intact bilaterally and moves all extremities Sensorium / Orientation: awake and alert Psych thought process normal, cooperative and affect normal Appearance: appropriate Weight / BMI Weight Weight: 209 lb 10.554 oz Body Mass Index (BMI) 39.6 ABG / Lab / Microbiology Data Result Diagrams: 03/08/21 06:15 03/08/21 06:15 Laboratory: Laboratory Results - last 24 hr 03/08/21 06:15: WBC 7.1, RBC 4.33, Hgb 13.1, Hct 37.9, MCV 87.5, MCH 30.3, MCHC 34.6, RDW Std Deviation 43.9, RDW Coeff of [place] 13.7, Plt Count 143 L, MPV 9.5, Immature Gran % (Auto) 0.300, Neut % (Auto) 54.9, Lymph % (Auto) 25.0, [place] % (Auto) 9.1, Eos % (Auto) 10.1 H, Baso % (Auto) 0.6, Absolute Neuts (auto) 3.9, Absolute Lymphs (auto) 1.78, Nucleated RBC % 0 03/08/21 06:15: Sodium 140, Potassium 3.9, Chloride 110 H, Carbon Dioxide 24.0, Anion Gap 6, BUN 15, Creatinine 0.77, Estim Creat Clear Calc 34.42, Est GFR (MDRD) Af Amer 93, Est GFR (MDRD) Non-Af 77, BUN/Creatinine Ratio 19.6, Glucose 94, Calcium 9.8 Microbiology: Microbiology 03/05/21 21:08 Urine, Clean Catch Urine Culture - Final Escherichia coli D/C Instructions Discharge Diet: Low fat / Low cholesterol Discharge Activity: Return to Normal Activity Weight Bearing Status: Weight bearing as tolerated Call your doctor if you observe: Fever of 101 or Higher, Shortness of breath, Dizziness, Swelling in the ankles, Chest pain and Increased palpitations (irreg ular heartbeat) Meaningful Use Info Meaningful Use Diagnoses (Choose all that apply): None applicable Discharge Plan Admission Admit Date/Time: 03/05/21 23:20 Primary Reason for Your Visit: debility and weakness Attending Provider: Teetee Miles Primary Care Provider: Sunil Adamson Consulting Providers: Lorenzo Ernst Discharge Orders/Prescriptions Prescriptions: New oxycodone 5 mg tablet 5 mg PO Q6H PRN (Reason: pain) 5 Days Qty: 20 RF: 0 Continued levothyroxine 75 mcg tablet 75 mcg PO DAILY RF: 0 multivitamin [Daily Multi-Vitamin] Tablet 1 tab PO DAILY RF: 0 gabapentin 100 mg capsule 100 mg PO .qid RF: 0 selenium 50 mcg tablet 50 mcg PO DAILY RF: 0 metformin 500 mg tablet 500 tablet PO DAILY RF: 0 aspirin 81 MG tablet 81 mg PO DAILY@0800 RF: 0 oxybutynin chloride 10 mg tablet extended release 24hr 5 mg PO BID RF: 0 latanoprost 1 DROP bottle 1 drp EACH EYE QHS RF: 0 ergocalciferol (vitamin D2) 50,000 UNIT capsule 50,000 unit PO MO RF: 0 escitalopram oxalate [Lexapro] 10 mg tablet 20 mg PO DAILY RF: 0 glipizide 5 mg tablet extended release 24hr 5 mg PO DAILY RF: 0 acetaminophen 500 mg Tablet 500 mg PO DAILY PRN (Reason: Pain) RF: 0 Januvia 50 mg tablet 50 mg PO DAILY RF: 0 atorvastatin 80 MG tablet 80 mg PO QHS RF: 0 amlodipine 10 mg tablet 10 mg PO DAILY RF: 0 benazepril 20 MG tablet 20 mg PO BID RF: 0 hydrochlorothiazide 12.5 mg tablet 12.5 mg PO DAILY RF: 0 metoprolol tartrate 25 mg tablet 12.5 mg PO BID Qty: 30 RF: 0 Discontinued tramadol 50 mg tablet 50 mg PO BID RF: 0 Referrals / Follow Up: Sunil Adamson MD [Primary Care Provider] - Within 2 Weeks Disposition Disposition (needs filled in before D/C Order can be placed): [facility] Charges/Coding Visit Charges Inpatient E&M: 16939 Disch Hosp
--- NOTE | 2021-03-08 15:50 | NURSING ---
report given to [facility] nurse Guzman, no further questions voiced. Patients home med (tramadol) signed and sent with transportation aide
--- NOTE | 2021-03-08 15:53 | PCM.TXEXTCAR ---
Diet 03/05/21 23:37 Diet: Regular - General Food consistency:: Regular Liquid Consistency:: Regular/Thin Routine Orders/Code Status Enema Type: [place] Enema Frequency: Daily PRN Suppository Type: Dulcolax 10mg Suppository Frequency: Daily PRN O2 Frequency: PRN Keep PO Greater than or Equal to (%): 90 Therapies Weight Bearing: Weight bearing as tolerated Physical Therapy: Eval and Treat Occupational Therapy: Eval and Treat Problem/Diagnosis (1) Generalized weakness: Status: Acute (2) Spinal stenosis of lumbar region at multiple levels: Status: Acute Allergies/Procedures Done in Hospital Allergies iodine Allergy (Verified 03/05/21 20:37) SEE COMMENTS STATES BETADINE IS OK Type of Care/Length of Stay Estimated LOS: Convalescent Care Less Than 30 days Type of Care Needed: Skilled Rehab Potential: Good Prognosis: Good Additional Orders/Day of Discharge Day of Discharge: 03/08/21 Discharge Plan Admission Admit Date/Time: 03/05/21 23:20 Primary Reason for Your Visit: debility and weakness Attending Provider: Teetee Miles Primary Care Provider: Sunil Adamson Consulting Providers: Lorenzo Ernst Discharge Orders/Prescriptions Prescriptions: New oxycodone 5 mg tablet 5 mg PO Q6H PRN (Reason: pain) 5 Days Qty: 20 RF: 0 Continued levothyroxine 75 mcg tablet 75 mcg PO DAILY RF: 0 multivitamin [Daily Multi-Vitamin] Tablet 1 tab PO DAILY RF: 0 gabapentin 100 mg capsule 100 mg PO .qid RF: 0 selenium 50 mcg tablet 50 mcg PO DAILY RF: 0 metformin 500 mg tablet 500 tablet PO DAILY RF: 0 aspirin 81 MG tablet 81 mg PO DAILY@0800 RF: 0 oxybutynin chloride 10 mg tablet extended release 24hr 5 mg PO BID RF: 0 latanoprost 1 DROP bottle 1 drp EACH EYE QHS RF: 0 ergocalciferol (vitamin D2) 50,000 UNIT capsule 50,000 unit PO MO RF: 0 escitalopram oxalate [Lexapro] 10 mg tablet 20 mg PO DAILY RF: 0 glipizide 5 mg tablet extended release 24hr 5 mg PO DAILY RF: 0 acetaminophen 500 mg Tablet 500 mg PO DAILY PRN (Reason: Pain) RF: 0 Januvia 50 mg tablet 50 mg PO DAILY RF: 0 atorvastatin 80 MG tablet 80 mg PO QHS RF: 0 amlodipine 10 mg tablet 10 mg PO DAILY RF: 0 benazepril 20 MG tablet 20 mg PO BID RF: 0 hydrochlorothiazide 12.5 mg tablet 12.5 mg PO DAILY RF: 0 metoprolol tartrate 25 mg tablet 12.5 mg PO BID Qty: 30 RF: 0 Discontinued tramadol 50 mg tablet 50 mg PO BID RF: 0 Referrals / Follow Up: Sunil Adamson MD [Primary Care Provider] - Within 2 Weeks Disposition Disposition (needs filled in before D/C Order can be placed): Detention Facility
--- NOTE | 2021-03-09 07:40 | CASEMGMT ---
Late entry: Note from 03-08-21 Patient ready for discharge to TCU. Plan: d/c to [facility] TCU under skilled level of care. eKndra NIELSON
== END 2021-03-08 11:39 | disposition skilled nursing facility (03) ==
LOC: ED 23:02 → PCU 23:08
PROVIDERS: Admitting Provider Family Medicine; Emergency Provider Student in an Organized Health Care Education/Training Program; PCP Family Medicine; Visit Provider Student in an Organized Health Care Education/Training Program
DX: R53.1 Weakness (principal); M48.061 Spinal stenosis, lumbar region without neurogenic claudication; R47.81 Slurred speech; R29.810 Facial weakness; M19.90 Unspecified osteoarthritis, unspecified site; E66.9 Obesity, unspecified; Z68.39 Body mass index [BMI] 39.0-39.9, adult; E78.5 Hyperlipidemia, unspecified; F32.A Depression, unspecified; I10 Essential (primary) hypertension; E06.3 Autoimmune thyroiditis; Z86.73 Personal history of transient ischemic attack (TIA), and cerebral infarction without residual deficits; Z79.899 Other long term (current) drug therapy; Z79.84 Long term (current) use of oral hypoglycemic drugs; Z79.82 Long term (current) use of aspirin; G47.30 Sleep apnea, unspecified; E11.9 Type 2 diabetes mellitus without complications
CPT/HCPCS: 36415; 70450; 71045; 80048; 80053; 81001; 82550; 84484; 85025; 87077; 87086; 87088; 87186; 87426; 93005; 96360; 96361; 96372; 97110; 97162; 97166; 97530; 99218; 99285; J7030; A4216; G0378

== ENCOUNTER 2021-03-08 16:40 | Inpatient (IN) | payer MEDICARE, SELFPAY ==
[2021-03-08 16:51] VITALS: BP 141/94; PULSE 75; RESP 18; TEMP 36.3; O2SAT 96
--- NOTE | 2021-03-08 17:25 | NURSING ---
Dr Bhakta requesting consult for Basali.
[2021-03-08 17:31] VITALS: BMI 39.7
--- NOTE | 2021-03-08 17:52 | NURSING ---
R' STATES RECEIVED PHIZER VACCINE. SHE STATED SHE WILL TRY AND HAVE FAMILY BRING IN VACCINE CARD FOR PROOF.
[2021-03-08 18:01] VITALS: BP 141/94; PULSE 75
[2021-03-08] MEDS: Gabapentin 100 MG Capsule PO (18:01)
[2021-03-08] MEDS: Metoprolol Tartrate 25 MG Tablet 12.5 MG PO (18:01)
[2021-03-08] MEDS: Oxybutynin 5 MG Tablet PO (18:01)
[2021-03-08] MEDS: Lisinopril 20 MG Tablet PO (18:01)
--- NOTE | 2021-03-08 18:58 | HP.PCM_ITS ---
HPI - General General Date of Admission: 03/08/21 HPI Narrative 03/05/2021 CORY CUELLO, is a 80 Female who presents to [facility] Emergency Department with neurologic signs, symptoms. 03/05/2021 EKG sinus bradycardia with sinus arrhythmia, non specific T wave abnormality, prolonged QT. Generalized weakness, fell on floor, sat for 2 hours. Unable to get up, history of spinal stenosis, pain worse. Tramadol 50mg three times per day, dose doubled, speech slurred. Facial droop. CT brain negative, Chest X-ray showed left pleural effusion. IV Fluids given for low blood pressure. 03/05/2021 Admit to Hospital. Weakness secondary to increased Tramadol dose. PT/OT for debility. TIA unlikely. 03/06/2021 Debility secondary to spinal stenosis. Feels weak, patient cancelled epidural steroid injection due to weakness. Decrease Tramadol frequency due to Tramadol toxicity. Too weak to go home alone. 03/07/2021 Pain improved overnight, then worse today. Plan epidural steroid injection as outpatient. PT/OT for [facility]. 03/08/2021 Admit to TCU with debility, here for rehabilitation, strengthening, prior to discharge home with son. [facility] Medical History Arthritis Basal cell carcinoma CVA (cerebral vascular accident) (01/2019) Depression Elevated troponin I level Essential (primary) hypertension Glaucoma Darryl's disease Hyperlipemia Nonrheumatic aortic (valve) stenosis Obesity Skin lesion of face Sleep apnea Tachycardia Home Medications aspirin 81 mg PO DAILY@0800 03/18/14 [History Last Taken 03/08/21 09:06] ergocalciferol (vitamin D2) 50,000 unit PO MO 10/03/14 [History Last Taken 01/16/21] latanoprost 1 drp EACH EYE QHS 10/03/14 [History Last Taken 03/07/21 20:57] levothyroxine 75 mcg tablet 75 mcg PO DAILY 03/11/19 [History Last Taken 03/08/21 05:11] multivitamin 1 tab PO DAILY 02/24/20 [History Last Taken 01/17/21] selenium 50 mcg tablet 50 mcg PO DAILY 07/05/20 [History Last Taken 01/18/21] metformin 500 mg tablet 500 tablet PO DAILY 08/28/20 [History Last Taken 03/08/21 09:06] Januvia 50 mg PO DAILY 01/18/21 [History Last Taken 03/08/21 09:06] acetaminophen 500 mg PO DAILY PRN 01/18/21 [History Last Taken 03/08/21 11:06] amlodipine 10 mg PO DAILY 01/18/21 [History Last Taken 01/17/21] atorvastatin 80 mg PO QHS 01/18/21 [History Last Taken 03/07/21 20:58] benazepril 20 mg PO BID 01/18/21 [History Last Taken 01/17/21] glipizide 5 mg PO DAILY 01/18/21 [History Last Taken 03/08/21 09:06] hydrochlorothiazide 12.5 mg PO DAILY 01/18/21 [History Last Taken 01/18/21] escitalopram oxalate 10 mg tablet 20 mg PO DAILY tab 02/23/21 [History Last Taken 03/08/21 09:06] gabapentin 100 mg capsule 100 mg PO .qid cap 02/23/21 [History Last Taken 03/08/21 11:06] oxybutynin chloride 10 mg tablet,extended release 24 hr 5 mg PO BID tab 02/23/21 [History Last Taken 03/08/21 09:06] metoprolol tartrate 12.5 mg PO BID 03/08/21 [History Last Taken Unknown] oxycodone 5 mg PO Q6H PRN 5 Days #20 tab 03/08/21 [Rx Last Taken Unknown] Allergy/AdvReac Type Severity Reaction Status Date / Time iodine Allergy SEE Verified 03/05/21 20:37 COMMENTS Family History Mother CAD (coronary artery disease) Hypertension Cancer Leukemia Father Diabetes Alcoholism Surgical History H/O partial thyroidectomy History of bladder suspension procedure History of cervical spinal surgery History of hysterectomy History of right and left heart catheterization (09/27/16) 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 Bran Bhakta MD) household members: children Smoking Status: Never smoker alcohol intake: never substance use type: does not use ROS Constitutional Constitutional: Denies chills, fever(s) or weight gain ENT HEENT: Denies headache(s), nasal congestion or nasal discharge Cardiovascular Cardiovascular: Denies chest pain or palpitations Respiratory/Chest Respiratory/Chest: Denies cough, excessive phlegm production or shortness of breath with exertion Gastrointestinal Gastrointestinal: Denies abdominal pain, nausea or vomiting Genitourinary Genitourinary: Denies dysuria Musculoskeletal Musculoskeletal: Denies joint pain or joint swelling Integumentary Integumentary: Denies rash or wounds Neurologic Neurologic: Denies focal weakness, numbness or tingling Psychiatric Psychiatric: Denies anxiety, depression, homicidal ideation or suicidal ideation Vital Signs Vital Signs Vital Signs: 03/08/21 16:51 03/08/21 18:01 03/08/21 18:23 Temperature 97.4 F L Temperature Source Temporal Pulse Rate 75 75 Pulse Rhythm Regular Pulse Strength Normal (2+) Respiratory Rate 18 Respiratory Effort Normal Non-Labored Respiratory Depth Normal Respiratory Pattern Normal Blood Pressure 141/94 H 141/94 H Blood Pressure Mean 109 Blood Pressure Source Monitor Blood Pressure Position Semi-Fowlers Blood Pressure Location Left Arm Pulse Ox 96 Oxygen Delivery Method Room Air Room Air Weight Weight: 95.436 kg Body Mass Index (BMI) 39.7 Physical Exam Const alert and oriented x3 General Appearance: cooperative HEENT normocephalic Eyes PERRL and EOMs intact bilaterally Neck supple, no JVD and no carotid bruits Resp normal respiratory effort, normal air movement and clear to auscultation bilaterally Cardio regular rate and regular rhythm GI normal to inspection, nondistended, normoactive bowel sounds, non-tender and non-distended Extremity normal capillary refill General Extremity: Negative for edema Skin no rashes or lesions noted General Skin Exam: no breakdown Psych affect normal Appearance: appropriate Assessment & Plan Assessment/Plan (1) Debility: (2) Weakness: (3) Dysarthria: (4) Hypotension: (5) Lumbar spinal stenosis: (6) Stroke: (7) Vitamin D deficiency: (8) Glaucoma: (9) Hypothyroidism: (10) Diabetes mellitus: (11) Hypertension: (12) Hyperlipidemia: (13) Depression: (14) Diabetic polyneuropathy: (15) Overactive bladder: PLAN: 80 year old female with below past medical history hospitalized for 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 * Debility - PT/OT. * Pain - Tylenol 1000mg q6h prn pain (1-3), Oxycodone 5mg q4h prn pain (4-10). * Bowel - Miralax 17gm daily, Senna/colace 2 tablets twice daily, Dulcolax 10mg pr daily prn. * Adult immunization - Administer prevnar 13, pneumovax 23, fluzone, covid19 vaccine as appropriate. * DVT prophylaxis - Hold, needs lumbar epidural steroid injection. * Hypertension - Metoprolol 12.5mg bid, Lisinopril 20mg bid, HCTZ 12.5mg daily, Amlodipine 10mg daily. * Stroke - Aspirin 81mg daily. * Hyperlipidemia - Atorvastatin 80mg qhs. * Vitamin D deficiency - D2 1.25mg qweek. * Depression - Lexapro 20mg daily, stable chronic fdc use, GDR not recommended. * Diabetic polyneuropathy - Gabapentin 100mg q6h. * Diabetes Mellitus II - Metformin 500mg daily, Glipizide 5mg daily, Tradjenta 5mg daily. * Glaucoma - Latanoprost 1gtt ou qhs. * Hypothyroidism - Levothyroxine 75mcg daily. * Skin irritation - Calmoseptine topical twice daily. * Nutrition - MVI daily. * Overactive bladder - Oxybutynin 5mg bidcm. * Lumbar spinal stenosis - Consult Dr. Ernst for lumbar epidural steroid injection.
[2021-03-08] MEDS: Atorvastatin Calcium 80 MG Tablet PO (20:24)
[2021-03-08] MEDS: Menthol/Lanolin/Calamine/Znox 113 GM Tube 1 APPLIC TOPICAL (20:27)
[2021-03-08] MEDS: Latanoprost 0.005% 1 Bottle 1 DRP EACH EYE (20:29)
[2021-03-09] MEDS: Gabapentin 100 MG Capsule PO ×5 (01:05→23:46)
[2021-03-09 06:02] VITALS: BP 127/70; PULSE 61
[2021-03-09] MEDS: Escitalopram Oxalate 20 MG Tablet PO (06:03)
[2021-03-09] MEDS: hydroCHLOROthiazide 12.5mg 12.5 MG PO (06:03)
[2021-03-09] MEDS: Menthol/Lanolin/Calamine/Znox 113 GM Tube 1 APPLIC TOPICAL ×2 (06:03→17:56)
[2021-03-09 06:04] VITALS: PULSE 61
[2021-03-09] MEDS: Metoprolol Tartrate 25 MG Tablet 12.5 MG PO ×2 (06:04→17:54)
[2021-03-09] MEDS: amLODIPine 10 MG Tablet PO (06:05)
[2021-03-09] MEDS: LINAGLIPTIN 5 MG TABLET PO (06:05)
[2021-03-09] MEDS: Lisinopril 20 MG Tablet PO ×2 (06:05→17:54)
[2021-03-09] MEDS: Levothyroxine 75 MCG Tablet PO (06:05)
[2021-03-09] MEDS: Acetaminophen 500 MG Tablet 1000 MG PO (06:13)
[2021-03-09] MEDS: Oxybutynin 5 MG Tablet PO ×2 (07:55→17:54)
[2021-03-09] MEDS: Aspirin E.C. 81 MG Tablet PO (07:55)
[2021-03-09] MEDS: glipiZIDE XL 5 MG Tablet PO (07:55)
[2021-03-09] MEDS: metFORMIN HCl 500 MG Tablet PO (07:55)
[2021-03-09] MEDS: Multivitamins,Therapeutic Tablet 1 TABLET PO (07:56)
--- NOTE | 2021-03-09 10:25 | NURSING ---
family brought in covid card, copied and placed in chart
[2021-03-09] MEDS: Tuberculin,Purif.prot.deriv. 50 TU/ML Vial 0.1 ML ID (10:28)
--- NOTE | 2021-03-09 13:53 | PHA.CONS_ITS ---
Progress Note - Pharmacy Subjective: TCU Admission Objective: Allergies iodine Allergy (Verified 03/05/21 20:37) SEE COMMENTS STATES BETADINE IS OK Current Medications Generic Name Dose Route Start Last Admin Trade Name Freq PRN Reason Stop Dose Admin Acetaminophen 1,000 mg 03/08/21 19:20 03/09/21 06:13 Acetaminophen 500 Mg Tablet PO 1,000 mg Q6H PRN PRN Administration Pain Score 1-3 Amlodipine Besylate 10 mg 03/09/21 06:00 03/09/21 06:05 Amlodipine 10 Mg Tablet PO 10 mg DAILY AZAR Administration Aspirin 81 mg 03/09/21 08:00 03/09/21 07:55 Aspirin E.C. 81 Mg Tablet PO 81 mg 0800 AZAR Administration Atorvastatin Calcium 80 mg 03/08/21 22:00 03/08/21 20:24 Atorvastatin Calcium 80 Mg Tablet PO 80 mg QHS AZAR Administration Bisacodyl 10 mg 03/08/21 17:21 Bisacodyl 10 Mg Suppository RC DAILY PRN Constipation Calamine/Phenol 1 applic 03/08/21 22:00 03/09/21 06:03 Menthol/Lanolin/Calamine/Znox 113 Gm Tube TOPICAL 1 applic BID AZAR Administration Protocol Ergocalciferol 1.25 mg 03/12/21 08:00 Ergocalciferol 1.25 Mg (50, 000 Unit) Capsule PO MO AZAR Escitalopram Oxalate 20 mg 03/09/21 06:00 03/09/21 06:03 Escitalopram Oxalate 20 Mg Tablet PO 20 mg DAILY AZAR Administration Gabapentin 100 mg 03/08/21 18:00 03/09/21 11:59 Gabapentin 100 Mg Capsule PO 100 mg Q6 AZAR Administration Glipizide 5 mg 03/09/21 08:00 03/09/21 07:55 Glipizide Xl 5 Mg Tablet PO 5 mg 0800 AZAR Administration Hydrochlorothiazide 12.5 mg 03/09/21 06:00 03/09/21 06:03 Hydrochlorothiazide 12.5mg PO 12.5 mg DAILY AZAR Administration Latanoprost 1 drp 03/08/21 22:00 03/08/21 20:29 Latanoprost 0.005% 1 Bottle EACH EYE 1 drp QHS AZAR Administration Levothyroxine Sodium 75 mcg 03/09/21 06:00 03/09/21 06:05 Levothyroxine 75 Mcg Tablet PO 75 mcg 0600 [facility] Administration Linagliptin 5 mg 03/09/21 06:00 03/09/21 06:05 Linagliptin 5 Mg Tablet PO 5 mg DAILY [facility] Administration Lisinopril 20 mg 03/08/21 18:00 03/09/21 06:05 Lisinopril 20 Mg Tablet PO 20 mg BID [facility] Administration Metformin HCl 500 mg 03/09/21 08:00 03/09/21 07:55 Metformin Hcl 500 Mg Tablet PO 500 mg DAILY@0800 AZAR Administration Metoprolol Tartrate 12.5 mg 03/08/21 18:00 03/09/21 06:04 Metoprolol Tartrate 25 Mg Tablet PO 12.5 mg BID [facility] Administration Multivitamins 1 tablet 03/09/21 08:00 03/09/21 07:56 Multivitamins,Therapeutic Tablet PO 1 tablet 0800 [facility] Administration Oxybutynin Chloride 5 mg 03/08/21 17:00 03/09/21 07:55 Oxybutynin 5 Mg Tablet PO 5 mg BIDCM [facility] Administration Oxycodone HCl 5 mg 03/08/21 19:20 Oxycodone 5 Mg Tablet PO Q4H PRN PRN Pain Score 4-10 Polyethylene Glycol 17 gm 03/09/21 06:00 03/09/21 06:04 Polyethylene Glycol 3350 17 Gm Packet PO Not Given DAILY [facility] Senna/Docusate Sodium 2 tablet 03/08/21 19:30 03/09/21 06:05 Senna/Docusate Sodium 1 Tablet PO Not Given BID [facility] Tuberculin PPD 0.1 ml 03/16/21 10:00 Tuberculin,Purif.Prot.Deriv. 50 Tu/Ml Vial ID 03/16/21 10:01 X1 ONE Problem List (Last Reviewed 03/08/21 @ 19:[address] Bran Bhakta MD) Overactive bladder (Acute) Diabetic polyneuropathy (Acute) Depression (Acute) Hyperlipidemia (Acute) Hypertension (Chronic) Diabetes mellitus (Acute) Hypothyroidism (Acute) Glaucoma (Acute) Vitamin D deficiency (Acute) Stroke (Acute) Lumbar spinal stenosis (Acute) Hypotension (Acute) Dysarthria (Acute) Weakness (Acute) Debility (Acute) Vital Signs Temp Pulse Resp BP Pulse Ox 97.4 F L 61 18 127/70 H 96 03/08/21 16:51 03/09/21 06:04 03/08/21 16:51 03/09/21 06:02 03/08/21 16:51 Oxygen Delivery Method Room Air Weight: 95.436 kg Body Mass Index (BMI) 39.7 Assessment/Plan: 1. Pain: acetaminophen 1000mg PO Q6H PRN pain 1-3/10 and oxycodone 5mg PO Q4H PRN pain 4-10/10. Please continue to monitor for increased pain and PRN usage. 2. Hypertension: metoprolol tartrate 12.5mg PO BID, lisinopril 20mg PO BID, hydrochlorothiazide 12.5mg PO daily and amlodipine 10mg PO daily. Please continue to monitor BP (last 127/70), HR (last 61), cough, potassium (last 3.9mmol/L), sodium (last 140mmol/L), renal function and swelling. 3. Stroke: aspirin 81mg PO DAILYCM. Please continue to monitor for S/S of bleeding/stroke and hemoglobin (last 13.1g/dL). *4. Hyperlipidemia: atorvastatin 80mg PO QHS. Please consider ordering a lipid panel if clinically appropriate (last 01/2019). Thanks. Please continue to monitor for muscle pain. *5. Diabetes mellitus II/diabetic neuropathy: metformin 500mg PO DAILYCM, glipizide XL 5mg PO daily, linagliptin 5mg PO daily and gabapentin 100mg PO Q6H. Please consider ordering a hemoglobin A1c (last 7%, 01/2019) if clinically appropriate. Please continue to monitor glucose (last 94mg/dL), renal function and confusion. 6. Glaucoma: latanoprost 0.005% 1gtt OU QHS. Please continue to monitor for S/S of glaucoma. 7. Hypothyroidism: levothyroxine 75mcg PO daily. Please continue to monitor for S/S of hypothyroidism and TSH (last 01/18/21). 8. Overactive bladder: oxybutynin 5mg PO BIDCM. Please continue to monitor for S/S of overactive bladder and anticholinergic side effects. 9. Nutrition: multivitamin 1T PO DAILYCM. Please continue to monitor. *10. Vitamin D deficiency: ergocalciferol 1.25mg PO weekly. Please consider ordering a vitamin D level (last 05/2018) if clinically appropriate. Psychotropic Medications: 1. Depression: escitalopram 20mg PO daily. Please see physician note regarding GDR. Unnecessary Medications: None Bowel Regimen: Miralax 17gm PO daily, senna/docusate 2T PO BID and bisacodyl 10mg RC daily PRN constipation. Please continue to monitor for S/S of consti pation and PRN usage. Date of Note:: 03/09/21
[2021-03-09 13:58] VITALS: BP 118/70; PULSE 62; RESP 18; TEMP 36.1
--- NOTE | 2021-03-09 14:11 | CASEMGMT ---
Social Work Met with patient for initial assessment. Discussed code status. Confirmed full code. MOLST form completed, communication to , placed in chart. Explained [employer] insurance with NRD 03/14 and continued stay is not guaranteed. The goal is for pt to return home with son stronger and able to do ADLs independently. Pt expressed she had trouble standing to shower or brush her teeth. Son and dtr are involved but both work radiologic technology instructor. SW to continue to follow. Coty Serrano, DRILL PRESS HAND MANAGER OF PROJECT MANAGEMENT
[2021-03-09 17:54] VITALS: BP 118/70; PULSE 62
[2021-03-09 22:00] VITALS: PULSE 59; RESP 16; O2SAT 96
[2021-03-09] MEDS: Atorvastatin Calcium 80 MG Tablet PO (22:25)
[2021-03-09] MEDS: Latanoprost 0.005% 1 Bottle 1 DRP EACH EYE (22:25)
[2021-03-10] MEDS: oxyCODONE 5 MG Tablet PO ×2 (04:07→11:55)
[2021-03-10] MEDS: Menthol/Lanolin/Calamine/Znox 113 GM Tube 1 APPLIC TOPICAL ×2 (06:19→17:08)
[2021-03-10 06:22] VITALS: BP 112/64; PULSE 69
[2021-03-10] MEDS: amLODIPine 10 MG Tablet PO (06:22)
[2021-03-10] MEDS: LINAGLIPTIN 5 MG TABLET PO (06:22)
[2021-03-10] MEDS: Lisinopril 20 MG Tablet PO ×2 (06:22→17:06)
[2021-03-10] MEDS: Metoprolol Tartrate 25 MG Tablet 12.5 MG PO ×2 (06:22→17:07)
[2021-03-10] MEDS: Levothyroxine 75 MCG Tablet PO (06:22)
[2021-03-10] MEDS: hydroCHLOROthiazide 12.5mg 12.5 MG PO (06:23)
[2021-03-10] MEDS: Escitalopram Oxalate 20 MG Tablet PO (06:23)
[2021-03-10] MEDS: Gabapentin 100 MG Capsule PO ×3 (06:24→17:07)
[2021-03-10 06:31] LABS: Bedside Glucose 117 mg/dL (70-110)
[2021-03-10 06:57] VITALS: BP 112/64; PULSE 69
[2021-03-10] MEDS: Aspirin E.C. 81 MG Tablet PO (08:24)
[2021-03-10] MEDS: glipiZIDE XL 5 MG Tablet PO (08:24)
[2021-03-10] MEDS: metFORMIN HCl 500 MG Tablet PO (08:24)
[2021-03-10] MEDS: Oxybutynin 5 MG Tablet PO ×2 (08:24→17:07)
[2021-03-10] MEDS: Multivitamins,Therapeutic Tablet 1 TABLET PO (08:26)
[2021-03-10 09:21] LABS: Absolute Lymphocyte Count 1.92 X10^3/uL (0.83-4.51); Absolute Neutrophil Count 5.1 X10^3/uL (2.0-7.7); Basophil# 0.04 X10^3/uL; Basophil% 0.5 % (0-1); Eosinophil# 0.98 X10^3/uL; Eosinophils% 11.2 % (0-5); Hematocrit 38.5 % (37-47); Hemoglobin 13.1 g/dL (12.0-15.0); Lymphocyte # 1.92 X10^3/ul (0.83-4.51); Lymphocyte % 21.9 % (19-41); Mean Corpuscular Volume 88.3 fL (81-99); Mean Platelet Vol. 9.4 fl (6.2-12.0); Monocyte# 0.66 X10^3/uL; Monocyte% 7.5 % (0-10); NRBC Flagged by Analyzer 0 % (0-5); Neutrophil # 5.13 X10^3/uL (2.7-7.7); Neutrophil % 58.7 % (47-70); Platelet Count 150 K/mm3 (150-450); RBC Distribution Width CV 14.1 % (11.6-14.6); RBC Distribution Width SD 45.2 fl (35.1-43.9); Red Blood Count 4.36 M/mm3 (4.2-5.4); White Blood Count 8.8 K/mm3 (4.4-11.0)
[2021-03-10 09:46] LABS: Anion Gap 6 (5-15); BUN 19 mg/dL (7-18); BUN/Creat Ratio 21.7 RATIO (10-20); Calcium,Total 9.6 mg/dL (8.5-10.1); Chloride 108 mmol/L (98-107); Creatinine, Serum 0.88 mg/dL (0.55-1.02); EST Glomerular Filtration Rate 66 mL/min (>60); Est Glom Filt Rate - Afr Amer 80 mL/min (>60); Estimated Creatinine Clearance 39.12 ml/min; Glucose 136 mg/dL (74-106); Potassium 4.2 mmol/L (3.5-5.1); Sodium Level 139 mmol/L (136-145)
[2021-03-10 13:53] VITALS: BP 95/52; PULSE 60; RESP 14; TEMP 36.1; O2SAT 94
[2021-03-10 17:07] VITALS: BP 122/67; PULSE 60
[2021-03-10] MEDS: Latanoprost 0.005% 1 Bottle 1 DRP EACH EYE (20:21)
[2021-03-10] MEDS: Atorvastatin Calcium 80 MG Tablet PO (20:21)
[2021-03-11] MEDS: Gabapentin 100 MG Capsule PO ×4 (00:09→17:04)
[2021-03-11] MEDS: oxyCODONE 5 MG Tablet PO ×2 (00:19→13:08)
[2021-03-11 05:59] VITALS: BP 118/79; PULSE 66
[2021-03-11] MEDS: hydroCHLOROthiazide 12.5mg 12.5 MG PO (05:59)
[2021-03-11] MEDS: Escitalopram Oxalate 20 MG Tablet PO (05:59)
[2021-03-11] MEDS: Metoprolol Tartrate 25 MG Tablet 12.5 MG PO ×2 (05:59→17:02)
[2021-03-11] MEDS: Lisinopril 20 MG Tablet PO ×2 (05:59→17:04)
[2021-03-11] MEDS: Levothyroxine 75 MCG Tablet PO (05:59)
[2021-03-11] MEDS: LINAGLIPTIN 5 MG TABLET PO (06:00)
[2021-03-11] MEDS: amLODIPine 10 MG Tablet PO (06:00)
[2021-03-11] MEDS: Menthol/Lanolin/Calamine/Znox 113 GM Tube 1 APPLIC TOPICAL ×2 (06:04→17:04)
[2021-03-11 06:21] LABS: Bedside Glucose 107 mg/dL (70-110)
--- NOTE | 2021-03-11 07:29 | NURSING ---
Patient with diagnosis of sleep apnea. Does use C-pap at home. Informed her that family could bring it in, but she stated she will just raise the head of the bed. Will continue to monitor.
[2021-03-11] MEDS: Multivitamins,Therapeutic Tablet 1 TABLET PO (07:55)
[2021-03-11] MEDS: metFORMIN HCl 500 MG Tablet PO (07:55)
[2021-03-11] MEDS: glipiZIDE XL 5 MG Tablet PO (07:55)
[2021-03-11] MEDS: Oxybutynin 5 MG Tablet PO ×2 (07:55→17:02)
[2021-03-11] MEDS: Aspirin E.C. 81 MG Tablet PO (07:55)
[2021-03-11 16:00] VITALS: BP 128/71; PULSE 63; RESP 14; TEMP 36.3; O2SAT 94
[2021-03-11 17:02] VITALS: BP 128/71; PULSE 63
[2021-03-11] MEDS: Senna/Docusate Sodium 1 Tablet 2 TABLET PO (17:04)
[2021-03-11] MEDS: Latanoprost 0.005% 1 Bottle 1 DRP EACH EYE (20:40)
[2021-03-11] MEDS: Atorvastatin Calcium 80 MG Tablet PO (20:40)
--- NOTE | 2021-03-11 20:59 | NURSING ---
Patient ready to go to bed, requesting medications early.
[2021-03-11 22:47] VITALS: PULSE 56; RESP 18; O2SAT 93
--- NOTE | 2021-03-12 01:11 | NURSING ---
Patient c/o tightness in right knee, stating it doesn't feel right. Upon assessment, right knee noted to be swollen, slightly warm to touch. No redness noted. Patient states she does have arthritis and that it is probably in the knee too. States she has a history of multiple falls on concrete and landing on knees. Will continue to monitor.
[2021-03-12] MEDS: Gabapentin 100 MG Capsule PO ×4 (01:17→18:07)
[2021-03-12] MEDS: Menthol/Lanolin/Calamine/Znox 113 GM Tube 1 APPLIC TOPICAL ×2 (05:21→18:07)
[2021-03-12 05:22] VITALS: BP 122/59; PULSE 67
[2021-03-12] MEDS: Escitalopram Oxalate 20 MG Tablet PO (05:22)
[2021-03-12] MEDS: LINAGLIPTIN 5 MG TABLET PO (05:22)
[2021-03-12] MEDS: Metoprolol Tartrate 25 MG Tablet 12.5 MG PO ×2 (05:22→18:07)
[2021-03-12] MEDS: hydroCHLOROthiazide 12.5mg 12.5 MG PO (05:22)
[2021-03-12] MEDS: Levothyroxine 75 MCG Tablet PO (05:22)
[2021-03-12] MEDS: amLODIPine 10 MG Tablet PO (05:23)
[2021-03-12] MEDS: Lisinopril 20 MG Tablet PO ×2 (05:24→18:07)
[2021-03-12 06:09] VITALS: BP 122/59; PULSE 67; RESP 18; TEMP 36.3; O2SAT 92
[2021-03-12 06:25] LABS: Bedside Glucose 96 mg/dL (70-110)
[2021-03-12] MEDS: metFORMIN HCl 500 MG Tablet PO (08:10)
[2021-03-12] MEDS: glipiZIDE XL 5 MG Tablet PO (08:10)
[2021-03-12] MEDS: Multivitamins,Therapeutic Tablet 1 TABLET PO (08:10)
[2021-03-12] MEDS: Aspirin E.C. 81 MG Tablet PO (08:10)
[2021-03-12] MEDS: Ergocalciferol 1.25 MG (50, 000 UNIT) Capsule PO (08:10)
[2021-03-12] MEDS: Oxybutynin 5 MG Tablet PO ×2 (08:10→18:07)
--- NOTE | 2021-03-12 08:32 | RAD_ITS ---
STUDY: X-RAY - RIGHT KNEE REASON FOR EXAM: Increasing right knee pain, no recent injury. TECHNIQUE: 3 view(s) of the knee. COMPARISON: None. FINDINGS: There is osteopenia. Normal visualized distal femur. Normal proximal tibiofibular articulation. There is preservation of joint space of the medial femorotibial compartment. There are marginal osteophytes with severe joint space loss of the lateral femorotibial compartment and mild pressure erosion of the lateral tibial plateau. There are marginal osteophytes and severe joint space narrowing of the patellofemoral articulation. There is a joint effusion. RAD/Knee 1 or 2 Views IMPRESSION: Arthrosis of the lateral femorotibial and patellofemoral compartments. Joint effusion. Electronically Signed: Manuel Curry MD at 9:12 EST Tel , Service support ,
[2021-03-12 12:30] VITALS: PULSE 63; RESP 16; O2SAT 93
[2021-03-12 16:00] VITALS: BP 146/77; PULSE 54; RESP 18; TEMP 36.8; O2SAT 97
[2021-03-12 18:07] VITALS: PULSE 73
[2021-03-12] MEDS: Latanoprost 0.005% 1 Bottle 1 DRP EACH EYE (21:57)
[2021-03-12] MEDS: Atorvastatin Calcium 80 MG Tablet PO (21:57)
[2021-03-13] MEDS: Gabapentin 100 MG Capsule PO ×4 (00:04→17:24)
[2021-03-13] MEDS: oxyCODONE 5 MG Tablet PO (04:04)
--- NOTE | 2021-03-13 04:10 | NURSING ---
Patient said she's not slept well tonight, wanted PRN pain med and scheduled AM meds at this time so she could sleep for a while.
[2021-03-13 04:11] VITALS: BP 134/77; PULSE 67
[2021-03-13] MEDS: Metoprolol Tartrate 25 MG Tablet 12.5 MG PO ×2 (04:11→17:24)
[2021-03-13] MEDS: Levothyroxine 75 MCG Tablet PO (04:11)
[2021-03-13] MEDS: LINAGLIPTIN 5 MG TABLET PO (04:11)
[2021-03-13] MEDS: hydroCHLOROthiazide 12.5mg 12.5 MG PO (04:11)
[2021-03-13] MEDS: Lisinopril 20 MG Tablet PO ×2 (04:12→17:25)
[2021-03-13] MEDS: Escitalopram Oxalate 20 MG Tablet PO (04:12)
[2021-03-13] MEDS: amLODIPine 10 MG Tablet PO (04:12)
[2021-03-13] MEDS: Oxybutynin 5 MG Tablet PO ×2 (04:12→17:23)
[2021-03-13] MEDS: Menthol/Lanolin/Calamine/Znox 113 GM Tube 1 APPLIC TOPICAL ×2 (04:13→17:25)
[2021-03-13] MEDS: MethylPREDNISolone DosePak 4 MG BOX PO ×4 (07:39→21:41)
[2021-03-13] MEDS: Multivitamins,Therapeutic Tablet 1 TABLET PO (07:39)
[2021-03-13] MEDS: metFORMIN HCl 500 MG Tablet PO (07:39)
[2021-03-13] MEDS: Aspirin E.C. 81 MG Tablet PO (07:39)
[2021-03-13] MEDS: glipiZIDE XL 5 MG Tablet PO (07:39)
--- NOTE | 2021-03-13 16:02 | CHAPLAIN ---
Type of Pastoral Visit _x__ Initial Visit ___ Follow-up Visit ___ On-call Visit ___ General Patient Visit ___ Spiritual Assessment ___ Family Conference ___ Bereavement ___ Rapid Response ___ Code Blue ___ Other (describe below) Pastoral Care Referral From _x__ Patient ___ Family ___ Nurse ___ Physician ___ Slot Manager ___ Barrel Washer ___ Other (describe below) Sacrament/Intervention _x__ Active listening ___ Anointing ___ Restorationist ___ Bereavement ___ Communion ___ Adriana exploration ___ ___ Life review ___ Prayer ___ Reconciliation ___ Sacrament of Sick _x__ Supportive presence ___ Wedding ___ Other (describe below) Pastoral Comments met patient in activities area and assisted her in putting puzzle together; casual conversation and then questioning on her coping and outlook; pt is talkative and interactive; pt has a few friends that she receives support from;
[2021-03-13 17:24] VITALS: BP 146/72; PULSE 66
[2021-03-13 18:35] VITALS: BP 138/72; PULSE 64; RESP 16; TEMP 36.8; O2SAT 96
[2021-03-13] MEDS: Atorvastatin Calcium 80 MG Tablet PO (21:43)
[2021-03-14] MEDS: Gabapentin 100 MG Capsule PO ×4 (00:45→17:36)
[2021-03-14] MEDS: Latanoprost 0.005% 1 Bottle 1 DRP EACH EYE ×2 (00:52→20:30)
[2021-03-14 06:07] VITALS: BP 129/69; PULSE 66
[2021-03-14] MEDS: LINAGLIPTIN 5 MG TABLET PO (06:10)
[2021-03-14] MEDS: Levothyroxine 75 MCG Tablet PO (06:10)
[2021-03-14 06:11] VITALS: PULSE 66
[2021-03-14] MEDS: Metoprolol Tartrate 25 MG Tablet 12.5 MG PO ×2 (06:11→17:35)
[2021-03-14] MEDS: amLODIPine 10 MG Tablet PO (06:11)
[2021-03-14] MEDS: Lisinopril 20 MG Tablet PO ×2 (06:11→17:36)
[2021-03-14] MEDS: Escitalopram Oxalate 20 MG Tablet PO (06:11)
[2021-03-14] MEDS: hydroCHLOROthiazide 12.5mg 12.5 MG PO (06:11)
[2021-03-14] MEDS: Menthol/Lanolin/Calamine/Znox 113 GM Tube 1 APPLIC TOPICAL ×2 (06:12→17:37)
[2021-03-14 06:21] LABS: Bedside Glucose 178 mg/dL (70-110)
[2021-03-14] MEDS: oxyCODONE 5 MG Tablet PO (06:25)
[2021-03-14] MEDS: glipiZIDE XL 5 MG Tablet PO (07:54)
[2021-03-14] MEDS: MethylPREDNISolone DosePak 4 MG BOX PO ×4 (07:54→20:29)
[2021-03-14] MEDS: Oxybutynin 5 MG Tablet PO ×2 (07:54→17:35)
[2021-03-14] MEDS: metFORMIN HCl 500 MG Tablet PO (07:54)
[2021-03-14] MEDS: Aspirin E.C. 81 MG Tablet PO (07:54)
[2021-03-14] MEDS: Multivitamins,Therapeutic Tablet 1 TABLET PO (07:54)
[2021-03-14 08:00] VITALS: PULSE 63; RESP 18; O2SAT 97
--- NOTE | 2021-03-14 08:59 | CASEMGMT ---
Social Work IDT met with patient and son via conference call for care plan meeting. Discussed patient's progress in therapy and nursing. Pt progressing well. Explained [employer] with NRD 03/14 and continued stay is not guaranteed. Pt reports to having difficulty swallowing and order entered for ST. The goal is for pt to return home with son; however, son works maritime guard and unable to assist pt at home. Pt has 4 steps to enter home and was independent prior. Provided [employer] resources. SW to order HHC and DME needs. SW to continue to follow. Coty Serrano, CONTACT LENS MANUFACTURER CODE NUMBER STAMPER
--- NOTE | 2021-03-14 11:09 | MDS.RN ---
Pain interview for CORNELIO 03/15/21 completed.
--- NOTE | 2021-03-14 13:48 | CASEMGMT ---
Social Work BIMS and PHQ-9 completed for MDS assessment. Coty Serrano, ZIPPER TRIMMER ASSISTANT STORE LEADER
[2021-03-14 15:22] VITALS: BP 128/69; PULSE 56; RESP 17; TEMP 36.1; O2SAT 96
[2021-03-14 17:35] VITALS: PULSE 71
[2021-03-14] MEDS: Atorvastatin Calcium 80 MG Tablet PO (20:33)
[2021-03-15] MEDS: Gabapentin 100 MG Capsule PO ×4 (00:33→17:08)
[2021-03-15 05:40] VITALS: BP 131/70; PULSE 62
[2021-03-15] MEDS: Metoprolol Tartrate 25 MG Tablet 12.5 MG PO ×2 (05:40→17:08)
[2021-03-15] MEDS: amLODIPine 10 MG Tablet PO (05:40)
[2021-03-15] MEDS: hydroCHLOROthiazide 12.5mg 12.5 MG PO (05:40)
[2021-03-15] MEDS: Levothyroxine 75 MCG Tablet PO (05:40)
[2021-03-15] MEDS: Escitalopram Oxalate 20 MG Tablet PO (05:40)
[2021-03-15] MEDS: LINAGLIPTIN 5 MG TABLET PO (05:41)
[2021-03-15] MEDS: Lisinopril 20 MG Tablet PO ×2 (05:41→17:08)
[2021-03-15 06:16] LABS: Bedside Glucose 166 mg/dL (70-110)
[2021-03-15] MEDS: Menthol/Lanolin/Calamine/Znox 113 GM Tube 1 APPLIC TOPICAL ×2 (06:48→17:08)
[2021-03-15] MEDS: metFORMIN HCl 500 MG Tablet PO (07:31)
[2021-03-15] MEDS: Aspirin E.C. 81 MG Tablet PO (07:31)
[2021-03-15] MEDS: Multivitamins,Therapeutic Tablet 1 TABLET PO (07:31)
[2021-03-15] MEDS: glipiZIDE XL 5 MG Tablet PO (07:31)
[2021-03-15] MEDS: MethylPREDNISolone DosePak 4 MG BOX PO ×4 (07:31→21:14)
[2021-03-15] MEDS: Oxybutynin 5 MG Tablet PO ×2 (07:31→17:08)
[2021-03-15] MEDS: oxyCODONE 5 MG Tablet PO (07:36)
[2021-03-15 13:19] VITALS: BP 100/59; PULSE 65; RESP 16; TEMP 36.7; O2SAT 94
[2021-03-15 17:08] VITALS: BP 121/61; PULSE 64
[2021-03-15 20:34] VITALS: PULSE 58; RESP 16; O2SAT 97
[2021-03-15] MEDS: Atorvastatin Calcium 80 MG Tablet PO (21:13)
[2021-03-15] MEDS: Latanoprost 0.005% 1 Bottle 1 DRP EACH EYE (21:13)
[2021-03-16] MEDS: Gabapentin 100 MG Capsule PO ×5 (00:10→23:28)
[2021-03-16] MEDS: Levothyroxine 75 MCG Tablet PO (05:25)
[2021-03-16] MEDS: hydroCHLOROthiazide 12.5mg 12.5 MG PO (05:25)
[2021-03-16] MEDS: Escitalopram Oxalate 20 MG Tablet PO (05:25)
[2021-03-16] MEDS: amLODIPine 10 MG Tablet PO (05:25)
[2021-03-16] MEDS: LINAGLIPTIN 5 MG TABLET PO (05:25)
[2021-03-16] MEDS: Lisinopril 20 MG Tablet PO ×2 (05:25→17:04)
[2021-03-16 05:26] VITALS: BP 143/72; PULSE 66
[2021-03-16] MEDS: Menthol/Lanolin/Calamine/Znox 113 GM Tube 1 APPLIC TOPICAL ×2 (05:26→17:05)
[2021-03-16] MEDS: Metoprolol Tartrate 25 MG Tablet 12.5 MG PO ×2 (05:26→17:04)
[2021-03-16 06:25] LABS: Bedside Glucose 174 mg/dL (70-110)
[2021-03-16] MEDS: Multivitamins,Therapeutic Tablet 1 TABLET PO (07:33)
[2021-03-16] MEDS: MethylPREDNISolone DosePak 4 MG BOX PO ×3 (07:33→20:57)
[2021-03-16] MEDS: metFORMIN HCl 500 MG Tablet PO (07:33)
[2021-03-16] MEDS: Oxybutynin 5 MG Tablet PO ×2 (07:33→17:04)
[2021-03-16] MEDS: Acetaminophen 500 MG Tablet 1000 MG PO (07:33)
[2021-03-16] MEDS: glipiZIDE XL 5 MG Tablet PO (07:33)
[2021-03-16] MEDS: Aspirin E.C. 81 MG Tablet PO (07:33)
[2021-03-16] MEDS: Tuberculin,Purif.prot.deriv. 50 TU/ML Vial 0.1 ML ID (11:28)
[2021-03-16 12:45] VITALS: PULSE 64; O2SAT 98
[2021-03-16 15:45] VITALS: BP 129/67; PULSE 65; RESP 16; TEMP 36.8; O2SAT 96
[2021-03-16 17:04] VITALS: BP 136/67; PULSE 62
[2021-03-16] MEDS: Atorvastatin Calcium 80 MG Tablet PO (20:57)
[2021-03-16] MEDS: Latanoprost 0.005% 1 Bottle 1 DRP EACH EYE (20:57)
[2021-03-17] MEDS: oxyCODONE 5 MG Tablet PO (05:30)
[2021-03-17] MEDS: hydroCHLOROthiazide 12.5mg 12.5 MG PO (05:30)
[2021-03-17] MEDS: Escitalopram Oxalate 20 MG Tablet PO (05:30)
[2021-03-17] MEDS: Levothyroxine 75 MCG Tablet PO (05:30)
[2021-03-17] MEDS: Lisinopril 20 MG Tablet PO ×2 (05:30→17:37)
[2021-03-17 05:31] VITALS: BP 150/75; PULSE 62
[2021-03-17] MEDS: Gabapentin 100 MG Capsule PO ×4 (05:31→22:33)
[2021-03-17] MEDS: amLODIPine 10 MG Tablet PO (05:31)
[2021-03-17] MEDS: Metoprolol Tartrate 25 MG Tablet 12.5 MG PO ×2 (05:31→17:36)
[2021-03-17] MEDS: LINAGLIPTIN 5 MG TABLET PO (05:31)
[2021-03-17] MEDS: Menthol/Lanolin/Calamine/Znox 113 GM Tube 1 APPLIC TOPICAL ×2 (05:34→17:37)
[2021-03-17 06:15] LABS: Bedside Glucose 150 mg/dL (70-110)
[2021-03-17 07:17] LABS: Absolute Neutrophil Count 5.6 X10^3/uL (2.0-7.7); Basophil# 0.02 X10^3/uL; Basophil% 0.3 % (0-1); Eosinophil# 0.09 X10^3/uL; Eosinophils% 1.1 % (0-5); Hematocrit 41.2 % (37-47); Hemoglobin 13.9 g/dL (12.0-15.0); Lymphocyte % 16.4 % (19-41); Mean Corp Hgb Conc 33.7 g/dL (32-36); Mean Corpuscular Hgb 29.6 pg (27.0-32.0); Mean Corpuscular Volume 87.7 fL (81-99); Mean Platelet Vol. 9.5 fl (6.2-12.0); Monocyte# 0.89 X10^3/uL; Monocyte% 11.2 % (0-10); NRBC Flagged by Analyzer 0 % (0-5); Neutrophil % 70.5 % (47-70); Platelet Count 175 K/mm3 (150-450); RBC Distribution Width CV 13.9 % (11.6-14.6); RBC Distribution Width SD 44.9 fl (35.1-43.9); White Blood Count 7.9 K/mm3 (4.4-11.0)
[2021-03-17 07:40] LABS: Anion Gap 5 (5-15); BUN 27 mg/dL (7-18); BUN/Creat Ratio 31.2 RATIO (10-20); Calcium,Total 9.6 mg/dL (8.5-10.1); Chloride 104 mmol/L (98-107); Creatinine, Serum 0.87 mg/dL (0.55-1.02); EST Glomerular Filtration Rate 67 mL/min (>60); Est Glom Filt Rate - Afr Amer 81 mL/min (>60); Estimated Creatinine Clearance 39.57 ml/min; Glucose 138 mg/dL (74-106); Potassium 4.7 mmol/L (3.5-5.1); Sodium Level 137 mmol/L (136-145)
[2021-03-17] MEDS: glipiZIDE XL 5 MG Tablet PO (08:34)
[2021-03-17] MEDS: Aspirin E.C. 81 MG Tablet PO (08:34)
[2021-03-17] MEDS: Oxybutynin 5 MG Tablet PO ×2 (08:34→17:36)
[2021-03-17] MEDS: metFORMIN HCl 500 MG Tablet PO (08:35)
[2021-03-17] MEDS: Multivitamins,Therapeutic Tablet 1 TABLET PO (08:36)
[2021-03-17] MEDS: Acetaminophen 500 MG Tablet 1000 MG PO (09:45)
[2021-03-17] MEDS: MethylPREDNISolone DosePak 4 MG BOX PO ×2 (12:26→22:33)
[2021-03-17 14:32] VITALS: BP 126/65; PULSE 67; RESP 16; TEMP 36.7; O2SAT 96
[2021-03-17 17:36] VITALS: BP 126/65; PULSE 67
[2021-03-17] MEDS: Atorvastatin Calcium 80 MG Tablet PO (22:32)
[2021-03-17] MEDS: Latanoprost 0.005% 1 Bottle 1 DRP EACH EYE (22:33)
[2021-03-18 06:26] LABS: Bedside Glucose 145 mg/dL (70-110)
[2021-03-18 06:44] VITALS: BP 122/75; PULSE 64
[2021-03-18] MEDS: Metoprolol Tartrate 25 MG Tablet 12.5 MG PO ×2 (06:44→16:41)
[2021-03-18] MEDS: Gabapentin 100 MG Capsule PO ×4 (06:44→23:33)
[2021-03-18] MEDS: amLODIPine 10 MG Tablet PO (06:44)
[2021-03-18] MEDS: LINAGLIPTIN 5 MG TABLET PO (06:45)
[2021-03-18] MEDS: Levothyroxine 75 MCG Tablet PO (06:45)
[2021-03-18] MEDS: Lisinopril 20 MG Tablet PO ×2 (06:45→16:40)
[2021-03-18] MEDS: hydroCHLOROthiazide 12.5mg 12.5 MG PO (06:45)
[2021-03-18] MEDS: Escitalopram Oxalate 20 MG Tablet PO (06:45)
[2021-03-18 06:48] VITALS: BP 122/75; PULSE 64; RESP 20; TEMP 35.9; O2SAT 95
[2021-03-18] MEDS: MethylPREDNISolone DosePak 4 MG BOX PO (09:00)
[2021-03-18] MEDS: glipiZIDE XL 5 MG Tablet PO (09:01)
[2021-03-18] MEDS: metFORMIN HCl 500 MG Tablet PO (09:01)
[2021-03-18] MEDS: Multivitamins,Therapeutic Tablet 1 TABLET PO (09:02)
[2021-03-18] MEDS: Aspirin E.C. 81 MG Tablet PO (09:02)
[2021-03-18] MEDS: Oxybutynin 5 MG Tablet PO ×2 (09:02→16:43)
[2021-03-18 15:29] VITALS: BP 120/78; PULSE 73; RESP 16; TEMP 36.6; O2SAT 96
[2021-03-18 16:41] VITALS: BP 120/78; PULSE 73
[2021-03-18] MEDS: Menthol/Lanolin/Calamine/Znox 113 GM Tube 1 APPLIC TOPICAL (16:42)
[2021-03-18] MEDS: Atorvastatin Calcium 80 MG Tablet PO (21:44)
[2021-03-18] MEDS: Latanoprost 0.005% 1 Bottle 1 DRP EACH EYE (21:45)
--- NOTE | 2021-03-18 23:35 | NURSING ---
Family brought in pt's wallet, her bills, and a pair of headphones. Placed in locked med box in pt's room. Instructed to call for staff for nurse to take item(s) out of the box when needed. She verbalizes understanding.
[2021-03-19 06:16] LABS: Bedside Glucose 77 mg/dL (70-110)
[2021-03-19] MEDS: Escitalopram Oxalate 20 MG Tablet PO (06:16)
[2021-03-19 06:17] VITALS: BP 117/65; PULSE 62
[2021-03-19] MEDS: Gabapentin 100 MG Capsule PO ×4 (06:17→22:54)
[2021-03-19] MEDS: Metoprolol Tartrate 25 MG Tablet 12.5 MG PO ×2 (06:17→17:26)
[2021-03-19] MEDS: hydroCHLOROthiazide 12.5mg 12.5 MG PO (06:17)
[2021-03-19] MEDS: Lisinopril 20 MG Tablet PO ×2 (06:18→17:26)
[2021-03-19] MEDS: amLODIPine 10 MG Tablet PO (06:18)
[2021-03-19] MEDS: Levothyroxine 75 MCG Tablet PO (06:18)
[2021-03-19] MEDS: Menthol/Lanolin/Calamine/Znox 113 GM Tube 1 APPLIC TOPICAL ×2 (06:19→17:27)
[2021-03-19 07:02] VITALS: BP 117/65; PULSE 62; RESP 16; TEMP 35.8; O2SAT 97
[2021-03-19] MEDS: Aspirin E.C. 81 MG Tablet PO (07:49)
[2021-03-19] MEDS: Oxybutynin 5 MG Tablet PO ×2 (07:49→17:26)
[2021-03-19] MEDS: Multivitamins,Therapeutic Tablet 1 TABLET PO (07:49)
[2021-03-19] MEDS: metFORMIN HCl 500 MG Tablet PO (07:49)
[2021-03-19] MEDS: glipiZIDE XL 5 MG Tablet PO (07:49)
[2021-03-19] MEDS: Ergocalciferol 1.25 MG (50, 000 UNIT) Capsule PO (07:50)
[2021-03-19] MEDS: LINAGLIPTIN 5 MG TABLET PO (07:50)
[2021-03-19] MEDS: oxyCODONE 5 MG Tablet PO (11:41)
[2021-03-19 13:35] VITALS: BP 143/74; PULSE 76; RESP 18; TEMP 36.4; O2SAT 97
[2021-03-19 17:26] VITALS: PULSE 76
[2021-03-19] MEDS: Latanoprost 0.005% 1 Bottle 1 DRP EACH EYE (22:54)
[2021-03-19] MEDS: Atorvastatin Calcium 80 MG Tablet PO (22:54)
[2021-03-20 00:56] VITALS: PULSE 58; RESP 16; O2SAT 96
[2021-03-20] MEDS: hydroCHLOROthiazide 12.5mg 12.5 MG PO (05:41)
[2021-03-20] MEDS: Escitalopram Oxalate 20 MG Tablet PO (05:41)
[2021-03-20] MEDS: Gabapentin 100 MG Capsule PO ×4 (05:41→23:03)
[2021-03-20] MEDS: Levothyroxine 75 MCG Tablet PO (05:41)
[2021-03-20 05:42] VITALS: BP 124/72; PULSE 61
[2021-03-20] MEDS: Lisinopril 20 MG Tablet PO ×2 (05:42→17:59)
[2021-03-20] MEDS: amLODIPine 10 MG Tablet PO (05:42)
[2021-03-20] MEDS: Metoprolol Tartrate 25 MG Tablet 12.5 MG PO ×2 (05:42→17:59)
[2021-03-20] MEDS: Menthol/Lanolin/Calamine/Znox 113 GM Tube 1 APPLIC TOPICAL ×2 (05:47→18:01)
[2021-03-20 06:30] LABS: Bedside Glucose 86 mg/dL (70-110)
[2021-03-20] MEDS: glipiZIDE XL 5 MG Tablet PO (08:14)
[2021-03-20] MEDS: LINAGLIPTIN 5 MG TABLET PO (08:14)
[2021-03-20] MEDS: metFORMIN HCl 500 MG Tablet PO (08:14)
[2021-03-20] MEDS: Multivitamins,Therapeutic Tablet 1 TABLET PO (08:14)
[2021-03-20] MEDS: Aspirin E.C. 81 MG Tablet PO (08:14)
[2021-03-20] MEDS: Oxybutynin 5 MG Tablet PO ×2 (08:14→17:59)
--- NOTE | 2021-03-20 09:26 | MDS.RN ---
Information for the mds was obtained from review of the clinical record, interview of resident, staff, and direct observation of resident's care.
[2021-03-20] MEDS: COVID-19 VACC, MRNA(PFIZER)/PF 30 MCG/0.3 ML SYRINGE IM (10:21)
--- NOTE | 2021-03-20 14:44 | CASEMGMT ---
Addendum entered by Coty Serrano 03/20/21 15:04: [facility] can accept pt. Added ST to order. Original Note: Social Work Insurance issued NRD 03/23. Updated pt. Pt requesting to DC 03/23. Pt has no DME needs. Pt agreeable to [facility] PT/OT. Provided list with quality and resource data. Pt first choice is [facility], second choice is [facility]. Left message for [facility]. Will await outcome. Plan: DC home 03/23, [facility] PT/OT. Coty Serrano, LORRIE BLOOMW
--- NOTE | 2021-03-20 15:00 | NURSING ---
Dr. Ernst's office called to see if he is able to see her prior to discharge d/t her being doing with her medrol dose alcon. Awaiting return call.
[2021-03-20 15:25] VITALS: BP 133/63; PULSE 64; RESP 16; TEMP 36.6; O2SAT 95
[2021-03-20 15:54] VITALS: PULSE 64; RESP 16; O2SAT 95
[2021-03-20 17:59] VITALS: BP 133/63; PULSE 64
[2021-03-20] MEDS: Atorvastatin Calcium 80 MG Tablet PO (21:13)
[2021-03-20] MEDS: Latanoprost 0.005% 1 Bottle 1 DRP EACH EYE (21:13)
[2021-03-20] MEDS: oxyCODONE 5 MG Tablet PO (23:03)
[2021-03-21] MEDS: Levothyroxine 75 MCG Tablet PO (05:08)
[2021-03-21] MEDS: Lisinopril 20 MG Tablet PO ×2 (05:08→18:06)
[2021-03-21 05:09] VITALS: BP 119/64; PULSE 63
[2021-03-21] MEDS: Escitalopram Oxalate 20 MG Tablet PO (05:09)
[2021-03-21] MEDS: Metoprolol Tartrate 25 MG Tablet 12.5 MG PO ×2 (05:09→18:06)
[2021-03-21] MEDS: amLODIPine 10 MG Tablet PO (05:09)
[2021-03-21] MEDS: Gabapentin 100 MG Capsule PO ×4 (05:09→23:09)
[2021-03-21] MEDS: hydroCHLOROthiazide 12.5mg 12.5 MG PO (05:09)
[2021-03-21] MEDS: Menthol/Lanolin/Calamine/Znox 113 GM Tube 1 APPLIC TOPICAL ×2 (05:11→18:07)
[2021-03-21 06:41] LABS: Bedside Glucose 114 mg/dL (70-110)
[2021-03-21] MEDS: glipiZIDE XL 5 MG Tablet PO (08:11)
[2021-03-21] MEDS: Aspirin E.C. 81 MG Tablet PO (08:11)
[2021-03-21] MEDS: Multivitamins,Therapeutic Tablet 1 TABLET PO (08:11)
[2021-03-21] MEDS: LINAGLIPTIN 5 MG TABLET PO (08:11)
[2021-03-21] MEDS: metFORMIN HCl 500 MG Tablet PO (08:11)
[2021-03-21] MEDS: Oxybutynin 5 MG Tablet PO ×2 (08:11→18:07)
[2021-03-21] MEDS: Acetaminophen 500 MG Tablet 1000 MG PO (09:33)
[2021-03-21 13:29] VITALS: BP 110/56; PULSE 78; RESP 18; TEMP 36.2; O2SAT 99
[2021-03-21 18:06] VITALS: BP 126/65; PULSE 67
--- NOTE | 2021-03-21 19:31 | DS.PCM_ITS ---
Providers Date of Admission: 03/08/21 Primary Care Physician: Dr. Sunil Adamson MD Consultations 03/08/21 17:25 Consult: Pain Management Routine Consulting Provider: Lorenzo Ernst Reason for Consult: Spinal stenosis EMERGENT Consult: No MD Notified: Yes Date Notified: 03/09/21 Time Notified: : Method of Notification: Verbal Reason For Visit: GENERALIZED WEAKNESS/HISTORY OF STROKE Diagnosis Discharge Diagnosis (1) Debility: Status: Acute Code(s): R53.81 - Other malaise (2) Weakness: Status: Acute Code(s): R53.1 - Weakness (3) Dysarthria: Status: Acute Code(s): R47.1 - Dysarthria and anarthria (4) Hypotension: Status: Acute Code(s): I95.9 - Hypotension, unspecified (5) Lumbar spinal stenosis: Status: Acute Code(s): M48.061 - Spinal stenosis, lumbar region without neurogenic claudication (6) Stroke: Status: Acute Code(s): I63.9 - Cerebral infarction, unspecified (7) Vitamin D deficiency: Status: Acute Code(s): E55.9 - Vitamin D deficiency, unspecified (8) Glaucoma: Status: Acute Code(s): H40.9 - Unspecified glaucoma (9) Hypothyroidism: Status: Acute Code(s): E03.9 - Hypothyroidism, unspecified (10) Diabetes mellitus: Status: Acute Code(s): E11.9 - Type 2 diabetes mellitus without complications (11) Hypertension: Status: Chronic Code(s): I10 - Essential (primary) hypertension (12) Hyperlipidemia: Status: Acute Code(s): E78.5 - Hyperlipidemia, unspecified (13) Depression: Status: Acute Code(s): F32.A - Depression, unspecified (14) Diabetic polyneuropathy: Status: Acute Code(s): E11.42 - Type 2 diabetes mellitus with diabetic polyneuropathy (15) Overactive bladder: Status: Acute Code(s): N32.81 - Overactive bladder Medications at Discharge Home Medications aspirin 81 mg PO DAILY@0800 03/18/14 ergocalciferol (vitamin D2) 50,000 unit PO MO 10/03/14 latanoprost 1 drp EACH EYE QHS 10/03/14 levothyroxine 75 mcg tablet 75 mcg PO DAILY 03/11/19 multivitamin 1 tab PO DAILY 02/24/20 selenium 50 mcg tablet 50 mcg PO DAILY 07/05/20 metformin 500 mg tablet 500 tablet PO DAILY 08/28/20 Januvia 50 mg PO DAILY 01/18/21 amlodipine 10 mg PO DAILY 01/18/21 atorvastatin 80 mg PO QHS 01/18/21 benazepril 20 mg PO BID 01/18/21 glipizide 5 mg PO DAILY 01/18/21 hydrochlorothiazide 12.5 mg PO DAILY 01/18/21 escitalopram oxalate 10 mg tablet 20 mg PO DAILY tab 02/23/21 gabapentin 100 mg capsule 100 mg PO .qid cap 02/23/21 oxybutynin chloride 10 mg tablet,extended release 24 hr 5 mg PO BID tab 02/23/21 metoprolol tartrate 12.5 mg PO BID 03/08/21 acetaminophen 1,000 mg PO Q6H PRN PRN #0 tab 03/21/21 oxycodone 5 mg PO Q4H PRN PRN 7 Days #42 tab 03/21/21 Hospital Course Operations None Procedures None Summary of Care Provided Minutes Spent on Discharge: 35 Hospital Course: 80 year old female with below past medical history hospitalized for 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 Discharge home with family 03/23/2021, [facility] PT/OT/ST. Physical Exam Const alert and oriented x3 General Appearance: cooperative HEENT normocephalic Eyes PERRL and EOMs intact bilaterally Neck supple, no JVD and no carotid bruits Resp normal respiratory effort, normal air movement and clear to auscultation bilaterally Cardio regular rate and regular rhythm GI normal to inspection, nondistended, normoactive bowel sounds, non-tender and non-distended Extremity normal capillary refill General Extremity: Negative for edema Skin no rashes or lesions noted General Skin Exam: no breakdown Psych affect normal Appearance: appropriate Weight / BMI Weight Weight: 93.077 kg Body Mass Index (BMI) 39.7 ABG / Lab / Microbiology Data Result Diagrams: 03/17/21 06:34 03/17/21 06:34 Laboratory: Laboratory Results - last 24 hr 03/21/21 06:31: POC Glucose 114 H D/C Instructions Discharge Diet: No restrictions Discharge Activity: Return to Normal Activity, May Shower and Use Walker Weight Bearing Status: Weight bearing as tolerated Call your doctor if you observe: Fever of 101 or Higher, Inability to urinate, Inability to have a bowel movement, Shortness of breath, Dizziness, Fainting spells, Swelling in the ankles, Chest pain, Increased palpitations (irregular heartbeat) and Uncontrolled pain Additional Instructions: Discharge home with family 03/23/2021, [facility] PT/OT/ST. Please Follow Up With: Sunil Adamson MD When: 1 week. Meaningful Use Info Meaningful Use Diagnoses (Choose all that apply): None applicable Discharge Plan Admission Admit Date/Time: 03/08/21 16:40 Primary Reason for Your Visit: Debility. Attending Provider: Bran Bhakta Chi Primary Care Provider: Sunil Adamson Consulting Providers: Lorenzo Ernst Instructions Additional Instructions / Restrictions: Discharge home with family 03/23/2021, [facility] PT/OT/ST. Discharge Orders/Prescriptions Prescriptions: New acetaminophen 500 mg Tablet 1,000 mg PO Q6H PRN PRN (Reason: Pain Score 1-3) Qty: 0 RF: 0 oxycodone 5 mg Tablet 5 mg PO Q4H PRN PRN (Reason: Pain Score 4-10) 7 Days Qty: 42 RF: 0 Continued levothyroxine 75 mcg tablet 75 mcg PO DAILY RF: 0 multivitamin [Daily Multi-Vitamin] Tablet 1 tab PO DAILY RF: 0 gabapentin 100 mg capsule 100 mg PO .qid RF: 0 selenium 50 mcg tablet 50 mcg PO DAILY RF: 0 metformin 500 mg tablet 500 tablet PO DAILY RF: 0 aspirin 81 MG tablet 81 mg PO DAILY@0800 RF: 0 oxybutynin chloride 10 mg tablet extended release 24hr 5 mg PO BID RF: 0 latanoprost 1 DROP bottle 1 drp EACH EYE QHS RF: 0 ergocalciferol (vitamin D2) 50,000 UNIT capsule 50,000 unit PO MO RF: 0 escitalopram oxalate [Lexapro] 10 mg tablet 20 mg PO DAILY RF: 0 glipizide 5 mg tablet extended release 24hr 5 mg PO DAILY RF: 0 Januvia 50 mg tablet 50 mg PO DAILY RF: 0 atorvastatin 80 MG tablet 80 mg PO QHS RF: 0 amlodipine 10 mg tablet 10 mg PO DAILY RF: 0 benazepril 20 MG tablet 20 mg PO BID RF: 0 hydrochlorothiazide 12.5 mg tablet 12.5 mg PO DAILY RF: 0 metoprolol tartrate 25 mg tablet 12.5 mg PO BID RF: 0 Discontinued acetaminophen 500 mg Tablet 500 mg PO DAILY PRN (Reason: Pain) RF: 0 oxycodone 5 mg tablet 5 mg PO Q6H PRN (Reason: pain) 5 Days Qty: 20 RF: 0 Referrals / Follow Up: Lorenzo Ernst MD [STAFF PHYSICIAN] - 03/29/21 2:15 pm Sunil Adamson MD [Primary Care Provider] - Disposition Disposition (needs filled in before D/C Order can be placed): Home Health Service
[2021-03-21] MEDS: Atorvastatin Calcium 80 MG Tablet PO (20:41)
[2021-03-21] MEDS: Latanoprost 0.005% 1 Bottle 1 DRP EACH EYE (20:41)
[2021-03-21 20:47] VITALS: PULSE 78; RESP 14; O2SAT 94
[2021-03-22] MEDS: Lisinopril 20 MG Tablet PO ×2 (04:59→16:55)
[2021-03-22] MEDS: Levothyroxine 75 MCG Tablet PO (04:59)
[2021-03-22] MEDS: hydroCHLOROthiazide 12.5mg 12.5 MG PO (04:59)
[2021-03-22] MEDS: Escitalopram Oxalate 20 MG Tablet PO (04:59)
[2021-03-22] MEDS: Gabapentin 100 MG Capsule PO ×4 (04:59→23:57)
[2021-03-22 05:00] VITALS: BP 114/76; PULSE 71
[2021-03-22] MEDS: Metoprolol Tartrate 25 MG Tablet 12.5 MG PO ×2 (05:00→16:54)
[2021-03-22] MEDS: amLODIPine 10 MG Tablet PO (05:02)
[2021-03-22 06:30] LABS: Bedside Glucose 106 mg/dL (70-110)
[2021-03-22] MEDS: Multivitamins,Therapeutic Tablet 1 TABLET PO (08:37)
[2021-03-22] MEDS: Oxybutynin 5 MG Tablet PO ×2 (08:37→16:55)
[2021-03-22] MEDS: metFORMIN HCl 500 MG Tablet PO (08:37)
[2021-03-22] MEDS: glipiZIDE XL 5 MG Tablet PO (08:37)
[2021-03-22] MEDS: Aspirin E.C. 81 MG Tablet PO (08:37)
[2021-03-22] MEDS: LINAGLIPTIN 5 MG TABLET PO (08:38)
[2021-03-22] MEDS: oxyCODONE 5 MG Tablet PO (08:38)
--- NOTE | 2021-03-22 09:07 | CASEMGMT ---
Social Work Dr. Ernst appt is scheduled 03/29 in his office. However, speaking with SENIOR INDUSTRIAL ENGINEER, BOOT TURNER and pt, all concerned with pt discharging home 03/23 r/t increase in pain since steroids have been stopped. Pt expressed this was the primary reason for admission and is concerned about going home when the problem has not been resolved. Explained insurance did not issue DC, the update is 03/23 and IDT can request additional days in order for Dr. Ernst to see pt in TCU prior to DC to discuss and assist with pain management to reduce risk for readmission. Pt and IDT agreeable to plan. Spoke with Staci, nurse at Dr. Ernst's office, to explain situation and inquire if/when Dr. Ernst can see pt in TCU. Nurse stated he is out of the office 03/23 and 03/26 and will ask if he can see pt after office hours this evening 03/22. Thanked nurse and requested to contact this worker if that cannot be done - she agreed. Updated pt and IDT with plan. Pt agreeable. If Klever can see pt and provide solution, goal is for pt to DC home 03/24. SW to continue to follow. Coty Serrano, PLANE CAPTAIN DIESEL MECHANIC CONSTRUCTION
[2021-03-22 14:20] VITALS: BP 113/80; PULSE 69; RESP 17; TEMP 36.1; O2SAT 97
[2021-03-22 16:54] VITALS: BP 113/80; PULSE 69
--- NOTE | 2021-03-22 18:35 | NURSING ---
Dr. Ernst Called this nurse and stated he is unable to come to the floor tonight d/t still seeing pts in office and will be out of the office 03/26/21. New order entered for OxyContin 10mg bid. Would still like to see pt in office of 03/29/21. Will update social work.
[2021-03-22 19:07] VITALS: PULSE 60; RESP 14; O2SAT 95
[2021-03-22] MEDS: oxyCODONE HCl Cr 10 MG Tablet PO (21:07)
[2021-03-22] MEDS: Atorvastatin Calcium 80 MG Tablet PO (21:07)
[2021-03-22] MEDS: Latanoprost 0.005% 1 Bottle 1 DRP EACH EYE (21:08)
[2021-03-23] MEDS: oxyCODONE HCl Cr 10 MG Tablet PO ×2 (06:07→17:25)
[2021-03-23 06:08] VITALS: BP 133/60; PULSE 60
[2021-03-23] MEDS: Gabapentin 100 MG Capsule PO ×3 (06:08→17:20)
[2021-03-23] MEDS: Escitalopram Oxalate 20 MG Tablet PO (06:08)
[2021-03-23] MEDS: Metoprolol Tartrate 25 MG Tablet 12.5 MG PO ×2 (06:08→17:18)
[2021-03-23] MEDS: Levothyroxine 75 MCG Tablet PO (06:08)
[2021-03-23] MEDS: Lisinopril 20 MG Tablet PO ×2 (06:08→17:20)
[2021-03-23] MEDS: amLODIPine 10 MG Tablet PO (06:08)
[2021-03-23] MEDS: hydroCHLOROthiazide 12.5mg 12.5 MG PO (06:08)
[2021-03-23] MEDS: Menthol/Lanolin/Calamine/Znox 113 GM Tube 1 APPLIC TOPICAL ×2 (06:09→17:21)
[2021-03-23 06:20] LABS: Bedside Glucose 107 mg/dL (70-110)
--- NOTE | 2021-03-23 07:47 | RAD_ITS ---
STUDY: X-RAY - PELVIS AND BILATERAL HIPS REASON FOR EXAM: Female, 80 years old. Pain. TECHNIQUE: AP view of the pelvis.? 2 views of the right hip, and 2 views of the left hip were obtained. COMPARISON: None. FINDINGS: There is a non-specific bowel gas pattern. Normal visualized soft tissue structures. There is narrowing with cortical sclerosis and osteophyte formation of the sacroiliac joint consistent with degenerative osteoarthritic changes. Normal bilateral superior and inferior pubic rami. There are degenerative changes of the pubic symphysis with articular narrowing and sclerosis. Normal bilateral ischial tuberosities. Normal visualized right femoral head. Normal right acetabulum. There is mild articular joint space narrowing of the right hip. Normal visualized left femoral head. There is osteoarthritic spur formation of the left acetabular rim. There is mild articular joint space narrowing of the left hip. RAD/Hips B/L min 2 views w/ Pelvis IMPRESSION: Diffuse osteopenia along with multilevel degenerative disease as described. No acute fracture or subluxation seen. Electronically Signed: Donna Cruz MD at 0:28 EST , Service support ,
--- NOTE | 2021-03-23 08:45 | CASEMGMT ---
Addendum entered by Coty Serrano 03/23/21 15:37: Updated pt that insurance approved with [employer] 03/27. Updated nursing if Klever can see pt earlier than 03/29, otherwise she will see him in his office at that date while still being admitted in TCU. Pt appreciative. Will continue to follow for discharge planning. Original Note: Social Work Spoke with pt about DrAdam Nathanmichi unable to see her last night. He did order more pain meds. She states as of now, she is not getting relief and had requested an xray. Will await outcome from xray and insurance update today. Continue to monitor pain. SW to continue to follow. Coty Serrano, GLASS BEVELER REGISTERED NURSE SURGICAL SERVICES
[2021-03-23] MEDS: Oxybutynin 5 MG Tablet PO ×2 (09:36→17:18)
[2021-03-23] MEDS: LINAGLIPTIN 5 MG TABLET PO (09:36)
[2021-03-23] MEDS: metFORMIN HCl 500 MG Tablet PO (09:36)
[2021-03-23] MEDS: glipiZIDE XL 5 MG Tablet PO (09:36)
[2021-03-23] MEDS: Aspirin E.C. 81 MG Tablet PO (09:36)
[2021-03-23] MEDS: Multivitamins,Therapeutic Tablet 1 TABLET PO (09:36)
[2021-03-23 14:46] VITALS: BP 94/56; PULSE 56; RESP 12; TEMP 36.4; O2SAT 96
[2021-03-23 17:18] VITALS: PULSE 68
[2021-03-23] MEDS: Latanoprost 0.005% 1 Bottle 1 DRP EACH EYE (19:54)
[2021-03-23] MEDS: Atorvastatin Calcium 80 MG Tablet PO (19:54)
[2021-03-24] MEDS: Gabapentin 100 MG Capsule PO ×5 (01:51→23:13)
[2021-03-24 06:26] LABS: Bedside Glucose 109 mg/dL (70-110)
[2021-03-24 07:00] VITALS: BP 111/59; PULSE 61
[2021-03-24] MEDS: amLODIPine 10 MG Tablet PO (07:00)
[2021-03-24] MEDS: Metoprolol Tartrate 25 MG Tablet 12.5 MG PO ×2 (07:00→16:42)
[2021-03-24] MEDS: Levothyroxine 75 MCG Tablet PO (07:00)
[2021-03-24] MEDS: Escitalopram Oxalate 20 MG Tablet PO (07:00)
[2021-03-24] MEDS: hydroCHLOROthiazide 12.5mg 12.5 MG PO (07:01)
[2021-03-24] MEDS: Lisinopril 20 MG Tablet PO ×2 (07:02→16:42)
[2021-03-24] MEDS: oxyCODONE HCl Cr 10 MG Tablet PO ×2 (07:06→16:42)
[2021-03-24] MEDS: Menthol/Lanolin/Calamine/Znox 113 GM Tube 1 APPLIC TOPICAL ×2 (07:18→16:43)
[2021-03-24] MEDS: oxyCODONE 5 MG Tablet PO (08:15)
[2021-03-24 08:18] LABS: Absolute Lymphocyte Count 2.68 X10^3/uL (0.83-4.51); Absolute Neutrophil Count 6.6 X10^3/uL (2.0-7.7); Basophil# 0.04 X10^3/uL; Basophil% 0.4 % (0-1); Eosinophil# 0.41 X10^3/uL; Eosinophils% 3.9 % (0-5); Hemoglobin 13.3 g/dL (12.0-15.0); Lymphocyte # 2.68 X10^3/ul (0.83-4.51); Lymphocyte % 25.3 % (19-41); Mean Corp Hgb Conc 34.1 g/dL (32-36); Mean Corpuscular Hgb 29.8 pg (27.0-32.0); Mean Corpuscular Volume 87.2 fL (81-99); Mean Platelet Vol. 9.4 fl (6.2-12.0); Monocyte# 0.79 X10^3/uL; Monocyte% 7.5 % (0-10); NRBC Flagged by Analyzer 0 % (0-5); Neutrophil # 6.61 X10^3/uL (2.7-7.7); Neutrophil % 62.3 % (47-70); Platelet Count 210 K/mm3 (150-450); RBC Distribution Width CV 13.7 % (11.6-14.6); RBC Distribution Width SD 43.8 fl (35.1-43.9); Red Blood Count 4.47 M/mm3 (4.2-5.4); White Blood Count 10.6 K/mm3 (4.4-11.0)
[2021-03-24] MEDS: Aspirin E.C. 81 MG Tablet PO (08:18)
[2021-03-24] MEDS: glipiZIDE XL 5 MG Tablet PO (08:18)
[2021-03-24] MEDS: Multivitamins,Therapeutic Tablet 1 TABLET PO (08:18)
[2021-03-24] MEDS: metFORMIN HCl 500 MG Tablet PO (08:18)
[2021-03-24] MEDS: Oxybutynin 5 MG Tablet PO ×2 (08:18→16:42)
[2021-03-24] MEDS: LINAGLIPTIN 5 MG TABLET PO (08:18)
[2021-03-24 08:46] LABS: Anion Gap 7 (5-15); BUN 20 mg/dL (7-18); BUN/Creat Ratio 28.6 RATIO (10-20); Calcium,Total 9.3 mg/dL (8.5-10.1); Chloride 96 mmol/L (98-107); EST Glomerular Filtration Rate 86 mL/min (>60); Est Glom Filt Rate - Afr Amer 104 mL/min (>60); Estimated Creatinine Clearance 34.42 ml/min; Glucose 101 mg/dL (74-106); Potassium 4.5 mmol/L (3.5-5.1); Sodium Level 130 mmol/L (136-145)
[2021-03-24 10:04] VITALS: PULSE 56; RESP 16; O2SAT 96
[2021-03-24 15:14] VITALS: BP 110/72; PULSE 63; RESP 14; TEMP 36.6; O2SAT 93
--- NOTE | 2021-03-24 16:06 | NURSING ---
CHAS Hoffman up to visit with family. Family requesting [facility], Hospice will be out to assess pt. family at bedside.
[2021-03-24 16:42] VITALS: PULSE 63
[2021-03-24] MEDS: Latanoprost 0.005% 1 Bottle 1 DRP EACH EYE (22:38)
[2021-03-24] MEDS: Atorvastatin Calcium 80 MG Tablet PO (22:39)
[2021-03-25] MEDS: oxyCODONE HCl Cr 10 MG Tablet PO ×2 (06:29→16:39)
[2021-03-25 06:30] VITALS: BP 112/62; PULSE 60
[2021-03-25] MEDS: Gabapentin 100 MG Capsule PO ×4 (06:30→23:06)
[2021-03-25] MEDS: hydroCHLOROthiazide 12.5mg 12.5 MG PO (06:30)
[2021-03-25] MEDS: Metoprolol Tartrate 25 MG Tablet 12.5 MG PO ×2 (06:30→16:39)
[2021-03-25] MEDS: Escitalopram Oxalate 20 MG Tablet PO (06:32)
[2021-03-25] MEDS: amLODIPine 10 MG Tablet PO (06:32)
[2021-03-25] MEDS: Levothyroxine 75 MCG Tablet PO (06:32)
[2021-03-25] MEDS: Lisinopril 20 MG Tablet PO ×2 (06:32→16:39)
[2021-03-25 06:46] LABS: Bedside Glucose 89 mg/dL (70-110)
[2021-03-25] MEDS: glipiZIDE XL 5 MG Tablet PO (08:06)
[2021-03-25] MEDS: Oxybutynin 5 MG Tablet PO ×2 (08:06→16:39)
[2021-03-25] MEDS: LINAGLIPTIN 5 MG TABLET PO (08:06)
[2021-03-25] MEDS: Aspirin E.C. 81 MG Tablet PO (08:06)
[2021-03-25] MEDS: metFORMIN HCl 500 MG Tablet PO (08:06)
[2021-03-25] MEDS: Multivitamins,Therapeutic Tablet 1 TABLET PO (08:06)
[2021-03-25] MEDS: oxyCODONE 5 MG Tablet PO (11:52)
[2021-03-25 16:00] VITALS: BP 111/52; PULSE 59; RESP 16; TEMP 36.4; O2SAT 95
[2021-03-25 16:39] VITALS: PULSE 59
[2021-03-25] MEDS: Menthol/Lanolin/Calamine/Znox 113 GM Tube 1 APPLIC TOPICAL (16:41)
[2021-03-25 22:00] VITALS: PULSE 59; RESP 16; O2SAT 98
[2021-03-25] MEDS: Latanoprost 0.005% 1 Bottle 1 DRP EACH EYE (23:06)
[2021-03-25] MEDS: Atorvastatin Calcium 80 MG Tablet PO (23:06)
[2021-03-26] MEDS: oxyCODONE HCl Cr 10 MG Tablet PO ×2 (06:02→18:24)
[2021-03-26 06:05] VITALS: BP 101/50; PULSE 64
[2021-03-26] MEDS: Escitalopram Oxalate 20 MG Tablet PO (06:05)
[2021-03-26] MEDS: hydroCHLOROthiazide 12.5mg 12.5 MG PO (06:05)
[2021-03-26] MEDS: amLODIPine 10 MG Tablet PO (06:05)
[2021-03-26] MEDS: Gabapentin 100 MG Capsule PO ×3 (06:05→18:19)
[2021-03-26] MEDS: Metoprolol Tartrate 25 MG Tablet 12.5 MG PO ×2 (06:05→18:21)
[2021-03-26] MEDS: Levothyroxine 75 MCG Tablet PO (06:05)
[2021-03-26 06:41] LABS: Bedside Glucose 94 mg/dL (70-110)
[2021-03-26] MEDS: Ergocalciferol 1.25 MG (50, 000 UNIT) Capsule PO (09:24)
[2021-03-26] MEDS: metFORMIN HCl 500 MG Tablet PO (09:24)
[2021-03-26] MEDS: glipiZIDE XL 5 MG Tablet PO (09:24)
[2021-03-26] MEDS: Aspirin E.C. 81 MG Tablet PO (09:24)
[2021-03-26] MEDS: Multivitamins,Therapeutic Tablet 1 TABLET PO (09:24)
[2021-03-26] MEDS: Oxybutynin 5 MG Tablet PO ×2 (09:24→18:20)
[2021-03-26] MEDS: LINAGLIPTIN 5 MG TABLET PO (09:24)
[2021-03-26] MEDS: Lisinopril 20 MG Tablet PO ×2 (09:32→22:18)
[2021-03-26 10:00] VITALS: RESP 16
[2021-03-26 14:43] VITALS: BP 106/61; PULSE 59; RESP 14; TEMP 36.8; O2SAT 98
--- NOTE | 2021-03-26 15:40 | NURSING ---
Resident and daughter, Jessica, notified of staff member testing positive for COVID.
[2021-03-26] MEDS: Menthol/Lanolin/Calamine/Znox 113 GM Tube 1 APPLIC TOPICAL (18:19)
[2021-03-26 18:21] VITALS: PULSE 59
[2021-03-26 22:00] VITALS: BP 113/63; PULSE 62
[2021-03-26] MEDS: Latanoprost 0.005% 1 Bottle 1 DRP EACH EYE (22:18)
[2021-03-26] MEDS: Atorvastatin Calcium 80 MG Tablet PO (22:19)
[2021-03-27] MEDS: Gabapentin 100 MG Capsule PO ×4 (00:07→17:06)
[2021-03-27] MEDS: Escitalopram Oxalate 20 MG Tablet PO (06:10)
[2021-03-27] MEDS: Levothyroxine 75 MCG Tablet PO (06:10)
[2021-03-27 06:11] VITALS: BP 108/55; PULSE 70
[2021-03-27] MEDS: Metoprolol Tartrate 25 MG Tablet 12.5 MG PO ×2 (06:11→17:03)
[2021-03-27] MEDS: hydroCHLOROthiazide 12.5mg 12.5 MG PO (06:11)
[2021-03-27] MEDS: amLODIPine 10 MG Tablet PO (06:11)
[2021-03-27] MEDS: oxyCODONE HCl Cr 10 MG Tablet PO ×2 (06:15→17:08)
[2021-03-27] MEDS: Menthol/Lanolin/Calamine/Znox 113 GM Tube 1 APPLIC TOPICAL ×2 (06:17→17:04)
[2021-03-27 06:35] LABS: Bedside Glucose 69 mg/dL (70-110)
[2021-03-27] MEDS: Aspirin E.C. 81 MG Tablet PO (11:31)
[2021-03-27] MEDS: metFORMIN HCl 500 MG Tablet PO (11:31)
[2021-03-27] MEDS: LINAGLIPTIN 5 MG TABLET PO (11:32)
[2021-03-27] MEDS: Oxybutynin 5 MG Tablet PO ×2 (11:32→17:05)
[2021-03-27] MEDS: Lisinopril 20 MG Tablet PO ×2 (11:32→20:25)
[2021-03-27] MEDS: Multivitamins,Therapeutic Tablet 1 TABLET PO (12:23)
[2021-03-27 14:19] VITALS: BP 113/67; PULSE 60; RESP 16; TEMP 36.1; O2SAT 93
--- NOTE | 2021-03-27 14:58 | CHAPLAIN ---
Type of Pastoral Visit _x__ Initial Visit ___ Follow-up Visit ___ On-call Visit ___ General Patient Visit ___ Spiritual Assessment ___ Family Conference ___ Bereavement ___ Rapid Response ___ Code Blue ___ Other (describe below) Pastoral Care Referral From _x__ Patient ___ Family ___ Nurse ___ Physician ___ Precision Instrument Maker ___ Jail Keeper ___ Other (describe below) Sacrament/Intervention _x__ Active listening ___ Anointing ___ Presybeterian ___ Bereavement ___ Communion ___ Adriana exploration ___ ___ Life review _x__ Prayer ___ Reconciliation ___ Sacrament of Sick _x__ Supportive presence ___ Wedding ___ Other (describe below) Pastoral Comments previously met this patient when playing Bingo about two weeks ago; today made a visit in pt room; patient was having difficulty getting her words and thoughts expressed; pt repeatedly stated how tired she felt and that she knew she was having difficulty with focus; pt either could not hear some statements from this junior buyer or responded to questions with words that did not correlate; prayer was offered and accepted by pt; notified the SMALL BATTERY PLATE ASSEMBLER of how pt was speaking; response of SMALL BATTERY PLATE ASSEMBLER was that this has been seen and that pt has seen some decline in function too
--- NOTE | 2021-03-27 16:16 | CASEMGMT ---
Social Work Insurance issued LCD 03/30, DC 03/31. Spoke with pt. Pt agreeable. Updated [facility]. SOC 04/02. No DME needs. Pt stated her appt with Dr. ernst 03/29 is just an office visit, not an injection, which she requested. Assisted pt in speaking with Farrah at Dr. Ernst's office to see if he can switch that visit to an injection prior to pt discharging 03/31. Farrah agreed to leave message for and notify SW if that can be changed. Pt appreciative. Plan: DC home with son 03/31, [facility] PT/OT/ST Coty Serrano, LORRIE BLOOMW
[2021-03-27 17:03] VITALS: BP 113/67; PULSE 82
[2021-03-27] MEDS: Nystatin Powder 15gm Bottle 1 APPLIC TOPICAL (17:05)
[2021-03-27 20:24] VITALS: BP 140/66; PULSE 62
[2021-03-27] MEDS: Atorvastatin Calcium 80 MG Tablet PO (20:25)
[2021-03-27] MEDS: Latanoprost 0.005% 1 Bottle 1 DRP EACH EYE (20:26)
[2021-03-27 20:28] VITALS: PULSE 62; RESP 16; O2SAT 96
[2021-03-28] MEDS: Gabapentin 100 MG Capsule PO ×5 (00:10→23:27)
[2021-03-28 06:26] LABS: Bedside Glucose 90 mg/dL (70-110)
[2021-03-28 06:40] VITALS: BP 114/63; PULSE 65
[2021-03-28] MEDS: Levothyroxine 75 MCG Tablet PO (06:40)
[2021-03-28] MEDS: amLODIPine 10 MG Tablet PO (06:40)
[2021-03-28] MEDS: Metoprolol Tartrate 25 MG Tablet 12.5 MG PO ×2 (06:40→17:38)
[2021-03-28] MEDS: Escitalopram Oxalate 20 MG Tablet PO (06:41)
[2021-03-28] MEDS: hydroCHLOROthiazide 12.5mg 12.5 MG PO (06:41)
[2021-03-28] MEDS: Menthol/Lanolin/Calamine/Znox 113 GM Tube 1 APPLIC TOPICAL ×2 (06:41→17:44)
[2021-03-28] MEDS: oxyCODONE HCl Cr 10 MG Tablet PO ×2 (06:44→17:43)
[2021-03-28] MEDS: Nystatin Powder 15gm Bottle 1 APPLIC TOPICAL ×2 (06:49→17:39)
[2021-03-28] MEDS: Acetaminophen 500 MG Tablet 1000 MG PO (08:44)
[2021-03-28] MEDS: Multivitamins,Therapeutic Tablet 1 TABLET PO (08:46)
[2021-03-28] MEDS: metFORMIN HCl 500 MG Tablet PO (08:46)
[2021-03-28] MEDS: LINAGLIPTIN 5 MG TABLET PO (08:47)
[2021-03-28] MEDS: Lisinopril 20 MG Tablet PO ×2 (08:47→21:07)
[2021-03-28] MEDS: Aspirin E.C. 81 MG Tablet PO (08:47)
[2021-03-28] MEDS: Oxybutynin 5 MG Tablet PO ×2 (08:47→17:38)
[2021-03-28 09:22] VITALS: PULSE 80; RESP 18; O2SAT 95
--- NOTE | 2021-03-28 10:09 | CASEMGMT ---
Addendum entered by Coty Serrano 03/28/21 10:12: Correction: [facility] PT/OT/ST/SW Original Note: Social Work Followed up with pt from visit with Dr. Ernst. She is now concerned about the pain when she gets home. Offered SNF stay, but it would be private pay. Pt cannot afford, but would like to try it at home first. Son will be home over the weekend and HHC will start 04/02. Offered to order [facility] SW to assist if home is not successful. Pt agreeable. Called [facility] - SW added. Updated order. Plan: DC home with son 03/31, [facility] PT/OT/ST/SN/SW Coty Serrano, SYSTEMS ADMINISTRATOR PROSTHETIC DENTIST
[2021-03-28 15:33] VITALS: BP 118/55; PULSE 70; RESP 16; TEMP 36.7; O2SAT 95
[2021-03-28 17:38] VITALS: BP 118/55; PULSE 70
[2021-03-28] MEDS: Atorvastatin Calcium 80 MG Tablet PO (21:08)
[2021-03-28] MEDS: Latanoprost 0.005% 1 Bottle 1 DRP EACH EYE (21:08)
[2021-03-29] MEDS: Menthol/Lanolin/Calamine/Znox 113 GM Tube 1 APPLIC TOPICAL ×2 (05:01→16:54)
[2021-03-29] MEDS: hydroCHLOROthiazide 12.5mg 12.5 MG PO ×2 (05:01→05:02)
[2021-03-29 05:02] VITALS: BP 120/63; PULSE 66
[2021-03-29] MEDS: Metoprolol Tartrate 25 MG Tablet 12.5 MG PO ×2 (05:02→16:56)
[2021-03-29] MEDS: Escitalopram Oxalate 20 MG Tablet PO (05:02)
[2021-03-29] MEDS: amLODIPine 10 MG Tablet PO (05:03)
[2021-03-29] MEDS: Levothyroxine 75 MCG Tablet PO (05:03)
[2021-03-29] MEDS: Gabapentin 100 MG Capsule PO ×4 (05:04→23:07)
[2021-03-29] MEDS: Nystatin Powder 15gm Bottle 1 APPLIC TOPICAL ×2 (05:04→16:57)
[2021-03-29] MEDS: oxyCODONE HCl Cr 10 MG Tablet PO ×2 (05:04→17:00)
[2021-03-29 06:26] LABS: Bedside Glucose 127 mg/dL (70-110)
[2021-03-29] MEDS: Lisinopril 20 MG Tablet PO ×2 (09:24→21:58)
[2021-03-29] MEDS: Oxybutynin 5 MG Tablet PO ×2 (09:24→16:55)
[2021-03-29] MEDS: Aspirin E.C. 81 MG Tablet PO (09:24)
[2021-03-29] MEDS: metFORMIN HCl 500 MG Tablet PO (09:24)
[2021-03-29] MEDS: Multivitamins,Therapeutic Tablet 1 TABLET PO (09:25)
[2021-03-29] MEDS: LINAGLIPTIN 5 MG TABLET PO (09:25)
[2021-03-29 13:55] VITALS: BP 123/53; PULSE 70; RESP 20; TEMP 36.5; O2SAT 97
--- NOTE | 2021-03-29 15:31 | MDS.RN ---
Pain interview for radha 03/31/21
[2021-03-29 16:56] VITALS: PULSE 70
[2021-03-29] MEDS: Latanoprost 0.005% 1 Bottle 1 DRP EACH EYE (21:58)
[2021-03-29] MEDS: Atorvastatin Calcium 80 MG Tablet PO (21:58)
[2021-03-29 23:49] VITALS: PULSE 61; RESP 14; O2SAT 93
[2021-03-30] MEDS: Escitalopram Oxalate 20 MG Tablet PO (05:17)
[2021-03-30] MEDS: Gabapentin 100 MG Capsule PO ×4 (05:17→23:55)
[2021-03-30] MEDS: Levothyroxine 75 MCG Tablet PO (05:17)
[2021-03-30] MEDS: oxyCODONE HCl Cr 10 MG Tablet PO ×2 (05:17→17:17)
[2021-03-30] MEDS: amLODIPine 10 MG Tablet PO (05:17)
[2021-03-30 05:18] VITALS: BP 121/60; PULSE 65
[2021-03-30] MEDS: Menthol/Lanolin/Calamine/Znox 113 GM Tube 1 APPLIC TOPICAL ×2 (05:18→17:18)
[2021-03-30] MEDS: Metoprolol Tartrate 25 MG Tablet 12.5 MG PO ×2 (05:18→17:17)
[2021-03-30] MEDS: Nystatin Powder 15gm Bottle 1 APPLIC TOPICAL ×2 (05:18→17:39)
[2021-03-30 06:35] LABS: Bedside Glucose 130 mg/dL (70-110)
[2021-03-30] MEDS: oxyCODONE 5 MG Tablet PO (08:01)
[2021-03-30] MEDS: Lisinopril 20 MG Tablet PO ×2 (08:01→20:10)
[2021-03-30] MEDS: Aspirin E.C. 81 MG Tablet PO (08:02)
[2021-03-30] MEDS: Multivitamins,Therapeutic Tablet 1 TABLET PO (08:02)
[2021-03-30] MEDS: Oxybutynin 5 MG Tablet PO ×2 (08:02→17:17)
[2021-03-30] MEDS: LINAGLIPTIN 5 MG TABLET PO (08:02)
[2021-03-30] MEDS: metFORMIN HCl 500 MG Tablet PO (08:02)
--- NOTE | 2021-03-30 08:08 | NURSING ---
pt reports that dr Ernst set up appt for her to be seen in his office April 18.
--- NOTE | 2021-03-30 09:31 | CASEMGMT ---
Social Work BIMS and PHQ-9 completed for MDS assessment. Coty Serrano, AUTOMOBILE PAINTER TAX INTERN
[2021-03-30 13:24] VITALS: BP 117/78; PULSE 66; RESP 20; TEMP 36.8; O2SAT 97
[2021-03-30 17:17] VITALS: PULSE 66
[2021-03-30 20:00] VITALS: O2SAT 94
[2021-03-30] MEDS: Latanoprost 0.005% 1 Bottle 1 DRP EACH EYE (20:10)
[2021-03-30] MEDS: Atorvastatin Calcium 80 MG Tablet PO (20:10)
[2021-03-31] MEDS: Menthol/Lanolin/Calamine/Znox 113 GM Tube 1 APPLIC TOPICAL (05:19)
[2021-03-31] MEDS: oxyCODONE HCl Cr 10 MG Tablet PO (05:19)
[2021-03-31] MEDS: Nystatin Powder 15gm Bottle 1 APPLIC TOPICAL (05:20)
[2021-03-31] MEDS: Levothyroxine 75 MCG Tablet PO (05:20)
[2021-03-31] MEDS: hydroCHLOROthiazide 12.5mg 12.5 MG PO (05:20)
[2021-03-31] MEDS: Gabapentin 100 MG Capsule PO (05:21)
[2021-03-31] MEDS: Escitalopram Oxalate 20 MG Tablet PO (05:21)
[2021-03-31] MEDS: amLODIPine 10 MG Tablet PO (05:21)
[2021-03-31 05:22] VITALS: BP 119/60; PULSE 60
[2021-03-31] MEDS: Metoprolol Tartrate 25 MG Tablet 12.5 MG PO (05:22)
[2021-03-31 06:31] LABS: Bedside Glucose 118 mg/dL (70-110)
[2021-03-31 07:50] LABS: Absolute Lymphocyte Count 1.73 X10^3/uL (0.83-4.51); Absolute Neutrophil Count 8.4 X10^3/uL (2.0-7.7); Basophil# 0.03 X10^3/uL; Basophil% 0.3 % (0-1); Eosinophil# 0.41 X10^3/uL; Eosinophils% 3.6 % (0-5); Hematocrit 32.6 % (37-47); Hemoglobin 11.3 g/dL (12.0-15.0); Lymphocyte # 1.73 X10^3/ul (0.83-4.51); Mean Corp Hgb Conc 34.7 g/dL (32-36); Mean Corpuscular Hgb 29.6 pg (27.0-32.0); Mean Corpuscular Volume 85.3 fL (81-99); Mean Platelet Vol. 9.3 fl (6.2-12.0); Monocyte# 0.91 X10^3/uL; Monocyte% 7.9 % (0-10); NRBC Flagged by Analyzer 0 % (0-5); Neutrophil # 8.37 X10^3/uL (2.7-7.7); Neutrophil % 72.8 % (47-70); Platelet Count 154 K/mm3 (150-450); RBC Distribution Width CV 13.2 % (11.6-14.6); RBC Distribution Width SD 41.1 fl (35.1-43.9); Red Blood Count 3.82 M/mm3 (4.2-5.4); White Blood Count 11.5 K/mm3 (4.4-11.0)
[2021-03-31 08:10] LABS: Anion Gap 7 (5-15); BUN 18 mg/dL (7-18); BUN/Creat Ratio 30.9 RATIO (10-20); Calcium,Total 8.9 mg/dL (8.5-10.1); Chloride 92 mmol/L (98-107); Creatinine, Serum 0.58 mg/dL (0.55-1.02); EST Glomerular Filtration Rate 106 mL/min (>60); Est Glom Filt Rate - Afr Amer 128 mL/min (>60); Estimated Creatinine Clearance 34.42 ml/min; Glucose 114 mg/dL (74-106); Potassium 4.2 mmol/L (3.5-5.1); Sodium Level 126 mmol/L (136-145)
[2021-03-31] MEDS: Oxybutynin 5 MG Tablet PO (08:34)
[2021-03-31] MEDS: metFORMIN HCl 500 MG Tablet PO (08:34)
[2021-03-31] MEDS: Aspirin E.C. 81 MG Tablet PO (08:34)
[2021-03-31] MEDS: Lisinopril 20 MG Tablet PO (08:35)
[2021-03-31] MEDS: LINAGLIPTIN 5 MG TABLET PO (08:35)
[2021-03-31] MEDS: Multivitamins,Therapeutic Tablet 1 TABLET PO (08:35)
[2021-03-31 09:11] VITALS: BP 115/67; PULSE 66; RESP 20; TEMP 37.1; O2SAT 94
--- NOTE | 2021-03-31 10:38 | NURSING ---
Copy of lab reviewed and sent with resident. Advised to review at F/U with Dr Adamson to see if he would like to repeat them.
== END 2021-03-31 11:15 | disposition home health service (06) | DRG 552 ==
PROVIDERS: Admitting Provider Family Medicine Geriatric Medicine; PCP Family Medicine; Visit Provider Family Medicine Geriatric Medicine
DX: M48.061 Spinal stenosis, lumbar region without neurogenic claudication (principal); Z23 Encounter for immunization; I10 Essential (primary) hypertension; E11.42 Type 2 diabetes mellitus with diabetic polyneuropathy; E78.5 Hyperlipidemia, unspecified; F32.A Depression, unspecified; N32.81 Overactive bladder; E55.9 Vitamin D deficiency, unspecified; H40.9 Unspecified glaucoma; G47.30 Sleep apnea, unspecified; E06.3 Autoimmune thyroiditis; M19.90 Unspecified osteoarthritis, unspecified site; E66.9 Obesity, unspecified; Z68.39 Body mass index [BMI] 39.0-39.9, adult; Z79.899 Other long term (current) drug therapy; Z79.82 Long term (current) use of aspirin; Z79.890 Hormone replacement therapy; Z79.84 Long term (current) use of oral hypoglycemic drugs; R47.1 Dysarthria and anarthria
CPT/HCPCS: 0004A; 36415; 73521; 73560; 80048; 82962; 85025; 87635; 90732; 91300; 92526; 92610; 97110; 97116; 97162; 97166; 97530; 97535; 97802; G0009; U0005; U0003

== ENCOUNTER → 2021-04-02 08:57 | Outpatient (CLI) | payer MEDICARE, SELFPAY ==
[2021-04-02 10:15] LABS: Absolute Lymphocyte Count 1.33 X10^3/uL (0.83-4.51); Absolute Neutrophil Count 11.2 X10^3/uL (2.0-7.7); Basophil# 0.04 X10^3/uL; Basophil% 0.3 % (0-1); Eosinophil# 0.21 X10^3/uL; Eosinophils% 1.5 % (0-5); Hematocrit 38.1 % (37-47); Hemoglobin 12.9 g/dL (12.0-15.0); Lymphocyte # 1.33 X10^3/ul (0.83-4.51); Lymphocyte % 9.7 % (19-41); Mean Corp Hgb Conc 33.9 g/dL (32-36); Mean Corpuscular Hgb 29.6 pg (27.0-32.0); Mean Corpuscular Volume 87.4 fL (81-99); Mean Platelet Vol. 9.3 fl (6.2-12.0); Monocyte# 0.89 X10^3/uL; Monocyte% 6.5 % (0-10); NRBC Flagged by Analyzer 0 % (0-5); Neutrophil # 11.22 X10^3/uL (2.7-7.7); Neutrophil % 81.5 % (47-70); Platelet Count 224 K/mm3 (150-450); RBC Distribution Width CV 13.6 % (11.6-14.6); RBC Distribution Width SD 43.6 fl (35.1-43.9); Red Blood Count 4.36 M/mm3 (4.2-5.4); White Blood Count 13.8 K/mm3 (4.4-11.0)
[2021-04-02 10:36] LABS: Hemoglobin A1c 6.1 % (3.8-5.6)
[2021-04-02 10:40] LABS: Urine Sodium 36 mmol/L (Not Establ.)
[2021-04-02 10:58] LABS: Osmolality, Urine 581 mOsm/KG
[2021-04-02 10:59] LABS: ALB/GLOB Ratio 0.8 RATIO (0.9-2.4); AST(SGOT) 18 U/L (15-37); Alanine Aminotransfer ALT/SGPT 29 U/L (13-56); Albumin, Serum 3.2 g/dL (3.2-5.0); Alkaline Phosphatase 101 U/L (45-117); Anion Gap 9 (5-15); BUN 20 mg/dL (7-18); BUN/Creat Ratio 24.7 RATIO (10-20); Calcium,Total 9.7 mg/dL (8.5-10.1); Chloride 99 mmol/L (98-107); Creatinine, Serum 0.81 mg/dL (0.55-1.02); EST Glomerular Filtration Rate 73 mL/min (>60); Est Glom Filt Rate - Afr Amer 88 mL/min (>60); Globulin 3.9 g/dL (2.2-4.2); Glucose 162 mg/dL (74-106); Potassium 3.5 mmol/L (3.5-5.1); Protein, Total 7.1 g/dL (6.4-8.2); Sodium Level 133 mmol/L (136-145); Thyroid Stim Hormone (TSH) 2.33 uIU/mL (0.358-3.74)
[2021-04-02 11:07] LABS: Osmolality, Serum 283 mOsm/KG (280-301)
[2021-04-02 11:41] LABS: Microalbumin,Random Urine 58.9 mg/L (NO RANGE EST.); Microalbumin:Creatinine Ratio 23.8 mg/g CRE (<30 mg/g CRE)
== END ==
PROVIDERS: PCP Family Medicine; Visit Provider Family Medicine
DX: E87.1 Hypo-osmolality and hyponatremia (principal); R06.02 Shortness of breath; E11.618 Type 2 diabetes mellitus with other diabetic arthropathy
CPT/HCPCS: 80053; 82043; 82570; 83036; 83735; 83930; 83935; 84300; 84443; 85025

== ENCOUNTER 2021-06-28 14:31 | Outpatient (CLI) | payer MEDICARE, SELFPAY ==
[2021-06-28 18:01] LABS: Absolute Lymphocyte Count 2.37 X10^3/uL (0.83-4.51); Absolute Neutrophil Count 4.5 X10^3/uL (2.0-7.7); Basophil# 0.06 X10^3/uL; Basophil% 0.7 % (0-1); Eosinophil# 0.49 X10^3/uL; Eosinophils% 6.1 % (0-5); Hemoglobin 14.1 g/dL (12.0-15.0); Lymphocyte # 2.37 X10^3/ul (0.83-4.51); Lymphocyte % 29.4 % (19-41); Mean Corp Hgb Conc 33.6 g/dL (32-36); Mean Corpuscular Hgb 29.9 pg (27.0-32.0); Mean Corpuscular Volume 89.2 fL (81-99); Monocyte% 7.4 % (0-10); NRBC Flagged by Analyzer 0 % (0-5); Neutrophil # 4.53 X10^3/uL (2.7-7.7); Neutrophil % 56.2 % (47-70); Platelet Count 187 K/mm3 (150-450); RBC Distribution Width CV 13.4 % (11.6-14.6); RBC Distribution Width SD 44.2 fl (35.1-43.9); Red Blood Count 4.71 M/mm3 (4.2-5.4); White Blood Count 8.1 K/mm3 (4.4-11.0)
[2021-06-28 18:22] LABS: Vitamin D,25 Hydroxy 87.1 ng/mL
[2021-06-28 18:24] LABS: Hemoglobin A1c 5.9 % (3.8-5.6)
[2021-06-28 18:51] LABS: AST(SGOT) 30 U/L (15-37); Alanine Aminotransfer ALT/SGPT 44 U/L (13-56); Albumin, Serum 3.7 g/dL (3.2-5.0); Alkaline Phosphatase 103 U/L (45-117); Anion Gap 10 (5-15); BUN 21 mg/dL (7-18); BUN/Creat Ratio 20.8 RATIO (10-20); Chloride 104 mmol/L (98-107); Creatinine, Serum 1.01 mg/dL (0.55-1.02); EST Glomerular Filtration Rate 56 mL/min (>60); Est Glom Filt Rate - Afr Amer 68 mL/min (>60); Globulin 3.6 g/dL (2.2-4.2); Glucose 174 mg/dL (74-106); Potassium 3.5 mmol/L (3.5-5.1); Protein, Total 7.3 g/dL (6.4-8.2); Sodium Level 137 mmol/L (136-145); Thyroid Stim Hormone (TSH) 2.98 uIU/mL (0.358-3.74)
== END 2021-06-28 23:59 | disposition home or self-care (01) ==
LOC: MFPLAB 14:32
PROVIDERS: PCP Family Medicine; Referring Provider Family Medicine; Visit Provider Family Medicine
DX: E55.9 Vitamin D deficiency, unspecified (principal); E11.618 Type 2 diabetes mellitus with other diabetic arthropathy; E03.9 Hypothyroidism, unspecified; Z86.73 Personal history of transient ischemic attack (TIA), and cerebral infarction without residual deficits
CPT/HCPCS: 36415; 80053; 82306; 83036; 84443; 85025

== ENCOUNTER → 2021-09-03 | Outpatient (CLI) | payer MEDICARE, SELFPAY ==
[2021-09-03 13:10] LABS: Cholesterol 105 mg/dL (200); High Density Lipoprotein 56 mg/dL; Triglycerides 121 mg/dL; Very Low Density Lipoprotein 24 mg/dL (5-40)
== END | disposition home or self-care (01) ==
LOC: LAB 11:56
PROVIDERS: PCP Family Medicine; Referring Provider Physician Assistant Medical; Visit Provider Physician Assistant Medical
DX: I63.9 Cerebral infarction, unspecified (principal)
CPT/HCPCS: 36415; 80061

== ENCOUNTER 2022-01-02 12:32 | Emergency (ER) | payer MEDICARE, SELFPAY ==
[2022-01-02 12:34] VITALS: BP 145/102; PULSE 63; RESP 18; TEMP 36.1; O2SAT 95; BMI 35.2
--- NOTE | 2022-01-02 14:13 | EKG12_ITS ---
Test Reason : DIZINESS Blood Pressure : / mmHG Vent. Rate : 057 BPM Atrial Rate : 057 BPM P-R Int : 146 ms QRS Dur : 088 ms QT Int : 534 ms P-R-T Axes : 020 -21 033 degrees QTc Int : 519 ms Sinus bradycardia Prolonged QT Abnormal ECG Confirmed by EBENEZER MAHARAJ, ADEN ([id number]), publications editor NAKIA BARROS ([id number]) on 01/04/2022 9:53:23 AM Referred By: MELISA Confirmed By:ADEN SOL MD
--- NOTE | 2022-01-02 14:13 | CT_ITS ---
STUDY: CT BRAIN WITHOUT CONTRAST REASON FOR EXAM: Female, 81 years old. Dizziness, nausea and vomiting. RADIATION DOSAGE (If Supplied By Facility): CTDIvol = ( 44.99 ) mGy, DLP = ( 829.85 ) mGycm TECHNIQUE: Transaxial CT imaging of the brain was performed without administration of intravenous contrast material. Individualized dose optimization techniques were used for this CT. COMPARISON: Comparison is made with prior study 03/05/2021. FINDINGS: Normal soft tissue structures. There is hyperostosis frontalis internus. There is mild cerebral atrophy with widening of the extra-axial spaces and ventricular dilatation. Normal white matter tracts of the cerebral hemispheres. Normal basal ganglia and thalami. Normal brainstem. Normal cerebellum. There is no intracranial hemorrhage. There are no findings of an acute ischemic infarction. Atherosclerotic calcification of the cavernous portions of the internal carotid arteries bilaterally. Minimal mucosal thickening along the anterior aspect of the right maxillary sinus. CT/Brain/Head without Contrast IMPRESSION: Chronic involutional changes of the brain. Electronically Signed: Alexey Villa MD at 15:03 EDT ,
--- NOTE | 2022-01-02 14:15 | EDS_ITS ---
HPI History of Present Illness Chief Complaint: Dizziness Narrative Narrative: 81-year-old female presenting with dizziness and lightheadedness. She stated last evening she started to feel lightheaded and then she began to experience nausea. She states she spent most of the night vomiting on the toilet. Patient states that she thinks this is vertigo. She has not taken anything for vertigo. She has a mild headache and feels mild fatigue. Patient has not had a fever, chills. She denies chest pain or shortness of breath. She has no abdominal pain. She does report she has a history of urinary tract infections in the past. She states used to get them monthly. [facility] Medical History Arthritis Basal cell carcinoma CVA (cerebral vascular accident) (01/2019) Depression Elevated troponin I level Essential (primary) hypertension Generalized weakness Glaucoma Darryl's disease Hyperlipemia Nonrheumatic aortic (valve) stenosis Obesity Skin lesion of face Sleep apnea Spinal stenosis of lumbar region at multiple levels Tachycardia Home Medications aspirin 81 mg tablet,delayed release 81 mg PO DAILY@0800 cholesterol 03/18/14 [History Last Taken 03/08/21 09:06] ergocalciferol (vitamin D2) 1,250 mcg (50,000 unit) capsule 50,000 unit PO MO SUPPLEMENT 10/03/14 [History Last Taken 01/16/21] latanoprost 0.005 % eye drops 1 drp EACH EYE QHS GLAUCOMA 10/03/14 [History Last Taken 03/07/21 20:57] levothyroxine 75 mcg tablet 75 mcg PO DAILY THYROID 03/11/19 [History Last Taken 03/08/21 05:11] multivitamin (Daily Multi-Vitamin tablet) 1 tab PO DAILY SUPPLEMENT 02/24/20 [History Last Taken 01/17/21] selenium 50 mcg tablet 50 mcg PO DAILY SUPPLEMENT 07/05/20 [History Last Taken 01/18/21] metformin 500 mg tablet 500 tablet PO DAILY DM 08/28/20 [History Last Taken 03/08/21 09:06] atorvastatin 80 mg tablet 80 mg PO QHS CHOLESTEROL 01/18/21 [History Last Taken 03/07/21 20:58] benazepril 20 mg tablet 20 mg PO BID HEART 01/18/21 [History Last Taken 01/17/21] glipizide 5 mg tablet, extended release 24 hr 5 mg PO DAILY DM 01/18/21 [History Last Taken 03/08/21 09:06] hydrochlorothiazide 12.5 mg tablet 12.5 mg PO DAILY BP 01/18/21 [History Last Taken 01/18/21] sitagliptin 50 mg tablet (Januvia) 50 mg PO DAILY DM 01/18/21 [History Last Taken 03/08/21 09:06] escitalopram oxalate 10 mg tablet (Lexapro) 20 mg PO DAILY DEPRESSION 02/23/21 [History Last Taken 03/08/21 09:06] oxybutynin chloride 10 mg tablet,extended release 24 hr 5 mg PO BID BLADDER 02/23/21 [History Last Taken 03/08/21 09:06] metoprolol tartrate 25 mg tablet 12.5 mg PO BID BP 03/08/21 [History Last Taken Unknown] acetaminophen 500 mg tablet 1,000 mg PO Q6H PRN PRN Pain Score 1-3 #0 tabs 03/21/21 [Rx Last Taken Unknown] oxycodone 5 mg tablet 5 mg PO Q4H PRN PRN Pain Score 4-10 7 days #42 tabs 03/21/21 [Rx Last Taken Unknown] amlodipine 10 mg tablet 5 mg PO DAILY BP 09/03/21 [History Last Taken Unknown] meclizine 25 mg tablet 25 mg PO TID PRN dizziness #30 tabs 01/02/22 [Rx Last Taken Unknown] Allergy/AdvReac Type Severity Reaction Status Date / Time iodine Allergy SEE Verified 01/02/22 12:34 COMMENTS Family History Mother CAD (coronary artery disease) Hypertension Cancer Leukemia Father Diabetes Alcoholism Surgical History H/O partial thyroidectomy History of bladder suspension procedure History of cervical spinal surgery History of hysterectomy History of right and left heart catheterization (09/27/16) 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) Social History household members: children Smoking Status: Never smoker alcohol intake: never substance use type: does not use ROS ROS ED Constitutional Constitutional ED: Denies chills or fever(s) Eyes Eyes: Denies change in vision ENT ENT ED: Denies rhinorrhea or sore throat Cardiovascular Cardiovascular: Denies chest pain or palpitations Respiratory/Chest Respiratory/Chest: Denies cough or dyspnea Gastrointestinal Gastrointestinal: Reports nausea and vomiting; Denies diarrhea Genitourinary Genitourinary ED: Denies dysuria or hematuria Musculoskeletal Musculoskeletal: Denies myalgias or neck pain Integumentary Denies abscess or Abrasions Neurologic Neurologic: Reports headache(s) and other Details: Dizziness Psychiatric Psychiatric: Denies anxiety or depression EXAM Physical Exam Const Vital Signs: 01/02/22 12:34 01/02/22 14:10 01/02/22 15:06 Temperature 97 F L Temperature Source Temporal Pulse Rate 63 Pulse Rate [Lying] 62 Pulse Rate [Sitting (for 1 minute prior to obtaining)] 59 L Pulse Rate [Standing (for 1 minute prior to obtaining)] 72 Respiratory Rate 18 Respiratory Pattern Normal Blood Pressure 145/102 H Blood Pressure [Lying] 137/67 H Blood Pressure [Sitting (for 1 minute prior to obtaining)] 152/65 H Blood Pressure [Standing (for 1 minute prior to obtaining)] 152/77 H Blood Pressure Mean 116 Blood Pressure Mean [Lying] 90 Blood Pressure Mean [Sitting (for 1 minute prior to obtaining)] 94 Blood Pressure Mean [Standing (for 1 minute prior to obtaining)] 102 Pulse Ox 95 Oxygen Delivery Method Room Air Positive well nourished General Appearance ED: NAD; Negative for pallor HEENT Reports TM's clear and moist mucous membranes HEENT Narrative: [place] technically difficult due to patient compliance however she does report worsening vertiginous dizziness with movement. Tympanic Membrane ED: Yes TM's clear Eyes PERRL and EOMs intact bilaterally General Eye ED: Negative for pale conjunctiva or scleral icterus Chest Wall inspection of chest normal Resp normal respiratory effort and clear to auscultation bilaterally Cardio regular rate and regular rhythm GI normal to inspection, nondistended, normoactive bowel sounds Extremity normal to inspection General Extremety ED: Negative for edema or tenderness General Extremity: Negative for edema Neuro oriented x3 and CN's II-XII intact bilaterally Sensorium / Orientation: alert Psych mental status grossly normal Skin no rashes or lesions noted and no wounds General Skin Exam: Negative for jaundice or pallor MDM MDM MDM Narrative Medical decision making narrative: Patient arrives with chief complaint of dizziness with nausea and vomiting. She thinks it is positional vertigo. I am able to elicit some vertigo on examination however she also states she is lightheaded. Patient was medicated with Phenergan and meclizine. EKG performed and on my interpretation shows a sinus bradycardia with ventricular to 57 bpm without sign of ischemic change. MN interval 146, QRS duration 88, QTc 518. Chest x-ray my interpretation shows no acute cardiopulmonary process and radiologist agree. CBC within normal limits. Renal function is normal. Calcium slightly high at 10.4. Glucose is elevated to 39 without anion gap. Total bilirubin 1.3. Her LFTs are normal. High-sensitivity troponin is 29. CT of the brain does not show any evidence of acute intracranial process. On reevaluation at 4:15 PM the patient is feeling well. Orthostatic vital signs were normal and she is not significantly symptomatic with this. Patient counseled that she has peripheral vertigo and will need meclizine for this. Patient discharged home into the care of her daughter. Impression: 1. Benign positional vertigo 2. Nausea/vomiting 3. Hyperglycemia 4. Hyperbilirubinemia 5. Hypercalcemia Lab Data Attestation: I reviewed the patient's lab results. Labs: Laboratory Results - last 24 hr 01/02/22 01/02/22 14:10 14:10 WBC 10.0 RBC 4.67 Hgb 14.1 Hct 41.2 MCV 88.2 MCH 30.2 MCHC 34.2 RDW Std Deviation 42.6 RDW Coeff of [place]in[place] 13.2 Plt Count 132 L MPV 9.6 Immature Gran % (Auto) 0.400 Neut % (Auto) 87.0 H Lymph % (Auto) 9.5 L Turner % (Auto) 2.8 Eos % (Auto) 0.1 Baso % (Auto) 0.2 Absolute Neuts (auto) 8.7 H Absolute Lymphs (auto) 0.95 Nucleated RBC % 0 Sodium 139 Potassium 3.8 Chloride 104 Carbon Dioxide 26.0 Anion Gap 9 BUN 16 Creatinine 0.87 Estim Creat Clear Calc 38.92 Est GFR (MDRD) Af Amer 80 Est GFR (MDRD) Non-Af 66 BUN/Creatinine Ratio 18.3 Glucose 239 H Calcium 10.4 H Total Bilirubin 1.30 H AST 16 ALT 31 Alkaline Phosphatase 90 Troponin I High Sens 29 Total Protein 7.5 Albumin 3.8 Globulin 3.7 Albumin/Globulin Ratio 1.0 Radiography Diagnostic Testing: Clinical Impression(s) from Imaging Studies Brain CT 01/02/22 14:13 IMPRESSION: Chronic involutional changes of the brain. Electronically Signed: Alexey Villa MD at 15:03 EDT , Chest X-Ray 01/02/22 14:45 IMPRESSION: No acute abnormality is seen. Electronically Signed: Alexey Villa MD at 15:04 EDT , Discharge Plan Triage Chief Complaint: Dizziness ED Provider: Leonardo Griggs Dx/Rx/DC Orders Instructions: ED BPV Vertigo Prescriptions: New meclizine 25 mg tablet 25 mg PO TID PRN (Reason: dizziness) Qty: 30 0RF No Action levothyroxine 75 mcg tablet 75 mcg PO DAILY multivitamin [Daily Multi-Vitamin] Tablet 1 tab PO DAILY selenium 50 mcg tablet 50 mcg PO DAILY metformin 500 mg tablet 500 tablet PO DAILY aspirin 81 MG tablet 81 mg PO DAILY@0800 oxybutynin chloride 10 mg tablet extended release 24hr 5 mg PO BID latanoprost 1 DROP bottle 1 drp EACH EYE QHS ergocalciferol (vitamin D2) 50,000 UNIT capsule 50,000 unit PO MO escitalopram oxalate [Lexapro] 10 mg tablet 20 mg PO DAILY glipizide 5 mg tablet extended release 24hr 5 mg PO DAILY Label Comments: TAKE 1 TABLET BY MOUTH ONCE DAILY Januvia 50 mg tablet 50 mg PO DAILY Label Comments: TAKE 1 TABLET BY MOUTH ONCE DAILY atorvastatin 80 MG tablet 80 mg PO QHS benazepril 20 MG tablet 20 mg PO BID Rx Instructions: hold for 3 days hydrochlorothiazide 12.5 mg tablet 12.5 mg PO DAILY amlodipine 10 mg tablet 5 mg PO DAILY metoprolol tartrate 25 mg tablet 12.5 mg PO BID acetaminophen 500 mg Tablet 1,000 mg PO Q6H PRN PRN (Reason: Pain Score 1-3) Qty: 0 0RF oxycodone 5 mg Tablet 5 mg PO Q4H PRN PRN (Reason: Pain Score 4-10) 7 Days Qty: 42 0RF Primary Care Provider: Sunil Adamson Referrals: Sunil Adamson MD [Primary Care Provider] - Disposition Disposition: Home, Self Care
[2022-01-02 14:24] LABS: Absolute Lymphocyte Count 0.95 X10^3/uL (0.83-4.51); Absolute Neutrophil Count 8.7 X10^3/uL (2.0-7.7); Basophil# 0.02 X10^3/uL; Basophil% 0.2 % (0-1); Eosinophil# 0.01 X10^3/uL; Eosinophils% 0.1 % (0-5); Hematocrit 41.2 % (37-47); Hemoglobin 14.1 g/dL (12.0-15.0); Lymphocyte # 0.95 X10^3/ul (0.83-4.51); Lymphocyte % 9.5 % (19-41); Mean Corp Hgb Conc 34.2 g/dL (32-36); Mean Corpuscular Hgb 30.2 pg (27.0-32.0); Mean Corpuscular Volume 88.2 fL (81-99); Mean Platelet Vol. 9.6 fl (6.2-12.0); Monocyte# 0.28 X10^3/uL; Monocyte% 2.8 % (0-10); NRBC Flagged by Analyzer 0 % (0-5); Neutrophil # 8.74 X10^3/uL (2.7-7.7); Platelet Count 132 K/mm3 (150-450); RBC Distribution Width CV 13.2 % (11.6-14.6); RBC Distribution Width SD 42.6 fl (35.1-43.9); Red Blood Count 4.67 M/mm3 (4.2-5.4)
[2022-01-02] MEDS: proMETHazine 25 MG/ML Syringe 12.5 MG IM (14:34)
[2022-01-02 14:44] LABS: AST(SGOT) 16 U/L (15-37); Alanine Aminotransfer ALT/SGPT 31 U/L (13-56); Albumin, Serum 3.8 g/dL (3.2-5.0); Alkaline Phosphatase 90 U/L (45-117); Anion Gap 9 (5-15); BUN 16 mg/dL (7-18); BUN/Creat Ratio 18.3 RATIO (10-20); Calcium,Total 10.4 mg/dL (8.5-10.1); Chloride 104 mmol/L (98-107); Creatinine, Serum 0.87 mg/dL (0.55-1.02); EST Glomerular Filtration Rate 66 mL/min (>60); Est Glom Filt Rate - Afr Amer 80 mL/min (>60); Estimated Creatinine Clearance 38.92 ml/min; Globulin 3.7 g/dL (2.2-4.2); Glucose 239 mg/dL (74-106); Potassium 3.8 mmol/L (3.5-5.1); Protein, Total 7.5 g/dL (6.4-8.2); Sodium Level 139 mmol/L (136-145); Troponin-I HS 29 pg/mL (3.0-54.0)
--- NOTE | 2022-01-02 14:45 | RAD_ITS ---
STUDY: X-RAY CHEST REASON FOR EXAM: Female, 81 years old. Weakness TECHNIQUE: Single AP portable view of the chest. COMPARISON: Comparison is made with prior study dated 03/05/2021. FINDINGS: EKG electrodes are seen. The lungs are clear and expanded. There is no demonstrated pleural abnormality. Prosthetic aortic valve. Normal mediastinum and justine. Normal visualized pulmonary arteries. There is atherosclerotic calcification of the aortic arch with tortuosity. There are diffuse degenerative changes of the visualized thoracic spine. There is degenerative osteoarthritis of the bilateral shoulders. Prior fusion of the lower cervical spine. There is no demonstrated abnormality of the visualized soft tissue structures of the upper abdomen. RAD/Chest 1 View (Portable) IMPRESSION: No acute abnormality is seen. Electronically Signed: Alexey Villa MD at 15:04 EDT ,
[2022-01-02 15:06] VITALS: BP 137/67; BP 152/65; BP 152/77; PULSE 59; PULSE 62; PULSE 72
[2022-01-02] MEDS: Meclizine HCl 25 MG Tablet PO (15:16)
[2022-01-02 16:31] VITALS: BP 127/86; PULSE 65; RESP 18; O2SAT 94
== END 2022-01-02 16:32 | disposition home or self-care (01) ==
PROVIDERS: Emergency Provider Student in an Organized Health Care Education/Training Program; PCP Family Medicine; Visit Provider Student in an Organized Health Care Education/Training Program
DX: H81.10 Benign paroxysmal vertigo, unspecified ear (principal); R11.2 Nausea with vomiting, unspecified; E80.6 Other disorders of bilirubin metabolism; R51.9 Headache, unspecified; I10 Essential (primary) hypertension; E78.5 Hyperlipidemia, unspecified; E83.52 Hypercalcemia; R73.9 Hyperglycemia, unspecified; R00.1 Bradycardia, unspecified; Z86.73 Personal history of transient ischemic attack (TIA), and cerebral infarction without residual deficits
CPT/HCPCS: 70450; 71045; 80053; 84484; 85025; 93005; 96360; 96372; 99284; J7040; A4216

== ENCOUNTER → 2022-01-09 | Outpatient (CLI) | payer MEDICARE, SELFPAY ==
[2022-01-09 13:35] LABS: Microalbumin,Random Urine 10.8 mg/L (NO RANGE EST.); Microalbumin:Creatinine Ratio 15.7 mg/g CRE (<30 mg/g CRE)
[2022-01-09 13:38] LABS: AST(SGOT) 26 U/L (15-37); Alanine Aminotransfer ALT/SGPT 42 U/L (13-56); Albumin, Serum 3.4 g/dL (3.2-5.0); Alkaline Phosphatase 87 U/L (45-117); Anion Gap 11 (5-15); BUN 16 mg/dL (7-18); BUN/Creat Ratio 16.8 RATIO (10-20); Calcium,Total 9.7 mg/dL (8.5-10.1); Chloride 107 mmol/L (98-107); Cholesterol 110 mg/dL (200); Creatinine, Serum 0.96 mg/dL (0.55-1.02); EST Glomerular Filtration Rate 60 mL/min (>60); Est Glom Filt Rate - Afr Amer 72 mL/min (>60); Globulin 3.4 g/dL (2.2-4.2); Glucose 171 mg/dL (74-106); High Density Lipoprotein 55 mg/dL; Potassium 3.5 mmol/L (3.5-5.1); Protein, Total 6.8 g/dL (6.4-8.2); Sodium Level 141 mmol/L (136-145); Triglycerides 128 mg/dL; Very Low Density Lipoprotein 26 mg/dL (5-40)
== END | disposition home or self-care (01) ==
LOC: MFPLAB 10:17
PROVIDERS: PCP Family Medicine; Referring Provider Family Medicine; Visit Provider Family Medicine
DX: I10 Essential (primary) hypertension (principal); E11.21 Type 2 diabetes mellitus with diabetic nephropathy
CPT/HCPCS: 36415; 80053; 80061; 82043; 82570

== ENCOUNTER → 2022-02-26 | Outpatient (CLI) | payer MEDICARE, SELFPAY ==
[2022-02-26 12:49] LABS: AST(SGOT) 22 U/L (15-37); Alanine Aminotransfer ALT/SGPT 32 U/L (13-56); Albumin, Serum 3.5 g/dL (3.2-5.0); Alkaline Phosphatase 92 U/L (45-117); Bilirubin, Direct 0.37 mg/dL (0.00-0.30); Cholesterol 109 mg/dL (200); Globulin 3.5 g/dL (2.2-4.2); High Density Lipoprotein 58 mg/dL; Triglycerides 110 mg/dL; Very Low Density Lipoprotein 22 mg/dL (5-40)
== END | disposition home or self-care (01) ==
LOC: MTLAB 10:54
PROVIDERS: PCP Family Medicine; Referring Provider Internal Medicine Cardiovascular Disease; Visit Provider Internal Medicine Cardiovascular Disease
DX: E78.00 Pure hypercholesterolemia, unspecified (principal); E78.5 Hyperlipidemia, unspecified
CPT/HCPCS: 80061; 80076

== ENCOUNTER → 2022-08-13 | Outpatient (CLI) | payer MEDICARE, SELFPAY ==
[2022-08-13 12:57] LABS: Absolute Lymphocyte Count 1.58 X10^3/uL (0.83-4.51); Absolute Neutrophil Count 3.3 X10^3/uL (2.0-7.7); Basophil# 0.04 X10^3/uL; Basophil% 0.7 % (0-1); Eosinophil# 0.33 X10^3/uL; Eosinophils% 5.9 % (0-5); Hematocrit 41.9 % (37-47); Hemoglobin 13.8 g/dL (12.0-15.0); Lymphocyte # 1.58 X10^3/ul (0.83-4.51); Lymphocyte % 28.3 % (19-41); Mean Corp Hgb Conc 32.9 g/dL (32-36); Mean Corpuscular Hgb 29.7 pg (27.0-32.0); Mean Corpuscular Volume 90.1 fL (81-99); Mean Platelet Vol. 9.6 fl (6.2-12.0); Monocyte# 0.35 X10^3/uL; Monocyte% 6.3 % (0-10); NRBC Flagged by Analyzer 0 % (0-5); Neutrophil # 3.28 X10^3/uL (2.7-7.7); Neutrophil % 58.6 % (47-70); Platelet Count 156 K/mm3 (150-450); RBC Distribution Width SD 42.7 fl (35.1-43.9); Red Blood Count 4.65 M/mm3 (4.2-5.4); White Blood Count 5.6 K/mm3 (4.4-11.0)
[2022-08-13 13:37] LABS: Hemoglobin A1c 6.3 % (3.8-5.6)
[2022-08-13 13:39] LABS: Vitamin B12 605 pg/mL (211-911)
[2022-08-13 13:44] LABS: Microalbumin,Random Urine 26.9 mg/L (NO RANGE EST.); Microalbumin:Creatinine Ratio 45.4 mg/g CRE (<30 mg/g CRE)
[2022-08-13 14:03] LABS: AST(SGOT) 31 U/L (15-37); Alanine Aminotransfer ALT/SGPT 40 U/L (13-56); Albumin, Serum 3.4 g/dL (3.2-5.0); Alkaline Phosphatase 105 U/L (45-117); Anion Gap 4 (5-15); BUN 14 mg/dL (7-18); BUN/Creat Ratio 17.7 RATIO (10-20); Calcium,Total 9.8 mg/dL (8.5-10.1); Chloride 109 mmol/L (98-107); Cholesterol 115 mg/dL (200); Creatinine, Serum 0.79 mg/dL (0.55-1.02); EST Glomerular Filtration Rate 74 mL/min (>60); Est Glom Filt Rate - Afr Amer 90 mL/min (>60); Globulin 3.4 g/dL (2.2-4.2); Glucose 146 mg/dL (74-106); High Density Lipoprotein 59 mg/dL; Lipase 35 U/L (13-75); Potassium 3.8 mmol/L (3.5-5.1); Protein, Total 6.8 g/dL (6.4-8.2); Sodium Level 139 mmol/L (136-145); Thyroid Stim Hormone (TSH) 2.39 uIU/mL (0.358-3.74); Triglycerides 109 mg/dL; Very Low Density Lipoprotein 22 mg/dL (5-40)
[2022-08-16 16:09] LABS: Pancreatic Elastase, Fecal > 500 (>200)
== END | disposition home or self-care (01) ==
LOC: MFPLAB 10:31
PROVIDERS: PCP Family Medicine; Visit Provider Family Medicine
DX: E11.21 Type 2 diabetes mellitus with diabetic nephropathy (principal); G47.30 Sleep apnea, unspecified; R20.2 Paresthesia of skin; R19.7 Diarrhea, unspecified
CPT/HCPCS: 80053; 80061; 82043; 82570; 82607; 82653; 82746; 83036; 83690; 83735; 84443; 85025

== ENCOUNTER → 2022-08-20 | Outpatient (CLI) | payer MEDICARE, SELFPAY ==
--- NOTE | 2022-08-20 13:06 | BI_ITS ---
MAMMOGRAPHY - BILATERAL SCREENING REASON FOR EXAM: Female, 81 years old. Routine annual screening examination. PERTINENT HISTORY: Non-contributory. TECHNIQUE: Digital bilateral breast glen (3D mammographic acquisition) in the CC and MLO projections. 2-D mediolateral oblique (MLO) and craniocaudad (CC) views of both breasts were obtained. CAD: Full Field Digital Mammography with Computer Added Detection was performed. COMPARISON: Comparison is made with prior study dated November 16, 2018 and August 05, 2013. FINDINGS: Breast Composition: There are scattered areas of fibroglandular density. There are no dominant masses or suspicious calcifications. Stable scattered secretory calcifications bilaterally. Stable benign-appearing bilateral axillary No other significant abnormalities are identified. There has been no significant change since the prior study. BI/SCRN MAMM (CAD)W/GLEN BILAT IMPRESSION: Stable bilateral screening mammogram. Yearly follow-up mammogram recommended. (A) ASSESSMENT CATEGORY: BIRADS Category 2: Benign. A letter regarding these results will be sent to the patient by the facility within 30 days. Approximately 10% of breast cancers are not detected by mammography. A normal mammogram should not delay biopsy of a clinically suspicious abnormality. [id number] Electronically Signed: Alexey Villa MD at 15:41 EDT ,
--- NOTE | 2022-08-20 13:16 | BD_ITS ---
STUDY: DUAL ENERGY X-RAY ABSORPTIOMETRY / DXA REASON FOR EXAM: Female, 81 years old. [id number] TECHNIQUE: Bone Mineral Density (BMD) measurements of lumbar spine and bilateral hips were obtained. COMPARISON: Comparison is made with prior study August 05, 2013. FINDINGS: Lumbar Spine (L1-L4): g/cm2 (1.006) / T-score (-0.5) / Z-score (2.3) Findings are suggestive of normal bone density with a low fracture risk. Left Femur Total: g/cm2 (0.765) / T-score (-1.5) / Z-score (0.7) Left Femoral Neck: g/cm2 (0.766) / T-score (-0.7) / Z-score (1.6) Right Femur Total: g/cm2 (0.658) / T-score (-2.3) / Z-score (-0.2) Right Femoral Neck: g/cm2 (0.630) / T-score (-2.0) / Z-score (0.4) The T-Scores on the most recent prior examination were: Lumbar Spine (L1-L4): There has been worsening of bone density since the previous examination. Left Femur Total: which represents a worsening of 18%. Right Femur Total: which represents a worsening of 23.7%. BD/Dexa Bone Density Study IMPRESSION: The patient is considered osteopenic as outlined below according to World Samm Organization (WHO) criteria with a high fracture risk. There has been worsening of bone density since the previous examination. Reference Information: The T-score is the number of standard deviations above or below the standard which is normal for young adults at their peak bone mineral density. The World Health Organization (WHO) interprets the T-scores as follows: Above -1 Normal bone density Between -1 and -2.5 Osteopenia Equal to / or below -2.5 Osteoporosis As a practical clinical guideline, osteopenia may be graded as follows: Mild -1 through -1.5 Moderate -1.6 through -2.0 Severe -2.1 through -2.4 The Z-score is the number of standard deviations above or below age-matched controls. A Z-score of less than -1.5 would be considered abnormal. References: 1. NIH Osteoporosis and Related Bone Diseases www osteo.org 2. International Society for Clinical Densitometry www iscd.org 3. National Osteoporosis Foundation www nof.org Electronically Signed: Alexey Villa MD at 12:29 EDT ,
== END | disposition home or self-care (01) ==
LOC: OPBD 13:03
PROVIDERS: PCP Family Medicine; Referring Provider Family Medicine; Visit Provider Family Medicine
DX: Z00.00 Encounter for general adult medical examination without abnormal findings (principal); Z12.31 Encounter for screening mammogram for malignant neoplasm of breast; Z78.0 Asymptomatic menopausal state
CPT/HCPCS: 77063; 77067; 77080

== ENCOUNTER → 2023-02-10 | Outpatient (CLI) | payer MEDICARE, SELFPAY ==
[2023-02-10 17:51] LABS: Absolute Lymphocyte Count 2.21 X10^3/uL (0.83-4.51); Absolute Neutrophil Count 4.1 X10^3/uL (2.0-7.7); Basophil# 0.04 X10^3/uL; Basophil% 0.6 % (0-1); Eosinophil# 0.34 X10^3/uL; Eosinophils% 4.7 % (0-5); Hematocrit 41.2 % (37-47); Hemoglobin 13.7 g/dL (12.0-15.0); Lymphocyte # 2.21 X10^3/ul (0.83-4.51); Lymphocyte % 30.7 % (19-41); Mean Corp Hgb Conc 33.3 g/dL (32-36); Mean Corpuscular Hgb 30.2 pg (27.0-32.0); Mean Corpuscular Volume 90.9 fL (81-99); Monocyte# 0.49 X10^3/uL; Monocyte% 6.8 % (0-10); NRBC Flagged by Analyzer 0 % (0-5); Neutrophil # 4.12 X10^3/uL (2.7-7.7); Neutrophil % 57.1 % (47-70); Platelet Count 154 K/mm3 (150-450); RBC Distribution Width CV 12.7 % (11.6-14.6); Red Blood Count 4.53 M/mm3 (4.2-5.4); White Blood Count 7.2 K/mm3 (4.4-11.0)
[2023-02-10 17:55] LABS: Erythrocyte Sedimentation Rate 13 mm/hr (0-30)
[2023-02-10 18:29] LABS: Vitamin B12 500 pg/mL (211-911)
[2023-02-10 18:55] LABS: Microalbumin:Creatinine Ratio 52.1 mg/g CRE (<30 mg/g CRE)
[2023-02-10 19:29] LABS: ALB/GLOB Ratio 1.2 RATIO (0.9-2.4); AST(SGOT) 26 U/L (15-37); Alanine Aminotransfer ALT/SGPT 33 U/L (13-56); Albumin, Serum 3.7 g/dL (3.2-5.0); Alkaline Phosphatase 102 U/L (45-117); Anion Gap 1 (5-15); BUN 18 mg/dL (7-18); CRP < 2.90 mg/L (0.0-3.0); Calcium,Total 9.8 mg/dL (8.5-10.1); Chloride 112 mmol/L (98-107); Creatinine, Serum 0.72 mg/dL (0.55-1.02); EST Glomerular Filtration Rate 83 mL/min (>60); Est Glom Filt Rate - Afr Amer 100 mL/min (>60); Globulin 3.1 g/dL (2.2-4.2); Glucose 118 mg/dL (74-106); Magnesium 2.1 mg/dL (1.6-2.6); Potassium 3.9 mmol/L (3.5-5.1); Protein, Total 6.8 g/dL (6.4-8.2); Sodium Level 136 mmol/L (136-145)
[2023-02-12 12:09] LABS: ANTINUCLEAR ANTIBODIES DIRECT Negative (Negative)
== END | disposition home or self-care (01) ==
PROVIDERS: PCP Family Medicine; Visit Provider Family Medicine
DX: M25.461 Effusion, right knee (principal); E11.21 Type 2 diabetes mellitus with diabetic nephropathy; N18.31 Chronic kidney disease, stage 3a; K58.9 Irritable bowel syndrome, unspecified; R20.2 Paresthesia of skin; I12.9 Hypertensive chronic kidney disease with stage 1 through stage 4 chronic kidney disease, or unspecified chronic kidney disease
CPT/HCPCS: 36415; 80053; 82043; 82570; 82607; 82746; 83735; 85025; 85652; 86038; 86140; 86225; 86235

== ENCOUNTER → 2023-05-26 | Outpatient (CLI) | payer MEDICARE, SELFPAY ==
--- OUTSIDE RECORDS SUMMARY | 2023-05-26 17:19 | XMS RPT_ITS | CCD ---
Author Name Unknown Address [address] [place] [address] Organization [facility] Care Team Providers Care Halal Butcher Name Role Phone Sybil RN, Trinity Hernandez Unavailable Unavailable Sybil FARRELL, Trinity Hernandez Unavailable Unavailable Charanjit RÍOS-C, Elton Hernandez Unavailable Unavailable Sybil Adamson Unavailable Abbi Clark Unavailable Unavailable Sybil FARRELL, Trinity A Unavailable Unavailable Sybil FARRELL, Trinity Hernandez Unavailable Unavailable BOBBYELIOT FRITZ Unavailable Unavailable BOBBY, ELIOT Davis Unavailable Unavailable MARCOS ADAMSON Unavailable Unavailable ARABELLA CARMICHAEL Unavailable Unavailable PETE PRICE Unavailable Unavailable BOBBY, ELIOT Davis Unavailable Unavailable BOBBY, ELIOT Davis Unavailable Unavailable BOBBY, ELIOT Davis Unavailable Unavailable MARCOS ADAMSON Unavailable Unavailable LAVON ROSALES Attending Unavailable SCARLET, JACKI-CHI Primary Care Unavailable Marcos Adamson Primary Care Provider Marcos Adamson Primary Care Provider JAMI Thomas, Jacqui Macedo Unavailable Unavailroque e Charanjit RÍOS-C, Elton Hernandez Unavailable Unavailable Allergies Allergy Classification Reported Allergen(s) Allergy Type Date of Onset Reaction(s) Facility (13 sources) iodine; Translations: [Iodine] drug allergy 7 [facility] Work Phone: [phone] (11 sources) Pollen; Translations: [POLLENS] allergy to substance 7 [facility] Work Phone: [phone] (2 sources) Iodides Propensity to adverse reactions to drug 7 [facility] (See Comments) [facility] [place] [place] Medications Current Medications Medication Drug Class(es) Dates Sig (Normalized) Sig (Original) amoxicillin 500 mg oral capsule (2 sources) Penicillin-class Antibacterial Start: 02-26-2019 amoxicillin (AMOXIL) 500 MG capsule Indications: S/P TAVR (transcatheter aortic valve replacement) Take 4 capsules 1hr prior to dental procedure 4 capsule 2 02/26/2019 Active ascorbic acid 60 mg / beta carotene 5000 unt / copper sulfate 40 mg / dl-alpha tocopheryl acetate 30 unt / sodium selenite 0.04 mg / zinc oxide 40 mg oral tablet (1 source) Vitamin C take 1 tablet by mouth once daily Multiple Vitamins-Minerals (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) tablet Take 1 tablet by mouth daily 0 Active atorvastatin 80 mg oral tablet (13 sources) HMG-CoA Reductase Inhibitor Start: 01-21-2019 take 1 tablet by mouth once daily atorvastatin (LIPITOR) 80 MG tablet Take 1 tablet by mouth daily 0 01/21/2019 Active Completed/Discontinued Medications Medication Drug Class(es) Dates Sig (Normalized) Sig (Original) aspirin 81 mg delayed release oral tablet (20 sources) Nonsteroidal Anti-inflammatory Drug Start: 07-18-2016 take 1 tablet by mouth once daily ASPIRIN EC 81 MG TBEC One tablet by mouth daily ASPIRIN [id number] Mariela Anthony RN Problems Active Problems Problem Classification Problem Date Documented Da te Episodic/Chronic Anxiety disorders (1 source) Anxiety disorder, unspecified; Translations: [ANXIETY DISORDER UNSPECIFIED] Onset: 10-07-2017 Chronic Complications of surgical procedures or medical care (1 source) Postprocedural hypothyroidism; Translations: [POSTPROCEDURAL HYPOTHYROIDISM] Onset: 10-07-2017 Chronic Diabetes mellitus without complication (3 sources) Type 2 diabetes mellitus without complications; Translations: [Diabetes mellitus] Onset: 10-07-2017 11-09-2016 Chronic Disorders of lipid metabolism (15 sources) Hyperlipidemia; Translations: [Hyperlipidemia, unspecified] Onset: 07-18-2016 07-18-2016 Chronic Esophageal disorders (1 source) Gastro-esophageal reflux disease without esophagitis; Translations: [GERD WITHOUT ESOPHAGITIS] Onset: 10-07-2017 Chronic Essential hypertension (11 sources) Hypertensive disorder; Translations: [Essential (primary) hypertension] Onset: 09-18-2016 09-18-2016 Chronic Heart valve disorders (20 sources) Nonrheumatic aortic (valve) stenosis; Translations: [Nonrheumatic aortic (valve) insufficiency] Onset: 07-18-2016 09-09-2016 Chronic Medical examination/evaluation (2 sources) Encounter for other preprocedural examination; Translations: [ENCOUNTER OTHER PREPROCEDURAL EXAM] Onset: 2017 Episodic Mood disorders (1 source) Major depressive disorder, single episode, unspecified; Translations: [ANTHONY DEPRESS D/O SINGLE EPIS UNS] Onset: 10-07-2017 Other aftercare (1 source) [facility] (current) use of aspirin; Translations: [PENITENTIARY CURRENT USE OF ASPIRIN] Onset: 10-07-2017 Episodic Other gastrointestinal disorders (1 source) Irritable bowel syndrome with diarrhea; Translations: [IRRITABLE BOWEL SYND W/DIARRHEA] Onset: 10-07-2017 Chronic Other nervous system disorders (2 sources) Disease of spinal cord, unspecified; Translations: [DISEASE OF SPINAL CORD UNSPECIFIED] Onset: 2017 Chronic Other nutritional; endocrine; and metabolic disorders (8 sources) Body mass index (BMI) 39.0-39.9, adult; Translations: [Body mass index (BMI) 39.0-39.9, adult] Onset: 09-18-2016 09-18-2016 Chronic Other screening for suspected conditions (not mental disorders or infectious disease) (1 source) Blood chemistry abnormal; Translations: [Abnormal finding of blood chemistry, unspecified] Episodic Peripheral and visceral atherosclerosis (1 source) Unspecified atherosclerosis; Translations: [UNSPECIFIED ATHEROSCLEROSIS] Onset: 2017 Chronic Spondylosis; intervertebral disc disorders; other back problems (2 sources) Other spondylosis with radiculopathy, cervical region; Translations: [Other spondylosis with myelopathy, cervical region] Onset: 10-07-2017 Chronic Spondylosis; intervertebral disc disorders; other back problems (1 source) Spinal stenosis, cervical region; Translations: [SPINAL STENOSIS CERVICAL REGION] Onset: 10-07-2017 Episodic Thyroid disorders (11 sources) Hypothyroidism; Translations: [Hypothyroidism, unspecified] Onset: 07-18-2016 07-18-2016 Chronic Unclassified (1 source) Obstructive sleep apnea (adult) (pediatric); Translations: [OBSTRUCTIVE SLEEP APNEA] Onset: 10-07-2017 Chronic Unclassified (1 source) 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; Translations: [CERV DISC D/O C5-C6 LVL MYELOPATHY] Onset: 10-07-2017 Unclassified (1 source) Tortuous aortic arch; Translations: [TORTUOUS AORTIC ARCH] Onset: 2017 Past or Other Problems Problem Classification Problem Date Documented Da te Episodic/Chronic Coronary atherosclerosis and other heart disease (2 sources) Coronary arteriosclerosis ; Translations: [CAD (coronary artery disease)] Onset: 08-18-2018 Resolved: 11-19-2018 11-19-2018 Chronic Heart valve disorders (20 sources) Heart murmur; Translations: [Cardiac murmur, unspecified] Onset: 07-18-2016 Resolved: 09-09-2016 07-18-2016 Episodic Other connective tissue disease (11 sources) Unsteady when standing; Translations: [Unsteadiness on feet] Onset: 07-24-2016 07-24-2016 Episodic Other lower respiratory disease (8 sources) Dyspnea on exertion; Translations: [Other forms of dyspnea] Onset: 09-18-2016 09-18-2016 Episodic Syncope (8 sources) Near syncope; Translations: [Syncope and collapse] Onset: 09-18-2016 09-18-2016 Episodic Results Test Name Value Interpretation Reference Range Facil ity Vital Signs Date Time Vital Sign Value Performing Clinician Paola skelton 09-18-2016 09:19-0400 Heart rate 52 /min Elton Donohue BARREL DRILLER-C [facility] Work Phone: 09-18-2016 09:00-0400 BMI (Body Mass Index) 39.52 kg/m2 Elton Donohue [employer]-[facility] Work Phone: 09-18-2016 09:00-0400 Body weight 94.89 kg Elton Donohue [employer]-C [facility] Work Phone: 09-18-2016 09:00-0400 BP Diastolic 90 mm[Hg] Elton Donohue [employer]REL DRILLER-C [facility] Work Phone: 09-18-2016 09:00-0400 BP Systolic 140 mm[Hg] Elton Donohue [employer]RILL[employer]-C [facility] Work Phone: 09-18-2016 09:00-0400 Height 154.94 cm Elton Donohue [employer]LL[employer]-C [facility] Work Phone: 09-18-2016 09:00-0400 Pulse (Heart Rate) 52 /min Elton Donohue [employer] [facility] Work Phone: 09-18-2016 09:00-0400 Respiratory Rate 20 /min Elton Donohue [employer]-C [facility] Work Phone: 09-18-2016 09:00-0400 Weight 94.89 kg Elton Donohue [employer] [facility] Work Phone: 07-23-2016 14:12-0400 Heart rate 56 /min Jacqui Thomas RN [facility] Work Phone: 07-23-2016 13:31-0400 BMI (Body Mass Index) 39.11 kg/m2 [facility] Work Phone: 07-23-2016 13:31-0400 Body weight 93.9 kg Jacqui Thomas RN [facility] Work Phone: 07-23-2016 13:31-0400 BP Diastolic 98 mm[Hg] Trinity Devine RN [facility] Work Phone: 07-23-2016 13:31-0400 BP Systolic 144 mm[Hg] Trinity Devine RN [facility] Work Phone: 07-23-2016 13:31-0400 Height 154.94 cm Trinity Devine RN [facility] Work Phone: 07-23-2016 13:31-0400 Pulse (Heart Rate) 56 /min Trinity Devine RN [facility] Work Phone: 07-23-2016 13:31-0400 Respiratory Rate 16 /min Trinity Devine RN [facility] Work Phone: 07-23-2016 13:31-0400 Weight 93.9 kg Trinity Devine RN [facility] Work Phone: Encounters Encounter Date Encounter Type Care Provider Facility Start: 11-02-2019 End: 11-02-2019 Subsequent hospital visit by physician Aly Lockwood Work Phone: [facility] [address] Procedures Date Procedure Procedure Detail Performing Clinician Start: 11-02-2019 Echo tthrc r-t 2d w/ wom-mode compl spec&colr d Aly Lockwood Work Phone: Start: 03-02-2019 Assay of thyroid sti mulating hormone tsh Aly Lockwood Work Phone: Start: 03-02-2019 Blood count complete automated Aly Lockwood Work Phone: Start: 03-02-2019 Comprehensive metabo lic panel Aly Lockwood Work Phone: Start: 03-02-2019 Hemoglobin glycosylated a1c Aly Lockwood Work Phone: Start: 03-02-2019 Lipid panel Aly robin Work Phone: Start: 03-02-2019 Natriuretic peptide Jefferson Lockwood Work Phone: Start: 09-30-2017 Extraction of Iliac Bone Marrow, Percutaneous Approach ELIOT DE LUNAARIAN Start: 09-30-2017 Fusion of 2 or more Cervical Vertebral Joints with Interbody Fusion Device, Anterior Approach, Anterior Column, Open Approach ELIOT ROSALSE Start: 09-30-2017 Release Cervical Ner ve, Open Approach ELIOT ROSALES Start: 09-30-2017 Resection of Cervica l Vertebral Disc, Open Approach ELIOT ROSALES Start: 09-27-2016 End: 10-16-2016 Transesophageal echocardiogram (LIZZIE) Brandyn Alaniz MD Work Phone: Start: 09-18-2016 End: 09-18-2016 *BMP Elton Donohue [employer]-C Start: 09-18-2016 End: 09-18-2016 aPTT in Platelet poor plasma by Coagulation assay Elton Pandeyder [employer]C Start: 09-18-2016 End: 09-18-2016 CBC W Auto Differential panel - Blood Elton Donohue [employer]-C Start: 09-18-2016 End: 09-18-2016 Chest x-ray Elton Pandeyder [employer]-C Start: 09-18-2016 End: 09-18-2016 Ecg routine ecg w/least 12 lds w/i&r Elton Pandeyder [employer]RI[employer]ER-C Start: 09-18-2016 End: 09-18-2016 Follow Up Appt Other Elton Pandeyder [employer]-C Start: 09-18-2016 End: 09-18-2016 INR in Platelet poor plasma by Coagulation assay Elton Donohue [employer]-C Start: 09-18-2016 End: 09-18-2016 Documentation of current medications Elton BENAVIDES Start: 09-18-2016 End: 09-18-2016 *BMP Elton Donohue [employer]-C Start: 09-18-2016 End: 09-18-2016 aPTT Elton Donohue [employer]-C Start: 09-18-2016 End: 09-18-2016 CBC W Auto Differential panel - Blood Elton Donohue [employer] DRILLER-C Start: 09-18-2016 End: 09-18-2016 Chest x-ray Elton Donohue [employer]-C Start: 09-18-2016 End: 09-18-2016 Coagulation factor induced.INR assay in platelet poor plasma Elton Donohue [employer]-C Start: 09-18-2016 End: 09-18-2016 Electrocardiogram, complete Elton Donohue [employer]-C Start: 09-18-2016 End: 09-18-2016 Follow Up Appt Other Elton Donohue [employer]C Start: 09-18-2016 End: 09-27-2016 Left & Right Heart Cath Brandyn Alaniz MD Work Phone: Start: 07-23-2016 End: 07-24-2016 *Hepatic Function Panel Brandyn Alaniz MD Work Phone: Start: 07-23-2016 End: 08-19-2016 Carotid duplex Brandyn Alaniz MD Work Phone: Start: 07-23-2016 End: 07-23-2016 DJN Brandyn Alaniz MD Work Phone: Start: 07-23-2016 End: 07-23-2016 Ecg routine ecg w/least 12 lds w/i&r Brandyn Alaniz MD Work Phone: Start: 07-23-2016 End: 07-23-2016 Follow Up Appt 1 month Brandyn Alaniz MD Work Phone: Start: 07-23-2016 End: 07-24-2016 Lipid 1996 panel - Serum or Plasma Brandyn Alaniz MD Work Phone: Start: 07-23-2016 End: 07-24-2016 Referral to neurologist Brandyn Alaniz MD Work Phone: Start: 07-23-2016 End: 08-15-2016 Stress Echocardiogram - Dobutamine Brandyn Alaniz MD Work Phone: Start: 07-23-2016 End: 07-23-2016 Dietary management education, guidance, and counseling Jacqui Thomas RN Start: 07-23-2016 End: 07-23-2016 Documentation of current medications Jacqui Thomas RN Start: 07-23-2016 End: 07-24-2016 *Hepatic Function Panel Brandyn Alaniz MD Work Phone: Start: 07-23-2016 End: 08-19-2016 Carotid duplex Brandyn Alaniz MD Work Phone: Start: 07-23-2016 End: 07-23-2016 DJN Brandyn Alaniz MD Work Phone: Start: 07-23-2016 End: 07-24-2016 Electrocardiogram, complete Brandyn bond MD Work Phone: Start: 07-23-2016 End: 07-23-2016 Follow Up Appt 1 month Brandyn Alaniz MD Work Phone: Start: 07-23-2016 End: 07-24-2016 Lipid panel [AGGREGATE] Brandyn Alaniz MD Work Phone: Start: 07-23-2016 End: 07-24-2016 Referral to neurologist Brandyn Alaniz MD Work Phone: Start: 07-23-2016 End: 08-15-2016 Stress Echocardiogram - Dobutamine Brandyn Alaniz MD Work Phone: Plan of Treatment Date Care Activity Detail Author Start: 03-02-2020 Creatinine measurement Creatinine monitoring [place], [place] Start: 03-02-2020 Lipid panel Lipid screen [place], [place] Start: 03-02-2020 Potassium monitoring Potassium monitoring [place], [place] Start: 12-21-2019 Influenza vaccination Flu vaccine (#1) [place], [place] Start: 10-09-2019 Creatinine monitoring Creatinine monitoring [place], [place] Start: 10-09-2019 Potassium monitoring Potassium monitoring [place], [place] Start: 08-12-2019 Lipid screen Lipid screen [place], [place] Start: 04-06-2019 End: 04-06-2019 Office Visit 04/06/2019 Office Visit Cardiology Lisa Aquino APRN - [employer] [address] [facility] [address] [place] [address] [phone] [facility] Start: 12-20-2018 Influenza vaccination Flu vaccine (#1) [place], [place] Start: 10-06-2018 Annual Wellness Visit (AWV) Annual Wellness Visit (AWV) [place], [place] Start: 04-07-2017 End: 04-07-2017 Appointment Appointment [facility] Work Phone: Start: 04-07-2017 End: 04-07-2017 Appointment Appointment [facility] Work Phone: Start: 01-23-2017 End: 08-05-2016 *Hepatic Function Panel *Hepatic Function Panel [facility] Work Phone: Start: 01-23-2017 End: 08-05-2016 Lipid panel [AGGREGATE] *Lipid Profile CC PCP [facility] Work Phone: Start: 01-23-2017 End: 08-05-2016 *Hepatic Function Panel *Hepatic Function Panel [facility] Work Phone: Start: 01-23-2017 End: 08-05-2016 Lipid panel [AGGREGATE] *Lipid Profile CC PCP [facility] Work Phone: Start: 10-16-2016 End: 10-16-2016 Cardiac Referral Cardiac Referral Marcos Butterfield, [facility], [address] [facility] [address], [address], [place], [address] [facility] Work Phone: Start: 09-27-2016 End: 09-27-2016 Transesophageal echocardiogram (LIZZIE) Transesophageal echocardiogram (LIZZIE) [facility] Work Phone: Start: 09-18-2016 End: 09-18-2016 *BMP *BMP [facility] Work Phone: Start: 09-18-2016 End: 09-18-2016 aPTT *PTT-Partial Thromboplastin Time [facility] Work Phone: Start: 09-18-2016 End: 09-18-2016 CBC W Auto Differential panel - Blood *CBC without Diff [facility] Work Phone: Start: 09-18-2016 End: 09-18-2016 Chest x-ray X-Ray, Chest, PA & Lateral [facility] Work Phone: Start: 09-18-2016 End: 09-18-2016 Ecg routine ecg w/least 12 lds w/i&r EKG (In office) [facility] Work Phone: Start: 09-18-2016 End: 09-18-2016 Follow Up Appt Other Follow Up Appt Other [facility] Work Phone: Start: 09-18-2016 End: 09-18-2016 INR Coag RelTime (PPP) *PT/INR [facility] Work Phone: Start: 09-18-2016 End: 09-18-2016 Left & Right Heart Cath Left & Right Heart Cath [facility] Work Phone: Start: 09-18-2016 End: 09-18-2016 Appointment Appointment [facility] Work Phone: Start: 09-18-2016 End: 09-18-2016 Appointment Appointment [facility] Work Phone: Start: 09-18-2016 End: 09-18-2016 *BMP *BMP [facility] Work Phone: Start: 09-18-2016 End: 09-18-2016 aPTT *PTT-Partial Thromboplastin Time [facility] Work Phone: Start: 09-18-2016 End: 09-18-2016 aPTT Coag (PPP) [Time] *PTT-Partial Thromboplastin Time [facility] Work Phone: Start: 09-18-2016 End: 09-18-2016 CBC W Auto Differential panel - Blood *CBC without Diff [facility] Work Phone: Start: 09-18-2016 End: 09-18-2016 Chest x-ray X-Ray, Chest, PA & Lateral [facility] Work Phone: Start: 09-18-2016 End: 09-18-2016 Coagulation factor induced.INR assay in platelet poor plasma *PT/INR [facility] Work Phone: Start: 09-18-2016 End: 09-18-2016 Electrocardiogram, complete EKG (In office) [facility] Work Phone: Start: 09-18-2016 End: 09-18-2016 Follow Up Appt Other Follow Up Appt Other [facility] Work Phone: Start: 09-18-2016 End: 09-18-2016 Left & Right Heart Cath Left & Right Heart Cath [facility] Work Phone: Start: 09-10-2016 End: 09-10-2016 Appointment Appointment [facility] Work Phone: Start: 09-10-2016 End: 09-10-2016 Appointment Appointment [facility] Work Phone: Start: 07-23-2016 End: 07-24-2016 *Hepatic Function Panel *Hepatic Function Panel [facility] Work Phone: Start: 07-23-2016 End: 07-23-2016 Carotid duplex Carotid duplex [facility] Work Phone: Start: 07-23-2016 End: 07-23-2016 DJN DJN [facility] Work Phone: Start: 07-23-2016 End: 07-23-2016 Ecg routine ecg w/least 12 lds w/i&r EKG (In office) [facility] Work Phone: Start: 07-23-2016 End: 07-23-2016 Follow Up Appt 1 month Follow Up Appt 1 month [facility] Work Phone: Start: 07-23-2016 End: 07-24-2016 Lipid panel [AGGREGATE] *Lipid Profile CC PCP [facility] Work Phone: Start: 07-23-2016 End: 07-23-2016 Neurology Referral Neurology Referral [facility], [address], [place], [address] [facility] Work Phone: Start: 07-23-2016 End: 07-23-2016 Stress Echocardiogram - Dobutamine Stress Echocardiogram - Dobutamine [facility] Work Phone: Start: 07-23-2016 End: 07-24-2016 *Hepatic Function Panel *Hepatic Function Panel [facility] Work Phone: Start: 07-23-2016 End: 07-23-2016 Carotid duplex Carotid duplex [facility] Work Phone: Start: 07-23-2016 End: 07-23-2016 DJN DJN [facility] Work Phone: Start: 07-23-2016 End: 07-23-2016 Electrocardiogram, complete EKG (In office) [facility] Work Phone: Start: 07-23-2016 End: 07-23-2016 Follow Up Appt 1 month Follow Up Appt 1 month [facility] Work Phone: Start: 07-23-2016 End: 07-24-2016 Lipid panel [AGGREGATE] *Lipid Profile CC PCP [facility] Work Phone: Start: 07-23-2016 End: 07-23-2016 Neurology Referral Neurology Referral [facility], [address], [place], [address] [facility] Work Phone: Start: 07-23-2016 End: 07-23-2016 Stress Echocardiogram - Dobutamine Stress Echocardiogram - Dobutamine [facility] Work Phone: Start: 2006 DEXA (modify frequency per FRAX score) DEXA (modify frequency per FRAX score) [facility] [place], [place] Start: 2006 Pneumococcal 65+ years Vaccine (1 of 1 - PPSV23) Pneumococcal 65+ years Vaccine (1 of 1 - PPSV23) [place], [place] Start: 1996 Screening for osteoporosis DEXA (modify frequency per FRAX score) [place], [place] Start: 09-24-1991 Shingles Vaccine (1 of 2) Shingles Vaccine (1 of 2) [place], [place] Start: 1960 DTaP/Tdap/Td vaccine (1 - Tdap) DTaP/Tdap/Td vaccine (1 - Tdap) [place], [place] Start: 1952 DTaP/Tdap/Td vaccine (1 - Tdap) DTaP/Tdap/Td vaccine (1 - Tdap) [place], [place] Patient Education LIPID%20PROFILE [employer] Work Phone: Payers Date Payer Category Payer Medicare [employer] [employer]AGE xxxxxxxxxxx 2016-Present [phone] [address] [place] [address] xxxxxxxxxxx [id number] 2016 Medicare [employer] ADVANTAGE [employer] ADV[employer]AGE [id number] 2016-Present [phone] [address] [place] [address] [id number] 1959 Medicare [id number] 1940 Unknown [id number] Unknown [id number] Social History Date Type Detail Facility Start: 03-02-2019 End: 08-18-2019 Tobacco smoking status NHIS Never smoker [place], [place] Start: 03-02-2019 End: 08-18-2019 Alcohol intake Current non-drinker of alcohol (finding) [place], [place] Sex Assigned At Not on file [facility] [place], [place] Start: 08-18-2019 Tobacco use and exposure Never used [facility] [place], [place] Summary Purpose Family History No Family History Records FoundNo Family History Records FoundNo Family History Records FoundNo Family History Records FoundNo Family History Records Found Advance Directives Documents on File Type Date Recorded 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 Mop 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 Expl 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 Advance Directives and 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 Will 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 Latest Code Status on File Code Status Date Activated Date Inactivated Comments Full Code 10/07/2018 10:20 AM 10/08/2018 7:32 PM Full Code 10/07/2018 6:10 AM 10/07/2018 7:46 AM Full Code 08/27/2018 9:29 AM 08/27/2018 7:17 PM Documents on File Type Date Recorded 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 Mop Maker Expl anation Advance Directives and Living Will 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 Latest Code Status on File Code Status Date Activated Date Inactivated Comments Full Code 10/07/2018 10:20 AM 10/08/2018 7:32 PM Full Code 10/07/2018 6:10 AM 10/07/2018 7:46 AM Full Code 08/27/2018 9:29 AM 08/27/2018 7:17 PM Assessments Diagnosis Severe aortic stenosis Aortic valve disorders Hyperlipidemia, unspecified hyperlipidemia type Abnormal finding of blood chemistry, unspecified Diagnosis S/P TAVR (transcatheter aortic valve replacement) Reason for Referral Status Reason Specialty Diagnoses / Procedures Referre d By Contact Referred To Contact Open Cardiology Diagnoses S/P TAVR (transcatheter aortic valve replacement) Procedures Echo 2D Doppler Color Aly Lockwood MD [address] [place] [address] Additional Source Comments INFORMATION SOURCE (unrecogn ized section and content) DATE CREATED AUTHOR AUTHOR'S ORGANIZ ATION 06/29/2018 [facility] DATE CREATED AUTHOR AUTHOR'S ORGANIZ ATION 02/10/2019 [facility] DATE CREATED AUTHOR AUTHOR'S ORGANIZ ATION 05/05/2019 [facility] [place] DATE CREATED AUTHOR AUTHOR'S ORGANIZ ATION 11/12/2019 [facility] FOR RECORDS PERTAINING TO PATIENTS WHO ARE OR HAVE BEEN ENROLLED IN A CHEMICAL DEPENDENCY/SUBSTANCEABUSE PROGRAM, SOME INFORMATION MAY BE OMITTED. This clinical summary was aggregated from multiple sources. Caution should be exercised in using it in the provision of clinical care. This summary normalizes information from multiple sources, and as a consequence, information in this document may materially change the coding, format and clinical context of patient data. In addition, data may be omitted in some cases. CLINICAL DECISIONS SHOULD BE BASED ON THE PRIMARY CLINICAL RECORDS. [facility]. provides no warranty or guarantee of the accuracy or completeness of information in this document.
[2023-05-26 17:43] LABS: Absolute Neutrophil Count 4.8 X10^3/uL (2.0-7.7); Basophil# 0.05 X10^3/uL; Basophil% 0.6 % (0-1); Eosinophil# 0.32 X10^3/uL; Eosinophils% 4.1 % (0-5); Hematocrit 40.8 % (37-47); Hemoglobin 13.4 g/dL (12.0-15.0); Lymphocyte % 25.9 % (19-41); Mean Corp Hgb Conc 32.8 g/dL (32-36); Mean Corpuscular Hgb 30.2 pg (27.0-32.0); Mean Corpuscular Volume 91.9 fL (81-99); Mean Platelet Vol. 10.1 fl (6.2-12.0); Monocyte# 0.55 X10^3/uL; Monocyte% 7.1 % (0-10); NRBC Flagged by Analyzer 0 % (0-5); Neutrophil # 4.79 X10^3/uL (2.7-7.7); Platelet Count 154 K/mm3 (150-450); RBC Distribution Width CV 12.9 % (11.6-14.6); RBC Distribution Width SD 43.6 fl (35.1-43.9); Red Blood Count 4.44 M/mm3 (4.2-5.4); White Blood Count 7.7 K/mm3 (4.4-11.0)
[2023-05-26 17:57] LABS: Vitamin D,25 Hydroxy 95.8 ng/mL
[2023-05-26 18:11] LABS: Hemoglobin A1c 5.9 % (3.8-5.6)
[2023-05-26 18:24] LABS: ALB/GLOB Ratio 1.1 RATIO (0.9-2.4); AST(SGOT) 25 U/L (15-37); Alanine Aminotransfer ALT/SGPT 57 U/L (13-56); Albumin, Serum 3.6 g/dL (3.2-5.0); Alkaline Phosphatase 108 U/L (45-117); Anion Gap 4 (5-15); BUN 17 mg/dL (7-18); Calcium,Total 9.8 mg/dL (8.5-10.1); Chloride 105 mmol/L (98-107); Cholesterol 118 mg/dL (200); Creatinine, Serum 0.85 mg/dL (0.55-1.02); EST Glomerular Filtration Rate 68 mL/min (>60); Est Glom Filt Rate - Afr Amer 82 mL/min (>60); Globulin 3.3 g/dL (2.2-4.2); Glucose 137 mg/dL (74-106); High Density Lipoprotein 60 mg/dL; Potassium 4.2 mmol/L (3.5-5.1); Protein, Total 6.9 g/dL (6.4-8.2); Sodium Level 135 mmol/L (136-145); Thyroid Stim Hormone (TSH) 1.91 uIU/mL (0.358-3.74)
== END | disposition home or self-care (01) ==
LOC: MFPLAB 15:16
PROVIDERS: PCP Family Medicine; Visit Provider Family Medicine
DX: E11.21 Type 2 diabetes mellitus with diabetic nephropathy (principal); F33.0 Major depressive disorder, recurrent, mild; N18.31 Chronic kidney disease, stage 3a; R19.7 Diarrhea, unspecified
CPT/HCPCS: 36415; 80053; 82306; 82465; 83036; 83718; 84443; 85025

== ENCOUNTER → 2023-12-23 | Outpatient (CLI) | payer MEDICARE, SELFPAY ==
[2023-12-23 15:29] LABS: Absolute Lymphocyte Count 2.08 X10^3/uL (0.83-4.51); Absolute Neutrophil Count 3.9 X10^3/uL (2.0-7.7); Basophil# 0.05 X10^3/uL; Basophil% 0.7 % (0-1); Eosinophil# 0.29 X10^3/uL; Eosinophils% 4.3 % (0-5); Hematocrit 40.1 % (37-47); Hemoglobin 13.2 g/dL (12.0-15.0); Lymphocyte # 2.08 X10^3/ul (0.83-4.51); Lymphocyte % 30.9 % (19-41); Mean Corp Hgb Conc 32.9 g/dL (32-36); Mean Corpuscular Hgb 29.9 pg (27.0-32.0); Mean Corpuscular Volume 90.7 fL (81-99); Mean Platelet Vol. 9.9 fl (6.2-12.0); Monocyte# 0.45 X10^3/uL; Monocyte% 6.7 % (0-10); NRBC Flagged by Analyzer 0 % (0-5); Neutrophil # 3.85 X10^3/uL (2.7-7.7); Neutrophil % 57.3 % (47-70); Platelet Count 157 K/mm3 (150-450); RBC Distribution Width CV 12.9 % (11.6-14.6); RBC Distribution Width SD 43.2 fl (35.1-43.9); Red Blood Count 4.42 M/mm3 (4.2-5.4); White Blood Count 6.7 K/mm3 (4.4-11.0)
[2023-12-23 15:49] LABS: Vitamin D,25 Hydroxy 85.1 ng/mL
[2023-12-23 15:51] LABS: Hemoglobin A1c 6.1 % (3.8-5.6)
[2023-12-23 15:56] LABS: ALB/GLOB Ratio 1.1 RATIO (0.9-2.4); AST(SGOT) 20 U/L (15-37); Alanine Aminotransfer ALT/SGPT 38 U/L (13-56); Albumin, Serum 3.5 g/dL (3.2-5.0); Alkaline Phosphatase 105 U/L (45-117); Anion Gap 6 (5-15); BUN 21 mg/dL (7-18); BUN/Creat Ratio 24.2 RATIO (10-20); Calcium,Total 10.5 mg/dL (8.5-10.1); Chloride 109 mmol/L (98-107); Creatinine, Serum 0.87 mg/dL (0.55-1.02); EST Glomerular Filtration Rate 67 mL/min (>60); Est Glom Filt Rate - Afr Amer 81 mL/min (>60); Globulin 3.3 g/dL (2.2-4.2); Glucose 139 mg/dL (74-106); Protein, Total 6.8 g/dL (6.4-8.2); Sodium Level 140 mmol/L (136-145)
[2023-12-23 15:57] LABS: Cholesterol 128 mg/dL (200); High Density Lipoprotein 61 mg/dL; Triglycerides 128 mg/dL; Very Low Density Lipoprotein 26 mg/dL (5-40)
== END | disposition home or self-care (01) ==
LOC: MTLAB 11:37
PROVIDERS: Physician Assistant Medical; PCP Family Medicine; Referring Provider Family Medicine; Visit Provider Family Medicine
DX: E55.9 Vitamin D deficiency, unspecified (principal); E11.21 Type 2 diabetes mellitus with diabetic nephropathy; E11.22 Type 2 diabetes mellitus with diabetic chronic kidney disease; N18.31 Chronic kidney disease, stage 3a; E78.5 Hyperlipidemia, unspecified
CPT/HCPCS: 36415; 80053; 80061; 82306; 83036; 85025

== ENCOUNTER → 2023-12-25 | Outpatient (CLI) | payer MEDICARE, SELFPAY ==
--- NOTE | 2023-12-25 10:46 | ECHOCS_ITS ---
Version 2 Reason For Study: Valve Replacement Eval Procedure This was a 2D Doppler, Color Flow transthoracic echocardiogram. The study was technically difficult. Contrast injection was performed. Exam performed in department. Left Ventricle Normal LV size. The left ventricular ejection fraction is 65 %. Stage 1 diastolic dysfunction. No regional wall motion abnormalities noted. Right Ventricle Normal RV size. Normal systolic function. Atria The left atrium is mildly enlarged. The right atrium is mildly enlarged. Mitral Valve There is mild to moderate mitral annular calcification. Tricuspid Valve Normal tricuspid valve. Mild to moderate (1-2+) tricuspid valve insufficiency. Pulmonary artery systolic pressure is 44 mmHg. Aortic Valve Bioprosthetic aortic valve. Pulmonic Valve Normal pulmonic valve. Great Vessels Normal aortic root. The pulmonary artery is normal size. Normal inferior vena cava. Pericardium/Pleural No pericardial effusion. Medication 22 gauge I.V. with prn adaptor inserted into right arm. Diluted definity 2ml given slow IV push to enhance endocardial definition. MMode/2D Measurements & Calculations LVIDd: 4.3 cm IVSd: 1.0 cm LVOT diam: 2.0 cm LVIDs: 2.8 cm LVPWd: 0.88 cm RVDd: 3.3 cm FS: 36.2 % LVOT area: 3.1 cm2 Ao root diam: 3.2 cm LAV(MOD-bp): 70.4 ml LA A4 area: 22.1 cm2 LA dimension: 4.2 cm LAV(MOD-bp) Indexed: 38.9 ml/m2 LAV(MOD-sp2): 66.6 ml LAV(MOD-sp4): 67.3 ml TAPSE: 0.66 cm RA A4 area: 20.3 cm2 Time Measurements MV dec time: 0.27 sec Doppler Measurements & Calculations MV E max beverly: 106.4 cm/sec MV V2 max: 130.7 cm/sec MV P1/2t max beverly: 107.4 cm/sec MV A max beverly: 124.4 cm/sec MV max P.9 mmHg MV P1/2t: 91.8 msec MV E/A: 0.86 MV V2 mean: 76.6 cm/sec MV mean P.8 mmHg MV dec slope: 342.8 cm/sec2 MV V2 VTI: 20.7 cm MVA(P1/2t): 2.4 cm2 MVA(VTI): 2.4 cm2 Ao V2 max: 128.3 cm/sec LV V1 max: 103.9 cm/sec SV(LVOT): 48.7 ml Ao max P.6 mmHg LV V1 max P.3 mmHg Ao V2 mean: 85.1 cm/sec LV V1 mean P.2 mmHg Ao mean P.5 mmHg LV V1 mean: 68.4 cm/sec Ao V2 VTI: 18.8 cm LV V1 VTI: 16.0 cm AV (velocity ratio): 0.85 LC(I,D): 2.6 cm2 LC(V,D): 2.5 cm2 PA V2 max: 92.4 cm/sec TR max beverly: 310.0 cm/sec TR max P.4 mmHg ECHO/Echo Complete W/ Contrast Interpretation Summary Normal LV size. The left ventricular ejection fraction is 65 %. Stage 1 diastolic dysfunction. The left atrium is mildly enlarged. Mild to moderate (1-2+) tricuspid valve insufficiency. Pulmonary artery systolic pressure is 44 mmHg. Contrast injection was performed. Ordering Physician: Mariela Keita Referring Physician: Mariela Keita Performed By: Tanner Ferrell RCS
== END | disposition home or self-care (01) ==
LOC: CVS 10:44
PROVIDERS: PCP Family Medicine; Referring Provider Physician Assistant Medical; Visit Provider Physician Assistant Medical
DX: Z95.2 Presence of prosthetic heart valve (principal)
CPT/HCPCS: 93306; Q9957; A4216; C8929

== ENCOUNTER → 2024-01-15 | Outpatient (CLI) | payer MEDICARE, SELFPAY | END | disposition home or self-care (01) | LOC: PSN 13:27 | PROVIDERS: PCP Family Medicine; Referring Provider Physician Assistant Medical; Visit Provider Physician Assistant Medical | DX: R00.0 Tachycardia, unspecified (principal) | CPT/HCPCS: 93225; 93226 ==

== ENCOUNTER → 2024-02-13 | Outpatient (CLI) | payer MEDICARE, SELFPAY ==
--- OUTSIDE RECORDS SUMMARY | 2024-02-13 07:13 | XMS RPT_ITS | CCD ---
Author Organization [facility] Care Team Providers Care Computer Systems Design Analyst Name Role Phone Sybil RN, Trinity Hernandez Unavailable Unavailable Sybil FARRELL, Trinity A Unavailable Unavailable Donohue ADVERTISING STATISTICAL CLERK-C, Elton A Unavailable Unavailable Sybil Adamson Unavailable Abbi Clark Unavailable Unavailable Sybil FARRELL, Trinity A Unavailable Unavailable Sybil FARRELL, Trinity A Unavailable Unavailable BOBBY, ELIOT Susan Unavailable Unavailable BOBBY, ELIOT Susan Unavailable Unavailable MARCOS ADAMSON Unavailable Unavailable ARABELLA CARMICHAEL Unavailable Unavailable PETE PRICE Unavailable Unavailable BOBBY, ELIOT Susan Unavailable Unavailable BOBBY, ELIOT Susan Unavailable Unavailable BOBBY, ELIOT Susan Unavailable Unavailable MARCOS ADAMSON Unavailable Unavailable BOBBYLAVON FRITZ Attending Unavailable SCARLET, JACKI-CHI Primary Care Unavailable Marcos Adamson Primary Care Provider Marcos Adamson Primary Care Provider [phone] JAMI Thomas, Jacqui Macedo Unavailable Unavailabl e Donohue ADVERTISING STATISTICAL CLERK-C, Elton A Unavailable Unavailable Allergies Allergy Classification Reported Allergen(s) Allergy Type Date of Onset Reaction(s) Facility (13 sources) iodine; Translations: [Iodine] drug allergy 7 [facility] [employer] Work Phone: [phone] (11 sources) Pollen; Translations: [POLLENS] allergy to substance 7 [employer] Work Phone: [phone] (2 sources) Iodides Propensity to adverse reactions to drug 7 [facility] (See Comments[facility] [place] Medic[facility] Current Medications Medication Drug Class(es) [...] by mouth once daily Multiple Vitamins-Minerals (THERAPEUTIC MULTIVITAMIN-MIXING SUPERVISOR 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) tablet Take 1 tablet by mouth daily 0 Active atorvastatin 80 mg oral tablet (13 sources) HMG-CoA Reductase Inhibitor Start: 01-21-2019 take 1 tablet by mouth once daily atorvastatin (LIPITOR) 80 MG tablet Take 1 tablet by mouth daily 0 01/21/2019 Active Start: 07-18-2016 take 1 tablet by kingsley once daily ATORVASTATIN CALCIUM 40 MG TABS One tablet by mouth daily ATORVASTATIN CALCIUM [id number] Mariela Anthony RN buPROPion hydrochloride 100 mg oral tablet (1 source) Aminoketone take 1 tablet by mouth twice daily buPROPion (WELLBUTRIN) 100 MG tablet Take 100 mg by mouth 2 times daily 0 Active ergocalciferol 63975 unt oral capsule (13 sources) Provitamin D2 Compound Start: 10-05-19 17 take 1 capsule by mouth every week vitamin D (ERGOCALCIFEROL) 65645 units CAPS capsule Take 1 capsule by mouth once a week 0 10/04/2016 Active Start: 07-18-2016 take 1 tablet by kingsley every week VITAMIN D (ERGOCALCIFEROL) 73896 UNIT CAPS One tablet by mouth weekly ERGOCALCIFEROL [id number] Mariela Anthony RN Start: 07-18-2016 take 1 tablet by kingsley th every week VITAMIN D (ERGOCALCIFEROL) 43297 UNIT CAPS One tablet by mouth weekly ERGOCALCIFEROL [id number] Mariela Anthony RN escitalopram 10 mg oral tablet (2 sources) Serotonin Reuptake Inhibitor take 1 tablet by mouth once daily escitalopram (LEXAPRO) 10 MG tablet Take 10 mg by mouth daily 0 Active latanoprost 0.05 mg/ml ophthalmic solution (13 sources) Prostaglandin Analog Start: 10-05-19 17 take 1 drop(s) into the eye(s) once daily latanoprost (XALATAN) 0.005 % ophthalmic solution Apply 1 drop to eye daily 0 10/04/2016 Active Start: 07-23-2016 LATANOPROST 0. 005 % SOLN as directed LATANOPROST [id number] Brandyn Alaniz MD 24 hr oxybutynin chloride 10 mg extended release oral tablet (13 sources) Cholinergic Muscarinic Antagonist Start: 07-23-2016 take 1 tablet by mouth once daily oxybutynin (DITROPAN-XL) 10 MG extended release tablet Take 1 tablet by mouth daily 0 10/04/2016 Active perflutren lipid microspheres (DEFINITY) injection 1.65 mg (1 source) Start: 11-02-2019 End: 11-05-2019 perflutren lipid microspheres (DEFINITY) injection 1.65 mg selenium 50 MCG tablet (1 source) take 1 tablet by mouth once daily selenium 50 MCG tablet Take 50 mcg by mouth daily 0 Active levothyroxine sodium 0.075 mg oral tablet (13 sources) l-Thyroxine Start: 10-19-2016 take 1 tablet by mouth once daily levothyroxine (SYNTHROID) 75 MCG tablet Take 1 tablet by mouth daily 0 10/19/2016 Active Start: 07-18-2016 take 1 tablet by kingsley th once daily LEVOTHYROXINE SODIUM 75 MCG TABS One tablet by mouth daily LEVOTHYROXINE SODIUM [id number] Mariela Anthony RN Completed/Discontinued Medications Medication Drug Class(es) Dates Sig (Normalized) Sig (Original) aspirin 81 mg delayed release oral tablet (20 sources) Nonsteroidal Anti-inflammatory Drug Start: 07-18-2016 take 1 tablet by mouth once daily ASPIRIN EC 81 MG TBEC One tablet by mouth daily ASPIRIN [id number] Mariela Anthony RN Start: 07-18-2016 take 1 tablet by kingsley th every other day ASPIRIN EC 81 MG TBEC One tablet by mouth every other day ASPIRIN 40074082871 Brandyn Alaniz MD benazepril hydrochloride 20 mg oral tablet (13 sources) Angiotensin Converting Enzyme Inhibitor Start: 07-18-2016 take 1 tablet by mouth twice daily BENAZEPRIL HCL 20 MG TABS One tablet by mouth twice daily BENAZEPRIL HCL [id number] Mariela Anthony RN carvedilol 25 mg oral tablet (11 sources) alpha-Adrenergic Sierra, beta-Adrenergic Sierra Start: 07-18-2016 take 1 tablet by mouth twice daily CARVEDILOL 25 MG TABS One tablet by mouth twice daily CARVEDILOL 55306931743 Mariela Anthony RN clopidogrel 75 mg oral tablet (16 sources) P2Y12 Platelet Inhibitor Start: 09-18-2016 End: 09-18-2016 take 1 tablet by mouth once daily PLAVIX 75 MG TABS One tablet by mouth daily CLOPIDOGREL BISULFATE [id number] Jacqui Thomas RN fexofenadine hydrochloride 180 mg oral tablet (11 sources) Histamine-1 Receptor Antagonist Start: 07-18-2016 FEXOFENADINE HCL 180 MG TABS 1-2 tablets daily as needed FEXOFENADINE HCL 80682490435 Mariela Anthony RN furosemide 20 mg oral tablet (3 sources) Loop Diuretic Start: 09-27-2016 take 1 tablet by mouth once daily LASIX 20 MG TABS One tablet by mouth daily FUROSEMIDE [id number] Mariela Keita PAJoycelynC oxyCODONE hydrochloride 10 mg oral tablet (20 sources) Opioid Agonist Start: 07-18-2016 End: 07-23-2016 take 1 tablet by mouth once daily OXYCODONE HCL 10 MG TABS One tablet by mouth daily OXYCODONE HCL 37096682379 Brandyn Alaniz MD PARoxetine hydrochloride 20 mg oral tablet (11 sources) Serotonin Reuptake Inhibitor Start: 07-18-2016 take 1 tablet by mouth once daily PAROXETINE HCL 20 MG TABS One tablet by mouth daily PAROXETINE HCL 72063969701 Mariela Anthony RN predniSONE 20 mg oral tablet (8 sources) Corticosteroid Start: 09-18-2016 take 1 tablet by mouth once daily PREDNISONE 20 MG TABS One tablet by mouth daily on 09/25/16 and 09/26/16 PREDNISONE [id number] Elton Donohue ADVERTISING STATISTICAL CLERK-C Problems Active Problems Problem Classification Problem Date [...] UNS] Onset: 10-07-2017 Other aftercare (1 source) [facility] (current) use of aspirin; Translations: [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 CONCLUSIONS SUMMARY: 1. Left ventricle: Systolic function is normal by the biplane method of disks. The estimated ejection fraction is 68%. 2. Right ventricle: Right ventricular systolic pressure is within the normal range. 3. Mitral valve: Mildly to moderately calcified annulus. Moderately calcified leaflets. 4. Aortic valve: Prior repair procedures include transcatheter aortic valve replacement. There is a 26 mm EVOLUTPRO prosthesis. The mean systolic gradient is 9 mm Hg. The peak systolic gradient is 19 mm Hg. STUDY DATA: Complete transthoracic echocardiogram. Procedure: Image quality was suboptimal. The study was technically limited due to poor acoustic window availability and body habitus. Intravenous imaging enhancement (Definity) was administered to opacify the chamber. Definity lot #: [id number]. M-mode, complete 2D, complete spectral Doppler, and color flow Doppler images were acquired and archived for permanent storage and are available for subsequent review. Study status: Routine. Patient status: Outpatient. FINDINGS LEFT VENTRICLE: The cavity size is normal. Wall thickness is normal. Systolic function is normal by the biplane method of disks. The estimated ejection fraction is 68%. There are no regional wall motion abnormalities. Doppler parameters are consistent with abnormal left ventricular relaxation (grade 1 diastolic dysfunction). RIGHT VENTRICLE: The cavity size is normal. Systolic function is normal. Right ventricular systolic pressure is within the normal range. VENTRICULAR SEPTUM: There is no evidence of a ventricular septal defect. LEFT ATRIUM: The atrium is normal in size. RIGHT ATRIUM: The atrium is normal in size. ATRIAL SEPTUM: Color Doppler shows no shunt. MITRAL VALVE: Mildly to moderately calcified annulus. Moderately calcified leaflets. Doppler: There is no significant regurgitation. The peak diastolic gradient is 5 mm Hg. AORTIC VALVE: Prior repair procedures include transcatheter aortic valve replacement. There is a 26 mm EVOLUTPRO prosthesis. Doppler: There is no significant regurgitation. Dimensionless index: 0.53. The valve area by the velocity-time integral method is 0.9 cm^2. The valve area index by the velocity-time integral method is 0.4 cm^2/m^2. The mean systolic gradient is 9 mm Hg. The peak systolic gradient is 19 mm Hg. The peak systolic velocity is 2.2 m/sec. TRICUSPID VALVE: Mildly thickened leaflets. Doppler: There is trivial, less than 1+ regurgitation. PULMONIC VALVE: Not well visualized. Structurally normal valve. Doppler: There is trivial, less than 1+ regurgitation. AORTA: The aorta is normal. PULMONARY ARTERY: Main pulmonary artery: Normal. PERICARDIUM: There is no pericardial effusion. SYSTEMIC VEINS: Inferior vena cava: Not well visualized. Measurements Value 11/19/2018 Reference Aortic root ID 1.9 cm 2.2 <4.1 Aortic root ID, STJ, ED (L) 1.8 cm 2.0 2.0 - 3.2 Aortic root ID/bsa, STJ, (L) 0.9 cm/m^2 1.1 - 1.9 ED Value 11/19/2018 Reference Ascending aorta ID 2.1 cm 2.3 1.9 - 3.5 Ascending aorta ID/bsa, 1.0 cm/m^2 1.0 - 2.2 A-P Ascending aorta ID, A-P, 2.1 cm 2.3 S Ascending aorta ID/bsa, 1.0 cm/m^2 A-P, S Left ventricle Value 11/19/2018 Reference LV ID, ED 4.3 cm 3.7 3.8 - 5.2 LV ID, ES 2.7 cm 2.1 2.2 - 3.5 LV ID/bsa, ED (L) 2.1 cm/m^2 2.3 - 3.1 LV ID/bsa, ES 1.3 cm/m^2 1.3 - 2.1 LV PW thickness, ED (H) 1.0 cm 1.5 0.6 - 0.9 LV PW/LV ID ratio, ED 0.24 LV wall mass (H) 158 g 66 - 150 LV wall mass/bsa 79 g/m^2 44 - 88 Stroke volume/bsa, 1-p 29 ml/m^2 A2C LV end-diastolic volume, 97 ml 72 48 - 140 1-p A4C LV end-systolic volume, 37 ml 22 12 - 60 1-p A4C LV end-diastolic volume, 93 ml 66 46 - 106 2-p LV end-systolic volume, 30 ml 18 14 - 42 2-p LV ejection fraction, 2-p 68 % 54 - 74 LV E/e', lateral 26.3 15.9 LV E/e', medial 37.1 24.9 LV E/e', average 30.7 19.4 Ventricular septum Value 11/19/2018 Reference IVS thickness, ED (H) 1.1 cm 1.6 0.6 - 0.9 LVOT Value 11/19/2018 Reference LVOT ID, A-P 1.4 cm 1.2 LVOT mean velocity, S 0.8 m/sec 0.7 LVOT peak gradient, S 5 mm Hg 4 Stroke volume (SV), LVOT 38 ml 25 DP Stroke index (SV/bsa), 19 ml/m^2 13 LVOT DP Aortic valve Value 11/19/2018 Reference Aortic valve peak 2.2 m/sec 1.9 velocity, S Aortic valve mean 1.3 m/sec 1.1 velocity, S Aortic mean gradient, S 9 mm Hg 6 Aortic peak gradient, S 19 mm Hg 15 DI 0.53 0.6 Aortic valve area, VTI 0.9 cm^2 0.7 Aortic valve area/bsa, 0.4 cm^2/m^2 0.4 VTI Left atrium Value 11/19/2018 Reference LA volume/bsa, ES, 2-p 26 ml/m^2 25 16 - 34 Mitral valve Value 11/19/2018 Reference Mitral E-wave peak 1.2 m/sec 0.8 velocity Mitral A-wave peak 1.6 m/sec 1.3 velocity Mitral deceleration time 446 ms 314 Mitral peak gradient, D 5 mm Hg 8 Mitral E/A ratio, peak 0.7 0.6 Tricuspid valve Value 11/19/2018 Reference Tricuspid regurg peak 2.6 m/sec 2.8 <=2.8 velocity Tricuspid peak RV-RA 26 mm Hg 31 gradient Right atrium Value 11/19/2018 Reference RA area, ES, A4C (H) 19 cm^2 13 10 - 18 Systemic veins Value 11/19/2018 Reference Estimated RAP 8 mm Hg 3 Right ventricle Value 11/19/2018 Reference RV ID, minor axis, ED, 3.3 cm 2.8 2.5 - 4.1 A4C base RV ID, minor axis, ED, 2.3 cm 1.7 1.9 - 3.5 A4C mid TAPSE, 2D 2.5 cm 1.9 1.7 - 3.1 RV pressure, S, DP 34 mm Hg 34 RV s', lateral 10.9 cm/sec 10.0 6.0 - 13.4 Legend: (L) and (H) elton values outside specified reference range. Electronically signed by James Chi MD 11/02/2019 15:40 Prior Signatures: [facility] [place], [place] Paulo, [facility] Incoming Cardiology Results From [facility]/[place] - 11/02/2019 3:40 PM EDT TRANSTHORACIC ECHOCARDIOGRAM PATIENT: Cory Eaton STUDY DATE: 11/02/2019 : 1940 AGE: 79 HT/WT: 157.5 cm (62 88.5 kg in) (194.6 lb) GENDER: F BP: 135 / 92 LOCATION: [place] [address] [address] STATUS: *ORDERING PHYSICIAN: * Aly Lockwood MD *RN: * Tori Bennett *READING PHYSICIAN: * James *DIVING BOARD ASSEMBLER: * Whitley Salas MD [facility], [place] INDICATIONS: Follow up tavr 1 year. CONCLUSIONS SUMMARY: 1. Left ventricle: Systolic function is normal by the biplane method of disks. The estimated ejection fraction is 68%. 2. Right ventricle: Right ventricular systolic pressure is within the normal range. 3. Mitral valve: Mildly to moderately calcified annulus. Moderately calcified leaflets. 4. Aortic valve: Prior repair procedures include transcatheter aortic valve replacement. There is a 26 mm EVOLUTPRO prosthesis. The mean systolic gradient is 9 mm Hg. The peak systolic gradient is 19 mm Hg. STUDY DATA: Complete transthoracic echocardiogram. Procedure: Image quality was suboptimal. The study was technically limited due to poor acoustic window availability and body habitus. Intravenous imaging enhancement (Definity) was administered to opacify the chamber. Definity lot #: [id number]. M-mode, complete 2D, complete spectral Doppler, and color flow Doppler images were acquired and archived for permanent storage and are available for subsequent review. Study status: Routine. Patient status: Outpatient. FINDINGS LEFT VENTRICLE: The cavity size is normal. Wall thickness is normal. Systolic function is normal by the biplane method of disks. The estimated ejection fraction is 68%. There are no regional wall motion abnormalities. Doppler parameters are consistent with abnormal left ventricular relaxation (grade 1 diastolic dysfunction). RIGHT VENTRICLE: The cavity size is normal. Systolic function is normal. Right ventricular systolic pressure is within the normal range. VENTRICULAR SEPTUM: There is no evidence of a ventricular septal defect. LEFT ATRIUM: The atrium is normal in size. RIGHT ATRIUM: The atrium is normal in size. ATRIAL SEPTUM: Color Doppler shows no shunt. MITRAL VALVE: Mildly to moderately calcified annulus. Moderately calcified leaflets. Doppler: There is no significant regurgitation. The peak diastolic gradient is 5 mm Hg. AORTIC VALVE: Prior repair procedures include transcatheter aortic valve replacement. There is a 26 mm EVOLUTPRO prosthesis. Doppler: There is no significant regurgitation. Dimensionless index: 0.53. The valve area by the velocity-time integral method is 0.9 cm^2. The valve area index by the velocity-time integral method is 0.4 cm^2/m^2. The mean systolic gradient is 9 mm Hg. The peak systolic gradient is 19 mm Hg. The peak systolic velocity is 2.2 m/sec. TRICUSPID VALVE: Mildly thickened leaflets. Doppler: There is trivial, less than 1+ regurgitation. PULMONIC VALVE: Not well visualized. Structurally normal valve. Doppler: There is trivial, less than 1+ regurgitation. AORTA: The aorta is normal. PULMONARY ARTERY: Main pulmonary artery: Normal. PERICARDIUM: There is no pericardial effusion. SYSTEMIC VEINS: Inferior vena cava: Not well visualized. Measurements Value 11/19/2018 Reference Aortic root ID 1.9 cm 2.2 <4.1 Aortic root ID, STJ, ED (L) 1.8 cm 2.0 2.0 - 3.2 Aortic root ID/bsa, STJ, (L) 0.9 cm/m^2 1.1 - 1.9 ED Value 11/19/2018 Reference Ascending aorta ID 2.1 cm 2.3 1.9 - 3.5 Ascending aorta ID/bsa, 1.0 cm/m^2 1.0 - 2.2 A-P Ascending aorta ID, A-P, 2.1 cm 2.3 S Ascending aorta ID/bsa, 1.0 cm/m^2 A-P, S Left ventricle Value 11/19/2018 Reference LV ID, ED 4.3 cm 3.7 3.8 - 5.2 LV ID, ES 2.7 cm 2.1 2.2 - 3.5 LV ID/bsa, ED (L) 2.1 cm/m^2 2.3 - 3.1 LV ID/bsa, ES 1.3 cm/m^2 1.3 - 2.1 LV PW thickness, ED (H) 1.0 cm 1.5 0.6 - 0.9 LV PW/LV ID ratio, ED 0.24 LV wall mass (H) 158 g 66 - 150 LV wall mass/bsa 79 g/m^2 44 - 88 Stroke volume/bsa, 1-p 29 ml/m^2 A2C LV end-diastolic volume, 97 ml 72 48 - 140 1-p A4C LV end-systolic volume, 37 ml 22 12 - 60 1-p A4C LV end-diastolic volume, 93 ml 66 46 - 106 2-p LV end-systolic volume, 30 ml 18 14 - 42 2-p LV ejection fraction, 2-p 68 % 54 - 74 LV E/e', lateral 26.3 15.9 LV E/e', medial 37.1 24.9 LV E/e', average 30.7 19.4 Ventricular septum Value 11/19/2018 Reference IVS thickness, ED (H) 1.1 cm 1.6 0.6 - 0.9 LVOT Value 11/19/2018 Reference LVOT ID, A-P 1.4 cm 1.2 LVOT mean velocity, S 0.8 m/sec 0.7 LVOT peak gradient, S 5 mm Hg 4 Stroke volume (SV), LVOT 38 ml 25 DP Stroke index (SV/bsa), 19 ml/m^2 13 LVOT DP Aortic valve Value 11/19/2018 Reference Aortic valve peak 2.2 m/sec 1.9 velocity, S Aortic valve mean 1.3 m/sec 1.1 velocity, S Aortic mean gradient, S 9 mm Hg 6 Aortic peak gradient, S 19 mm Hg 15 DI 0.53 0.6 Aortic valve area, VTI 0.9 cm^2 0.7 Aortic valve area/bsa, 0.4 cm^2/m^2 0.4 VTI Left atrium Value 11/19/2018 Reference LA volume/bsa, ES, 2-p 26 ml/m^2 25 16 - 34 Mitral valve Value 11/19/2018 Reference Mitral E-wave peak 1.2 m/sec 0.8 velocity Mitral A-wave peak 1.6 m/sec 1.3 velocity Mitral deceleration time 446 ms 314 Mitral peak gradient, D 5 mm Hg 8 Mitral E/A ratio, peak 0.7 0.6 Tricuspid valve Value 11/19/2018 Reference Tricuspid regurg peak 2.6 m/sec 2.8 <=2.8 velocity Tricuspid peak RV-RA 26 mm Hg 31 gradient Right atrium Value 11/19/2018 Reference RA area, ES, A4C (H) 19 cm^2 13 10 - 18 Systemic veins Value 11/19/2018 Reference Estimated RAP 8 mm Hg 3 Right ventricle Value 11/19/2018 Reference RV ID, minor axis, ED, 3.3 cm 2.8 2.5 - 4.1 A4C base RV ID, minor axis, ED, 2.3 cm 1.7 1.9 - 3.5 A4C mid TAPSE, 2D 2.5 cm 1.9 1.7 - 3.1 RV pressure, S, DP 34 mm Hg 34 RV s', lateral 10.9 cm/sec 10.0 6.0 - 13.4 Legend: (L) and (H) elton values outside specified reference range. Electronically signed by James Chi MD 11/02/2019 15:40 Prior Signatures: [facility] [place] [place] Echo Complete w/wo Contrasto n 11-02-2019 Echo Complete w/wo Contrast Patient Name: CORY EATON Ultrasound Exam Date/Time 11/02/2019 14:19:45 EDT Exam Echo Complete w/wo Contrast Ordering Physician MD KAYE, ALY Accession Number [id number] Reason For Exam follow up TAVR 1 year Report TRANSTHORACIC ECHOCARDIOGRAM PATIENT: Cory Eaton STUDY DATE: 11/02/2019 : 1940 AGE: 79 HT/WT: 157.5 cm (62 88.5 kg in) (194.6 lb) GENDER: F BP: 135 / 92 LOCATION: [place] [address] [address] STATUS: *ORDERING PHYSICIAN: * Aly Lockwood MD *RN: * Tori Bennett *READING PHYSICIAN: * James *DIVING BOARD ASSEMBLER: * Whitley Salas MD [facility], [place] INDICATIONS: Follow up tavr 1 year. CONCLUSIONS SUMMARY: 1. Left ventricle: Systolic function is normal by the biplane method of disks. The estimated ejection fraction is 68%. 2. Right ventricle: Right ventricular systolic pressure is within the normal range. 3. Mitral valve: Mildly to moderately calcified annulus. Moderately calcified leaflets. 4. Aortic valve: Prior repair procedures include transcatheter aortic valve replacement. There is a 26 mm EVOLUTPRO prosthesis. The mean systolic gradient is 9 mm Hg. The peak systolic gradient is 19 mm Hg. STUDY DATA: Complete transthoracic echocardiogram. Procedure: Image quality was suboptimal. The study was technically limited due to poor acoustic window availability and body habitus. Intravenous imaging enhancement (Definity) was administered to opacify the chamber. Definity lot #: [id number]. M-mode, complete 2D, complete spectral Doppler, and color flow Doppler images were acquired and archived for permanent storage and are available for subsequent review. Study status: Routine. Patient status: Outpatient. FINDINGS LEFT VENTRICLE: The cavity size is normal. Wall thickness is normal. Systolic function is normal by the biplane method of disks. The estimated ejection fraction is 68%. There are no regional wall motion abnormalities. Doppler parameters are consistent with abnormal left ventricular relaxation (grade 1 diastolic dysfunction). RIGHT VENTRICLE: The cavity size is normal. Systolic function is normal. Right ventricular systolic pressure is within the normal range. VENTRICULAR SEPTUM: There is no evidence of a ventricular septal defect. LEFT ATRIUM: The atrium is normal in size. RIGHT ATRIUM: The atrium is normal in size. ATRIAL SEPTUM: Color Doppler shows no shunt. MITRAL VALVE: Mildly to moderately calcified annulus. Moderately calcified leaflets. Doppler: There is no significant regurgitation. The peak diastolic gradient is 5 mm Hg. AORTIC VALVE: Prior repair procedures include transcatheter aortic valve replacement. There is a 26 mm EVOLUTPRO prosthesis. Doppler: There is no significant regurgitation. Dimensionless index: 0.53. The valve area by the velocity-time integral method is 0.9 cm^2. The valve area index by the velocity-time integral method is 0.4 cm^2/m^2. The mean systolic gradient is 9 mm Hg. The peak systolic gradient is 19 mm Hg. The peak systolic velocity is 2.2 m/sec. TRICUSPID VALVE: Mildly thickened leaflets. Doppler: There is trivial, less than 1+ regurgitation. PULMONIC VALVE: Not well visualized. Structurally normal valve. Doppler: There is trivial, less than 1+ regurgitation. AORTA: The aorta is normal. PULMONARY ARTERY: Main pulmonary artery: Normal. PERICARDIUM: There is no pericardial effusion. SYSTEMIC VEINS: Inferior vena cava: Not well visualized. Measurements Value 11/19/2018 Reference Aortic root ID 1.9 cm 2.2 <4.1 Aortic root ID, STJ, ED (L) 1.8 cm 2.0 2.0 - 3.2 Aortic root ID/bsa, STJ, (L) 0.9 cm/m^2 1.1 - 1.9 ED Value 11/19/2018 Reference Ascending aorta ID 2.1 cm 2.3 1.9 - 3.5 Ascending aorta ID/bsa, 1.0 cm/m^2 1.0 - 2.2 A-P Ascending aorta ID, A-P, 2.1 cm 2.3 S Ascending aorta ID/bsa, 1.0 cm/m^2 A-P, S Left ventricle Value 11/19/2018 Reference LV ID, ED 4.3 cm 3.7 3.8 - 5.2 LV ID, ES 2.7 cm 2.1 2.2 - 3.5 LV ID/bsa, ED (L) 2.1 cm/m^2 2.3 - 3.1 LV ID/bsa, ES 1.3 cm/m^2 1.3 - 2.1 LV PW thickness, ED (H) 1.0 cm 1.5 0.6 - 0.9 LV PW/LV ID ratio, ED 0.24 LV wall mass (H) 158 g 66 - 150 LV wall mass/bsa 79 g/m^2 44 - 88 Stroke volume/bsa, 1-p 29 ml/m^2 A2C LV end-diastolic volume, 97 ml 72 48 - 140 1-p A4C LV end-systolic volume, 37 ml 22 12 - 60 1-p A4C LV end-diastolic volume, 93 ml 66 46 - 106 2-p LV end-systolic volume, 30 ml 18 14 - 42 2-p LV ejection fraction, 2-p 68 % 54 - 74 LV E/e', lateral 26.3 15.9 LV E/e', medial 37.1 24.9 LV E/e', average 30.7 19.4 Ventricular septum Value 11/19/2018 Reference IVS thickness, ED (H) 1.1 cm 1.6 0.6 - 0.9 LVOT Value 11/19/2018 Reference LVOT ID, A-P 1.4 cm 1.2 LVOT mean velocity, S 0.8 m/sec 0.7 LVOT peak gradient, S 5 mm Hg 4 Stroke volume (SV), LVOT 38 ml 25 DP Stroke index (SV/bsa), 19 ml/m^2 13 LVOT DP Aortic valve Value 11/19/2018 Reference Aortic valve peak 2.2 m/sec 1.9 velocity, S Aortic valve mean 1.3 m/sec 1.1 velocity, S Aortic mean gradient, S 9 mm Hg 6 Aortic peak gradient, S 19 mm Hg 15 DI 0.53 0.6 Aortic valve area, VTI 0.9 cm^2 0.7 Aortic valve area/bsa, 0.4 cm^2/m^2 0.4 VTI Left atrium Value 11/19/2018 Reference LA volume/bsa, ES, 2-p 26 ml/m^2 25 16 - 34 Mitral valve Value 11/19/2018 Reference Mitral E-wave peak 1.2 m/sec 0.8 velocity Mitral A-wave peak 1.6 m/sec 1.3 velocity Mitral deceleration time 446 ms 314 Mitral peak gradient, D 5 mm Hg 8 Mitral E/A ratio, peak 0.7 0.6 Tricuspid valve Value 11/19/2018 Reference Tricuspid regurg peak 2.6 m/sec 2.8 <=2.8 velocity Tricuspid peak RV-RA 26 mm Hg 31 gradient Right atrium Value 11/19/2018 Reference RA area, ES, A4C (H) 19 cm^2 13 10 - 18 Systemic veins Value 11/19/2018 Reference Estimated RAP 8 mm Hg 3 Right ventricle Value 11/19/2018 Reference RV ID, minor axis, ED, 3.3 cm 2.8 2.5 - 4.1 A4C base RV ID, minor axis, ED, 2.3 cm 1.7 1.9 - 3.5 A4C mid TAPSE, 2D 2.5 cm 1.9 1.7 - 3.1 RV pressure, S, DP 34 mm Hg 34 RV s', lateral 10.9 cm/sec 10.0 6.0 - 13.4 Legend: (L) and (H) elton values outside specified reference range. Electronically signed by James Chi MD 11/02/2019 15:40 Prior Signatures: Final Dictated: 11/02/2019 3:40 pm Dictating Physician: JAMES CHI Signed Date and Time: 11/02/2019 3:40 pm Signed by: JAMES CHI [facility] 03-22-2019 OT Assessment Report [facility] Occupational Therapy On the Road Driving Assessment Therapy Diagnosis: Rank Code Description Date of Onset 1 I63.9 Cerebral infarction, unspecified 03/23/2019 2 M48.02 Spinal stenosis, cervical region 03/23/2019 3 R26.8 Other abnormalities of gait and mobility 03/23/2019 Initial Evaluation Date: 03/22/19 Evaluators: Kari Clay, OT/L, CDRS, CDI/PD Type of Vehicle: 2011 [place]. Assistive Equipment: none Route: Ventilating Equipment Installer Eval Route. She drove a total of 13.1 miles while in variety of road situations; did not do any interstate highway driving due to backup on same however no concerns expected with her being able to manage the same. Road Conditions: clear Weather Conditions: cloudy Medical Diagnosis: STROKE Demographics: Age: 78Y Gender: Female OBJECTIVE / OCCUPATIONAL PERFORMANCE Stationary Assessment - Driving Range Ratings Skills Transfer In and Out Average Load Mobility Device Average Fasten Seatbelt Average Secondary Controls Average Primary Controls Average Accel/Decelerate Average Braking Average Backing up Average Serpentine Curves Average Figure 8 Not tested Maneuverability Not tested no problems with orienting to national dedicated truck driver evaluation vehicle while this therapist did provide assist to get seat in best position while providing instruction about importance of same Light (25mph) - Moderate Traffic(35mph) Ratings [facility] PATIENT NAME: CORY EATON [address] MEDICAL REC #: [id number] [place] [address] ADMIT DATE: SERVICE DATE: 03/22/19 Occupational Therapy Assessment ATTENDING PHY: Dolores Carmichael PARI MUTUEL CLERK Skills Straight Aways Average Right Turns Average Left Turns Average Uses Turn Signals Average Stopsigns/Right away Below average Speed Control Average 3 Point Turn/Backing Not tested Signs/Markings Average Curves/[place] Average Un/Protected Traffic Lights LTurn Average On Red Lights Traffic Lights RTurn Average Following Distance Below average Yielding R Away Average VisualScan/Mirrors Average Driving/Parking Shopping Parking Lot Average Pulling into Traffic Average While in residential area, she did tend to stop or almost stop at intersections when no stop sign although was not familiar with the area that she was driving in; also tendency once comfortable with vehicle to brake late while accelerating longer than is recommended prior to stopping; also too close stopping distance observed but she worked on improving this with ongoing driving Heavy Traffic (40 - 45 mph Multi-lanes) Ratings Skills Speed Control Average [place]zer Usage Average Changing Lanes Average Checking Blind Spots Below average Space Cushion Average L Turns Above Challenge Average she is unable to turn her head to check blind spots while uses side mirrors consistently for awareness; would benefit from having blind spot mirrors with information being provided to her; otherwise no problems observed during heavier traffic situations while she continued to work on increasing stopping distance and braking earlier Highway (55 mph) did not do any highway driving due to issues on the interstate while no concens expected [facility] PATIENT NAME: CORY EATON [address] MEDICAL REC #: [id number] [place] [address] ADMIT DATE: SERVICE DATE: 03/22/19 Occupational Therapy Assessment ATTENDING KMY: Dolores Carmichael CNP General Analysis Ratings Skills Follow Directions Average Atten/Concentration Average Anticipation Average Road Courtesy Average Safety Awareness Average Judgment Average Confidence Average she was able to follow verbal instructions throughout drive while working on improving skills this therapist provided to her; she demonstrated consistent use of defensive driving techniques as well as exercised appropriate judgement Perception of Driving Performance: She indicated that she felt good driving again while confident that she is ready to return to doing the same on her own Psychosocial: Within normal limits Interventions: Ventilating Equipment Installer Training: refer to details in this report Education: The patient's preferred learning method is: Explanation Barriers to Learning: No barriers Learning Needs: Safety. Functional activities/mobility. Education Provided: Safety issues and interventions. Driving. Safety. Home exercise/activity plan. Audience: Patient. Mode: Explanation. Printed material provided. Response: Applied knowledge. Verbalized understanding. Demonstrated skill. ASSESSMENT Support Structure: Support structure is good. Friend and family members willing to assist patient. Response to Evaluation: The session was tolerated well, as evidenced by: no complaints or concerns observed or reported PLAN Necessity: Patient does not require outpatient therapy in order to return to premorbid environment (or reside in new living environment). Patient does not require outpatient therapy in order to reduce Activities of Daily Living or [facility] MEDICAL REC #: [id number] [place] [address] ADMIT DATE: SERVICE DATE: 03/22/19 Occupational Therapy Assessment ATTENDING PHY: Dolores Carmichael CNP Instrumental Activities of Daily Living assistance to a premorbid level. The patient has been instructed to contact the clinic if any questions or problems should arise. Visit Number: Today's visit is number 1 Services: Total Billed: 60 minutes (Timed: 60, Untimed: 0) 60.00 Timed: [30828] Ventilating Equipment Installer Training EA 15 min. 0.00 Untimed: [81351] OT-EVALUATION MOD COMPLEX Signed by: KARI CLAY, OT/L, CDRS, CDI/PD 03/23/2019 08:20:30 [facility] PATIENT NAME: [facility] MEDICAL REC #: [id number] [place] [address] ADMIT DATE: SERVICE DATE: 03/22/19 Occupational Therapy Assessment ATTENDING PHY: Dolores Carmichael PARI MUTUEL CLERK Normal [facility] OT Assessment Report Normal [facility] OTAR Occupational Therapy Performance Skills Evaluation Therapy Diagnosis: Rank Code Description Date of Onset 1 I63.9 Cerebral infarction, unspecified 03/23/2019 2 M48.02 Spinal stenosis, cervical region 03/23/2019 3 R26.8 Other abnormalities of gait and mobility 03/23/2019 Initial Evaluation Date: 03/22/19 Referring Clinician: Dolores Carmichael Medical Diagnosis: STROKE Date of Onset: actual timing of stroke uncertain but sometime between end of August and January when repeat MRI of brain completed Past Medical History: KASEY, bladder suspension, hysterectomy, 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, cervical stenosis with subsequent surgery including hardware 10/06/17, aortic valve replaced 10/07/18, hiatal hernia, glaucoma Current Medications: vitamin D2, Escitalopram, Levothyroxin, Benazepril, Atorvastatin, Oxybutynin, Latanoprost eye drops, aspirin Demographics: Age: 78Y Gender: Female Primary Language: Bulgarian Preferred Language: Bulgarian OCCUPATIONAL PROFILE AND HISTORY Basic ADLs: she is independent with all self care Instrumental ADLs: she lives with her adult son who manages the outside work with Cory doing much of the other home management including meal preparation, laundry, cleaning, own medication and finance management Work/Leisure/Educati on: she completed some college courses and worked in various jobs throughout her life retiring formally 03/31 when her job was eliminated; she enjoys thrift shopping with friends and volunteers at local [employer] doing various tasks including story time with the children Driving History: Driving for: 60 years. Time Since Last Driven: sometime in January after visiting neurologists office and being told no driving until this assessment was completed to determine recommendations Ventilating Equipment Installer's License Expiration Date: 09/23/22 State of: [place]; no restrictions Type of Vehicle: 2005 [employer] Type of Insurance: [employer] Type of Driving Anticipated: Local Long distance [facility] PATIENT NAME: CORY EATON J [address] MEDICAL REC #: [id number] [place] [address] ADMIT DATE: SERVICE DATE: 03/22/19 Occupational Therapy Assessment ATTENDING MAGGI: Dolores Carmichael CNP Daytime [place] Reason for Driving is: [place] Social/Leisure Home management History of Accidents: Patient does not have a history of accidents. Traffic Violations: Patient does not have any traffic violations. Patient Report: Cory indicated that she feels she is at same level of function that she has been while being unaware of when the stroke occurred as did not change her abilities at all. She feels confident that she should be able to return to driving safely. Patient/Caregiver Goals: Patient's functional goals: to return to providing for her own transportation needs Pain: Patient currently without complaints of pain. Social History: Marital Status: Children: 1 son and 1 daughter Reside: son lives with her and daughter is in [place] Employment Status: retired Recreational Activities/Hobbies: thriftshopping and collecting various items including kitchen timers and cookbooks; volunteers at [employer] Self-reported Quality of Life: At present time, patient reports having a very good quality of life/health status. OBJECTIVE / OCCUPATIONAL PERFORMANCE General Observation: Cory was pleasant and cooperative throughout the assessment while appearing to have very appropriate insight into her current status. Her neighbor and good friend brought her to the appointment. Visual/Perceptual Screening: Correctve Lenses: Patient wears corrective lenses. Date of Last Eye Exam: 02/10/19 while goes every 6 months due to glaucoma; wears reading glasses only Reading Skills: Higher level. Stereo - Optical Test: Far Acuity: 20/ 20 Glare far acuity R-20/50-1, L-20/20; functional for L eye contrast sensitivity while unable to do with R eye; functional for color and stereo depth perception, B peripheral/nasal visual hurst Oculomotor Skills: LEFT EYE RANGE OF MOTION: Left eye has full range of motion RIGHT EYE RANGE OF MOTION: Right eye has full range of motion BOTH EYE RANGE OF MOTION: Both eyes have full range of motion DIPLOPIA ON GAZE TO: Superior CONVERGENCE: Normal (6 -8 ) LEFT FIELD SACCADES: Direct Fixation RIGHT FIELD SACCADES: Direct Fixation PURSUITS: Sustained Fixation [facility] PATIENT NAME: CORY EATON [address] MEDICAL REC #: [id number] [place] [address] ADMIT DATE: SERVICE DATE: 03/22/19 Occupational Therapy Assessment ATTENDING MAGGI: Dolores Carmichael CNP VISUAL SCANNING: . Motor Free Visual Perception Test: Raw Score: 31 /36. Processing Time: 3.8 seconds. Norms: 70 - 80, 4.5 - 7.1 sec. Raw score normal for age is 25-35 correct COGNITION Screening Orientation: No impairment detected (5/5 correct orientation reponses). Attention: [place] making test Part B: 91 seconds - possible slowness. Functional performance on this alternating attention task <180 sec so well within same. Safety/Judgment/Prob tarik Solving: No impairment detected (identifies 3/3 appropriate solutions for emergency responses). Memory: score of 0 on [place] Cognitive screen which is in normal to minimally impaired range Also noted during the evaluation: Clock drawing score of 6/7 (normal >5/7); able to recall 6 digits forward for auditory attention skills while does wear hearing aides since 2017; able to recall 4/4 recent past presidents without v/c's needed for retrieval of more termite treater helper information Physical Assessment Range of Motion: Within functional limits. Strength: Within functional limits. Sensation: Within functional limits. Coordination: Within functional limits. Rapid Alternating Movement: Within functional limits. Sitting Balance: Within functional limits. Head/Neck Control: Impaired. Decreased for all neck ROM due to cervical spine surgery in recent years with hardware placement. Endurance: Within functional limits. She does have limited endurance for sustained walking or standing while functional for daily life. Mobility: Within functional limits. Asymmetric gait due to arthritis issues including with R knee; uses SB for ambulation in community to provide for stability when walking which she feels best with doing. She did indicate history of falls but were prior to having the cervical surgery Hand Dominance: Right. Handicap Placard: Patient has a handicap placard. Road Sign Recognition/Rules of Driving: Pass. 100% correct Simulated Reaction - Braking Distance (Norms 60 ft): Reaction Distance: Average = 55 ft. Average. R foot only pedal operation method Family/Friend Interview/Survey: Her friend indicated that she frequently rides with her while feeling [facility] PATIENT NAME: CORY EATON Dr[address] MEDICAL REC #: [id number] [place] [address] ADMIT DATE: SERVICE DATE: 03/22/19 Occupational Therapy Assessment ATTENDING PHY: AmolDolores Annie PARI MUTUEL CLERK comfortable prior to her stopping driving and is willing to be a passenger with her again in the future as appropriate. Projected Adaptive Equipment Needs: blind spot mirrors recommended due to limited neck ROM Psychosocial: Within normal limits Interventions: Evaluation HIGH Complexity Self Care/Home Management: refer to details in this report Pain Reassessment: No pain at onset or during treatment, which does not warrant reassessment. She did report that she will have pain in her R knee at times but not during this session. Education: The patient's preferred learning method is: Explanation Barriers to Learning: No barriers Learning Needs: Plan of care. Safety. Functional activities/mobility. Education Provided: Plan of care. Safety issues and interventions. Driving. Safety. Audience: Patient., friend Mode: Explanation. Response: Applied knowledge. Verbalized understanding. Demonstrated skill. ASSESSMENT Support Structure: Support structure is good. Friend and family members willing to assist patient. Response to Evaluation: The session was tolerated well, as evidenced by: no complaints or concerns observed or reported PLAN Necessity: Patient requires outpatient therapy in order to reduce Activities of Daily Living or Instrumental Activities of Daily Living assistance to a premorbid level. Patient requires occupational therapy plan in order to function in community. In order to complete the functional task portion of this assessment The patient has been instructed to contact the clinic if any questions or problems should arise. Visit Number: Today's visit is number 1 [facility] PATIENT NAME: CORY EATON [address] MEDICAL REC #: [id number] [place] [address] ADMIT DATE: SERVICE DATE: 03/22/19 Occupational Therapy Assessment ATTENDING MAGGI: Dolores Carmichael CNP Services: Total Billed: 105 minutes (Timed: 45, Untimed: 60) 45.00 Timed: [22514] ADL-HOME MANAGEMENT EA 15 MIN 60.00 Untimed: [84616] OT-EVALUATION HIGH COMPLEX Signed by: KARI CLAY, OT/L, CDRS, CDI/PD 03/23/2019 08:02:29 [facility] PATIENT NAME: CORY EATON J [address] MEDICAL REC #: [id number] [place] [address] ADMIT DATE: SERVICE DATE: 03/22/19 Occupational Therapy Assessment ATTENDING MAGGI: Dolores Carmichael CNP Normal 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; she has been to eye doctor for formal eye exam including visual hurst since the stroke was detected with no problems indicated; clinically she demonstrated functional vision as required by [facility] for far acuity and visual hurst, oculomotor skills, visual perception as screened, cognitive skills including for alternating attention, physical skills needed for driving task other than as noted below, knowledge of road rules/signs, and average simulated brake reaction distance; during the behind the wheel portion, she demonstrated functional skills throughout including being able to appropriately respond to feedback this therapist provided for improved skills. Problem Areas: Cory was diagnosed with a stroke following repeat MRI in January with short hospital stay following in addition to physician directed driving cessation/this assessment to determine functional status; she does have some chronic medical conditions which inhibit her level of function including cervical spine surgery last year which has inhibited her neck ROM; clinically she demonstrated significant decrease for R eye glare far acuity while unable to complete contrast sensitivity screening with that eye, decreased neck ROM for all movements, decreased endurance for sustained physical activity including standing/walking; during the behind the wheel portion, she demonstrated late braking, stopping or almost stopping when no stop sign in residential area that she was unfamiliar with, and too close stopping distance but was able to improve with all of these issues during the drive. Recommendations: Patient may resume driving with the following recommendations: Physician approval. Dolores Carmichael and Dr. Marcos Adamson should continue to monitor Cory's overall medical status as appropriate including with regarding to level of function to assure ongoing safe operation of motor vehicle. If future concerns arise related to her level of function, recommend reassessment of her skills be completed at that time. Restrictions. Long distance driving should only be done when other licensed national dedicated truck driver in the vehicle with her to share [facility] PATIENT NAME: CORY EATON J [address] MEDICAL REC #: [id number] [place] [address] ADMIT DATE: SERVICE DATE: 03/22/19 Occupational Therapy Assessment ATTENDING MAGGI: Dolores Carmichael CNP the driving; avoid driving at night and in low light situations (i.e. fog, snow, moderate to heavy rain, dusk/jefry); do not drive when not feeling well; avoid driving when any extreme weather conditions. This therapist will provide Cory with information regarding safe driving skills, crash avoidance, tips for monitoring driving, and when to stop driving for her reference. Vehicle and Equipment Needs: Recommending blind spot mirrors for both side mirrors in order to assist with her awareness around the vehicle. Additional Comments: Based on Cory's overall performance throughout this assessment, this therapist feels confident in recommending that she is able to return to safe operation of motor vehicle while following the restrictions indicated in this report. This therapist expects that Cory currently poses minimal risk of being involved in a crash which is consistent with the majority of all drivers on the road with this therapist feeling comfortable to share the roads with her. Date: 03/23/19 Occupational Therapist/Ventilating Equipment Installer Assistant Film Editor signature Please Note: The results and recommendations included in the Ventilating Equipment Installer Evaluation Report are based on the patient's performance during the period of the evaluation and should not be relied on as absolute predictors of future performance. The conclusions and recommendations in this report are based, in part, upon the medical information available at the time. If subsequent to the issuance of this report, the patient's medical status changes in such a manner that may compromise the patient's ability as a national dedicated truck driver, this report can longer be relied upon as valid. If the patient's physical and mental status remains the same as during the evaluation period, the recommendations in the report should be considered valid for 6 months. Beyond that time, a re - evaluation may be necessary. Signed by: KARI CLAY OT/Falguni, S, CDI/PD 03/23/2019 08:47:54 [facility] PATIENT NAME: CORY EATON [address] MEDICAL REC #: [id number] [place] [address] ADMIT DATE: SERVICE DATE: 03/22/19 Occupational Therapy Assessment ATTENDING PHY: Dolores Carmichael CNP Normal [facility] [place] Brain Natriuretic Peptideon 03-02-2019 Natriuretic peptide B (Bld) [Mass/Vol] 531 pg/mL High 0 - 450 pg/mL [place], [place] CBCon 03-02-2019 Erythrocyte distribution width (RBC) [Ratio] 13.7 % 11.5 - 14.5 % [place] Hematocrit (Bld) [Volume fraction] 40.8 % 35 - 47 % [place] Hemoglobin (Bld) [Mass/Vol] 14.0 g/dL 11.7 - 16 g/dL [place] MCH (RBC) [Entitic mass] 29.6 pg 26 - 34 pg [place] MCHC (RBC) [Mass/Vol] 34.3 % 32 - 36 % [place] MCV (RBC) [Entitic vol] 86.3 fL 79 - 98 fL [place] Platelet mean volume (Bld) [Entitic vol] 8.3 fL 7.4 - 10.4 fL [place] Platelets (Bld) [#/Vol] 135 10*3/uL Low 140 - 440 10*3/uL [place] RBC (Bld) [#/Vol] 4.73 10*6/uL 3.8 - 5.2 10*6/uL [place] WBC (Bld) [#/Vol] 6.4 10*3/uL 3.6 - 10.7 10*3/uL [place] Comp Metabolic Panelon 03-02 ALP [Catalytic activity/Vol] 114 U/L Normal 38-126 [facility] Comment on above: Performed By: #### H EMOG, HA1C2, CMP3, LIPD2, BNP3, TSH5 #### [facility] [address] [place] [address] ALT [Catalytic activity/Vol] 45 U/L Normal 13-69 [facility] Comment on above: Performed By: #### H EMOG, HA1C2, CMP3, LIPD2, BNP3, TSH5 #### [place] [address] [place], [place] AST [Catalytic activity/Vol] 37 U/L Normal 15-46 [facility] Comment on above: Performed By: #### H EMOG, HA1C2, CMP3, LIPD2, BNP3, TSH5 #### [place] [address] [place], [place] Calcium [Mass/Vol] 9.7 mg/dL Normal 8.4-10.4 [facility] Comment on above: Performed By: #### H EMOG, HA1C2, CMP3, LIPD2, BNP3, TSH5 #### [place] [address] [place], [place] Glucose [Mass/Vol] 123 mg/dL High 70-100 [facility] Comment on above: Performed By: #### H EMOG, HA1C2, CMP3, LIPD2, BNP3, TSH5 #### [address] Anion gap [Moles/Vol] 8 Normal [facility] Comment on above: Performed By: #### H EMOG, HA1C2, CMP3, LIPD2, BNP3, TSH5 #### [address] Bilirubin [Mass/Vol] 1.7 mg/dL High 0.2-1.3 [facility] Comment on above: Performed By: #### H EMOG, HA1C2, CMP3, LIPD2, BNP3, TSH5 #### [place] [address] [place], [place] CO2 [Moles/Vol] 24 mmol/L Normal 22-30 [facility] Comment on above: Performed By: #### H EMOG, HA1C2, CMP3, LIPD2, BNP3, TSH5 #### [address] Creatinine [Mass/Vol] 0.62 mg/dL Normal 0.52-1.25 [facility] Comment on above: Performed By: #### H EMOG, HA1C2, CMP3, LIPD2, BNP3, TSH5 #### [place] [address] [place] [address] GFR/1.73 sq M predicted among blacks MDRD (S/P/Bld) [Vol rate/Area] mL/min/{1.73_m2} Normal >60 [facility] Comment on above: Performed By: #### H EMOG, HA1C2, CMP3, LIPD2, BNP3, TSH5 #### [address] [place] [address] GFR/1.73 sq M predicted among non-blacks MDRD (S/P/Bld) [Vol rate/Area] mL/min/{1.73_m2} Normal >60 [facility] Comment on above: Result Comment: Sour ce- MDRD equation with creatinine calibration to IDMS(NKDEP) eGFR not recommended for drug dose adjustment Performed By: #### H EMOG, HA1C2, CMP3, LIPD2, BNP3, TSH5 #### [address] [place], [place] Protein [Mass/Vol] 7.0 g/dL Normal 6.3-8.2 [facility] Comment on above: Performed By: #### H EMOG, HA1C2, CMP3, LIPD2, BNP3, TSH5 #### [address] [place], [place] Urea nitrogen [Mass/Vol] 13 mg/dL Normal 7-20 [facility] Comment on above: Performed By: #### H EMOG, HA1C2, CMP3, LIPD2, BNP3, TSH5 #### [address] [address] [place], [place] Potassium [Moles/Vol] 3.8 mmol/L Normal 3.5-5.1 [facility] Comment on above: Performed By: #### H EMOG, HA1C2, CMP3, LIPD2, BNP3, TSH5 #### [address] [address] [place], [place] Sodium [Moles/Vol] 139 mmol/L Normal 135-145 [facility] Comment on above: Performed By: #### H EMOG, HA1C2, CMP3, LIPD2, BNP3, TSH5 #### [facility] [address] [place], [place] Albumin [Mass/Vol] 4.0 g/dL Normal 3.5-5.0 [facility] Comment on above: Performed By: #### H EMOG, HA1C2, CMP3, LIPD2, BNP3, TSH5 #### [facility] [address] [place], [place] Chloride [Moles/Vol] 108 mmol/L High 98-107 [facility] Comment on above: Performed By: #### H EMOG, HA1C2, CMP3, LIPD2, BNP3, TSH5 #### [facility] [address] [place], [place] Comprehensive Metabolic Pane kailash 03-02-2019 Albumin [Mass/Vol] 4.0 g/dL 3.5 - 5 g/dL [place], [place] ALP [Catalytic activity/Vol] 114 U/L 38 - 126 U/L [place], [place] ALT [Catalytic activity/Vol] 45 U/L 13 - 69 U/L [place] Anion gap [Moles/Vol] 8 mmol/L [place], [place] AST [Catalytic activity/Vol] 37 U/L 15 - 46 U/L [place] Bilirubin Ql (U) 1.7 mg/dL High 0.2 - 1.3 mg/dL [place] Calcium [Mass/Vol] 9.7 mg/dL 8.4 - 10. 4 mg/dL [place] Chloride [Moles/Vol] 108 mmol/L High 98 - 10 7 mmol/L [place] CO2 [Moles/Vol] 24 mmol/L 22 - 30 mmol/L [place] Creatinine [Mass/Vol] 0.62 mg/dL 0.52 - 1.25 mg/dL [place] EGFR IF NonAfrican [place]yr[place]z >60.0 >60 mL/min [place] Comment on above: Source- MDRD equatio n with creatinine calibration to IDMS(NKDEP) eGFR not recommended for drug dose adjustment GFR/1.73 sq M predicted among blacks MDRD (S/P/Bld) [Vol rate/Area] mL/min/{1.73_m2} >60 mL/min [place] Glucose [Mass/Vol] 123 mg/dL High 70 - 100 mg/dL [place] Potassium [Moles/Vol] 3.8 mmol/L 3.5 - 5.1 mmol/L [place] Protein [Mass/Vol] 7.0 g/dL 6.3 - 8.2 g/dL [place] Sodium [Moles/Vol] 139 mmol/L 135 - 145 mmol/L [place] Urea nitrogen [Mass/Vol] 13 mg/dL 7 - 20 mg/dL [place] Hemoglobin A1Con 03-02-2019 HbA1c (Bld) [Mass fraction] 154 mg/dL Normal [facility] Comment on above: Performed By: #### H ZACKG, HA1C2, CMP3, LIPD2, BNP3, TSH5 #### [facility] [address] [place] [address] HbA1c (Bld) [Mass fraction] 7.0 % High 4.0-5.7 [facility] Comment on above: Result Comment: --Hg bA1C levels may not be accurate in patients who have renal disease, received recent blood transfusions, are anemic, or who have dyshemoglobinemia. Performed By: #### H EMOG, HA1C2, CMP3, LIPD2, BNP3, TSH5 #### [facility] [address] [place] [address] eAG 154 mg/dL [place] HbA1c (Bld) [Mass fraction] 7.0 % High 4 - 5.7 % [place] Comment on above: --HgbA1C levels may not be accurate in patients who have renal disease, received recent blood transfusions, are anemic, or who have dyshemoglobinemia. Hemogramon 03-02-2019 Erythrocyte distribution width (RBC) [Ratio] 13.7 % Normal 11.5-14.5 [facility] Comment on above: Performed By: #### H EMOG, HA1C2, CMP3, LIPD2, BNP3, TSH5 #### [address] Hematocrit (Bld) [Volume fraction] 40.8 % Normal 35.0-47.0 [facility] Comment on above: Performed By: #### H EMOG, HA1C2, CMP3, LIPD2, BNP3, TSH5 #### [address] [address] [place], [place] Hemoglobin (Bld) [Mass/Vol] 14.0 g/dL Normal 11.7-16.0 [facility] Comment on above: Performed By: #### H EMOG, HA1C2, CMP3, LIPD2, BNP3, TSH5 #### [address] MCH (RBC) [Entitic mass] 29.6 pg Normal 26.0-34.0 [facility] Comment on above: Performed By: #### H EMOG, HA1C2, CMP3, LIPD2, BNP3, TSH5 #### [address] MCHC (RBC) [Mass/Vol] 34.3 % Normal 32.0-36.0 [facility] Comment on above: Performed By: #### H EMOG, HA1C2, CMP3, LIPD2, BNP3, TSH5 #### [address] MCV (RBC) [Entitic vol] 86.3 fL Normal 79.0-98.0 [facility] Comment on above: Performed By: #### H EMOG, HA1C2, CMP3, LIPD2, BNP3, TSH5 #### [address] Platelet mean volume (Bld) [Entitic vol] 8.3 fL Normal 7.4-10.4 [facility] Comment on above: Performed By: #### H EMOG, HA1C2, CMP3, LIPD2, BNP3, TSH5 #### [address], [place] Platelets (Bld) [#/Vol] 135 10*3/uL Low 140-440 [facility] Comment on above: Performed By: #### H EMOG, HA1C2, CMP3, LIPD2, BNP3, TSH5 #### [address] [address] [place], [place] RBC (Bld) [#/Vol] 4.73 10*6/uL Normal 3.80-5.20 [facility] Comment on above: Performed By: #### H EMOG, HA1C2, CMP3, LIPD2, BNP3, TSH5 #### [address] [address] [place], [place] WBC (Bld) [#/Vol] 6.4 10*3/uL Normal 3.6-10.7 [facility] Comment on above: Performed By: #### H EMOG, HA1C2, CMP3, LIPD2, BNP3, TSH5 #### [address] [place], [place] Lipid Panelon 03-02-2019 Cholesterol in HDL [Mass/Vol] 55 mg/dL Normal 40-60 [facility] Comment on above: Performed By: #### H EMOG, HA1C2, CMP3, LIPD2, BNP3, TSH5 #### [address] [address] [place], [place] Cholesterol.total/Chol esterol in HDL [Mass ratio] 2 Normal [facility] Comment on above: Result Comment: Ref Range: < 3 Low Risk for CHD 3-6 Mod Risk for CHD > 6 High Risk for CHD Performed By: #### H EMOG, HA1C2, CMP3, LIPD2, BNP3, TSH5 #### [address] Protein [Mass/Vol] 38 mg/dL Normal <100 [facility] Comment on above: Performed By: #### H EMOG, HA1C2, CMP3, LIPD2, BNP3, TSH5 #### [address] [address] [place], [place] Triglyceride [Mass/Vol] 77 mg/dL Normal <150 [facility] Comment on above: Performed By: #### H EMOG, HA1C2, CMP3, LIPD2, BNP3, TSH5 #### [address] [address] Cholesterol [Mass/Vol] 108 mg/dL Normal < 200 [facility] Comment on above: Performed By: #### H EMOG, HA1C2, CMP3, LIPD2, BNP3, TSH5 #### [address] [address] Cholesterol [Mass/Vol] 108 mg/dL <200 [place], [place] Cholesterol in HDL [Mass/Vol] 55 mg/dL 40 - 60 mg/dL [place] Cholesterol in LDL [Mass/Vol] 38 mg/dL <100 [place] Cholesterol.total/Chol esterol in HDL [Mass ratio] 2 {ratio} [place] Comment on above: Ref Range: < 3 Low Risk for CHD 3-6 Mod Risk for CHD > 6 High Risk for CHD Triglyceride [Mass/Vol] 77 mg/dL <150 [place] NT pro BNPon 03-02-2019 Natriuretic peptide B (Bld) [Mass/Vol] 531 pg/mL High 0-450 [facility] Comment on above: Performed By: #### H EMOG, HA1C2, CMP3, LIPD2, BNP3, TSH5 #### [address] [address] Otheron 03-02-2019 Interpretation and review of laboratory results Abnormal [place] Test Performed by [address] [address] [place] TSH without Reflexon 019 TSH Qn 0.381 u[IU]/mL Low 0.465 - 4.68 u[IU]/mL [place] Thyroid Stim. Hormoneon 02-19 Thyroid Stim. Hormone 0.381 u[IU]/mL Low 0.465-4.68 0 [facility] Comment on above: Performed By: #### H EMOG, HA1C2, CMP3, LIPD2, BNP3, TSH5 #### [address] [address] Hakeem 02-10-2019 [facility] Office Visit (ANITRA) CORY EATON ([id number]) 1940 F Date Time Provider Department 02/10/19 11:30 AM LAVON ROSALES During your visit today, we recorded the following information about you: Pulse Respiration Blood pressure Weight 58/minute 16/minute 128/70 87.5 kg Height 1.549 m Lavon Rosales MD 02/10/2019 11:53 AM Signed NEUROSURGERY FOLLOW UP OFFICE NOTE Lavon Rosales MD Date of visit: February 04, 2019 Patient Name: Ms.Marilyn Malia Eaton Date of : 1940 Current Age: [age] year old Sex: female MRN/E# [id number] Last Office Visit: December 18, 2018 Chief Complaint: Patient presents with: Established Patient: brain MRI SUBJECTIVE: Ms. Eaton presents to the office today for a follow up visit to review imaging. She was seen in November for an abnormal brain MRI. She stated that earlier this summer, she had her hearing aids checked due to decreased hearing In the right ear. She was furthermore sent to ENT and imaging was done at that time. She was told she needed to come back to neurosurgery for this. She denied headaches, changes in vision, balance, or coordination disturbances. She was wearing bilateral hearing aids, but noted decreased hearing in the right ear. Her imaging at her last appointment revealed two concerning lesions that appear to be suggestive of an inflammatory process. Her CSF analysis results revealed elevated Neha basic protein and some other immunologic markers that represent non-GUIDANCE DIRECTOR autoimmune processes such as external oligoclonal bands. It was recommended that she undergo a MRI w/wo in 6 weeks to see any changes. Today she presents without any changes or new concerns. She is here for evaluation and plan of care. Symptoms: right ear hearing loss ? PREVIOUS CONSERVATIVE TREATMENTS: none ? PREVIOUS SURGERY: SURGERY #1: C5-7 ACDF on 09/29/2017 ? ? PAIN EVALUATION 02/10/2019 1117 Pain Level: 0 Pain Location: Chest Comments: ? Hospitalized 01-19-2019 patient had stroke. Hospitalized 01-19-2019 patient had stroke. PAST MEDICAL HISTORY Diagnosis Date - Arthritis - Diabetes mellitus (HCC) - High cholesterol - Hypertension - Skin cancer - Thyroid disease PAST SURGICAL HISTORY Procedure Laterality Date - HYSTERECTOMY HX Total - SLING OPER STRES INCONTINENCE - THYROIDECTOMY FAMILY HISTORY Problem Relation Age of Onset - Diabetes Other mellitus - Hypertension Other ALLERGIES Allergen Reactions - Iodine Other: See Comments Patient doesn't remember. Current Outpatient Medications Medication Sig Dispense Refill - aspirin (ASPIRIN CHILDRENS) 81 mg chewable tablet Take 81 mg by mouth once daily. - atorvastatin (LIPITOR) 40 mg tablet Take 80 mg by mouth once daily. - benazepril (LOTENSIN) 20 mg tablet Take 20 mg by mouth twice daily. - carvedilol (COREG) 3.125 mg tablet Take 3.125 mg by mouth twice daily with meals. - latanoprost (XALATAN) 0.005 % ophthalmic solution Use 1 Drop in both eyes daily at bedtime. - levothyroxine (SYNTHROID) 75 mcg tablet Take 75 mcg by mouth daily before breakfast. - oxybutynin ER (DITROPAN XL) 10 mg 24 hr tablet Take 10 mg by mouth once daily. - B cmplx 4/vit D3/C/folic/zinc (VITAL-D RX ORAL) Take by mouth once daily. - VITAMIN D2 50,000 unit capsule Take 1 capsule by mouth once each week. 11 - ESCITALOPRAM OXALATE ORAL Take by mouth. - clopidogrel (PLAVIX) 75 mg tablet Take 75 mg by mouth once daily. - pantoprazole DR (PROTONIX) 40 mg tablet Take 40 mg by mouth once daily. No current facility-administere d medications for this visit. REVIEW OF SYSTEMS Review of Systems Constitutional: Negative for chills, diaphoresis (Negative for night sweats.) and fever. HENT: Positive for hearing loss. Negative for ear discharge and rhinorrhea. Eyes: Negative for discharge. Respiratory: Negative for cough, shortness of breath and wheezing. Cardiovascular: Negative for chest pain, palpitations and leg swelling. Gastrointestinal: Negative for constipation, diarrhea, nausea and vomiting. Endocrine: Negative for cold intolerance and heat intolerance. Genitourinary: Negative for frequency. Negative for urinary incontinence and urinary retention. Musculoskeletal: Negative for back pain, joint swelling, myalgias and neck pain. Skin: Negative for rash (Negative for hives and skin lesions.). Allergic/Immunologic : Negative for environmental allergies and food allergies. Negative for contact allergy, seasonal allergies. Neurological: Negative for dizziness, seizures, syncope, weakness, light-headedness, numbness (Negative for numbness in extremities.) and headaches. Hematological: Does not bruise/bleed easily. Psychiatric/Behavior al: The patient is not nervous/anxious. Negative for depression. OBJECTIVE: BP 128/70 Pulse 58 Resp 16 Ht 5' 1 (1.55m) Wt 193 lb (87.5kg) SpO2 97% BMI 36.49 kg/(m2). PHYSICAL EXAM: Mental State : Alert, memory function unremarkable. Attention span and concentration Normal for patient's age. Recent and remote memory normal Orientation : Oriented to person, place and time Higher Cortical Function : Intact speech and language. Spontaneous speech and comprehension normal. Fund of knowledge intact for pt level of education. Cranial Nerves : II: No visual field cut no blurring. Makes and sustains eye contact III, IV, : Normal, no double vision or drooping. Pupils equal and reactive to light. Extraocular muscles intact. No nystagmus V: Normal sensation on the face, normal jaw movements VII: No paresis on either side. VIII: No gross hearing deficit IX: Normal palatal movements XI: Good and equal shoulder shrugs XII: Tongue midline, no fasciculation Sensory : Normal sensation upper and lower extremities and trunk to light touch and noxious stimuli. Motor : Normal muscle tone and bulk. No tremor or uncontrollable movements No spasticity. Strength: Upper Extremities : R L Deltoid 5/5 5/5 Biceps 5/5 5/5 Triceps 5/5 5/5 Wrist Ext 5/5 5/5 Wrist Flx 5/5 5/5 Hand Int 5/5 5/5 Lower Extremities : Hip Flexors 5/5 5/5 Hip Extensors 5/5 5/5 Hip Abductors 5/5 5/5 Hip Adductors 5/5 5/5 Quads 5/5 5/5 Ankle dorsiflex 5/5 5/5 Ankle plantars 5/5 5/5 Heel Walking intact intact Toe Walking intact intact Reflexes : Biceps 2+ 2+ Triceps 2+ 2+ Wrist 2+ 2+ Patellar 2+ 2+ Achilles 2+ 2+ Pepe's Neg Neg Tinel's Neg Neg Cerebellar Function : Normal finger to nose and rapid alternating movements. No ataxia. Negative Romberg. Gait and Station: Normal, utilizing an assistive device. Pulmonary: Lungs without cough, audible wheeze. Respirations unlabored. Cardiac: Regular rate and rhythm. No murmer, gallop or rub. Data Review IMAGING STUDIES: MRI brain w/wo performed on 01/19/19. Findings were noted as: Personal review of medical records: I reviewed with the patient, history, physical exam, the images and the chart. 1. Brain lesion The patient returns today for follow-up. She is undergone a follow-up MRI that I reviewed and compared to previous imaging study. There is no evidence of malignancy or an enlarging lesion. In fact the area prior enhancement in the right some cerebellar hemisphere looks to be smaller. I agree with the notion that this is probably a stroke finding. I told her she should follow-up with her stroke neurologist for further recommendations. All of her questions been addressed in detail. Lavon Rosales MD Referring Provider: JACKI NOVAK CHI [[id number]] Allergies As of Date: 02/10/2019 Noted Allergy Reaction IODINE 06/22/2018 14 - Other: See Comments Comments: Patient doesn't remember. Date Reviewed: 02/10/2019 Reviewed by: Lavon Rosales - Fully Assessed Reason for Visit: Established Patient [175] Cmt: brain MRI Primary Visit Diagnosis:Brain lesion [G93.9] Prescriptions as of 02/10/2019 Sig: ASPIRIN 81 MG CHEWABLE TABLET Take 81 mg by mouth once randy* ATORVASTATIN 40 MG TABLET Take 80 mg by mouth once randy* BENAZEPRIL 20 MG TABLET Take 20 mg by mouth twice yehuda* CARVEDILOL 3.125 MG TABLET Take 3.125 mg by mouth twice * LATANOPROST 0.005 % EYE DROPS Use 1 Drop in both eyes daily* LEVOTHYROXINE 75 MCG TABLET Take 75 mcg by mouth daily be* OXYBUTYNIN CHLORIDE ER 10 MG * Take 10 mg by mouth once randy* VITAL-D RX ORAL Take by mouth once daily. VITAMIN D2 50,000 UNIT CAPSULE Take 1 capsule by mouth once * ESCITALOPRAM OXALATE ORAL Take by mouth. CLOPIDOGREL 75 MG TABLET Take 75 mg by mouth once randy* PANTOPRAZOLE 40 MG TABLET,DEL* Take 40 mg by mouth once randy* Problem List As Of Date: 02/10/2019 (None) Letter Text Encounter Status:Closed by LAVON ROSALES MD on 02/10/19 [facility] PROGRESSon 02-10-2019 PROGRESS HNO ID: [id number] Author: Lavon Rosales Service: ? Author Type: Physician Type: Progress Notes Filed: 02/10/2019 11:53 AM Note Text: NEUROSURGERY FOLLOW UP OFFICE NOTE Lavon Rosales MD Date of visit: February 04, 2019 Patient Name: Ms.Marilyn Malia Eaton Date of : 1940 Current Age: [age] year old Sex: female MRN/E# [id number] Last Office Visit: December 18, 2018 Chief Complaint: Patient presents with: Established Patient: brain MRI SUBJECTIVE: Ms. Eaton presents to the office today for a follow up visit to review imaging. She was seen in November for an abnormal brain MRI. She stated that earlier this summer, she had her hearing aids checked due to decreased hearing In the right ear. She was furthermore sent to ENT and imaging was done at that time. She was told she needed to come back to neurosurgery for this. She denied headaches, changes in vision, balance, or coordination disturbances. She was wearing bilateral hearing aids, but noted decreased hearing in the right ear. Her imaging at her last appointment revealed two concerning lesions that appear to be suggestive of an inflammatory process. Her CSF analysis results revealed elevated Vance basic protein and some other immunologic markers that represent non-GUIDANCE DIRECTOR autoimmune processes such as external oligoclonal bands. It was recommended that she undergo a MRI w/wo in 6 weeks to see any changes. Today she presents without any changes or new concerns. She is here for evaluation and plan of care. Symptoms: right ear hearing loss ? PREVIOUS CONSERVATIVE TREATMENTS: none ? PREVIOUS SURGERY: SURGERY #1: C5-7 ACDF on 09/29/2017 ? ? PAIN EVALUATION 02/10/2019 1117 Pain Level: 0 Pain Location: Chest Comments: ? Hospitalized 01-19-2019 patient had stroke. Hospitalized 01-19-2019 patient had stroke. PAST MEDICAL HISTORY Diagnosis Date - Arthritis - Diabetes mellitus (HCC) - High cholesterol - Hypertension - Skin cancer - Thyroid disease PAST SURGICAL HISTORY Procedure Laterality Date - HYSTERECTOMY HX Total - SLING OPER STRES INCONTINENCE - THYROIDECTOMY FAMILY HISTORY Problem Relation Age of Onset - Diabetes Other mellitus - Hypertension Other ALLERGIES Allergen Reactions - Iodine Other: See Comments Patient doesn't remember. Current Outpatient Medications Medication Sig Dispense Refill - aspirin (ASPIRIN CHILDRENS) 81 mg chewable tablet Take 81 mg by mouth once daily. - atorvastatin (LIPITOR) 40 mg tablet Take 80 mg by mouth once daily. - benazepril (LOTENSIN) 20 mg tablet Take 20 mg by mouth twice daily. - carvedilol (COREG) 3.125 mg tablet Take 3.125 mg by mouth twice daily with meals. - latanoprost (XALATAN) 0.005 % ophthalmic solution Use 1 Drop in both eyes daily at bedtime. - levothyroxine (SYNTHROID) 75 mcg tablet Take 75 mcg by mouth daily before breakfast. - oxybutynin ER (DITROPAN XL) 10 mg 24 hr tablet Take 10 mg by mouth once daily. - B cmplx 4/vit D3/C/folic/zinc (VITAL-D RX ORAL) Take by mouth once daily. - VITAMIN D2 50,000 unit capsule Take 1 capsule by mouth once each week. 11 - ESCITALOPRAM OXALATE ORAL Take by mouth. - clopidogrel (PLAVIX) 75 mg tablet Take 75 mg by mouth once daily. - pantoprazole DR (PROTONIX) 40 mg tablet Take 40 mg by mouth once daily. No current facility-administere d medications for this visit. REVIEW OF SYSTEMS Review of Systems Constitutional: Negative for chills, diaphoresis (Negative for night sweats.) and fever. HENT: Positive for hearing loss. Negative for ear discharge and rhinorrhea. Eyes: Negative for discharge. Respiratory: Negative for cough, shortness of breath and wheezing. Cardiovascular: Negative for chest pain, palpitations and leg swelling. Gastrointestinal: Negative for constipation, diarrhea, nausea and vomiting. Endocrine: Negative for cold intolerance and heat intolerance. Genitourinary: Negative for frequency. Negative for urinary incontinence and urinary retention. Musculoskeletal: Negative for back pain, joint swelling, myalgias and neck pain. Skin: Negative for rash (Negative for hives and skin lesions.). Allergic/Immunologic : Negative for environmental allergies and food allergies. Negative for contact allergy, seasonal allergies. Neurological: Negative for dizziness, seizures, syncope, weakness, light-headedness, numbness (Negative for numbness in extremities.) and headaches. Hematological: Does not bruise/bleed easily. Psychiatric/Behavior al: The patient is not nervous/anxious. Negative for depression. OBJECTIVE: BP 128/70 Pulse 58 Resp 16 Ht 5' 1 (1.55m) Wt 193 lb (87.5kg) SpO2 97% BMI 36.49 kg/(m2). PHYSICAL EXAM: Mental State : Alert, memory function unremarkable. Attention span and concentration Normal for patient's age. Recent and remote memory normal Orientation : Oriented to person, place and time Higher Cortical Function : Intact speech and language. Spontaneous speech and comprehension normal. Fund of knowledge intact for pt level of education. Cranial Nerves : II: No visual field cut no blurring. Makes and sustains eye contact III, IV, : Normal, no double vision or drooping. Pupils equal and reactive to light. Extraocular muscles intact. No nystagmus V: Normal sensation on the face, normal jaw movements VII: No paresis on either side. VIII: No gross hearing deficit IX: Normal palatal movements XI: Good and equal shoulder shrugs XII: Tongue midline, no fasciculation Sensory : Normal sensation upper and lower extremities and trunk to light touch and noxious stimuli. Motor : Normal muscle tone and bulk. No tremor or uncontrollable movements No spasticity. Strength: Upper Extremities : R L Deltoid 5/5 5/5 Biceps 5/5 5/5 Triceps 5/5 5/5 Wrist Ext 5/5 5/5 Wrist Flx 5/5 5/5 Hand Int 5/5 5/5 Lower Extremities : Hip Flexors 5/5 5/5 Hip Extensors 5/5 5/5 Hip Abductors 5/5 5/5 Hip Adductors 5/5 5/5 Quads 5/5 5/5 Ankle dorsiflex 5/5 5/5 Ankle plantars 5/5 5/5 Heel Walking intact intact Toe Walking intact intact Reflexes : Biceps 2+ 2+ Triceps 2+ 2+ Wrist 2+ 2+ Patellar 2+ 2+ Achilles 2+ 2+ Pepe's Neg Neg Tinel's Neg Neg Cerebellar Function : Normal finger to nose and rapid alternating movements. No ataxia. Negative Romberg. Gait and Station: Normal, utilizing an assistive device. Pulmonary: Lungs without cough, audible wheeze. Respirations unlabored. Cardiac: Regular rate and rhythm. No murmer, gallop or rub. Data Review IMAGING STUDIES: MRI brain w/wo performed on 01/19/19. Findings were noted as: Personal review of medical records: I reviewed with the patient, history, physical exam, the images and the chart. 1. Brain lesion The patient returns today for follow-up. She is undergone a follow-up MRI that I reviewed and compared to previous imaging study. There is no evidence of malignancy or an enlarging lesion. In fact the area prior enhancement in the right some cerebellar hemisphere looks to be smaller. I agree with the notion that this is probably a stroke finding. I told her she should follow-up with her stroke neurologist for further recommendations. All of her questions been addressed in detail. Lavon Rosales MD [facility] 12-18-2018 [facility] Office Visit (ANITRA) CORY EATON ([id number]) 1940 F Date Time Provider Department 12/18/18 9:30 AM LAVON ROSALES During your visit today, we recorded the following information about you: Pulse Respiration Blood pressure Weight 45/minute 16/minute 152/90 87.5 kg Height 1.549 m Lavon Rosales MD 12/18/2018 10:13 AM Signed NEUROSURGERY FOLLOW UP OFFICE NOTE Lavon Rosales MD Date of visit: December 18, 2018 Patient Name: Ms.Marilyn Malia Eaton Date of : 1940 Current Age: [age] year old Sex: female MRN/E# [id number] Last Office Visit: 04/01/2018 Chief Complaint: Patient presents with: Established Patient: Brain, MRI SUBJECTIVE: Ms. Eaton presents to the office today for a follow up visit for neck pain. She was last seen on 04/01/2018 for a routine follow up visit following a C5-7 ACDF with plate on 09/29/2017. She was doing well with improvement of her neck pain, arm symptoms, gait and balance. Today she states from a cervical standpoint she continues to do well. She notes some posterior stiffness and soreness, but is significantly improved since her operation. She states that she was sent from her neurologist for concerns of an abnormal brain MRI. She states earlier in the summer she had her hearing aids checked as she noted decreased hearing in the right ear. She was furthermore sent to ENT and imaging was done at that time. She was told she needed to come back to neurosurgery for this. She denies headaches, changes in vision, balance, or coordination disturbances. She is currently wearing bilateral hearing aids, but does note decreased hearing in the right ear. She presents today for evaluation and plan of care. Symptoms: right ear hearing loss PREVIOUS CONSERVATIVE TREATMENTS: none PREVIOUS SURGERY: SURGERY #1: C5-7 ACDF on 09/29/2017 PAIN EVALUATION No data found in the last 1 encounters. PAST MEDICAL HISTORY Diagnosis Date - Arthritis - Diabetes mellitus (HCC) - High cholesterol - Hypertension - Skin cancer - Thyroid disease PAST SURGICAL HISTORY Procedure Laterality Date - HYSTERECTOMY HX Total - SLING OPER STRES INCONTINENCE - THYROIDECTOMY FAMILY HISTORY Problem Relation Age of Onset - Diabetes Other mellitus - Hypertension Other ALLERGIES Allergen Reactions - Iodine Other: See Comments Patient doesn't remember. Current Outpatient Medications Medication Sig Dispense Refill - aspirin (ASPIRIN CHILDRENS) 81 mg chewable tablet aspirin - atorvastatin (LIPITOR) 40 mg tablet Take 40 mg by mouth once daily. - benazepril (LOTENSIN) 20 mg tablet Take 20 mg by mouth once daily. - carvedilol (COREG) 3.125 mg tablet Take 3.125 mg by mouth twice daily with meals. - clopidogrel (PLAVIX) 75 mg tablet Take 75 mg by mouth once daily. - latanoprost (XALATAN) 0.005 % ophthalmic solution Use 1 Drop in both eyes daily at bedtime. - levothyroxine (SYNTHROID) 75 mcg tablet Take 75 mcg by mouth daily before breakfast. - oxybutynin ER (DITROPAN XL) 10 mg 24 hr tablet Take 10 mg by mouth once daily. - pantoprazole DR (PROTONIX) 40 mg tablet Take 40 mg by mouth once daily. - B cmplx 4/vit D3/C/folic/zinc (VITAL-D RX ORAL) Take by mouth once daily. - ESCITALOPRAM OXALATE ORAL Take by mouth. No current facility-administere d medications for this visit. REVIEW OF SYSTEMS Review of Systems Constitutional: Negative for chills, diaphoresis and fever. HENT: Positive for hearing loss. Negative for congestion, ear pain and sinus pressure. Eyes: Negative for discharge and redness. Respiratory: Negative for cough, shortness of breath and wheezing. Cardiovascular: Negative for chest pain, palpitations and leg swelling. Gastrointestinal: Positive for diarrhea. Negative for constipation and nausea. Endocrine: Negative for cold intolerance and heat intolerance. Genitourinary: Negative for difficulty urinating, frequency and urgency. Musculoskeletal: Negative for back pain, gait problem and neck pain. Skin: Negative for rash and wound. Allergic/Immunologic : Negative for environmental allergies and food allergies. Neurological: Negative for dizziness, weakness and numbness. Hematological: Does not bruise/bleed easily. Psychiatric/Behavior al: Negative for agitation. The patient is not nervous/anxious. OBJECTIVE: BP 152/90 Pulse 45 Resp 16 Ht 5' 1 (1.55m) Wt 193 lb (87.5kg) SpO2 96% BMI 36.49 kg/(m2). Physical Exam Constitutional: She is oriented to person, place, and time and well-developed, well-nourished, and in no distress. HENT: Head: Normocephalic and atraumatic. Right Ear: No hearing and external ear normal. Left Ear: External ear normal. Eyes: Pupils are equal, round, and reactive to light. Conjunctivae and lids are normal. Neck: Normal range of motion. Pulmonary/Chest: Effort normal. Musculoskeletal: Normal range of motion. Neurological: She is oriented to person, place, and time. She has normal reflexes. Coordination normal. Skin: Skin is warm and dry. Psychiatric: Her speech is normal. Mood and affect normal. Neurological Exam Mental Status Awake, alert and oriented to person, place and time. Recent and remote memory are intact. Speech is normal. Language is fluent with no aphasia. Attention and concentration are normal. Fund of knowledge is appropriate for level of education. Cranial Nerves CN II: Visual acuity is normal. Visual hurst full to confrontation. CN III, IV, : Extraocular movements intact bilaterally. Normal lids and orbits bilaterally. Pupils equal round and reactive to light bilaterally. CN V: Facial sensation is normal. CN VII: Full and symmetric facial movement. CN VIII: Right: Hearing is decreased. CN IX, X: Palate elevates symmetrically. Normal gag reflex. CN XI: Shoulder shrug strength is normal. CN XII: Tongue midline without atrophy or fasciculations. Motor Normal muscle bulk throughout. No fasciculations present. Normal muscle tone. No abnormal involuntary movements. Sensory Sensation is intact to light touch, pinprick, vibration and proprioception in all four extremities. Reflexes Deep tendon reflexes are 2+ and symmetric in all four extremities with downgoing toes bilaterally. Coordination Jarqaf-ms-digx, rapid alternating movements and tqgk-ac-tcne normal bilaterally without dysmetria. Gait Normal casual, toe, heel and tandem gait. Data Review IMAGING STUDIES: MRI performed on 10/15/2018. Findings were noted as demonstrates evidence of 2 lesions within the cerebellar hemispheres. These are nonsurgical scrubbed and do not appear to have associated edema. I suspect these may be inflammatory in nature. Personal review of medical records: I reviewed with the patient, history, physical exam, the images and the chart. I also reviewed results of CSF studies. She does not have any abnormal cells on her cytology. She has elevated Vance basic protein and some other immunologic markers that represent non-GUIDANCE DIRECTOR autoimmune processes such as external oligoclonal bands. She has known history of Darryl's thyroiditis. 1. Brain lesion I reviewed her MRI and as indicated above, she has 2 lesions that are concerning. These are highly unlikely to be metastatic in nature. There appearance suggestive of a inflammatory process. Given her CSF analysis results, I told her that the options would include an open biopsy of a right cerebellar lesion. Alternatively, I recommended that we repeat a MRI in 6 weeks to see how this evolves. At that point we can make further recommendations if needed. All of her questions been addressed and discussed in detail. - MRI BRAIN WO/W IVCON; Future - iv contrast (will be provided with radiology test); MRI Brain Inject, intravenously, once for 1 dose.No IV access, insert saline lock prior to beginning of sedation, infusion, injection of imaging exam.Discontinue saline lock post exam. If Pt. has a central line or IVAD, may access for administration according to line specific nursing protocol.Once exam is complete flush line and de-access according to line specific nursing protocol in the MR contrast administration guidelines link Dispense: 1 Each; Refill: 0 - CANE, ADJUSTABLE Lavon Rosales MD Referring Provider: BRIAN RODRIGUEZ [[id number]] Allergies As of Date: 12/18/2018 Noted Allergy Reaction IODINE 06/22/2018 14 - Other: See Comments Comments: Patient doesn't remember. Date Reviewed: 12/18/2018 Reviewed by: Lavon Rosales - Fully Assessed Reason for Visit: Established Patient [175] Cmt: Brain, MRI Reason For Visit History Recorded Primary Visit Diagnosis:Brain lesion [G93.9] Other Visit Diagnosis:Brain mass [G93.89] Order(s):MRI BRAIN WO/W IVCON [[id number]] Order #: [id number] FUTURE iv contrast (will be provided with radiology test)MRI Brain Inject, intravenously, once for 1 dose.No IV access, insert saline lock prior to beginning of sedation, infusion, injection of imaging exam.Discontinue saline lock post exam. If Pt. has a central line or IVAD, may access for administration according to line specific nursing protocol.Once exam is complete flush line and de-access according to line specific nursing protocol in the MR contrast administration guidelines linkDisp: 1 EachRfl: 0 CANE, ADJUSTABLE [[id number]] Order #: [id number] Prescriptions as of 12/18/2018 Sig: ASPIRIN 81 MG CHEWABLE TABLET aspirin ATORVASTATIN 40 MG TABLET Take 40 mg by mouth once randy* BENAZEPRIL 20 MG TABLET Take 20 mg by mouth twice yehuda* CARVEDILOL 3.125 MG TABLET Take 3.125 mg by mouth twice * CLOPIDOGREL 75 MG TABLET Take 75 mg by mouth once randy* LATANOPROST 0.005 % EYE DROPS Use 1 Drop in both eyes daily* LEVOTHYROXINE 75 MCG TABLET Take 75 mcg by mouth daily be* OXYBUTYNIN CHLORIDE ER 10 MG * Take 10 mg by mouth once randy* PANTOPRAZOLE 40 MG TABLET,DEL* Take 40 mg by mouth once randy* VITAL-D RX ORAL Take by mouth once daily. ESCITALOPRAM OXALATE ORAL Take by mouth. IV CONTRAST (RADIOLOGY PROCED* MRI Brain Inject, intravenous* VITAMIN D2 50,000 UNIT CAPSULE Take 1 capsule by mouth once * Problem List As Of Date: 12/18/2018 (None) Prescriptions ordered this encounter Disp Refills Start End IV CONTRAST (RADIOLOGY PROCEDURE) 1 Ea* 0 12/18/2018 12/19/2018 Class: In Office Sig: MRI Brain Inject, intravenously, once for 1 dose.No IV access, insert saline lock prior to beginning of sedation, infusion, injection of imaging exam.Discontinue saline lock post exam. If Pt. has a central line or IVAD, may access for administration according to line specific nursing protocol.Once exam is complete flush line and de-access according to line specific nursing protocol in the MR contrast administration guidelines link Disposition: Return in about 6 weeks (around 01/29/2019). Follow-up and Disposition History Recorded Letter Text Letter Text Letter Text Encounter Status:Closed by LAVON ROSALES MD on 12/18/18 [facility] PROGRESSon 12-18-2018 PROGRESS HNO ID: [id number] Author: Lavon Rosales Service: ? Author Type: Physician Type: Progress Notes Filed: 12/18/2018 10:13 AM Note Text: NEUROSURGERY FOLLOW UP OFFICE NOTE Lavon Rosales MD Date of visit: December 18, 2018 Patient Name: Ms.Marilyn Malia Eaton Date of : 1940 Current Age: [age] year old Sex: female MRN/E# [id number] Last Office Visit: 04/01/2018 Chief Complaint: Patient presents with: Established Patient: Brain, MRI SUBJECTIVE: Ms. Eaton presents to the office today for a follow up visit for neck pain. She was last seen on 04/01/2018 for a routine follow up visit following a C5-7 ACDF with plate on 09/29/2017. She was doing well with improvement of her neck pain, arm symptoms, gait and balance. Today she states from a cervical standpoint she continues to do well. She notes some posterior stiffness and soreness, but is significantly improved since her operation. She states that she was sent from her neurologist for concerns of an abnormal brain MRI. She states earlier in the summer she had her hearing aids checked as she noted decreased hearing in the right ear. She was furthermore sent to ENT and imaging was done at that time. She was told she needed to come back to neurosurgery for this. She denies headaches, changes in vision, balance, or coordination disturbances. She is currently wearing bilateral hearing aids, but does note decreased hearing in the right ear. She presents today for evaluation and plan of care. Symptoms: right ear hearing loss PREVIOUS CONSERVATIVE TREATMENTS: none PREVIOUS SURGERY: SURGERY #1: C5-7 ACDF on 09/29/2017 PAIN EVALUATION No data found in the last 1 encounters. PAST MEDICAL HISTORY Diagnosis Date - Arthritis - Diabetes mellitus (HCC) - High cholesterol - Hypertension - Skin cancer - Thyroid disease PAST SURGICAL HISTORY Procedure Laterality Date - HYSTERECTOMY HX Total - SLING OPER STRES INCONTINENCE - THYROIDECTOMY FAMILY HISTORY Problem Relation Age of Onset - Diabetes Other mellitus - Hypertension Other ALLERGIES Allergen Reactions - Iodine Other: See Comments Patient doesn't remember. Current Outpatient Medications Medication Sig Dispense Refill - aspirin (ASPIRIN CHILDRENS) 81 mg chewable tablet aspirin - atorvastatin (LIPITOR) 40 mg tablet Take 40 mg by mouth once daily. - benazepril (LOTENSIN) 20 mg tablet Take 20 mg by mouth once daily. - carvedilol (COREG) 3.125 mg tablet Take 3.125 mg by mouth twice daily with meals. - clopidogrel (PLAVIX) 75 mg tablet Take 75 mg by mouth once daily. - latanoprost (XALATAN) 0.005 % ophthalmic solution Use 1 Drop in both eyes daily at bedtime. - levothyroxine (SYNTHROID) 75 mcg tablet Take 75 mcg by mouth daily before breakfast. - oxybutynin ER (DITROPAN XL) 10 mg 24 hr tablet Take 10 mg by mouth once daily. - pantoprazole DR (PROTONIX) 40 mg tablet Take 40 mg by mouth once daily. - B cmplx 4/vit D3/C/folic/zinc (VITAL-D RX ORAL) Take by mouth once daily. - ESCITALOPRAM OXALATE ORAL Take by mouth. No current facility-administere d medications for this visit. REVIEW OF SYSTEMS Review of Systems Constitutional: Negative for chills, diaphoresis and fever. HENT: Positive for hearing loss. Negative for congestion, ear pain and sinus pressure. Eyes: Negative for discharge and redness. Respiratory: Negative for cough, shortness of breath and wheezing. Cardiovascular: Negative for chest pain, palpitations and leg swelling. Gastrointestinal: Positive for diarrhea. Negative for constipation and nausea. Endocrine: Negative for cold intolerance and heat intolerance. Genitourinary: Negative for difficulty urinating, frequency and urgency. Musculoskeletal: Negative for back pain, gait problem and neck pain. Skin: Negative for rash and wound. Allergic/Immunologic : Negative for environmental allergies and food allergies. Neurological: Negative for dizziness, weakness and numbness. Hematological: Does not bruise/bleed easily. Psychiatric/Behavior al: Negative for agitation. The patient is not nervous/anxious. OBJECTIVE: BP 152/90 Pulse 45 Resp 16 Ht 5' 1 (1.55m) Wt 193 lb (87.5kg) SpO2 96% BMI 36.49 kg/(m2). Physical Exam Constitutional: She is oriented to person, place, and time and well-developed, well-nourished, and in no distress. HENT: Head: Normocephalic and atraumatic. Right Ear: No hearing and external ear normal. Left Ear: External ear normal. Eyes: Pupils are equal, round, and reactive to light. Conjunctivae and lids are normal. Neck: Normal range of motion. Pulmonary/Chest: Effort normal. Musculoskeletal: Normal range of motion. Neurological: She is oriented to person, place, and time. She has normal reflexes. Coordination normal. Skin: Skin is warm and dry. Psychiatric: Her speech is normal. Mood and affect normal. Neurological Exam Mental Status Awake, alert and oriented to person, place and time. Recent and remote memory are intact. Speech is normal. Language is fluent with no aphasia. Attention and concentration are normal. Fund of knowledge is appropriate for level of education. Cranial Nerves CN II: Visual acuity is normal. Visual hurst full to confrontation. CN III, IV, : Extraocular movements intact bilaterally. Normal lids and orbits bilaterally. Pupils equal round and reactive to light bilaterally. CN V: Facial sensation is normal. CN VII: Full and symmetric facial movement. CN VIII: Right: Hearing is decreased. CN IX, X: Palate elevates symmetrically. Normal gag reflex. CN XI: Shoulder shrug strength is normal. CN XII: Tongue midline without atrophy or fasciculations. Motor Normal muscle bulk throughout. No fasciculations present. Normal muscle tone. No abnormal involuntary movements. Sensory Sensation is intact to light touch, pinprick, vibration and proprioception in all four extremities. Reflexes Deep tendon reflexes are 2+ and symmetric in all four extremities with downgoing toes bilaterally. Coordination Iqgiis-ht-qzye, rapid alternating movements and obsu-wl-caqy normal bilaterally without dysmetria. Gait Normal casual, toe, heel and tandem gait. Data Review IMAGING STUDIES: MRI performed on 10/15/2018. Findings were noted as demonstrates evidence of 2 lesions within the cerebellar hemispheres. These are nonsurgical scrubbed and do not appear to have associated edema. I suspect these may be inflammatory in nature. Personal review of medical records: I reviewed with the patient, history, physical exam, the images and the chart. I also reviewed results of CSF studies. She does not have any abnormal cells on her cytology. She has elevated Vance basic protein and some other immunologic markers that represent non-GUIDANCE DIRECTOR autoimmune processes such as external oligoclonal bands. She has known history of Darryl's thyroiditis. 1. Brain lesion I reviewed her MRI and as indicated above, she has 2 lesions that are concerning. These are highly unlikely to be metastatic in nature. There appearance suggestive of a inflammatory process. Given her CSF analysis results, I told her that the options would include an open biopsy of a right cerebellar lesion. Alternatively, I recommended that we repeat a MRI in 6 weeks to see how this evolves. At that point we can make further recommendations if needed. All of her questions been addressed and discussed in detail. - MRI BRAIN WO/W IVCON; Future - iv contrast (will be provided with radiology test); MRI Brain Inject, intravenously, once for 1 dose.No IV access, insert saline lock prior to beginning of sedation, infusion, injection of imaging exam.Discontinue saline lock post exam. If Pt. has a central line or IVAD, may access for administration according to line specific nursing protocol.Once exam is complete flush line and de-access according to line specific nursing protocol in the MR contrast administration guidelines link Dispense: 1 Each; Refill: 0 - CANE, ADJUSTABLE Lavon Rosales MD Normal [facility] Echo Complete w/wo Contrasto n 11-19-2018 Echo Complete w/wo Contrast Patient Name: CORY EATON Ultrasound Exam Date/Time 11/19/2018 15:01:59 EDT Exam Echo Complete w/wo Contrast Ordering Physician DIOGENES LOCKWOOD MEGGAN Accession Number [id number] Reason For Exam severe aortic stenosis s/p TAVR Report TRANSTHORACIC ECHOCARDIOGRAM PATIENT: Cory Eaton STUDY DATE: 11/19/2018 : 1940 AGE: 78 HT/WT: 157.5 cm (62 89.4 kg (196.6 in) lb) GENDER: F BP: 142 / 73 LOCATION: [facility] PATIENT Outpatient [facility] STATUS: *ORDERING PHYSICIAN: * Belinda Lockwood *READING PHYSICIAN: * Delon King MD *DIVING BOARD ASSEMBLER: * Gracy Colon [facility], [facility] --- INDICATIONS: Severe Aortic Stenosis S/P TAVR. --- HISTORY: 10/07/18 TAVR 26 mm Evolut Pro --- CONCLUSIONS SUMMARY: 1. Left ventricle: There is focal basal and concentric hypertrophy. Systolic function is normal by visual assessment. The estimated ejection fraction is 90%. There are no regional wall motion abnormalities. Ratio of mitral valve peak E velocity to average of medial and lateral annulus peak E velocity: 19.4 c/w elevated LA filling pressure. LVOT AP diameter: 1.2 cm. 2. Mitral valve: Calcified, thickened annulus. Mean gradient (D): 2 mm Hg. 3. Aortic valve: Prior repair procedures include transcatheter aortic valve replacement. A 26.0 mm Evolut Pro prosthesis is present. There is no regurgitation. There is mild perivalvular regurgitation. Peak velocity (S): 1.9 m/sec. Mean gradient (S): 6 mm Hg. Peak gradient (S): 15 mm Hg. Dimensionless index: 0.6. 4. Tricuspid valve: There is mild-moderate, 1-2+ regurgitation. 5. Pulmonic valve: There is trivial, less than 1+ regurgitation. 6. Pulmonary arteries: Systolic pressure is mildly increased, estimated to be 35 mm Hg. --- STUDY DATA: Complete transthoracic echocardiogram. Procedure: Image quality was adequate. M-mode, complete 2D, complete spectral Doppler, and color flow Doppler images were acquired and archived for permanent storage and are available for subsequent review. Study status: Routine. Patient status: Outpatient. --- FINDINGS LEFT VENTRICLE: The cavity size is normal. There is focal basal and concentric hypertrophy. Systolic function is normal by visual assessment. The estimated ejection fraction is 90%. There are no regional wall motion abnormalities. RIGHT VENTRICLE: The cavity size is normal. Systolic function is normal. Right ventricular systolic pressure is within the normal range. VENTRICULAR SEPTUM: There is no evidence of a ventricular septal defect. LEFT ATRIUM: The atrium is normal in size. RIGHT ATRIUM: The atrium is normal in size. ATRIAL SEPTUM: Color Doppler shows no evidence of shunt. MITRAL VALVE: Calcified, thickened annulus. Doppler: There is no regurgitation. Valve area by pressure half-time: 1.5 cm2. Valve area by continuity equation (using LVOT flow): 0.6 cm2. Mean gradient (D): 2 mm Hg. Peak gradient (D): 8 mm Hg. AORTIC VALVE: Prior repair procedures include transcatheter aortic valve replacement. A 26.0 mm Evolut Pro prosthesis is present. Normal-sized, mildly calcified annulus. Doppler: There is no regurgitation. There is mild perivalvular regurgitation. Dimensionless index: 0.6. Valve area (VTI): 0.7 cm2. Indexed valve area (VTI): 0.4 cm2/m2. Mean gradient (S): 6 mm Hg. Peak gradient (S): 15 mm Hg. Peak velocity (S): 1.9 m/sec. TRICUSPID VALVE: Structurally normal valve. Doppler: There is mild-moderate, 1-2+ regurgitation. PULMONIC VALVE: Structurally normal valve. Doppler: There is trivial, less than 1+ regurgitation. AORTA: The aorta is normal. PULMONARY ARTERY: The main pulmonary artery is normal in size. Systolic pressure is mildly increased, estimated to be 35 mm Hg. Main pulmonary artery: Normal. PERICARDIUM: A prominent pericardial fat pad is present. There is no pericardial effusion. SYSTEMIC VEINS: Inferior vena cava: The vessel is normal. The IVC collapses by greater than 50% with inspiration. --- Measurements Left ventricle Value 10/08/2018 Reference LV ID, ED (L) 3.7 cm 3.6 3.9 - 5.3 LV ID, ES 2.1 cm 1.6 ------ --- LV PW thickness, ED (H) 1.5 cm 1.5 0.6 - 0.9 LV end-diastolic volume, 1-p A4C 72 ml 65 56 - 104 LV end-systolic volume, 1-p A4C 22 ml 14 19 - 49 LV end-diastolic volume, 2-p 66 ml 75 56 - 104 LV end-systolic volume, 2-p (L) 18 ml 13 19 - 49 LV E/e', lateral 15.9 17.2 ------ --- LV E/e', medial 24.9 ------ --- LV E/e', average 19.4 ------ --- Ventricular septum Value 10/08/2018 Reference IVS thickness, ED (H) 1.6 cm 1.5 0.6 - 0.9 LVOT Value 10/08/2018 Reference LVOT ID, A-P 1.2 cm 1.6 ------ --- LVOT mean velocity, S 0.7 m/sec 0.9 ------ --- LVOT VTI, S 23.4 cm 33.6 ------ --- LVOT peak gradient, S 4 mm Hg 8 ------ --- Stroke volume (SV), LVOT DP 25 ml 66 ------ --- Stroke index (SV/bsa), LVOT DP 13 ml/m2 33 ------- -- Aortic valve Value 10/08/2018 Reference Aortic valve peak velocity, S 1.9 m/sec 1.9 ------ --- Aortic valve mean velocity, S 1.1 m/sec 1.2 ------ --- Aortic valve VTI, S 39.0 cm 41.5 ------ --- Aortic mean gradient, S 6 mm Hg 7 ------ --- Aortic peak gradient, S 15 mm Hg 14 ------ --- DI 0.6 0.81 ------ --- Aortic valve area, VTI 0.7 cm2 1.6 ------- -- Aortic valve area/bsa, VTI 0.4 cm2/m2 0.8 -------- - Aortic regurg pressure half-time 1111 ms 590 ------ --- Aorta Value 10/08/2018 Reference Aortic root ID 2.2 cm <4.2 Aortic root ID, STJ, ED 2.0 cm ------ --- Ascending aorta ID, A-P 2.3 cm ------ --- Ascending aorta ID, A-P, S 2.3 cm 3.3 ------ --- Left atrium Value 10/08/2018 Reference LA volume/bsa, ES, 2-p 25 ml/m2 42 ------- -- Mitral valve Value 10/08/2018 Reference Mitral E-wave peak velocity 0.8 m/sec 1.4 ------ --- Mitral A-wave peak velocity 1.3 m/sec 1.6 ------ --- Mitral deceleration time 314 ms 457 ------ --- Mitral pressure half-time 144 ms 133 ------ --- Mitral mean gradient, D 2 mm Hg 3 ------ --- Mitral peak gradient, D 8 mm Hg 8 ------ --- Mitral E/A ratio, peak 0.6 0.9 ------ --- Mitral valve area, PHT, DP 1.5 cm2 1.7 ------- -- Mitral valve area, LVOT 0.6 cm2 1.3 ------- -- continuity Pulmonary arteries Value 10/08/2018 Reference PA pressure, S, DP 34 mm Hg 50 ------ --- Tricuspid valve Value 10/08/2018 Reference Tricuspid regurg peak velocity 2.8 m/sec 3.2 ------ --- Tricuspid peak RV-RA gradient 31 mm Hg 42 ------ --- Right atrium Value 10/08/2018 Reference RA area, ES, A4C 13 cm2 16 10 - 18 Systemic veins Value 10/08/2018 Reference Estimated RAP 3 mm Hg 8 ------ --- Right ventricle Value 10/08/2018 Reference RV ID, minor axis, ED, A4C base 2.8 cm 2.0 2.4 - 4.2 RV ID, minor axis, ED, A4C mid (L) 1.7 cm 3.4 2.0 - 3.5 TAPSE 1.9 cm 2.2 ------ --- RV pressure, S, DP 34 mm Hg 50 ------ --- RV s', lateral, S 0.1 m/sec ------ --- Legend: (L) and (H) elton values outside specified reference range. Electronically signed by Delon King MD 11/19/2018 16:24 Final Dictated: 11/19/2018 4:24 pm Dictating Physician: DELON KING Signed Date and Time: 11/19/2018 4:24 pm Signed by: DELON KING [facility] XR Chest Pa and Lateralon XR Chest Pa and Lateral HISTORY: Hypertension diabetesViews chest x2 with no comparison studies.FINDINGS:No infiltrates masses or pleural effusions.Atheroscle rosis and tortuosity aorta with normal heart size.Possible calcified loose body right shoulderReport Dictated on Workstation: [id number] nticated by: David Duke: 09/22/2017 14:56Read by: ABDON ANGate: 09/22/2017 14:56 [facility] Comment on above: Order Comment: preop sx testing cervical sx on 09/29/17 Lab Report: Blood Gas Specim en Typeon 09-27-2016 arterial blood gas ADRIEN Invalid Interpretation Code [facility] Work Phone: [phone] Lab Report: PO2 I-Bradly Oxygen in arterial blood 66 mm[Hg] Low 75-100 [facility] [place] Work Phone: [phone] Lab Report: SO2 [facility] 06-0 O2 saturation 92 % Low 95-99 [facility] [place] Work Phone: [phone] Lab Report: VBG PO2 I-Bradly 09-27-2016 oxygen, partial pressure, venous blood 36 mm[Hg] Invalid Interpretation Code 25-40 [facility] Work Phone: [phone] [facility]: [facility] saturation venous oxygen 67 % Invalid Interpretation Code 50-70 [facility] Work Phone: [phone] Lab Report: Basic Metabolic Profile (BMP)on 09-18-2016 Anion gap 5 mmol/L Invalid Interpretation Code 5-15 [facility] Work Phone: [phone] Anion gap [Moles/Vol] 5 mmol/L 5-15 [facility] Work Phone: [phone] Calcium [Mass/Vol] 9.2 mg/dL Invalid Interpretation Code 8.5-10.1 [facility] Work Phone: [phone] Chloride [Moles/Vol] 111 mmol/L High 98-[address] [facility] [address] [facility] Work Phone: [phone] CO2 28.0 mmol/L Invalid Interpretation Code 21.0-32.0 [facility] Work Phone: [phone] CO2 (BldV) [Partial pressure] 28.0 mmol/L 21.0-32.0 [facility] Work Phone: [phone] Creatinine [Mass/Vol] 0.82 mg/dL Invalid Interpretation Code 0.55-1.02 [facility] Work Phone: [phone] eGFR (non-black) 87 mL/min/{1.73_m2} Invalid Interpretation Code >60 [place] [facility] Work Phone: [phone] EST GFR - AA 87 mL/min >60 [place] Work Phone: [phone] GFR/1.73 sq M predicted among non-blacks MDRD (S/P/Bld) [Vol rate/Area] 72 mL/min/{1.73_m2} Invalid Interpretation Code >60 [facility] Work Phone: [phone] Glucose 162 mg/dL High 70-110 [facility] Work Phone: [phone] Glucose [Mass/Vol] 162 mg/dL High 70-110 [facility] Work Phone: [phone] Potassium [Moles/Vol] 4.3 mmol/L Invalid Interpretation Code 3.5-5.1 [facility] Work Phone: [phone] Sodium [Moles/Vol] 144 mmol/L Invalid Interpretation Code 136-145 [facility] Work Phone: [phone] Urea nitrogen [Mass/Vol] 13 mg/dL Invalid Interpretation Code 7-18 [facility] Work Phone: [phone] Urea nitrogen/Creatinine [Mass ratio] 15.9 RATIO Invalid Interpretation Code 10-20 [facility] Work Phone: [phone] Lab Report: CBC-Complete Blo od Cnt No Diffon 09-18-2016 Erythrocyte distribution width (RBC) [Ratio] 43.6 fL 35.1-43.9 [facility] Work Phone: [phone] Erythrocyte distribution width (RBC) [Ratio] 13.5 % 11.6-14.6 [facility] Work Phone: [phone]) Erythrocytes (RBC) 4.69 10*6/uL Invalid Interpretation Code 4.2-5.4 [facility] Work Phone: 1) Hematocrit (Bld) [Volume fraction] 41.4 % 37-47 [facility] Work Phone: 1) Hematocrit (HCT) 41.4 % Invalid Interpretation Code 37-47 [facility] Work Phone: 1) Hemoglobin (Bld) [Mass/Vol] 13.4 g/dL Invalid Interpretation Code 12.0-15.0 [facility] Work Phone: 1) MCH 28.6 pg Invalid Interpretation Code 27.0-32.0 [facility] Work Phone: 1) MCH (RBC) [Entitic mass] 28.6 pg 27.0-32.0 [facility] Work Phone: 1() MCHC 32.4 G/GL Invalid Interpretation Code 32-36 [facility] Work Phone: 1() MCHC (RBC) [Mass/Vol] 32.4 G/GL 32-36 [facility] Work Phone: [phone]) MCV 88.3 fL Invalid Interpretation Code 81-99 [facility] Work Phone: 1() MCV (RBC) [Entitic vol] 88.3 fL 81-99 [facility] Work Phone: 1() Platelet mean volume (Bld) [Entitic vol] 9.5 fL 6.2-12.0 [facility] Work Phone: 1() Platelets 136 10*3/mm3 Low 150-450 [facility] Work Phone: 1() Platelets (Bld) [#/Vol] 136 10*3/mm3 Low 150-450 [facility] Work Phone: [phone] PMV by Edenilson-Steff 9.5 fL Invalid Interpretation Code 6.2-12.0 [facility] Work Phone: [phone] RBC (Bld) [#/Vol] 4.69 10*6/uL 4.2-5.[address] [facility] Work Phone: [phone] RDW SD 43.6 fL Invalid Interpretation Code 35.1-43.9 [facility] Work Phone: [phone] RDW-CA 13.5 % Invalid Interpretation Code 11.6-14.6 [facility] Work Phone: [phone] red blood cell distribution width, size density 43.6 fL Invalid Interpretation Code 35.1-43.9 [facility] Work Phone: [phone] WBC (Bld) [#/Vol] 6.3 10*3/uL 4.4-11.0 [facility] Work Phone: [phone] WBC (Leukocytes) 6.3 10*3/uL Invalid Interpretation Code 4.4-11.0 [facility] Work Phone: [phone] Lab Report: Partial Thrombop last Timeon 09-18-2016 aPTT Coag (Bld) [Time] 31.1 s Invalid Interpretation Code 24.1-36.2 [facility] Work Phone: [phone] Lab Report: Prothrombin Time w/INRon 09-18-2016 INR Coag (PPP) [Relative time] 1.2 {INR} Invalid Interpretation Code [facility] Work Phone: [phone] INR in blood by coagulation 1.2 {INR} Invalid Interpretation Code [facility] Work Phone: [phone] PT Coag (PPP) [Time] 14.3 s Invalid Interpretation Code 11.7-14.9 [place] Work Phone: [phone] Office Visit: [facility] 09-19-19 17 Documentation of current medications (procedure) Done Invalid Interpretation Code [facility] Work Phone: [phone] Fall risk assessment No Invalid Interpretation Code [facility] [place] Work Phone: [phone] Replaced Document: Jacmark E CG Observationson 09-18-2016 EKG QRS axis -30 deg Invalid Interpretation Code [employer] Work Phone: electrocardiogram interpretation Sinus Bradycardia -Poor R-wave progression -nonspecific -consider old anterior infarct. BORDERLINE Invalid Interpretation Code [employer] Work Phone: GE use only - for LinkLogic import when terms are not otherwise specified 454 ms Invalid Interpretation Code [employer] Phone: Interpretation Sinus Bradycardia -Poor R-wave progression -nonspecific -consider old anterior infarct. BORDERLINE Invalid Interpretation Code [employer] Work Phone: P [place] 36 deg Invalid Interpretation Code [employer] Work Phone: P wave axis, electrocardiogram 36 deg Invalid Interpretation Code [employer] Phone: TN Interval 158 ms Invalid Interpretation Code [employer] Phone: TN interval, electrocardiogram 158 ms Invalid Interpretation Code [employer] Phone: Pulse (Heart Rate) 52 /min Invalid Interpretation Code [employer] Work Phone: QRS axis, electrocardiogram -30 deg Invalid Interpretation Code [employer] Phone: QRS Duration 92 ms Invalid Interpretation Code [employer] Phone: QRS duration, electrocardiogram 92 ms Invalid Interpretation Code [employer] Phone: QT Interval new path ms Invalid Interpretation Code [employer] Phone: QT interval, electrocardiogram new path ms Invalid Interpretation Code [employer] Work Phone: QTc Lopez 454 ms Invalid Interpretation Code [employer] Phone: T [place] 55 deg Invalid Interpretation Code [employer] Phone: T wave axis, electrocardiogram 55 deg Invalid Interpretation Code [employer] Phone: Chart Maintenanceon 09-10-19 17 Left ventricular Ejection fraction 55 % Invalid Interpretation Code [employer] Phone: Lab Report: Lipid Profileon 07-24-2016 Cholesterol 122 mg/dL Invalid Interpretation Code 200 [employer] Work Phone: [phone] HDL Cholesterol 63 mg/dL Invalid Interpretation Code [employer] Phone: [phone] LDL Cholesterol 34 mg/dL Invalid Interpretation Code 0-130 [employer] Work Phone: [phone] Triglyceride 124 mg/dL Invalid Interpretation Code [employer] Phone: [phone] very low density lipoproteins 25 mg/dL Invalid Interpretation Code 5-40 [employer] Work Phone: [phone] Lab Report: Liver Profileon 07-24-2016 Alanine aminotransferase (ALT) 24 U/L Invalid Interpretation Code 12-78 [employer] Work Phone: [phone] Albumin 3.4 g/dL Invalid Interpretation Code 3.4-5.0 [employer] Phone: [phone] Alkaline phosphatase (ALP) 145 U/L High 45-117 [employer] Phone: [phone] ALP (Bld) [Catalytic activity/Vol] 145 U/L High 45-117 [employer] Work Phone: [phone] Aspartate aminotransferase (AST) 13 U/L Low 15-37 [employer] Phone: [phone] Bilirubin (direct) 0.26 mg/dL Invalid Interpretation Code 0.00-0.30 [employer] Phone: [phone] Bilirubin (total) 1.40 mg/dL High 0.20-1.00 [employer] Phone: [phone] Globulin 3.3 g/dL Invalid Interpretation Code 2.3-3.5 [employer] Phone: [phone] Globulin (S) [Mass/Vol] 3.3 g/dL 2.3-3.5 [employer] Phone: [phone] Protein 6.7 g/dL Invalid Interpretation Code 6.4-8.2 [employer] Phone: [phone] Office Visiton 07-23-2016 Dietary management education, guidance, and counseling (procedure) yes Invalid Interpretation Code [employer] Phone: [phone] Documentation of current medications (procedure) Done Invalid Interpretation Code [employer] Phone: Replaced Document: Omega Charlton CG Observationson 07-23-2016 EKG QRS axis -19 deg [employer] Work Phone: electrocardiogram interpretation Sinus Bradycardia -Poor R-wave progression -nonspecific -consider old anterior infarct. BORDERLINE Invalid Interpretation Code [employer] Work Phone: GE use only - for LinkLogic import when terms are not otherwise specified 449 ms Invalid Interpretation Code [employer] Work Phone: [phone] Interpretation Sinus Bradycardia -Poor R-wave progression -nonspecific -consider old anterior infarct. BORDERLINE [employer] Work Phone: P [place] 31 deg [employer] Work Phone: [phone] P wave axis, electrocardiogram 31 deg Invalid Interpretation Code [employer] Work Phone: TN Interval 150 ms [employer] Work Phone: TN interval, electrocardiogram 150 ms Invalid Interpretation Code [employer] Work Phone: Pulse (Heart Rate) 56 /min Invalid Interpretation Code [employer] Work Phone: QRS axis, electrocardiogram -19 deg Invalid Interpretation Code [employer] Work Phone: QRS Duration 92 ms [employer] Work Phone: QRS duration, electrocardiogram 92 ms Invalid Interpretation Code [employer] Work Phone: QT Interval new path ms [employer] Work Phone: QT interval, electrocardiogram new path ms Invalid Interpretation Code [facility] Work Phone: QTc Lopez 449 ms [facility] Work Phone: T P[place] 62 deg [employer] Work Phone: T wave axis, electrocardiogram 62 deg Invalid Interpretation Code [facility] Work Phone: Clinical Lists Update: Prelo expenditure requisition clerk 07-18-2016 Left ventricular Ejection fraction 55 % Invalid Interpretation Code [facility] Work Phone: Tobacco smoking status NHIS Never smoker [employer] Work Phone: Tobacco use CPHS Never smoker Invalid Interpretation Code [facility] Work Phone: [phone] Vital Signs Date Time Vital Sign Value Performing Clinician Paola skelton 09-18-2016 09:19-0400 Heart rate 52 /min Elton Donohue ADVERTISING STATISTICAL CLERK-C [facility] Work Phone: 09-18-2016 09:00-0400 BMI (Body Mass Index) 39.52 kg/m2 Elton Donohue ADVERTISING STATISTICAL CLERK-C [facility] Work Phone: 09-18-2016 09:00-0400 Body weight 94.89 kg Elton Donohue ADVERTISING STATISTICAL CLERK-C [facility] Work Phone: 09-18-2016 09:00-0400 BP Diastolic 90 mm[Hg] Elton Donohue ADVERTISING STATISTICAL CLERK-C [facility] Work Phone: 09-18-2016 09:00-0400 BP Systolic 140 mm[Hg] Elton Donohue ADVERTISING STATISTICAL CLERK-C [facility] Work Phone: 09-18-2016 09:00-0400 Height 154.94 cm Elton Donohue ADVERTISING STATISTICAL CLERK-C [facility] Work Phone: 09-18-2016 09:00-0400 Pulse (Heart Rate) 52 /min Elton Donohue ADVERTISING STATISTICAL CLERK-C [facility] Work Phone: 09-18-2016 09:00-0400 Respiratory Rate 20 /min Elton Donohue ADVERTISING STATISTICAL CLERK-C [facility] Work Phone: 09-18-2016 09:00-0400 Weight 94.89 kg Elton Donohue ADVERTISING STATISTICAL CLERK-C [facility] Work Phone: 07-23-2016 14:12-0400 Heart rate 56 /min Jacqui Thomas RN [facility] Work Phone: 07-23-2016 13:31-0400 BMI (Body Mass Index) 39.11 kg/m2 [facility] Work Phone: 07-23-2016 13:31-0400 Body weight 93.9 kg Jacqui Thomas RN [facility] Work Phone: 07-23-2016 13:31-0400 BP Diastolic 98 mm[Hg] Trinity Devine RN [facility] Work Phone: 07-23-2016 13:31-0400 BP Systolic 144 mm[Hg] Trinity Devine RN [facility] Work Phone: 07-23-2016 13:31-0400 Height 154.94 cm Trinity Devine RN [facility] Work Phone: 07-23-2016 13:31-0400 Pulse (Heart Rate) 56 /min Trinity Devine RN [facility] Work Phone: 07-23-2016 13:31-0400 Respiratory Rate 16 /min Trinity Devine RN [facility] Work Phone: 07-23-2016 13:31-0400 Weight 93.9 kg Trinity Devine RN [facility] Work Phone: Encounters Encounter Date Encounter Type Care Provider Facility Start: 11-02-2019 End: 11-02-2019 Subsequent hospital visit by physician Aly Lockwood Work Phone: [facility] [address] Comment on above: S/P TAVR (transcathe ter aortic valve replacement) Start: 03-02-2019 End: 03-02-2019 Subsequent hospital visit by physician Aly Lockwood Work Phone: [facility] [address] Comment on above: Severe aortic stenos is; Hyperlipidemia, unspecified hyperlipidemia type; Abnormal finding of blood chemistry, unspecified Start: 09-30-2018 Patient encounter procedure [facility] Facility:[facility] Start: 09-30-2017 End: 09-30-2017 Evaluation and management of inpatient [facility] Start: 09-22-2017 End: 2017 Ambulatory [facility] Procedures Date Procedure Procedure Detail Performing Clinician [...] of Iliac Bone Marrow, Percutaneous Approach ELIOT ROSALES Start: 09-30-2017 Fusion of 2 or more Cervical Vertebral Joints with Interbody Fusion Device, Anterior Approach, Anterior Column, Open Approach ELIOT ROSALES Start: 09-30-2017 Release Cervical Ner ve, Open Approach ELIOT ROSALES Start: 09-30-2017 Resection of Cervica l Vertebral Disc, Open Approach ELIOT ROSALES Start: 09-27-2016 End: 10-16-2016 Transesophageal echocardiogram (LIZZIE) Brandyn Alaniz MD Work Phone: Start: 09-18-2016 End: 09-18-2016 *BMP Elton Donohue ADVERTISING STATISTICAL CLERK-C Start: 09-18-2016 End: 09-18-2016 aPTT in Platelet poor plasma by Coagulation assay Elton Donohue ADVERTISING STATISTICAL CLERK-C Start: 09-18-2016 End: 09-18-2016 CBC W Auto Differential panel - Blood Elton Donohue ADVERTISING STATISTICAL CLERK-C Start: 09-18-2016 End: 09-18-2016 Chest x-ray Elton Donohue ADVERTISING STATISTICAL CLERK-C Start: 09-18-2016 End: 09-18-2016 Ecg routine ecg w/least 12 lds w/i&r Elton Donohue ADVERTISING STATISTICAL CLERK-C Start: 09-18-2016 End: 09-18-2016 Follow Up Appt Other Elton Donohue ADVERTISING STATISTICAL CLERK-C Start: 09-18-2016 End: 09-18-2016 INR in Platelet poor plasma by Coagulation assay Elton Donohue ADVERTISING STATISTICAL CLERK-C Start: 09-18-2016 End: 09-18-2016 Documentation of current medications Elton Donohue ADVERTISING STATISTICAL CLERK-C Start: 09-18-2016 End: 09-18-2016 *BMP Elton Donohue ADVERTISING STATISTICAL CLERK-C Start: 09-18-2016 End: 09-18-2016 aPTT Elton Donohue ADVERTISING STATISTICAL CLERK-C Start: 09-18-2016 End: 09-18-2016 CBC W Auto Differential panel - Blood Elton Donohue ADVERTISING STATISTICAL CLERK-C Start: 09-18-2016 End: 09-18-2016 Chest x-ray Elton Donohue ADVERTISING STATISTICAL CLERK-C Start: 09-18-2016 End: 09-18-2016 Coagulation factor induced.INR assay in platelet poor plasma Elton Donohue ADVERTISING STATISTICAL CLERK-C Start: 09-18-2016 End: 09-18-2016 Electrocardiogram, complete Elton Donohue ADVERTISING STATISTICAL CLERK-C Start: 09-18-2016 End: 09-18-2016 Follow Up Appt Other Elton Donohue ADVERTISING STATISTICAL CLERK-C Start: 09-18-2016 End: 09-27-2016 Left & Right [...] Author Start: 03-02-2020 Creatinine measurement Creatinine monitoring [facility], [place] Start: 03-02-2020 Lipid panel Lipid screen [place], [place] Start: 03-02-2020 Potassium monitoring Potassium monitoring [place] Start: 12-21-2019 Influenza vaccination Flu vaccine (#1) [place], [place] Start: 10-09-2019 Creatinine monitoring Creatinine monitoring [place], [place] Start: 10-09-2019 Potassium monitoring Potassium monitoring [place] Start: 08-12-2019 Lipid screen Lipid screen [place] Start: 04-06-2019 End: 04-06-2019 Office Visit 04/06/2019 Office Visit Cardiology MilesLisa APRN - PARI MUTUEL CLERK [address] [place], [place] [id number] [facility] Start: 12-20-2018 Influenza vaccination Flu vaccine (#1) [place], [place] Start: 10-06-2018 Annual Wellness Visit (AWV) Annual Wellness Visit (AWV) [place] Start: 04-07-2017 End: 04-07-2017 Appointment Appointment [facility] Work Phone: Start: 04-07-2017 End: 04-07-2017 Appointment Appointment [facility] Work Phone: Start: 01-23-2017 End: 08-05-2016 *Hepatic Function Panel *Hepatic Function Panel [facility] Work Phone: Start: 01-23-2017 End: 08-05-2016 Lipid panel [AGGREGATE] *Lipid Profile CC PCP [facility] Work Phone: Start: 01-23-2017 End: 08-05-2016 *Hepatic Function Panel *Hepatic Function Panel [facility] Work Phone: Start: 01-23-2017 End: 08-05-2016 Lipid panel [AGGREGATE] *Lipid Profile CC PCP [facility] Work Phone: Start: 10-16-2016 End: 10-16-2016 Cardiac Referral Cardiac Referral Marcos Butterfield, [facility], [address], [address], [place], [address] [facility] Work Phone: Start: 09-27-2016 End: 09-27-2016 Transesophageal echocardiogram (LIZZIE) Transesophageal echocardiogram (LIZZIE) [facility] Work Phone: Start: 09-18-2016 End: 09-18-2016 *BMP *BMP [facility] Work Phone: Start: 09-18-2016 End: 09-18-2016 aPTT *PTT-Partial Thromboplastin Time [facility] Work Phone: Start: 09-18-2016 End: 09-18-2016 CBC W Auto Differential panel - Blood *CBC without Diff [facility] Work Phone: Start: 09-18-2016 End: 09-18-2016 Chest x-ray X-Ray, Chest, PA & Lateral [facility] Work Phone: Start: 09-18-2016 End: 09-18-2016 Ecg routine ecg w/least 12 lds w/i&r EKG (In office) [facility] Work Phone: Start: 09-18-2016 End: 09-18-2016 Follow Up Appt Other Follow Up Appt Other [facility] Work Phone: Start: 09-18-2016 End: 09-18-2016 INR Coag RelTime (PPP) *PT/INR [facility] Work Phone: Start: 09-18-2016 End: 09-18-2016 Left & Right Heart Cath Left & Right Heart Cath [facility] Work Phone: Start: 09-18-2016 End: 09-18-2016 Appointment Appointment [facility] Work Phone: Start: 09-18-2016 End: 09-18-2016 Appointment Appointment [facility] Work Phone: Start: 09-18-2016 End: 09-18-2016 *BMP *BMP [facility] Work Phone: Start: 09-18-2016 End: 09-18-2016 aPTT *PTT-Partial Thromboplastin Time [facility] Work Phone: Start: 09-18-2016 End: 09-18-2016 aPTT Coag (PPP) [Time] *PTT-Partial Thromboplastin Time [facility] Work Phone: Start: 09-18-2016 End: 09-18-2016 CBC W Auto Differential panel - Blood *CBC without Diff [facility] Work Phone: Start: 09-18-2016 End: 09-18-2016 Chest x-ray X-Ray, Chest, PA & Lateral [facility] Work Phone: Start: 09-18-2016 End: 09-18-2016 Coagulation factor induced.INR assay in platelet poor plasma *PT/INR [facility] Work Phone: Start: 09-18-2016 End: 09-18-2016 Electrocardiogram, complete EKG (In office) [employer] Work Phone: Start: 09-18-2016 End: 09-18-2016 Follow Up Appt Other Follow Up Appt Other [employer] Work Phone: Start: 09-18-2016 End: 09-18-2016 Left & Right Heart Cath Left & Right Heart Cath [employer] Work Phone: Start: 09-10-2016 End: 09-10-2016 Appointment Appointment [employer] Work Phone: Start: 09-10-2016 End: 09-10-2016 Appointment Appointment [employer] Work Phone: Start: 07-23-2016 End: 07-24-2016 *Hepatic Function Panel *Hepatic Function Panel [employer] Work Phone: Start: 07-23-2016 End: 07-23-2016 Carotid duplex Carotid duplex [employer] Work Phone: Start: 07-23-2016 End: 07-23-2016 DJN DJN [employer] Work Phone: Start: 07-23-2016 End: 07-23-2016 Ecg routine ecg w/least 12 lds w/i&r EKG (In office) [employer] Work Phone: Start: 07-23-2016 End: 07-23-2016 Follow Up Appt 1 month Follow Up Appt 1 month [employer] Work Phone: Start: 07-23-2016 End: 07-24-2016 Lipid panel [AGGREGATE] *Lipid Profile CC PCP [facility] Work Phone: Start: 07-23-2016 End: 07-23-2016 Neurology Referral Neurology Referral [facility], [address], [place], [address] [facility] Work Phone: Start: 07-23-2016 End: 07-23-2016 Stress Echocardiogram - Dobutamine Stress Echocardiogram - Dobutamine [facility] Work Phone: Start: 07-23-2016 End: 07-24-2016 *Hepatic Function Panel *Hepatic Function Panel [facility] Work Phone: Start: 07-23-2016 End: 07-23-2016 Carotid duplex Carotid duplex [facility] Work Phone: Start: 07-23-2016 End: 07-23-2016 DJN DJN [facility] Work Phone: Start: 07-23-2016 End: 07-23-2016 Electrocardiogram, complete EKG (In office) [facility] Work Phone: Start: 07-23-2016 End: 07-23-2016 Follow Up Appt 1 month Follow Up Appt 1 month [facility] Work Phone: Start: 07-23-2016 End: 07-24-2016 Lipid panel [AGGREGATE] *Lipid Profile CC PCP [facility] Work Phone: Start: 07-23-2016 End: 07-23-2016 Neurology Referral Neurology Referral [facility], [address], [place], [address] [facility] Work Phone: Start: 07-23-2016 End: 07-23-2016 Stress Echocardiogram - Dobutamine Stress Echocardiogram - Dobutamine [facility] Work Phone: Start: 2006 DEXA (modify frequency per FRAX score) DEXA (modify frequency per FRAX score) [place] Start: 2006 Pneumococcal 65+ years Vaccine (1 of 1 - PPSV23) Pneumococcal 65+ years Vaccine (1 of - PPSV23) [place] Start: 1996 Screening for osteoporosis DEXA (modify frequency per FRAX score) [place] Start: 09-24-1991 Shingles Vaccine (1 of 2) Shingles Vaccine (1 of 2) [place], [place] Start: 1960 DTaP/Tdap/Td vaccine (1 - Tdap) DTaP/Tdap/Td vaccine (1 - Tdap) [place] Start: 1952 DTaP/Tdap/Td vaccine (1 - Tdap) DTaP/Tdap/Td vaccine (1 - Tdap) [place] Patient Education [id number] [facility] Work Phone: Payers Date Payer Category Payer Medicare [employer] [facility]-MEDICARE ADVANTAGE xxxxxxxxxxx 2016-Present [phone] [address] [place] [address] xxxxxxxxxxx [id number] 2016 Medicare [employer] [id number] 2016-Present [phone] [address] [place] [address] [id number] 1958 Medicare [id number] 1940 Unknown [id number] Unknown [id number] Social History Date Type Detail Facility Start: 03-02-2019 End: 08-18-2019 Tobacco smoking status NHIS Never smoker [place] Start: 03-02-2019 End: 08-18-2019 Alcohol intake Current non-drinker of alcohol (finding) [place] Sex Assigned At Not on file [place] Start: 08-18-2019 Tobacco use and exposure Never used [place] Summary Purpose Family History No Family History Records FoundNo Family History Records FoundNo Family History Records FoundNo Family History Records FoundNo Family History Records Found Advance Directives Documents on File Type Date Recorded Patient Table Filler Expl anation Advance Directives and Living Will Power of Hairspring Inspector Latest Code Status on File Code Status Date Activated Date Inactivated Comments Full Code 10/07/2018 10:20 AM 10/08/2018 7:32 PM Full Code 10/07/2018 6:10 AM 10/07/2018 7:46 AM Full Code 08/27/2018 9:29 AM 08/27/2018 7:17 PM Documents on File Type Date Recorded Patient Table Filler Expl anation Advance Directives and Living Will Power of Hairspring Inspector Latest Code Status on File Code Status [...] Lockwood MD [address] [place] [address] Additional Source Comments INFORMATION SOURCE (unrecogn ized section and content) DATE CREATED AUTHOR 10/07/2017 [facility] DATE CREATED AUTHOR AUTHOR'S ORGANIZ ATION 06/29/2018 [facility] DATE CREATED AUTHOR AUTHOR'S ORGANIZ ATION 02/10/2019 [facility] DATE CREATED AUTHOR AUTHOR'S ORGANIZ ATION 05/05/2019 [facility] DATE CREATED AUTHOR AUTHOR'S ORGANIZ ATION 11/12/2019 [facility] FOR RECORDS PERTAINING TO PATIENTS WHO [...] BE BASED ON THE PRIMARY CLINICAL RECORDS. [facility] [employer] [facility] provides no warranty or guarantee of the accuracy or completeness of information in this document.
--- NOTE | 2024-02-13 15:24 | STRESSREP ---
Stress Test Report Pharmacologic myocardial perfusion stress test. 83-year-old lady with a history of coronary disease increased PVC burden Resting EKG demonstrates sinus bradycardia with a rate of 56 bpm. Resting blood pressure is 108/60 mmHg. 0.4 mg of regadenoson was infused per usual protocol followed by rapid intravenous saline flush injection. Continuous EKG monitoring was performed. The maximum heart rate was 80 bpm which was 57% of max impacted heart rate the maximum workload was 1 metabolic equivalent. At rest there were no ST or T wave changes noted to suggest ischemia and at peak infusion nonspecific ST changes were noted which did not meet the criteria for ischemia. No clinical angina is noted. The final blood pressure was 102/62 mmHg. Myocardial perfusion protocol. 10 point mCi of technetium 99m sestamibi was injected at rest. 0.4 mg of regadenoson was infused per usual protocol. At peak infusion 30 mCi of technetium 99m sestamibi was injected stress images were obtained stress and rest images were reconstructed and compared in the short axis vertical long and horizontal long axis. Gated images were also obtained. Perfusion SPECT analysis: Review of the stress images demonstrate normal uptake of tracer noted in all areas of the myocardium. The resting images similar demonstrated normal uptake of tracer noted in all areas of the myocardium. No areas of reversibility are noted to suggest ischemia and no previous infarct is noted. Gated SPECT analysis: The gated ejection fraction is 78%. Conclusion: Normal pharmacologic myocardial perfusion stress test. Preserved ejection fraction.
== END | disposition home or self-care (01) ==
LOC: CVS 07:11
PROVIDERS: PCP Family Medicine; Referring Provider Physician Assistant Medical; Visit Provider Physician Assistant Medical
DX: I49.3 Ventricular premature depolarization (principal); R07.9 Chest pain, unspecified
CPT/HCPCS: 78452; 93017; A9500; A4216; J2785

== ENCOUNTER → 2024-06-25 | Outpatient (CLI) | payer MEDICARE, SELFPAY ==
[2024-06-25 15:39] LABS: Absolute Neutrophil Count 3.6 X10^3/uL (2.0-7.7); Basophil# 0.03 X10^3/uL; Basophil% 0.5 % (0-1); Eosinophil# 0.27 X10^3/uL; Eosinophils% 4.4 % (0-5); Hematocrit 40.2 % (37-47); Hemoglobin 13.4 g/dL (12.0-15.0); Lymphocyte % 29.5 % (19-41); Mean Corp Hgb Conc 33.3 g/dL (32-36); Mean Corpuscular Hgb 30.2 pg (27.0-32.0); Mean Corpuscular Volume 90.5 fL (81-99); Mean Platelet Vol. 10.1 fl (6.2-12.0); Monocyte# 0.45 X10^3/uL; Monocyte% 7.4 % (0-10); NRBC Flagged by Analyzer 0 % (0-5); Neutrophil # 3.55 X10^3/uL (2.7-7.7); Platelet Count 155 K/mm3 (150-450); RBC Distribution Width CV 13.2 % (11.6-14.6); RBC Distribution Width SD 43.7 fl (35.1-43.9); Red Blood Count 4.44 M/mm3 (4.2-5.4); White Blood Count 6.1 K/mm3 (4.4-11.0)
[2024-06-25 16:15] LABS: ALB/GLOB Ratio 1.6 RATIO (0.9-2.4); AST(SGOT) 29 U/L (<=31); Alanine Aminotransfer ALT/SGPT 33 U/L (<=34); Alkaline Phosphatase 99 U/L (35-104); Anion Gap 12 (5-15); BUN 16 mg/dL (4-19); BUN/Creat Ratio 21.6 RATIO (10-20); Calcium,Total 10.1 mg/dL (7.6-11.0); Carbon Dioxide 21.1 mmol/L (21.0-32.0); Chloride 109 mmol/L (98-108); Creatinine, Serum 0.75 mg/dL (0.70-1.20); EST Glomerular Filtration Rate 80 (>60); Globulin 2.5 g/dL (2.2-4.2); Glucose 113 mg/dL (70-99); Potassium 4.3 mmol/L (3.3-5.1); Protein, Total 6.5 g/dL (5.9-8.4); Sodium Level 141 mmol/L (133-145); Total Bilirubin 0.98 mg/dL (0.00-1.30)
[2024-06-25 17:42] LABS: Uric Acid 4.2 mg/dL (2.6-6.0)
== END | disposition home or self-care (01) ==
PROVIDERS: PCP Family Medicine; Referring Provider Family Medicine; Visit Provider Family Medicine
DX: E11.21 Type 2 diabetes mellitus with diabetic nephropathy (principal); E11.22 Type 2 diabetes mellitus with diabetic chronic kidney disease; N18.31 Chronic kidney disease, stage 3a
CPT/HCPCS: 36415; 80053; 84550; 85025

== ENCOUNTER → 2024-09-14 | Outpatient (CLI) | payer MEDICARE, SELFPAY ==
--- NOTE | 2024-09-14 09:50 | CDU_ITS ---
Reason For Study Reason For Study: Amaurosis Fugax Rt. Velocities/BP Lt. Velocities/BP Prox CCA 75.6/20.4 cm/sec. Prox CCA 80.9/19.3 cm/sec. Mid CCA 75.6/16.7 cm/sec. Mid CCA 49.0/18.2 cm/sec. Dist CCA 64.6/19.2 cm/sec. Dist CCA 65.8/16.4 cm/sec. Prox ICA 64.6/19.2 cm/sec. Prox ICA 60.0/19.3 cm/sec. Mid ICA 69.5/17.9 cm/sec. Mid ICA 59.0/24.2 cm/sec. Dist ICA 47.1/15.3 cm/sec. Dist ICA 59.9/21.1 cm/sec. Rt. ICA/CCA = 0.9. Lt. ICA/CCA = 1.2. Prox ECA 65.8/10.0 cm/sec. Prox ECA 49.9/8.1 cm/sec. Rt. Vert. 64.6/24.1 cm/sec. Lt. Vert. 21.8/6.1 cm/sec. Right Extracranial There is intimal thickening but no significant atherosclerotic plaque noted in the right common carotid artery. There is heterogeneous, irregular atherosclerotic plaque noted in the right internal carotid artery. The distal right internal carotid artery is not well visualized. There is intimal thickening but no significant atherosclerotic plaque noted in the right external carotid artery. Antegrade flow is noted in the right vertebral artery. Left Extracranial There is intimal thickening but no significant atherosclerotic plaque noted in the left common carotid artery. There is heterogeneous, irregular atherosclerotic plaque noted in the left internal carotid artery. The distal left internal carotid artery is not well visualized. There is intimal thickening but no significant atherosclerotic plaque noted in the left external carotid artery. Antegrade flow is noted in the left vertebral artery. Procedure Carotid Duplex [id number]. This is a Carotid Duplex examination using B-mode, color flow and specral Doppler. The exam was diagnostic. The study was technically difficult. Exam performed in department. VL/Carotid Duplex Ultrasound Interpretation Summary Mild (<50%) stenosis right extracranial internal carotid. Mild (<50%) stenosis left extracranial internal carotid. Patent and antegrade vertebrals bilaterally. Ordering Physician: Mando Denson Referring Physician: Sunil Adamson MD Performed By: David Osborne RVT
== END | disposition home or self-care (01) ==
LOC: CVS 09:48
PROVIDERS: PCP Family Medicine; Referring Provider Ophthalmology; Visit Provider Ophthalmology
DX: G45.3 Amaurosis fugax (principal)
CPT/HCPCS: 93880

== ENCOUNTER → 2024-09-29 | Outpatient (CLI) | payer MEDICARE, SELFPAY ==
--- NOTE | 2024-09-29 13:22 | BD_ITS ---
PROCEDURE: DEXA BONE DENSITY STUDY 09/29/2024 REASON FOR EXAM: F, age 84 y/o . Postmenopausal. TECHNIQUE: DXA scan of sites with data reported below. REFERENCE LINKS: [facility] Adult Positions COMPARISON: Prior study dated August 05, 2013. FINDINGS: BMD and T-SCORES Lumbar spine: 1.010 g/cm2, T-score 0.3 Levels: L1 through L4 Change from prior: Loss of 12.4%. Left femoral neck: 0.658 g/cm2, T-score -1.7 Femoral neck comparison data not recommended for monitoring change. Left total hip: 0.679 g/cm2, T-score -2.2 Change from prior: Loss of 11.2%. Right femoral neck: 0.552 g/cm2, T-score -2.7 Femoral neck comparison data not recommended for monitoring change. Right total hip: 0.582 g/cm2, T-score -3.0 Change from prior: Loss of 11.6%. The World Health Organization has defined the following categories based on bone density: Normal bone density: T-score equal to or greater than -1.0 Osteopenia: T-score between -1.0 and -2.5 Osteoporosis: T-score equal to or less than -2.5 The patient does meet the pharmacological treatment recommendations for prevention of osteoporosis. BD/Dexa Bone Density Study IMPRESSION: OSTEOPOROSIS. Recommend follow-up as clinically warranted. Reading Location: [place] [id number]
== END | disposition home or self-care (01) ==
LOC: OPBD 13:16
PROVIDERS: PCP Family Medicine
DX: Z13.820 Encounter for screening for osteoporosis (principal); Z78.0 Asymptomatic menopausal state
CPT/HCPCS: 77080

== ENCOUNTER → 2025-01-24 | Outpatient (CLI) | payer MEDICARE, SELFPAY ==
[2025-01-24 18:55] LABS: Hematocrit 40.9 % (37-47); Hemoglobin 13.8 g/dL (12.0-15.0); Immature Granulocytes Count 0.030 X10^3/uL (0.0-0.0); Mean Corp Hgb Conc 33.7 g/dL (32-36); Mean Corpuscular Volume 90.7 fL (81-99); Mean Platelet Vol. 10.4 fl (6.2-12.0); NRBC Flagged by Analyzer 0 % (0-5); Platelet Count 158 K/mm3 (150-450); RBC Distribution Width CV 13.1 % (11.6-14.6); RBC Distribution Width SD 43.9 fl (35.1-43.9); Red Blood Count 4.51 M/mm3 (4.2-5.4); White Blood Count 8.0 K/mm3 (4.4-11.0)
[2025-01-24 21:17] LABS: AST(SGOT) 28 U/L (<=31); Alanine Aminotransfer ALT/SGPT 32 U/L (<=34); Albumin, Serum 4.1 g/dL (3.4-4.8); Alkaline Phosphatase 91 U/L (35-104); Anion Gap 13 (5-15); BUN 17 mg/dL (4-19); BUN/Creat Ratio 20.1 RATIO (10-20); Calcium,Total 10.2 mg/dL (7.6-11.0); Carbon Dioxide 19.7 mmol/L (21.0-32.0); Chloride 110 mmol/L (98-108); Cholesterol 114 mg/dL (<=200); Globulin 2.5 g/dL (2.2-4.2); Glucose 150 mg/dL (70-99); Potassium 3.9 mmol/L (3.3-5.1)
== END | disposition home or self-care (01) ==
LOC: MFPLAB 14:10
PROVIDERS: PCP Family Medicine; Visit Provider Family Medicine
DX: E11.21 Type 2 diabetes mellitus with diabetic nephropathy (principal); E11.22 Type 2 diabetes mellitus with diabetic chronic kidney disease; N18.31 Chronic kidney disease, stage 3a
CPT/HCPCS: 36415; 80053; 82465; 83718; 85025